=== PATIENT | female | born 1940 | race Caucasian/White ===

== ENCOUNTER 2019-05-21 15:04 | Inpatient (IN) | payer MEDICARE, SELFPAY ==
[2019-05-21] VITALS (7 sets, daily range): BP systolic 182–215; BP diastolic 79–96; PULSE 64–74; RESP 16–18; TEMP 36.6–37.3; O2SAT 97–100; BMI 23.6; BMI 25.8
--- NOTE | ~2019-05-21 | XR_ITS ---
Gastrografin enema examination INDICATION: Sigmoid volvulus TECHNIQUE: Examination of the colon utilizing water-soluble contrast. COMPARISON: 02/25/2019 FINDINGS: There is normal retrograde filling of the colon without obstruction. There is dilated sigmo id colon without focal stricture. The remainder of the colon is unremarkable. No evidence for volvulu s. IMPRESSION: 1: Mildly dilated sigmoid colon without obstruction or volvulus. Reviewed, dictated and finalized at location A.
--- NOTE | ~2019-05-21 | CT_ITS ---
EXAMINATION: CT abdomen pelvis w con EXAM DATE: 05/21/2019 20:40 INDICATION: Constipation, mid abdominal pain and swelling. TECHNIQUE: Spiral CT of the abdomen and pelvis was performed following intravenous injection of 100 m L Omnipaque 350. Axial, coronal and sagittal images were reviewed. The dose-length product (DLP) fo r this examination was 417.97 mGy-cm. The exposure was tailored according to patient size (auto mA e xposure control), and iterative reconstruction (ASIR) was used as additional dose reduction technique . Comparison is made to prior examination from 02/25/2019. FINDINGS: There is recurrent sigmoid volvulus with twisting of the mesentery, severely distended sigm oid colon mostly filled with gas, up to about 9 cm in diameter. There is moderate amount of colonic s tool proximal to this. No small bowel dilation. No perforation or colonic wall thickening. No portal venous gas. The liver, spleen, adrenal glands and pancreas are unremarkable. There are gallstones within an ot herwise unremarkable gallbladder. No evidence of obstructive biliary disease. Portal and splenic ve ins are patent. Kidneys enhance symmetrically. There is no hydronephrosis. There is partially dupli cated right renal collecting system. The uterus is unremarkable. The bladder is unremarkable. The re is no retroperitoneal or pelvic lymphadenopathy. There is moderate scattered arteriosclerotic di sease. The appendix is not positively visualized. There is no pericecal inflammatory change to suggest appe ndicitis. The stomach and small bowel are unremarkable. No free intraperitoneal gas. The heart is normal in size. There are no pericardial or pleural effusions. The lung bases are unremarkable. There are no osteoblastic or osteolytic lesions identified. Mild to moderate chronic L1 compression fracture. IMPRESSION: 1. Recurrent or chronic sigmoid volvulus. Correlate with prior reports, treatment. I discussed volvulus with Nicole López MD at 05/21/2019 20:41 CDT. Reviewed, dictated and finalized at location A. IMPRESSION: 1. Recurrent or chronic sigmoid volvulus. Correlate with prior reports, treatm ent. I discussed volvulus with Nicole López MD at 05/21/2019 20:41 CDT.
[2019-05-21 15:56] LABS: Basophils Percent Auto 0.4 % (0.2-1.2); Eosinophils Percent Auto 0.4 % (0-4.4); Hematocrit 42.9 % (37.0-47.0); Hemoglobin 13.7 g/dL (12.0-15.0); Immature Granulocyte Absolute 0.03 K/mm3 (0.00-0.031); Immature Granulocyte Percent A 0.3 % (0-0.5); Lymphocytes Absolute Auto 1.79 K/mm3 (0.9-3.2); Lymphocytes Percent Auto 19.7 % (18.3-44.2); Mean Corpuscular HGB Conc 31.9 g/dl (32-36); Mean Corpuscular Volume 90.9 fl (80-100); Monocytes Absolute Auto 0.4 K/mm3 (0.1-0.6); Monocytes Percent Auto 4.5 % (2.6-8.5); Neutrophils Absolute Auto 6.8 K/mm3 (1.3-6.7); Neutrophils Percent Auto 74.7 % (45.5-73.1); Platelet Count Result 210 k/mm3 (150-375); Red Blood Count 4.72 M/mm3 (4.2-5.4); Red Cell Distribution Width 13.8 % (11.5-14.5); White Blood Count 9.1 K/mm3 (4.5-10.0)
[2019-05-21 16:10] LABS: Add Urine Microscopic? YES; Appearance Urine Clear (Clear); Bilirubin Urine Negative (Negative); Blood Urine Negative (Negative); Color Urine Yellow (Yellow); Glucose Urine UA Negative (Negative); Ketones Urine Negative (Negative); Leukocyte Esterase Ur Negative LEU/UL (Negative); Mucus Urine Rare /lpf; Nitrate Urine Negative (Negative); Protein Urine 1+ mg/dL (Negative); RBC Urine 0-2 /hpf (0-2); Specific Grav Ur 1.017 (1.001-1.035); Squamous Epithelial Cell Urine Occasional /hpf (Few); Urobilinogen Urine Negative mg/dL (<2.0); WBC Urine 0-3 /hpf
[2019-05-21 18:18] LABS: Alanine Aminotransferase 59 U/L (4-35); Albumin Level 5.4 g/dL (3.5-5.1); Alkaline Phosphatase 94 U/L (38-126); Aspartate Amino Transferase 62 U/L (14-36); Bilirubin,Total 0.8 mg/dL (0.2-1.3); Blood Urea Nitrogen 18 mg/dL (7-17); Calcium 9.9 mg/dL (8.4-10.2); Carbon Dioxide 28 mmol/L (22-30); Chloride 100 mmol/L (98-107); Estimated CRCL calculation 43 ml/min; Estimated Glomerular Filt Rate 60; Glucose 98 mg/dL (65-105); Lipase 127 U/L (23-300); Potassium 4.2 mmol/L (3.4-5.0); Sodium 139 mmol/L (137-145)
--- NOTE | 2019-05-21 19:03 | ED.ABDPAIN ---
HPI - Abdominal Pain General Chief Complaint: Abdominal Pain Stated Complaint: constipation for 3 days Time Seen by Provider: 05/21/19 18:58 Source: patient and RN notes reviewed Mode of arrival: other Limitations: dementia History of Present Illness HPI narrative: Pt is an 78 y/o female who presents to the ED with c/o LUQ abdominal soreness pain that began 3-4 days ago. Pt notes that she fell today. Pt was in the bathroom and slipped on the floor. Pt states that she had an episode of emesis after her fall. She notes that she has not eaten today. Pt denies LOC. Pt also reports left sided chest pain and constipation. Pt takes ASA 81 mg daily. HPI is limited due to pt's dementia. MD elicited complaint: abdominal pain Onset (ago): day(s) (3-4) Location: LUQ Associated symptoms: vomiting, constipation and other (left sided chest pain) Related Data Home Medications Medication Instructions Recorded Confirmed Tylenol 325 mg PO BID 02/25/19 05/22/19 aspirin [Adult Low Dose Aspirin] 81 mg PO DAILY 02/25/19 05/22/19 ezetimibe 10 mg PO DAILY 02/25/19 05/22/19 levothyroxine 25 mcg PO DAILY 02/25/19 05/22/19 metoprolol succinate [Toprol XL] 12.5 mg PO BID 02/25/19 05/22/19 rosuvastatin [Crestor] 40 mg PO DAILY 02/25/19 05/22/19 senna 8.6 mg PO HS 02/25/19 05/22/19 Allergies Allergy/AdvReac Type Severity Reaction Status Date / Time adhesive Allergy Intermediate Rash Verified 05/21/19 22:37 peanut Allergy Unknown Cough Verified 05/21/19 22:37 Review of Systems Review of Systems: ROS unobtainable: other (limited due to pt's dementia) Cardiovascular: Cardiovascular: Reports chest pain (left sided) Gastrointestinal: Gastrointestinal: Reports abdominal pain (LUQ), Reports constipation and Reports vomiting Neurologic: Denies syncope [facility] Past Medical History Medical History Adynamic ileus Anxiety Aortic valve regurgitation Moderate regurgitation noted on echocardiogram December 2015 Arthritis Carotid artery stenosis Constipation With history of possible sigmoid volvulus in November and [place] of 2019. 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 Mcbride due to mitral valve Prolapse; with mild mitral valve regurgitation noted on echo from December 2015 History of cardiac catheterization July 2015 at [place] which demonstrated 50-60% mid LAD stenosis and 40% circumflex stenosis with fractional flow reserve not suggestive of significant limitations that would cause chest pain Family History Family History Father Diabetes mellitus Cerebrovascular accident Heart disease He at age 69 of an [place] Mother Esophageal cancer Sibling , Sister at age 67 of an [place] and had dementia. Another sister who had lung cancer and blood clots. Brother who of a brain tumor 10 years old. Other siblings who had testicular cancer and lymphoma. No problems noted. Social History Social History (Reviewed 05/21
[2019-05-21] MEDS: LACTATED RINGERS 1,000 ML 125 ML IV CONT (23:21)
--- NOTE | 2019-05-22 00:07 | ADMGEN ---
This patient, Peace Kinsey, was admitted to [facility] Surg Room 321-01. Patient/family oriented to hospital policies and general routines including ID bracelet, bed and alarms, visiting hours, pain management, procedures, bathroom and other care routines, personal items, smoking policy, room service/diet, and visiting hours. Valuables list has been completed. Information on how to activate the Rapid Response Team has been discussed. Patient/Family are encouraged to report perceived risks to care and to ask questions if they do not understand what they are told or what they should do.
--- NOTE | 2019-05-22 02:49 | ECG_ITS ---
Measurements Intervals [place] Rate: 65 P: 64 IA: 200 QRS: 10 QRSD: 100 T: 14 QT: 415 QTc: 433 Interpretive Statements SINUS RHYTHM VOLTAGE CRITERIA FOR LVH BORDERLINE ST ABNORMALITY- INF/LAT LEADS BASELINE WANDER- V3-V5 BORDERLINE ECG Electronically Signed On 05-22-2019 7:05:53 CDT by Cezar Love D.O.
[2019-05-22] MEDS: MORPHINE SULFATE 4 MG/ML INJ 2 MG IV PUSH (02:56)
[2019-05-22 04:51] LABS: Troponin I < 0.012 ng/mL (0.000-0.034)
[2019-05-22 06:00] VITALS: BP 146/84; PULSE 66; RESP 18; TEMP 36.5; O2SAT 100
[2019-05-22] MEDS: LACTATED RINGERS 1,000 ML 125 ML IV CONT ×2 (06:22→19:01)
--- NOTE | 2019-05-22 11:18 | PM.CNGS ---
Assessment and Plan Assessment and plan (1) Sigmoid volvulus: Code(s): K56.2 - Volvulus Status: Acute Assessment and Plan: CT scan reviewed and discussed with the patient. She has evidence of a recurrent sigmoid volvulus. This is the third admission with findings suggesting a sigmoid volvulus on CT scan since November of 2018. I discussed the pathophysiology of this process with the patient and the likelihood of recurrence if not treated surgically. The patient has the option to proceed with a sigmoidectomy or take the chance that this could happen again in the future and require more emergent surgery. We will get a gastrografin enema today to further assess the suspected volvulus. GI has been consulted and we will await their recommendations as well. The patient's pain has improved some but she is still distended, diffusely tender, and not having any flatus or bowel movements. We will keep her NPO for now with IV fluids running. Continue analgesics as needed for pain. We will continue to monitor the patient also with serial abdominal exams and imaging. Thank you for allowing me to see the patient in consultation and we will continue to follow along with you. (2) Essential hypertension: Code(s): I10 - Essential (primary) hypertension Status: Acute (3) Paroxysmal atrial fibrillation: Code(s): I48.0 - Paroxysmal atrial fibrillation Status: Acute (4) Vascular dementia: Code(s): F01.50 - Vascular dementia without behavioral disturbance Status: Acute Additional Plan Discussed the patient's case and plan of care with Dr. Choudhury. History of Present Illness Consult details Consult date: 05/22/19 Reason for consult: other (Chronic versus recurrent volvulus) Requesting physician: Nicole López MD Narrative: This is an 78-year-old female with dementia and a history of hypertension, hyperlipidemia, paroxysmal atrial fibrillation, and history of stroke, who has been hospitalized on two previous occasions since November of 2018 for a suspected sigmoid volvulus. During her admission in November of 2018, she had a flexible sigmoidoscopy by Dr. Bran on 11/29/18 and the sigmoid colon appeared normal. Suspected that if there was a sigmoid volvulus, which was initially noted on a CT scan, then it had resolved with the prior to the sigmoidoscopy. She was discharged and returned back to [facility] in February of 2019 with findings on a [address] scan that again showed a sigmoid volvulus. She then had a gastrografin enema study, which showed a distended sigmoid colon but no evidence of an obstruction. She was treated for an ileus and discharged home on Miralax daily and milk of magnesia as needed for constipation. The patient was discharged home and now has presented back to the ER yesterday apparently with complaints of abdominal pain, bloating, and status post a fall. The patient has dementia and is overall a poor historian. She was able to recall some information but seemed very forgetful and frustrated by her confusion. Remaining history was compiled from her electronic medical record. The patient reports noting lower abdominal pain for the past few days that worsened yesterday while in the shower and having a fall after getting out of the shower. She reports to me that she lost consciousness very briefly. She also reports possibly vomiting yesterday but is unsure. She believes it has been 5-6 days since she has last had a BM. She also reports having chest pain yesterday and was concerned about her heart, therefore she decided to present to the ED for further evaluation. CT scan of the abdomen and pelvis showed a chronic versus recurrent sigmoid volvulus. Labs were unremarkable. The patient denies taking any over the counter medications for the constipation. She is unsure if she had takent he Miralax after being discharged in February but states that she does not believe she is currently taking that medication. She d
--- NOTE | 2019-05-22 11:20 | PM.IMHP ---
H&P: HPI History of Present Illness Chief complaint: volvulus abdominal pain Narrative: Date of visit 05/21 [id number] Peace Kinsey is a 78 year old demented white female with recurrent colonic volvulus and/or ileus. Last evening after callus shower she had abdominal pain and slipped and fell. She reported to ER in the there is no loss of consciousness but tells me that she was not sure she passed out or not. She did have emesis and with discomfort came to the emergency room for evaluation. CT scan revealed what looked to be sigmoid volvulus with E ileus. She had similar episodes in November and February 2019 which resolved spontaneously. She does relate that she has not had a bowel movement for 4-5 days and denied any hematemesis melena or hematochezia Review of Systems Review of Systems: Narrative: Review of systems not very reliable due to her dementia Constitutional she has had prior to the present illness appetite was good and weight was stable Eye no double vision or scotoma Mouth no pharyngitis laryngitis Pulmonary no increased shortness breath wheezing or cough CV no chest pain or palpitation no dysuria no hematuria Muscle skeletal no particular joint discomfort Integument no skin breakdown rashes Neuro history of seizures [facility] Past Medical History Medical History (Updated 05/21/19 @ 21:29 by Melia Marcelino) Adynamic ileus Anxiety Aortic valve regurgitation Moderate regurgitation noted on echocardiogram December 2015 Arthritis Carotid artery stenosis Constipation With history of possible sigmoid volvulus November 2018 CVA (cerebral vascular accident) 2015 with TIA in 2009 Depression Diastolic dysfunction On echocardiogram December 2015 with ejection fraction is 60-70% and moderate left atrial enlargement DVT (deep venous thrombosis) rt leg DVT prophylaxis Essential hypertension GERD (gastroesophageal reflux disease) HLD (hyperlipidemia) Hypothyroidism Insomnia Macular 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 Mcbride due to mitral valve Prolapse; with mild mitral valve regurgitation noted on echo from December 2015 History of cardiac catheterization July 2015 at [place] which demonstrated 50-60% mid LAD stenosis and 40% circumflex stenosis with fractional flow reserve not suggestive of significant limitations that would cause chest pain Family History Family History (Updated 02/25/19 @ 22:31 by Dalia Nesbitt DO) Father Diabetes mellitus Cerebrovascular accident Heart disease He at age 69 of an [place] Mother Esophageal cancer Sibling , Sister at age 67 of an [place] and had dementia. Another sister who had lung cancer and blood clots. Brother who of a brain tumor 10 years old. Other siblings who had testicular cancer and lymphoma. No problems noted. Social History Social History (Updated 02/26/19 @ 01:51 by Dalia Nesbitt DO) Social History: Patient is and lives at home with her in [facility]. Patient occasionally drinks alcohol but only in moderation. She briefly smoked in her youth. She worked her way through college. 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 Primary care physician: Dr. Isaias Whitley Code status: Full code per EMR Years smoked: 2 Smoking status: Former smoker Tobacco type: cigarettes Alcohol intake: unknown Substance use: never Substance use type:
[2019-05-22 13:48] VITALS: BMI 25.8
[2019-05-22 14:00] VITALS: BP 154/85; PULSE 55; RESP 18; TEMP 36.4; O2SAT 100
--- NOTE | 2019-05-22 18:40 | WPDGICN ---
Assessment and Plan Assessment and plan (1) Sigmoid volvulus: Code(s): K56.2 - Volvulus Status: Acute Assessment and Plan: surgery on board because recurrent volvulus, ultimately surgery will be indicated because risk of similar presentation. She is comfortable now and enema does not reveal volvulus. Continue with supportive care. (2) Adynamic ileus: Code(s): K56.0 - Paralytic ileus Status: Acute (3) Vascular dementia: Code(s): F01.50 - Vascular dementia without behavioral disturbance Status: Acute Assessment and Plan: at baseline she is confused. (4) Abdominal pain: Qualifiers: Abdominal location: generalized Qualified Code(s): R10.84 - Generalized abdominal pain Code(s): R10.9 - Unspecified abdominal pain Status: Acute Assessment and Plan: improved, monitor (5) Essential hypertension: Code(s): I10 - Essential (primary) hypertension Status: Acute GI Consult Note Consult date/time: 05/22/19 18:40 Reason for consult: recurrent sigmoid volvulus HPI: Peace Kinsey is a 78 year old female with history of hypertension, hyperlipidemia, paroxysmal atrial fibrillation, and dementia (history obtained from records). She has been admitted x2 few months ago for suspected sigmoid volvulus. Dr Bran in November of 2018, performed a flexible sigmoidoscopy and sigmoid appeared normal. She returned back to [facility] in February of 2019 with findings on a CT scan that again showed sigmoid volvulus, then had gastrografin enema study, which showed a distended sigmoid colon but no evidence of an obstruction, treated again for ileus and constipation. Now she is back with abdominal pain, CT scan showed recurrent or chronic sigmoid volvulus but today enema showed only mild dilated sigmoid without volvulus. Pain is better now, no nausea or vomiting. Review of Systems Constitutional: Constitutional: Denies body ache(s) Eyes: Eyes: Denies blurry vision ENT: Denies nasal discharge Cardiovascular: Cardiovascular: Denies chest pain Respiratory: Respiratory: Denies dyspnea Gastrointestinal: Gastrointestinal: Reports abdominal pain and Reports bloating Genitourinary: Genitourinary: Denies dysuria Musculoskeletal: Musculoskeletal: Denies stiffness Neurologic: Denies Abnormal speech present Psychiatric: Psychiatric: Reports anxiety PMFSH Past Medical History Medical History Adynamic ileus Anxiety Aortic valve regurgitation Moderate regurgitation noted on echocardiogram December 2015 Arthritis Carotid artery stenosis Constipation With history of possible sigmoid volvulus in November and February of 2019. 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 Mcbride due to mitral valve Prolapse; with mild mitral valve regurgitation noted on echo from December 2015 History of cardiac catheterization July 2015 at [place] which demonstrated 50-60% mid LAD stenosis and 40% circumflex stenosis with fractional flow reserve not s
[2019-05-22 19:02] VITALS: PULSE 78
[2019-05-22] MEDS: METOPROLOL SUCCINATE EXT REL 12.5 MG TABCR PO (19:02)
[2019-05-22] MEDS: ENOXAPARIN 40 MG/0.4 ML SYRINGE SUB-Q (20:25)
[2019-05-22 22:00] VITALS: BP 188/82; PULSE 61; RESP 18; TEMP 36.6; O2SAT 100
[2019-05-23] MEDS: LACTATED RINGERS 1,000 ML 125 ML IV CONT (04:34)
[2019-05-23 06:00] VITALS: BP 164/67; PULSE 54; RESP 16; TEMP 36.8; O2SAT 100
[2019-05-23 06:10] LABS: Basophils Percent Auto 0.5 % (0.2-1.2); Eosinophils Absolute Auto 0.1 K/mm3 (0-0.3); Eosinophils Percent Auto 1.3 % (0-4.4); Hematocrit 34.7 % (37.0-47.0); Hemoglobin 11.3 g/dL (12.0-15.0); Immature Granulocyte Absolute 0.01 K/mm3 (0.00-0.031); Immature Granulocyte Percent A 0.2 % (0-0.5); Lymphocytes Absolute Auto 2.69 K/mm3 (0.9-3.2); Lymphocytes Percent Auto 44.8 % (18.3-44.2); Mean Corpuscular HGB Conc 32.6 g/dl (32-36); Mean Corpuscular Hemoglobin 29.4 pg (26-34); Mean Corpuscular Volume 90.4 fl (80-100); Mean Platelet Volume 11.3 fl (7.4-10.4); Monocytes Absolute Auto 0.4 K/mm3 (0.1-0.6); Monocytes Percent Auto 6.7 % (2.6-8.5); Neutrophils Absolute Auto 2.8 K/mm3 (1.3-6.7); Neutrophils Percent Auto 46.5 % (45.5-73.1); Platelet Count Result 176 k/mm3 (150-375); Red Blood Count 3.84 M/mm3 (4.2-5.4); Red Cell Distribution Width 13.9 % (11.5-14.5)
[2019-05-23 07:30] LABS: Alanine Aminotransferase 27 U/L (4-35); Albumin Level 3.7 g/dL (3.5-5.1); Alkaline Phosphatase 51 U/L (38-126); Aspartate Amino Transferase 28 U/L (14-36); Bilirubin,Total 0.7 mg/dL (0.2-1.3); Blood Urea Nitrogen 14 mg/dL (7-17); Calcium 8.7 mg/dL (8.4-10.2); Carbon Dioxide 26 mmol/L (22-30); Chloride 105 mmol/L (98-107); Estimated CRCL calculation 47 ml/min; Estimated Glomerular Filt Rate > 60; Glucose 74 mg/dL (65-105); Sodium 136 mmol/L (137-145)
[2019-05-23 10:08] VITALS: PULSE 54
[2019-05-23] MEDS: METOPROLOL SUCCINATE EXT REL 12.5 MG TABCR PO ×2 (10:08→17:43)
[2019-05-23] MEDS: polyethylene glycoL 3350 17 GM POWD.PACK PO (11:30)
--- NOTE | 2019-05-23 11:58 | PM.PNGS ---
Progress Note: A&P Assessment and Plan (1) Sigmoid volvulus: Code(s): K56.2 - Volvulus Status: Acute Assessment and Plan: Gastrografin enema showed no obstruction or evidence of volvulus, mildly dilated sigmoid colon. She is tolerating clear liquids. Discussed the case with Dr. Choudhury. Since this is a recurrent problem, although has not caused a total obstruction, it is likely that this will continue to be an issue in the future and has the potential to become a more emergent issue, by causing ischemia or perforation. It would be recommended that the patient have a sigmoidectomy. We have discussed this with the patient and will attempt to contact the son/POA to discuss the patient's case and our recommendations with proceeding with surgery. Futher plan will be forthcoming following our conversation with the patient and her family. (2) Essential hypertension: Code(s): I10 - Essential (primary) hypertension Status: Acute (3) Paroxysmal atrial fibrillation: Code(s): I48.0 - Paroxysmal atrial fibrillation Status: Acute (4) Vascular dementia: Code(s): F01.50 - Vascular dementia without behavioral disturbance Status: Acute Subjective Subjective Date/Time Seen: 05/23/19 10:58 Patient reports: no new complaints, feels better, pain is less and bowel movement (yesterday) Interval history: Patient reports feeling well today with no complaints of abdominal pain. She reports still some mild nausea after the clear liquids because she drank them fast. No vomiting and bloating has improved. One documented bowel movement yesterday but patient cannot recall having a bowel movement. She does not believe she has been passing gas today. No other complaints at this time. Review of Systems Review of Systems: All systems reviewed & are unremarkable except as noted in HPI and below Exam Const: General: comfortable, no acute distress and awake GI: Inspection: normal to inspection and non-distended GI Palp: Yes Soft to palpation, Yes Tenderness to palpation present (GI) (LUQ and LLQ, mild), No Guarding due to palpation present (GI) and No Rebound tenderness present Auscultation: normal bowel sounds Skin: General skin exam: normal color Neuro: General: patient oriented x3 and no focal motor deficits Extrem: General: normal to inspection and no edema Objective Data Vital Signs Vital Signs: Vital Signs - 24 hr 05/22/19 14:00 05/22/19 19:02 05/22/19 22:00 Temperature 36.4 C L 36.6 C Pulse Rate 55 L 78 61 Respiratory Rate 18 18 Blood Pressure 154/85 H 188/82 H Pulse Oximetry 100 100 05/23/19 06:00 05/23/19 10:08 Temperature 36.8 C Pulse Rate 54 L 54 L Respiratory Rate 16 Blood Pressure 164/67 H Pulse Oximetry 100 Intake/Output Intake/Output: Intake & Output 05/20/19 05/21/19 05/22/19 05/23/19 23:59 23:59 23:59 23:59 Intake Total 2840 1150 Output Total 200 Balance 2640 1150 Meds/Results Medications: Active Medications Generic Name Dose Route Start Last Admin Trade Name Freq PRN Reason Stop Dose Admin Enoxaparin Sodium 40 mg 05/22/19 21:00 05/22/19 20:25 Lovenox SUB-Q 40 mg HS ELE Administration Lactated Ringer's 1,000 mls @ 125 mls/hr 05/21/19 21:25 05/23/19 04:34 Lr - Lactated Ringers Iv IV CONT 125 mls/hr .Q8H ELE Administration Metoprolol Succinate 12.5 mg 05/22/19 17:00 05/23/19 10:08 Toprol Xl PO 12.5 mg BID ELE Administration Morphine Sulfate 2 mg 05/21/19 21:24 05/22/19 02:56 Morphine Sulfate Inj IV PUSH 2 mg Q2H PRN Administration Pain Rated 7-10 Polyethylene Glycol 17 gm 05/23/19 11:55 Miralax PO QAM [facility] Radiology Results: ITS Impressions Abdomen/Pelvis CT 05/21/19 20:43 IMPRESSION: 1. Recurrent or chronic sigmoid volvulus. Correlate with prior reports, treatment. I discussed volvulus with Nicole López MD at 05/21/2019 20:41 CDT. Enema w/Water S
[2019-05-23 14:00] VITALS: BP 169/67; PULSE 57; RESP 14; TEMP 37; O2SAT 100
--- NOTE | 2019-05-23 16:41 | PM.IMPN ---
Progress Note: A&P Assessment and Plan (1) Adynamic ileus: Code(s): K56.0 - Paralytic ileus Status: Acute Assessment and Plan: With probable recurrent volvulus. Resolved with water contrast BE. Today abdomen is benign with good bowel sounds. She got solid fluids and had a normal bowel movement. Surgery has discuss with them the probable need to proceed with elective colon resection to prevent recurrence of the same and complications. She will follow-up Dr. Ramirez and make a definitive decision (2) Essential hypertension: Code(s): I10 - Essential (primary) hypertension Status: Acute Assessment and Plan: Continue metoprolol (3) Paroxysmal atrial fibrillation: Code(s): I48.0 - Paroxysmal atrial fibrillation Status: Acute Assessment and Plan: Sinus rhythm by physical exam and EKG, not anticoagulated due to falls (4) DVT prophylaxis: Code(s): Z29.9 - Encounter for prophylactic measures, unspecified Status: Acute Assessment and Plan: Lovenox (5) Diastolic dysfunction: Code(s): I51.89 - Other ill-defined heart diseases Status: Acute Assessment and Plan: By history chronic diastolic and euvolemic at present time Subjective Date/time seen: 05/23/19 16:41 Interval history: Date of visit 05/22 . 78-year-old demented hypertensive white female with recurrent volvulus any ileus presented with abdominal pain and evidence of volvulus on CT scan. Resolved with water-soluble enema and feeling better today. Had BM after solid foods Exam Narrative: Exam Narrative: Blood pressure 160/66 pulse 54 and regular afebrile Pupil equal reactive to light sclera anicteric Lungs clear CV faint systolic ejection murmur and regular rate rhythm Abdomen is soft nontender bowel sounds increased today Extremities without edema dorsalis pedis posterior tibial 1+ Neuro alert pleasant, cooperative with no focal deficits, oriented to person and place When asked if she had children showed looks to her for answers Objective Data Vital Signs Vital Signs: Vital Signs - 24 hr 05/22/19 19:02 05/22/19 22:00 05/23/19 06:00 Temperature 36.6 C 36.8 C Pulse Rate 78 61 54 L Respiratory Rate 18 16 Blood Pressure 188/82 H 164/67 H Pulse Oximetry 100 100 05/23/19 10:08 Temperature Pulse Rate 54 L Respiratory Rate Blood Pressure Pulse Oximetry Intake/Output Intake/Output: Intake & Output 05/20/19 05/21/19 05/22/19 05/23/19 23:59 23:59 23:59 23:59 Intake Total 2840 2385 Output Total 200 Balance 2640 2385 Meds/Results Medications: Active Medications Generic Name Dose Route Start Last Admin Trade Name Freq PRN Reason Stop Dose Admin Enoxaparin Sodium 40 mg 05/22/19 21:00 05/22/19 20:25 Lovenox SUB-Q 40 mg HS ELE Administration Metoprolol Succinate 12.5 mg 05/22/19 17:00 05/23/19 10:08 Toprol Xl PO 12.5 mg BID ELE Administration Morphine Sulfate 2 mg 05/21/19 21:24 05/22/19 02:56 Morphine Sulfate Inj IV PUSH 2 mg Q2H PRN Administration Pain Rated 7-10 Polyethylene Glycol 17 gm 05/23/19 11:55 05/23/19 12:18 [facility] [place]: ITS Impressions Abdomen/Pelvis CT 05/21/19 20:43 IMPRESSION: 1. Recurrent or chronic sigmoid volvulus. Correlate with prior reports, treatment. I discussed volvulus with Nicole López MD at 05/21/2019 20:41 CDT. Enema w/Water Soluble 05/22/19 13:37 IMPRESSION: 1: Mildly dilated sigmoid colon without obstruction or volvulus. Labs Labs: Laboratory Results - last 24 hr 05/23/19 05/23/19 05:31 05:31 WBC 6.0 RBC 3.84 L Hgb 11.3 L Hct 34.7 L MCV 90.4 MCH 29.4 MCHC 32.6 RDW 13.9 Plt Count 176 MPV 11.3 H Immature Gran % (Auto) 0.2 Neut % (Auto) 46.5 Lymph % (Auto) 44.8 H [place] % (Auto) 6.7 Eos % (Auto) 1.3 Baso % (Auto) 0.5 Lymph # (Auto
[2019-05-23 17:43] VITALS: PULSE 54
[2019-05-23] MEDS: ENOXAPARIN 40 MG/0.4 ML SYRINGE SUB-Q (20:47)
[2019-05-23 22:00] VITALS: BP 108/71; PULSE 64; RESP 18; TEMP 37.2; O2SAT 100
[2019-05-23] MEDS: MORPHINE SULFATE 4 MG/ML INJ 2 MG IV PUSH (23:08)
[2019-05-24 06:00] VITALS: BP 116/78; PULSE 55; RESP 16; TEMP 36.6; O2SAT 96
[2019-05-24 09:25] VITALS: PULSE 56
[2019-05-24] MEDS: polyethylene glycoL 3350 17 GM POWD.PACK PO (09:25)
[2019-05-24] MEDS: METOPROLOL SUCCINATE EXT REL 12.5 MG TABCR PO (09:25)
--- NOTE | 2019-05-24 18:13 | PM.DS ---
DS: Diagnosis Admitting Diagnosis Admitting Diagnosis: Paralytic ileus Discharge Diagnosis (1) Adynamic ileus: Code(s): K56.0 - Paralytic ileus Status: Acute Assessment and Plan: With probable recurrent volvulus. Resolved with water contrast BE. Today abdomen is benign with good bowel sounds. She got solid fluids and had a normal bowel movement. Surgery has discuss with them the probable need to proceed with elective colon resection to prevent recurrence of the same and complications. She will follow-up Dr. Ramirez and make a definitive decision in 2 weeks (2) Essential hypertension: Code(s): I10 - Essential (primary) hypertension Status: Acute Assessment and Plan: Continue metoprolol , blood pressure well controlled with systolic 116 at the time of discharge (3) Paroxysmal atrial fibrillation: Code(s): I48.0 - Paroxysmal atrial fibrillation Status: Acute Assessment and Plan: Sinus rhythm by physical exam and EKG, not anticoagulated due to falls (4) Diastolic dysfunction: Code(s): I51.89 - Other ill-defined heart diseases Status: Acute Assessment and Plan: By history chronic diastolic and euvolemic at present time DS: Summary Hospital Course Hospital Course: 78-year-old hypertensive demented white female with history of diastolic heart failure admitted with recurrent abdominal pain thought secondary to sigmoid volvulus. Had a similar episode in February 2019 which resolved. After water-soluble enema symptoms resolved and she was taking regular food with regular bowel movements. Her and her family were seen in consultation by General surgery entertaining the possibility of colonic resection to prevent recurrence.. She will follow-up with says surgeon in 2 weeks for more definitive decision. Time Spent with Patient Time attestation: Total time spent providing and/or coordinating discharge services: 35 minutes Exam Narrative: Exam Narrative: Condition on discharge blood pressure 116/78 pulse 56 sat 96% on room air Lungs clear CV regular rate rhythm Abdomen is soft bowel sounds normal active nontender Extremities without edema Neuro alert pleasant cooperative no focal deficits She was up without assistance and she was taking diet well and having normal bowel movements Discharge Plan Discharge Attending physician on discharge: Jose Reyes Consulting providers: Calvin Henao ; Chandrakant Choudhury Discharging Clinician: Jose Reyes Patient Disposition: Home, Self-Care Activity: as tolerated Diet: regular Patient Instructions: Antibiotic Form, Pain Management in Older Adults (DC) Stand Alone Forms: General Discharge Information Follow-up/Referrals: Chandrakant Choudhury DO [Physician] - 2 Weeks Discharge Medications: Continued aspirin [Adult Low Dose Aspirin] 81 mg Tablet,Delayed Release (Dr/Ec) 81 mg PO DAILY RF: 0 levothyroxine 25 mcg Tablet 25 mcg PO DAILY RF: 0 metoprolol succinate [Toprol XL] 25 mg Tablet Extended Release 24 Hr 12.5 mg PO BID RF: 0 ezetimibe 10 mg Tablet 10 mg PO DAILY RF: 0 rosuvastatin [Crestor] 40 mg Tablet 40 mg PO DAILY RF: 0 Tylenol 325 MG 325 mg PO BID RF: 0 senna 8.6 mg tablet 8.6 mg PO HS RF: 0 polyethylene glycol 3350 [Miralax] 17 gram Powder In Packet 17 g PO QAM Qty: 30 RF: 0 magnesium hydroxide [Milk of Magnesia] 400 mg/5 mL suspension 5 ml PO DAILY PRN (Reason: constipation) Qty: 118 RF: 0 Date of admission: 05/22/19 10:30 Primary Care Provider: Isaias Whitley Admitting Provider: Dalia Nesbitt Discharge Date/Time: 05/24/19 13:45 Attending physician on admission: Dalia Nesbitt Condition: Stable Quality VTE Prophylaxis VTE prophylaxis: mechanical ordered
== END 2019-05-24 13:45 | disposition home or self-care (01) | DRG 389 ==
LOC: ANHED 21:26 → ANH3MEDSUR 22:28
PROVIDERS: Emergency Medicine; Admitting Provider Internal Medicine; Emergency Provider Emergency Medicine; PCP Family Medicine; Visit Provider Internal Medicine
DX: K56.2 Volvulus (principal); I50.32 Chronic diastolic (congestive) heart failure; I11.0 Hypertensive heart disease with heart failure; K56.0 Paralytic ileus; F41.8 Other specified anxiety disorders; I35.1 Nonrheumatic aortic (valve) insufficiency; M19.90 Unspecified osteoarthritis, unspecified site; I65.29 Occlusion and stenosis of unspecified carotid artery; K59.00 Constipation, unspecified; Z86.73 Personal history of transient ischemic attack (TIA), and cerebral infarction without residual deficits; Z86.718 Personal history of other venous thrombosis and embolism; H35.30 Unspecified macular degeneration; M81.0 Age-related osteoporosis without current pathological fracture; G47.00 Insomnia, unspecified; K21.9 Gastro-esophageal reflux disease without esophagitis; I48.0 Paroxysmal atrial fibrillation; I27.20 Pulmonary hypertension, unspecified; H54.60 Unqualified visual loss, one eye, unspecified; I73.9 Peripheral vascular disease, unspecified; Z87.440 Personal history of urinary (tract) infections; F01.50 Vascular dementia, unspecified severity, without behavioral disturbance, psychotic disturbance, mood disturbance, and anxiety; Z95.3 Presence of xenogenic heart valve; Z87.891 Personal history of nicotine dependence
CPT/HCPCS: 36415; 74177; 74270; 80053; 81001; 83690; 84484; 85025; 93005; 96361; 96365; 96375; 99285; A9270; G0378; J0131; J1650; J2270; J7120; Q9967

== ENCOUNTER 2019-06-27 05:18 | Inpatient (IN) | payer MEDICARE, SELFPAY ==
[2019-06-27] VITALS (48 sets, daily range): BP systolic 123–232; BP diastolic 42–142; PULSE 56–111; RESP 10–28; TEMP 36.2–36.6; O2SAT 72–100; BMI 24.1
--- NOTE | ~2019-06-27 | XR_ITS ---
EXAMINATION: XR abdomen/kub 1V EXAM DATE: 06/30/2019 07:56 INDICATION: Nausea. Sigmoidectomy for volvulus. TECHNIQUE: Frontal projection of the upper abdomen, frontal projection lower abdomen/pelvis for inter pretation. Comparison is made to prior examination from 06/29/2019. FINDINGS: Again there is moderate amount of contrast within the colon, this does not appear significa nt changed compared to yesterday. Colon is moderately distended with this contrast and with gas. Ther e is also gas within the small bowel but no dilated small bowel. There is no contrast extravasation. Cardiac valve replacement. There are bony degenerative changes. IMPRESSION: 1. Nonobstructive bowel gas pattern with moderate amount of colonic contrast and gas. Probably colon ic ileus. Reviewed, dictated and finalized at location G. IMPRESSION: 1. Nonobstructive bowel gas pattern with moderate amount of colonic contrast a nd gas. Probably colonic ileus.
--- NOTE | ~2019-06-27 | XR_ITS ---
XR abdomen/kub 1V 06/29/2019 08:09 Indication: Status post sigmoidectomy for volvulus Procedure: AP supine view of the abdomen Comparison: Comparison to multiple prior studies sequentially, with oldest reviewed study dated 06/26. Findings: There is moderate gas in contrast in the colon which is distended. No definite obstruction is seen. No significant small bowel dilation. Impression: 1: Moderate gas and contrast throughout the colon to the rectum, likely ileus. Reviewed, dictated and finalized at location A. Impression: 1: Moderate gas and contrast throughout the colon to the rectum, likely ileus.
--- NOTE | ~2019-06-27 | XR_ITS ---
EXAMINATION: XR abdomen NG/feed tube insert EXAM DATE: 06/27/2019 19:08 INDICATION: Feeding tube placement. TECHNIQUE: Frontal projection(s) of the abdomen for interpretation. Comparison is made to prior exami nation from earlier same date. FINDINGS: Feeding tube tip and side-port both project over the epigastric region, expected position. There is contrast within the colon, with interval decrease in the gaseous distention previously seen . Cardiac valve replacement. No dilated small bowel in the upper abdomen. IMPRESSION: Feeding tube in position. Interval decrease in amount of colonic distention. Reviewed, dictated and finalized at location A. IMPRESSION: Feeding tube in position. Interval decrease in amount of colonic d istention.
--- NOTE | ~2019-06-27 | XR_ITS ---
EXAMINATION: XR enema water soluble DATE: 06/27/2019 09:07 INDICATION: Sigmoid volvulus. TECHNIQUE: A irrigation equipment installer radiograph was obtained. A catheter was inserted into the patient's rectum. Contra st was infused by gravity. Fluoroscopic spot images and conventional radiographs were obtained. Fluor oscopy exposure time was 0.4 minutes. The total number of images was 25. COMPARISON: CT abdomen and pelvis 06/27/2019 FINDINGS: The distal sigmoid colon is twisted and partially obstructs the flow of contrast. The sigmo id colon is distended proximal to this area. There is no second transition point. The nasogastric tub e tip is in the stomach. There are changes of heart valve replacement. IMPRESSION: 1. Sigmoid volvulus with partial obstruction. Reviewed, dictated and finalized at location A.
--- NOTE | ~2019-06-27 | XR_ITS ---
EXAMINATION: XR chest 1V portable DATE: 06/27/2019 11:32 INDICATION: Sigmoid volvulus. TECHNIQUE: A single frontal view of the chest was obtained. COMPARISON: Chest 2 views 05/31/2018 FINDINGS: A calcified left lung nodule is consistent with old granulomatous disease. No pleural effus ion or pneumothorax. The heart size is normal. There are changes of heart valve replacement. The naso gastric tube tip is in the stomach. IMPRESSION: 1. No acute cardiopulmonary disease. Reviewed, dictated and finalized at location A.
--- NOTE | ~2019-06-27 | XR_ITS ---
EXAMINATION: XR abdomen/kub 1V EXAM DATE: 07/01/2019 06:31 INDICATION: Sigmoidectomy for volvulus. TECHNIQUE: Frontal projection(s) of the abdomen for interpretation. Comparison is made to prior exami nation from 06/30/2019. FINDINGS: There is moderate amount of colonic gas and contrast, appearance not significantly changed compared to yesterday. No evidence of small bowel dilation. There are mild bony degenerative changes . IMPRESSION: 1. Persistent moderate amount of colonic contrast and gas. Probably ileus. Reviewed, dictated and finalized at location A.
--- NOTE | ~2019-06-27 | XR_ITS ---
EXAMINATION: XR abdomen NG/feed tube insert INDICATION: Nasogastric tube placement TECHNIQUE: Portable AP KUB-NG at 0818 hours COMPARISON: None available FINDINGS: The nasogastric tube is in the stomach. Gaseous distention of the colon is again noted. The lung bases are clear. IMPRESSION: 1. Nasogastric tube in the stomach. 2. Colonic distention, consistent with ileus versus partial obstruction. Reviewed, dictated and finalized at location A.
--- NOTE | ~2019-06-27 | CT_ITS ---
EXAMINATION: CT abdomen pelvis w con DATE: 06/27/2019 06:34 INDICATION: Generalized abdominal pain. TECHNIQUE: Computed tomography (CT) of the abdomen and pelvis was performed with 100 mL Omnipaque 350 intravenous contrast. Automated exposure control and iterative reconstruction technique were employe d. The dose-length product was 448.92 mGy-cm. COMPARISON: CT abdomen and pelvis 05/21/2019, 11/29/2018, 02/25/19 FINDINGS: The visualized portions of the lung bases demonstrate mild atelectasis. No pleural effusion . There is biatrial enlargement of the heart. There are changes of mitral valve replacement. No peric ardial effusion. The liver is normal. There are gallstones in the gallbladder, which is normal in siz e. Calcifications in the spleen are consistent with old granulomatous disease. 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 The adrenal glands are normal. There is cortical thinning of the kidneys. 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 There is mild bilateral hydronephrosis. The bladder is distended. There is twisting of the distal sigmoid colon. There is gaseous distention of the more proximal sigmo id colon. The appendix measures 10 mm in diameter and is fluid-filled, which is chronic. There are no pathologically enlarged lymph nodes. There is no free intraperitoneal fluid. There is a calcified ut erine fibroid. There is severe lumbar spondylosis. There is a chronic compression fracture of L1. IMPRESSION: 1. Chronic twisting of the sigmoid colon with gaseous distention of the sigmoid colon, consistent wit h sigmoid volvulus with partial obstruction versus ileus. 2. Mild bilateral hydronephrosis, which may secondary to bladder distention. Reviewed, dictated and finalized at location A. IMPRESSION: 1. Chronic twisting of the sigmoid colon with gaseous distention of the sigmoid colon, consistent with sigmoid volvulus with partial obstruction versus ileus. 2. Mild bilateral hydronephrosis, which may secondary to bladder distention.
--- NOTE | ~2019-06-27 | XR_ITS ---
XR enema water soluble DATE: 07/03/2019 12:49 INDICATION: Abdominal pain since sigmoidectomy on 06/27/2019 TECHNIQUE: Hypaque water-soluble radiographic adenoma 1.4 minutes fluoroscopy time 74.18 DAP 21 images COMPARISON: 06/30, 06/29, 06/29/2019 KUB examinations FINDINGS: There was contrast material and air in the colon on the visual merchandising associate image. There is persistent tapered relative narrowing of the sigmoid colon lumen at the prior area of sigmo id volvulus. Differential diagnosis includes postoperative adynamic ileus, postoperative change or ed deacon versus partial volvulus. Continued follow-up is recommended. IMPRESSION: Persistent focal tapered relative narrowing at the sigmoid colon Reviewed, dictated and finalized at Location A. Reviewed, dictated and finalized at location A.
--- NOTE | 2019-06-27 05:42 | ED.ABDPAIN ---
HPI - Abdominal Pain General Chief Complaint: Abdominal Pain <Araceli Seo MD - Last Filed: 06/30/19 02:30> Stated Complaint: abd pain <Araceli Seo MD - Last Filed: 06/30/19 02:30> Time Seen by Provider: 06/27/19 05:32 <Araceli Seo MD - Last Filed: 06/30/19 02:30> Source: patient <Araceli Seo MD - Last Filed: 06/30/19 02:30> Mode of arrival: ambulatory <Araceli Seo MD - Last Filed: 06/30/19 02:30> Limitations: other (poor historian) <Araceli Seo MD - Last Filed: 06/30/19 02:30> History of Present Illness HPI narrative: This patient is 78 yo female with h/o atrial fibrillation and recurrent sigmoid volvulus who presents to ER for evaluation of abdominal pain since last night. Patient states she has had constant pain located in midabdomen. She has been unable to sleep due to this pain. She denies any nausea or vomiting, but she has not had a bowel movement in 3 days. She thinks she may not have had BM due to decreased appetite. This pain is similar to her previous episode of recurrent Sigmoid volvulus. She was most recently hospitalized last month for a volvulus. PAtient was seen by GI and General surgery at that time for evaluation. On review of records from previous hospitalization, Dr. Choudhury recommended that patient follow up as outpatient for colectomy to prevent recurrent volvulus. PAtient has not follow up and she does not remember needing to follow up . Patient appears to be really forgetful. <Araceli Seo MD - Last Filed: 06/30/19 02:30> MD elicited complaint: abdominal pain <Araceli Seo MD - Last Filed: 06/30/19 02:30> Related Data Home Medications: Home Medications Medication Instructions Recorded Confirmed aspirin [Adult Low Dose Aspirin] 81 mg PO DAILY 02/25/19 06/27/19 ezetimibe 10 mg PO DAILY 02/25/19 06/27/19 levothyroxine 25 mcg PO DAILY 02/25/19 06/27/19 metoprolol succinate [Toprol XL] 12.5 mg PO BID 12/15/19 04/15/20 rosuvastatin [Crestor] 40 mg PO DAILY 02/25/19 06/27/19 acetaminophen 325 mg PO BID 06/27/19 06/27/19 sennosides [Senokot] 8.6 mg PO HS 06/27/19 06/27/19 <Araceli Seo MD - Last Filed: 06/30/19 02:30> Allergies/Adverse Reactions: Allergies Allergy/AdvReac Type Severity Reaction Status Date / Time adhesive Allergy Intermediate Rash Verified 06/27/19 13:35 peanut Allergy Unknown Cough Verified 06/27/19 13:35 <Araceli Seo MD - Last Filed: 06/30/19 02:30> Review of Systems Review of Systems: All systems reviewed & are unremarkable except as noted in HPI and below <Araceli Seo MD - Last Filed: 06/30/19 02:30> Constitutional: Constitutional: Denies chills and Denies fever(s) <Araceli Seo MD - Last Filed: 06/30/19 02:30> Cardiovascular: Cardiovascular: Denies chest pain <Araceli Seo MD - Last Filed: 06/30/19 02:30> Respiratory: Respiratory: Denies dyspnea <Araceli Seo MD - Last Filed: 06/30/19 02:30> Gastrointestinal: Gastrointestinal: Reports abdominal pain, Reports constipation and Denies vomiting <Araceli Seo MD - Last Filed: 06/30/19 02:30> Genitourinary: Genitourinary: Denies hematuria, Denies dysuria and Denies urinary incontinence <Araceli Seo MD - Last Filed: 06/30/19 02:30> [facility] Past Medical History Medical History: Medical History Adynamic ileus Anxiety Aortic valve regurgitation Moderate regurgitation noted on echocardiogram December 2015 Arthritis CAD (coronary artery disease) Carotid artery stenosis Constipation With history of possible sigmoid volvulus in November and February of 2019. CVA (cerebral vascular accident) 2015 with TIA in 2009 Depression Diastolic dysfunction On echocardiogram December 2015 with ejection fraction is 60-70% and moderate left atrial enlargement DVT (deep venous thrombosis) rt leg DVT prophylaxis Essential hyperte
--- NOTE | 2019-06-27 05:53 | ECG_ITS ---
Measurements Intervals [place] Rate: 66 P: 151 NV: 196 QRS: -23 QRSD: 95 T: -24 QT: 418 QTc: 440 Interpretive Statements SINUS RHYTHM ATRIAL PREMATURE COMPLEXES BORDERLINE ST-T WAVE ABNORMALITY- INFERIOR LEADS BORDERLINE ECG Electronically Signed On 06-27-2019 7:23:30 CDT by Cezar Love D.O.
[2019-06-27] MEDS: SODIUM CHLORIDE 0.9% IV 1,000 ML 999 ML IV CONT (05:55)
[2019-06-27] MEDS: ONDANSETRON INJ 4 MG/2 ML VIAL IV PUSH ×2 (05:56→21:55)
[2019-06-27 05:59] LABS: Basophils Percent Auto 0.5 % (0.2-1.2); Eosinophils Absolute Auto 0.1 K/mm3 (0-0.3); Eosinophils Percent Auto 0.9 % (0-4.4); Hematocrit 39.3 % (37.0-47.0); Hemoglobin 12.8 g/dL (12.0-15.0); Immature Granulocyte Absolute 0.01 K/mm3 (0.00-0.031); Immature Granulocyte Percent A 0.1 % (0-0.5); Lymphocytes Absolute Auto 2.89 K/mm3 (0.9-3.2); Lymphocytes Percent Auto 33.6 % (18.3-44.2); Mean Corpuscular HGB Conc 32.6 g/dl (32-36); Mean Corpuscular Hemoglobin 29.4 pg (26-34); Mean Corpuscular Volume 90.3 fl (80-100); Mean Platelet Volume 10.8 fl (7.4-10.4); Monocytes Absolute Auto 0.6 K/mm3 (0.1-0.6); Monocytes Percent Auto 6.6 % (2.6-8.5); Neutrophils Percent Auto 58.3 % (45.5-73.1); Platelet Count Result 194 k/mm3 (150-375); Red Blood Count 4.35 M/mm3 (4.2-5.4); Red Cell Distribution Width 13.8 % (11.5-14.5); White Blood Count 8.6 K/mm3 (4.5-10.0)
[2019-06-27] MEDS: MORPHINE SULFATE 4 MG/ML INJ IV PUSH (05:59)
[2019-06-27 06:13] LABS: INR 0.9; Prothrombin Time 12.3 Seconds (11.1-14.7)
[2019-06-27 06:14] LABS: Add Urine Microscopic? NO; Appearance Urine Clear (Clear); Bilirubin Urine Negative (Negative); Blood Urine Negative (Negative); Color Urine Straw (Yellow); Glucose Urine UA Negative (Negative); Ketones Urine Negative (Negative); Leukocyte Esterase Ur Negative LEU/UL (Negative); Nitrate Urine Negative (Negative); Protein Urine Negative (Negative); Specific Grav Ur 1.011 (1.001-1.035); Urobilinogen Urine Negative mg/dL (<2.0)
[2019-06-27 06:14] LABS: Partial Thromboplastin Time 25.2 SECONDS (22.3-36.8)
[2019-06-27 06:15] LABS: Lactic Acid Reflex 1.3 mmol/L (0.7-2.1)
[2019-06-27 06:16] LABS: Alanine Aminotransferase 41 U/L (4-35); Albumin Level 5.4 g/dL (3.5-5.1); Alkaline Phosphatase 68 U/L (38-126); Aspartate Amino Transferase 66 U/L (14-36); Bilirubin,Total 1.3 mg/dL (0.2-1.3); Blood Urea Nitrogen 13 mg/dL (7-17); Calcium 9.4 mg/dL (8.4-10.2); Carbon Dioxide 29 mmol/L (22-30); Chloride 101 mmol/L (98-107); Estimated CRCL calculation 43 ml/min; Estimated Glomerular Filt Rate 60; Glucose 99 mg/dL (65-105); Lipase 277 U/L (23-300); Potassium 4.6 mmol/L (3.4-5.0); Sodium 138 mmol/L (137-145)
--- NOTE | 2019-06-27 07:44 | PC.NURSE ---
dr bermudez at bedside
--- NOTE | 2019-06-27 09:30 | PC.NURSE ---
pts son bal contacted at [phone] and made aware of mothers condition and fathers confusion regarding situation.
--- NOTE | 2019-06-27 10:20 | ADMGEN ---
This patient, Peace Kinsey, was admitted to [facility] Surg Room 323-01. Patient/family oriented to hospital policies and general routines including ID bracelet, bed and alarms, visiting hours, pain management, procedures, bathroom and other care routines, personal items, smoking policy, room service/diet, and visiting hours. Valuables list has been completed. Information on how to activate the Rapid Response Team has been discussed. Patient/Family are encouraged to report perceived risks to care and to ask questions if they do not understand what they are told or what they should do.
--- NOTE | 2019-06-27 11:17 | PM.IMHP ---
H&P: HPI History of Present Illness Chief complaint: volvulus Narrative: Peace Kinsey is a 78 year old female with a history of recurrent atrial fibrillation, chronic diastolic CHF, stroke in 2015 and right leg DVT. She presented to the emergency room this morning with mid abdominal pain that started last night. She was noted in the emergency room to have abdominal distension and tenderness. She was afebrile and her white blood cell count was normal. CT scan of the abdomen and pelvis showed evidence of sigmoid volvulus. This is the 4th episode of sigmoid volvulus the patient has had. The 1st was in November 2018. She then had another episode in February of 2019. Just over a month ago in May of 2019 she presented with sigmoid volvulus as well. On all these prior episodes, the patient did not have complete obstruction and with minimal testing or intervention the situation improved. Due to her advanced age and some memory issues as well as comorbidities, each time surgery was postponed until her May admission. At that time she was advised to return after that admission and elective sigmoidectomy be done. However the patient and her both have significant memory issues and after discussing with their sons, they opted to hold off on any surgery and see if this would occur yet again. On today's evaluation, the patient not only had a CT scan but a water-soluble contrast enema. The enema shows that this is indeed a complete volvulus with proximal colonic dilatation. This is not the ileus pattern and has shown up on the previous admissions. I have talked with her son Barber and discuss the situation with him. I have also talked with the patient and her . We plan to go ahead today with sigmoidectomy. Review of Systems Review of Systems: ROS unobtainable: Yes unobtainable due to mental status ( Significant memory issues, dementia) Constitutional: Constitutional: Denies chills and Denies fever(s) Gastrointestinal: Gastrointestinal: Reports constipation ( no BM for 3 days) and Denies vomiting Psychiatric: Psychiatric: Reports memory loss ( no real recollection of her admission in May.) [facility] Past Medical History Medical History Adynamic ileus Anxiety Aortic valve regurgitation Moderate regurgitation noted on echocardiogram December 2015 Arthritis Carotid artery stenosis Constipation With history of possible sigmoid volvulus in November and February of 2019. 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 Mcbride due to mitral valve Prolapse; with mild mitral valve regurgitation noted on echo from December 2015 History of cardiac catheterization July 2015 at [place] which demonstrated 50-60% mid LAD stenosis and 40% circumflex stenosis with fractional flow reserve not suggestive of significant limitations that would cause chest pain Family History Family History Father Diabetes mellitus Cerebrovascular accident Heart disease He di
--- NOTE | 2019-06-27 11:40 | PM.IMCN ---
Assessment and Plan Assessment and plan (1) Sigmoid volvulus: Code(s): K56.2 - Volvulus Status: Acute Assessment and Plan: Recurrent Surgical management today (2) Paroxysmal atrial fibrillation: Code(s): I48.0 - Paroxysmal atrial fibrillation Status: Chronic Assessment and Plan: NSR on preop EKG Hold ASA preop Metoprolol IV prn postop Monitor rate perioperatively (3) Diastolic dysfunction: Code(s): I51.89 - Other ill-defined heart diseases Status: Chronic Assessment and Plan: Clinically euvolemic (4) Essential hypertension: Code(s): I10 - Essential (primary) hypertension Status: Chronic Assessment and Plan: IV labetalol perioperatively PRN for BP 160/100 or greater (5) CAD (coronary artery disease): Code(s): I25.10 - Atherosclerotic heart disease of [place] coronary artery without angina pectoris Status: Acute Assessment and Plan: Nonobstructing lesions by prior evaluation Currently w/o sx's (6) Vascular dementia: Code(s): F01.50 - Vascular dementia without behavioral disturbance Status: Chronic (7) Abnormal liver enzymes: Code(s): R74.8 - Abnormal levels of other serum enzymes Status: Acute Assessment and Plan: Elevated with prior volvulus episode No structural lesion by CT Check hepatitis panel F/u LFTs HPI Data of Consult Consult date: 06/27/19 Requesting Physician: Conrad Quan MD Primary Care Provider: Isaias Whitley MD Consult Narrative Narrative: Peace Kinsey is a 78 year old female with a 2 year history of intermittent abdominal bloating constipation and gas. States her appetite has been fairly good and until the night prior to admission when she developed severe mid abdominal discomfort and bloating. Pain moderate to severe with associated cramping. Denied emesis. Denied diarrhea or bleeding. Denied fevers chills or sweats. Similar pain last month when she was admitted for sigmoid volvulus. She improved with conservative management and never followed up for outpatient surgical consultation. She was hospitalized with similar symptoms in November and February of 2019 as well. These also resolved with non operative management, which included a rectal tube in February. Review of Systems Review of Systems: Narrative: Complains of very mild intermittent random twinges in chest. Not associated with activity position breathing eating or exertion of any type. All systems reviewed & are unremarkable except as noted in HPI and below PMFSH Past Medical History Medical History Adynamic ileus Anxiety Aortic valve regurgitation Moderate regurgitation noted on echocardiogram December 2015 Arthritis CAD (coronary artery disease) Carotid artery stenosis Constipation With history of possible sigmoid volvulus in November and February of 2019. 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 Mcbride due to mitral valve Prolapse; with mild
[2019-06-27] MEDS: METOPROLOL TARTRATE INJ 5 MG/5 ML VIAL IV PUSH ×2 (11:51→21:40)
[2019-06-27] MEDS: LACTATED RINGERS 1,000 ML 30 ML IV CONT ×2 (13:00→17:01)
--- NOTE | 2019-06-27 14:29 | PC.NURSE ---
To OR per BED [ ], IV [ ]INTACT SITE CLEAN AND H-L OFF PER OR STAFF. FAMILY AWARE OF PT'S OR AND TIME.
--- NOTE | 2019-06-27 14:38 | WPDANESEPPF ---
Anes - Initial Pre Proc Eval Procedure: Operation Date: 06/27/19 16:00 Proposed Procedures p Sigmoidectomy - Conrad Quan MD Date/Time: 06/27/19 14:38 Surgeon: Conrad Quan MD Pre Op Diagnosis: volvulus Patient Data Age: 78 Gender: F Height: 5 ft 7 in Weight: 70 kg Last Vital Signs Temp 36.5 C 06/27/19 13:00 Pulse 58 L 06/27/19 13:00 Resp 18 06/27/19 13:00 BP 187/88 H 06/27/19 13:00 Pulse Ox 98 06/27/19 13:00 Allergies Allergy/AdvReac Type Severity Reaction Status Date / Time adhesive Allergy Intermediate Rash Verified 06/27/19 13:35 peanut Allergy Unknown Cough Verified 06/27/19 13:35 Home Medications Medication Instructions Recorded Confirmed Type aspirin [Adult Low Dose Aspirin] 81 mg PO DAILY 02/25/19 06/27/19 History ezetimibe 10 mg PO DAILY 02/25/19 06/27/19 History levothyroxine 25 mcg PO DAILY 02/25/19 06/27/19 History metoprolol succinate [Toprol XL] 12.5 mg PO BID 02/25/19 06/27/19 History rosuvastatin [Crestor] 40 mg PO DAILY 02/25/19 06/27/19 History magnesium hydroxide [Milk of 5 ml PO DAILY PRN #118 ml 02/28/19 06/27/19 Rx Magnesia] polyethylene glycol 3350 [Miralax] 17 g PO QAM #30 each 02/28/19 06/27/19 Rx acetaminophen 325 mg PO BID 06/27/19 06/27/19 History sennosides [Senokot] 8.6 mg PO HS 06/27/19 06/27/19 History Laboratory Tests 06/27/19 06/27/19 06/27/19 05:43 05:43 05:43 WBC 8.6 K/mm3 K/mm3 (4.5-10.0) RBC 4.35 M/mm3 M/mm3 (4.2-5.4) Hgb 12.8 g/dL g/dL (12.0-15.0) Hct 39.3 % % (37.0-47.0) MCV 90.3 fl fl (80-100) MCH 29.4 pg pg (26-34) MCHC 32.6 g/dl g/dl (32-36) RDW 13.8 % % (11.5-14.5) Plt Count 194 k/mm3 k/mm3 (150-375) MPV 10.8 fl H fl (7.4-10.4) Immature Gran % (Auto) 0.1 % % (0-0.5) Neut % (Auto) 58.3 % % (45.5-73.1) Lymph % (Auto) 33.6 % % (18.3-44.2) [place] % (Auto) 6.6 % % (2.6-8.5) Eos % (Auto) 0.9 % % (0-4.4) Baso % (Auto) 0.5 % % (0.2-1.2) Lymph # (Auto) 2.89 K/mm3 K/mm3 (0.9-3.2) [place] # (Auto) 0.6 K/mm3 K/mm3 (0.1-0.6) Eos # (Auto) 0.1 K/mm3 K/mm3 (0-0.3) Baso # (Auto) 0.0 K/mm3 K/mm3 (0.0-0.1) Abs Immat Gran (auto) 0.01 K/mm3 K/mm3 (0.00-0.031) Absolute Neuts (auto) 5.0 K/mm3 K/mm3 (1.3-6.7) Absolute Nucleated RBC 0.0 K/mm3 K/mm3 (0.0-0.012) Nucleated RBC % 0.0 % % (0.0-0.2) PT 12.3 Seconds Seconds (11.1-14.7) INR 0.9 APTT 25.2 SECONDS SECONDS (22.3-36.8) Sodium 138 mmol/L mmol/L (137-145) Potassium 4.6 mmol/L mmol/L (3.4-5.0) Chloride 101 mmol/L mmol/L (98-107) Carbon Dioxide 29 mmol/L mmol/L (22-30) BUN 13 mg/dL mg/dL (7-17) Creatinine 0.90 mg/dL mg/dL (0.7-1.0) Estim Creat Clear Calc 43 ml/min ml/min Estimated GFR 60 (59 - ) Glucose 99 mg/dL mg/dL (65-105) Lactic Acid Calcium 9.4 mg/dL mg/dL (8.4-10.2) Total Bilirubin 1.3 mg/dL mg/dL (0.2-1.3) AST 66 U/L H U/L (14-36) ALT 41 U/L H U/L (4-35) Alkaline Phosphatase 68 U/L U/L (38-126) Total Protein 9.0 g/dL H g/dL (6.3-8.2) Albumin 5.4 g/dL H g/dL (3.5-5.1) Lipase 277 U/L U/L (23-300) Urine Color Urine Appearance Urine pH Ur Specific [place] Urine Protein Urine Glucose (UA) Urine Ketones Ur Blood (Man) Urine Nitrate Urine Bilirubin Urine Urobilinogen Leukocyte Esterase Rfl Blood Type Antibody Screen 06/27/19 06/27/19 06/27/19 05:43 05:52 11:40 WBC RBC Hgb
[2019-06-27] MEDS: ceFAZolin 2 GM/D5W 50 ML 2 GM/50 ML BAG IVPB (14:46)
[2019-06-27] MEDS: metroNIDAZOLE 500 MG/ISO 100ML 500 MG/100 ML BAG 100 MG IVPB (14:58)
[2019-06-27] MEDS: SODIUM CHLORIDE 0.9% IV 1,000 ML 125 ML IV CONT (15:48)
--- NOTE | 2019-06-27 17:06 | PM.PROC ---
Procedure Note - Detailed Date of procedure: 06/27/19 Pre-op diagnosis: Sigmoid volvulus sigmoid volvulus Post-op diagnosis: same Procedure performed: sigmoidectomy Description of procedure: the patient was taken to surgery and induced into general anesthesia. Cabrera catheter was placed. The abdomen was prepped and draped. A lower abdominal midline incision was made. Dissection was carried down through the midline fascia and the peritoneal cavity was entered. There was obvious extremely dilated sigmoid colon directly under the abdominal incision. I eviscerated this part of the sigmoid colon and then untwisted the volvulus. This showed a very dilated sigmoid and quite a bit of nondilated sigmoid and distal descending on a very floppy mesentery. The mesentery was thickened where the volvulus had obviously been occurring for quite some time. I used a clamp as well as the Harmonic scalpel and cautery to free up the upper rectum. I divided the mesentery to this part of the upper rectum. I then used a TLC 75 stapler and divided the upper rectum from the distal sigmoid. I then scored the mesentery to the sigmoid colon with the cautery. I proceeded across the sigmoid colon mesentery using primarily the Harmonic 7. Cautery as well as clamps and ties of 2 0 Vicryl were also used. Eventually we dissected across to the distal descending colon. I divided the mesentery from the distal descending colon. I then divided the distal descending colon with the TLC 75 stapler. The sigmoid colon and part of the distal descending colon were then passed off as a specimen labeled sigmoid colon. I freed some of the fatty tissue from the 2 ends of bowel. I checked and made sure the mesentery was hemostatic. There had been a few small bleeding vessels there which had been controlled with cautery. Now the mesentery looked very good with no evidence of any further bleeding. The 2 ends of bowel came in to proximity without any tension and looked very viable. I proceeded with an end-to-end hand-sewn 2 layer anastomosis. Noncrushing bowel clamps were placed on the distal descending colon as well as the more distal rectum to avoid fecal contamination since the bowel had not been prepped. I placed the posterior outer layer of 4 0 silk interrupted Lembert sutures. I then used the cautery and removed the 2 staple lines. No significant amounts of stool came forth. The posterior inner layer of bidirectional running 4 0 chromic suture were then placed in running locking fashion. On each end, the chromic suture was converted to a [place] inverting running suture and this was then continued for the anterior inner layer. The 2 ends of chromic suture were then tied to 1 another. I completed the anterior outer layer with interrupted 4 0 silk Lembert sutures. Bowel looked quite viable and healthy. There was no tension on the 2 ends of bowel. There was in easily palpable lumen between the 2 ends of bowel as well. Air was already passing from the descending colon into the rectum. I placed the bowel back in the abdomen and then positioned the small intestine and transverse colon with omentum over the small bowel in its usual anatomic location. Counts were done and were correct. The peritoneum was closed with running 0 chromic suture. The fascia was closed with bidirectional running 0 PDS suture. The deep subcutaneous was closed with interrupted 3 0 Vicryl suture. The skin was loosely approximated with 4 0 subcuticular Vicryl stitches. The wound was dressed with Xeroform gauze fluffs and Medipore tape. The patient was awakened extubated and taken to recovery in good condition. Sponge and needle counts were correct x2. No complications were noted. Anesthesia: ANNA Surgeon: Conrad Quan MD Fruit Press Operator: Layla RIOS Estimated blood loss (mL): 50 Drains: Yes ( NG TUBE, CABRERA CATHETER) Packing: No Pathology: yes ( sigmoid colon) Complications: None Condition: stable Disposition
--- NOTE | 2019-06-27 19:30 | SUR.PHASEI ---
1715-PT AWAKE AND EXTREMELY WILD, PULLED OFF O2 MASK, TRYING TO PULL OUT NG, TRYING TO GET OOB, ATTEMPTING TO HIT, KICK, AND BITE STAFF. UNABLE TO REASON WITH PT. 1730-PT REMAINS UNCHANGED, ADDITIONAL STAFF AT BEDSIDE, UNABLE TO REASON WITH PT PT. INCONTINENT OF STOOL AND ALSO, HAVING SMALL BROWN STOOL SMELLING EMESIS. [id number] TO REASON WITH PT AND MAINTAIN NG IN PLACE. PT WITH REPEATED EMESIS ABOVE. EFFORTS TO CHECK PLACEMENT OF NG-AIR INSTILLATION HEARD, UNABLE TO ASPIRATE STOMACH CONTENTS.REMAINS EXTEMELY WILD. 180-NOTIFIED DR. RODRIGEZ OF ABOVE, ORDERS RECEIVED. 1820-NG TUBE REMOVED AND ATTEMPT TO REINSERT, PT CONTINUES TO ATTEMPT TO HIT AND BITE STAFF AND PULLING AT THINGS. 1830-ADDITIONAL STAFF SUMMONED-4 STAFF AT BEDSIDE. 1845-ATTEMPTING TO SEDATE PT. 1848-DR. NOBLES IN RECOVERY AND AWARE OF PT STATUS. 185-DR. NOBLES WITH PT AND SEDATED WITH PROPOFLOL FOR NG INSERTION. 1854-#18 SALEM SUMP INSERTED LEFT NARE, TAPED AT 65CM PER Janice ABREU RN. PLACEMENT VERIFIED WITH AIR INSTILLATION. UNABLE TO WITHDRAW STOMACH CONTENTS. 1903-XRAY HERE TO OBTAIN KUB. 1927-DR. RODRIGEZ CALLED FOR UPDATE AND WITH KUB RESULTS. NG REMAINS TO LOW SUCTION WITH NO RETURN. ABD. DRESSING DRY/INTACT. ABD. REMAINS SOFT, CABRERA PATENT, MODESTO URINE.
[2019-06-27] MEDS: FAMOTIDINE 20 MG/2 ML VIAL IV PUSH (21:40)
[2019-06-27] MEDS: LACTATED RINGERS 1,000 ML 125 ML IV CONT (21:40)
[2019-06-27] MEDS: MORPHINE SULFATE 4 MG/ML INJ 2 MG IV PUSH (21:48)
[2019-06-28] VITALS (10 sets, daily range): BP systolic 115–150; BP diastolic 45–78; PULSE 65–81; RESP 18–20; TEMP 36.7–37.6; O2SAT 96–100
[2019-06-28] MEDS: METOPROLOL TARTRATE INJ 5 MG/5 ML VIAL IV PUSH ×4 (02:55→19:02)
[2019-06-28] MEDS: LACTATED RINGERS 1,000 ML 125 ML IV CONT (05:52)
[2019-06-28 05:57] LABS: Basophils Percent Auto 0.2 % (0.2-1.2); Hematocrit 37.4 % (37.0-47.0); Immature Granulocyte Absolute 0.11 K/mm3 (0.00-0.031); Immature Granulocyte Percent A 0.6 % (0-0.5); Lymphocytes Absolute Auto 1.07 K/mm3 (0.9-3.2); Lymphocytes Percent Auto 6.2 % (18.3-44.2); Mean Corpuscular HGB Conc 32.1 g/dl (32-36); Mean Corpuscular Hemoglobin 29.4 pg (26-34); Mean Corpuscular Volume 91.7 fl (80-100); Mean Platelet Volume 11.6 fl (7.4-10.4); Monocytes Absolute Auto 0.9 K/mm3 (0.1-0.6); Monocytes Percent Auto 5.3 % (2.6-8.5); Neutrophils Percent Auto 87.7 % (45.5-73.1); Platelet Count Result 170 k/mm3 (150-375); Red Blood Count 4.08 M/mm3 (4.2-5.4); Red Cell Distribution Width 14.2 % (11.5-14.5); White Blood Count 17.2 K/mm3 (4.5-10.0)
[2019-06-28 06:01] LABS: Alanine Aminotransferase 24 U/L (4-35); Albumin Level 4.1 g/dL (3.5-5.1); Alkaline Phosphatase 58 U/L (38-126); Aspartate Amino Transferase 32 U/L (14-36); Bilirubin,Total 0.6 mg/dL (0.2-1.3); Blood Urea Nitrogen 13 mg/dL (7-17); Carbon Dioxide 29 mmol/L (22-30); Chloride 101 mmol/L (98-107); Estimated CRCL calculation 43 ml/min; Estimated Glomerular Filt Rate 60; Glucose 144 mg/dL (65-105); Potassium 3.8 mmol/L (3.4-5.0); Sodium 136 mmol/L (137-145)
[2019-06-28 06:32] LABS: Hepatitis B Surface Antigen Negative (Negative)
[2019-06-28 06:37] LABS: HAV RESULT Negative (Negative)
[2019-06-28 06:50] LABS: Hepatitis C Virus Antibody Negative (Negative)
--- NOTE | 2019-06-28 07:42 | PM.PNGS ---
Progress Note: A&P Assessment and Plan (1) Sigmoid volvulus: Code(s): K56.2 - Volvulus Status: Acute Assessment and Plan: looks good this morning. Will go ahead and discontinue her Gill catheter as well as her NG tube. Start full liquids. Up and in chair, walking in room if able. (2) Vascular dementia: Code(s): F01.50 - Vascular dementia without behavioral disturbance Status: Chronic Assessment and Plan: Minimize narcotics and start to ambulates today. Seems to be at baseline which is great. (3) Paroxysmal atrial fibrillation: Code(s): I48.0 - Paroxysmal atrial fibrillation Status: Chronic (4) Diastolic dysfunction: Code(s): I51.89 - Other ill-defined heart diseases Status: Chronic Subjective Subjective Date/Time Seen: 06/28/19 07:42 Post Op day: 1 Patient reports: no new complaints, pain is less, no bowel movement and vomiting ( EMESIS WHEN COMING OUT OF ANESTHESIA BUT REALLY NONE SINCE. VERY LITTLE OUT of NG tube.) Review of Systems Review of Systems: ROS unobtainable: Yes unobtainable due to mental status Exam Const: General: cooperative, comfortable, no acute distress, alert, awake and confusion Orientation/consciousness: confusion Resp: Effort & Inspection: normal respiratory effort Auscultation: clear to auscultation bilaterally Cardio: Rate: regular rate Rhythm: regular rhythm GI: Inspection: non-distended and incision ( Dressing dry and intact) GI Palp: Yes Soft to palpation, Yes Tenderness to palpation present (GI), No Guarding due to palpation present (GI) and No Rebound tenderness present Auscultation: normal bowel sounds Neuro: General: patient oriented x3, no focal motor deficits and No confusion Extrem: General: no calf tenderness and no edema Objective Data Vital Signs Vital Signs: Vital Signs - 24 hr 06/27/19 07:45 06/27/19 07:46 06/27/19 08:00 Temperature Pulse Rate 61 61 62 Respiratory Rate 17 10 L 15 Blood Pressure 194/90 H Pulse Oximetry 100 100 79 L 06/27/19 08:01 06/27/19 08:10 06/27/19 08:15 Temperature Pulse Rate 63 76 68 Respiratory Rate 23 H 14 17 Blood Pressure 202/73 H 136/88 Pulse Oximetry 72 L 06/27/19 08:55 06/27/19 09:15 06/27/19 11:37 Temperature 36.2 C L Pulse Rate 57 L Respiratory Rate 16 18 Blood Pressure 215/80 H 189/83 H Pulse Oximetry 72 L 06/27/19 13:00 06/27/19 17:01 06/27/19 17:15 Temperature 36.5 C 36.6 C Pulse Rate 58 L 64 68 Respiratory Rate 18 13 14 Blood Pressure 187/88 H 172/64 H 153/57 H Pulse Oximetry 98 100 100 06/27/19 17:30 06/27/19 17:45 06/27/19 18:00 Temperature Pulse Rate 70 70 68 Respiratory Rate 15 10 L 10 L Blood Pressure 168/94 H 179/81 H 180/81 H Pulse Oximetry 100 100 100 06/27/19 19:00 06/27/19 19:15 06/27/19 19:30 Temperature Pulse Rate 68 72 76 Respiratory Rate 10 L 12 16 Blood Pressure 123/42 L 149/64 H 170/72 H Pulse Oximetry 100 100 100 06/27/19 19:45 06/27/19 20:00 06/27/19 20:15 Temperature Pulse Rate 79 79 78 Respiratory Rate 19 18 15 Blood Pressure 164/68 H 168/75 H 168/75 H Pulse Oximetry 100 100 99 06/27/19 20:30 06/27/19 21:23 06/27/19 21:40 Temperature 36.4 C Pulse Rate 77 111 H 78 Respiratory Rate 19 18 Blood Pressure 177/83 H 167/66 H Pulse Oximetry 99 100 06/27/19 22:08 06/28/19 02:00 06/28/19 02:55 Temperature 36.6 C 37.6 C Pulse Rate 89 81 72 Respiratory Rate 18 20 Blood Pressure 157/72 H 117/65 Pulse Oximetry 98 96 06/28/19 06:00 06/28/19 07:38 Temperature 36.9 C Pulse Rate 77 72 Respiratory Rate 18 Blood Pressure 139/51 L Pulse Oximetry 99 Intake/Output Intake/Output: Intake & Output 06/25/19 06/26/19 06/27/19 06/28/19 23:59 23:59 23:59 23:59 Intake Total 1500 1000 Output Total 325 700 Balance 1175 300 Meds/Results Medications: Active Medications Generic Name Dose Route Start Last Admin Trade Name Freq [place]
[2019-06-28] MEDS: ENOXAPARIN 40 MG/0.4 ML SYRINGE SUB-Q (08:29)
[2019-06-28] MEDS: FAMOTIDINE 20 MG/2 ML VIAL IV PUSH ×2 (08:29→20:43)
--- NOTE | 2019-06-28 16:43 | PC.NURSE ---
Gill removed @0822 this morning. Patient has not urinated, Bladder scan showed 202mL in bladder. Verbal order to continue to monitor patient per Dr. Tapia.
[2019-06-28] MEDS: LACTATED RINGERS 1,000 ML 80 ML IV CONT (16:46)
--- NOTE | 2019-06-28 17:29 | P.PNIM_ITS ---
Progress Note: A&P Assessment and Plan (1) Sigmoid volvulus: Code(s): K56.2 - Volvulus Status: Acute Assessment and Plan: * Patient with recurrent sigmoid volvulus. * 06/27/19: CT scan showing sigmoid volvulus. Water-soluble enema performed showing partial obstruction. * Patient is now postop day 1 from sigmoidectomy and appears to be recovering well. * Start PT and OT. * Appreciate General surgery input. (2) Paroxysmal atrial fibrillation: Code(s): I48.0 - Paroxysmal atrial fibrillation Status: Chronic Assessment and Plan: * NSR on preop EKG * Patient not on long-term anticoagulation; aspirin on hold at this time. * Patient currently on Metoprolol IV scheduled. * Continue to monitor. (3) Diastolic dysfunction: Code(s): I51.89 - Other ill-defined heart diseases Status: Chronic Assessment and Plan: * Clinically euvolemic * Continue to monitor fluid status. (4) Essential hypertension: Code(s): I10 - Essential (primary) hypertension Status: Chronic Assessment and Plan: * On 06/28/2019. Blood pressure reasonably well controlled. * Continue IV metoprolol scheduled. * IV labetalol available as needed but will change to hydralazine (5) CAD (coronary artery disease): Code(s): I25.10 - Atherosclerotic heart disease of [place] coronary artery without angina pectoris Status: Acute Assessment and Plan: * Nonobstructing lesions by prior evaluation * Currently w/o sx's * Resume aspirin, Zetia and Crestor when able. * Metoprolol has been resumed. (6) Vascular dementia: Code(s): F01.50 - Vascular dementia without behavioral disturbance Status: Chronic Assessment and Plan: * Alert but confused. * Most likely at baseline; continue to follow. (7) Abnormal liver enzymes: Code(s): R74.8 - Abnormal levels of other serum enzymes Status: Acute Assessment and Plan: * Elevated with prior volvulus episode * No structural lesion by CT * Hepatitis panel negative * Repeat LFTs normal. (8) Bilateral hydronephrosis: Code(s): N13.30 - Unspecified hydronephrosis Status: Acute Assessment and Plan: CT scan showing mild bilateral hydronephrosis, which may secondary to bladder distention. Renal function normal on admission and remains normal. Gill r emoved today. Monitor UOP. (9) DVT prophylaxis: Code(s): Z29.9 - Encounter for prophylactic measures, unspecified Status: Acute Assessment and Plan: Nicolas Subjective Date/time seen: 06/28/19 17:29 Interval history: 78yo female with pAFib, dementia and chronic CHF here for abd pain found to have sigmoid volvulus. Assuming care. Chart reviewed. Patient does complain of abdominal pain. She is alert but overall she is confused and unable to provide accurate review of systems. Review of Systems Review of Systems: ROS unobtainable: Yes unobtainable due to mental status Exam Narrative: Exam Narrative: GEN: NARD lying almost flat in bed CHEST: Few basilar rhonchi otherwise clear. Normal respiratory rate. HEART: Regular rate and rhythm. S1/S2 ABDOMEN: Soft. Positive bowel sounds. Midline dressing is clean, dry and intact. EXTREMITIES: No pedal edema. 2+ DP pulses bilaterally. NEUROLOGIC: Alert but confused. Oriented to her name and location only. PSYCH: Pleasant and cooperative
--- NOTE | 2019-06-28 17:29 | PM.IMPN ---
Progress Note: A&P Assessment and Plan (1) Sigmoid volvulus: Code(s): K56.2 - Volvulus Status: Acute Assessment and Plan: Patient with recurrent sigmoid volvulus. 06/27/19: CT scan showing sigmoid volvulus. Water-soluble enema performed showing partial obstruction. Patient is now postop day 1 from sigmoidectomy and appears to be recovering well. Start PT and OT. Appreciate General surgery input. (2) Paroxysmal atrial fibrillation: Code(s): I48.0 - Paroxysmal atrial fibrillation Status: Chronic Assessment and Plan: NSR on preop EKG Patient not on long-term anticoagulation; aspirin on hold at this time. Patient currently on Metoprolol IV scheduled. Continue to monitor. (3) Diastolic dysfunction: Code(s): I51.89 - Other ill-defined heart diseases Status: Chronic Assessment and Plan: Clinically euvolemic Continue to monitor fluid status. (4) Essential hypertension: Code(s): I10 - Essential (primary) hypertension Status: Chronic Assessment and Plan: On 06/28/2019. Blood pressure reasonably well controlled. Continue IV metoprolol scheduled. IV labetalol available as needed but will change to hydralazine (5) CAD (coronary artery disease): Code(s): I25.10 - Atherosclerotic heart disease of [place] coronary artery without angina pectoris Status: Acute Assessment and Plan: Nonobstructing lesions by prior evaluation Currently w/o sx's Resume aspirin, Zetia and Crestor when able. Metoprolol has been resumed. (6) Vascular dementia: Code(s): F01.50 - Vascular dementia without behavioral disturbance Status: Chronic Assessment and Plan: Alert but confused. Most likely at baseline; continue to follow. (7) Abnormal liver enzymes: Code(s): R74.8 - Abnormal levels of other serum enzymes Status: Acute Assessment and Plan: Elevated with prior volvulus episode No structural lesion by CT Hepatitis panel negative Repeat LFTs normal. (8) Bilateral hydronephrosis: Code(s): N13.30 - Unspecified hydronephrosis Status: Acute Assessment and Plan: CT scan showing mild bilateral hydronephrosis, which may secondary to bladder distention. Renal function normal on admission and remains normal. Gill removed today. Monitor UOP. (9) DVT prophylaxis: Code(s): Z29.9 - Encounter for prophylactic measures, unspecified Status: Acute Assessment and Plan: Nicolas Subjective Date/time seen: 06/28/19 17:29 Interval history: 78yo female with pAFib, dementia and chronic CHF here for abd pain found to have sigmoid volvulus. Assuming care. Chart reviewed. Patient does complain of abdominal pain. She is alert but overall she is confused and unable to provide accurate review of systems. Review of Systems Review of Systems: ROS unobtainable: Yes unobtainable due to mental status Exam Narrative: Exam Narrative: GEN: NARD lying almost flat in bed CHEST: Few basilar rhonchi otherwise clear. Normal respiratory rate. HEART: Regular rate and rhythm. S1/S2 ABDOMEN: Soft. Positive bowel sounds. Midline dressing is clean, dry and intact. EXTREMITIES: No pedal edema. 2+ DP pulses bilaterally. NEUROLOGIC: Alert but confused. Oriented to her name and location only. PSYCH: Pleasant and cooperative Objective Data Vital Signs Vital Signs: Vital Signs - 24 hr 06/27/19 17:30 06/27/19 17:45 06/27/19 18:00 Temperature Pulse Rate 70 70 68 Respiratory Rate 15 10 L 10 L Blood Pressure 168/94 H 179/81 H 180/81 H Pulse Oximetry 100 100 100 06/27/19 19:00 06/27/19 19:15 06/27/19 19:30 Temperature Pulse Rate 68 72 76 Respiratory Rate 10 L 12 16 Blood Pressure 123/42 L 149/64 H 170/72 H Pulse Oximetry 100 100 100 06/27/19 19:45 06/27/19 20:00 06/27/19 20:15 Temperature Pulse Rate 79 79 78 R
[2019-06-29 00:19] VITALS: PULSE 88
[2019-06-29] MEDS: METOPROLOL TARTRATE INJ 5 MG/5 ML VIAL IV PUSH ×4 (00:19→18:38)
[2019-06-29 05:24] LABS: Hematocrit 34.2 % (37.0-47.0); Hemoglobin 11.2 g/dL (12.0-15.0); Mean Corpuscular HGB Conc 32.7 g/dl (32-36); Mean Corpuscular Hemoglobin 29.2 pg (26-34); Mean Corpuscular Volume 89.1 fl (80-100); Mean Platelet Volume 11.2 fl (7.4-10.4); Platelet Count Result 156 k/mm3 (150-375); Red Blood Count 3.84 M/mm3 (4.2-5.4); Red Cell Distribution Width 14.4 % (11.5-14.5); White Blood Count 13.4 K/mm3 (4.5-10.0)
[2019-06-29 05:47] VITALS: PULSE 80
[2019-06-29] MEDS: LACTATED RINGERS 1,000 ML 80 ML IV CONT ×2 (05:47→18:35)
[2019-06-29 05:52] LABS: Blood Urea Nitrogen 16 mg/dL (7-17); Calcium 8.6 mg/dL (8.4-10.2); Carbon Dioxide 30 mmol/L (22-30); Chloride 100 mmol/L (98-107); Estimated CRCL calculation 47 ml/min; Estimated Glomerular Filt Rate > 60; Glucose 110 mg/dL (65-105); Potassium 3.8 mmol/L (3.4-5.0); Sodium 134 mmol/L (137-145)
[2019-06-29 06:00] VITALS: BP 173/68; PULSE 69; RESP 18; TEMP 36.7; O2SAT 97
--- NOTE | 2019-06-29 07:34 | PM.PNGS ---
Progress Note: A&P Assessment and Plan (1) Sigmoid volvulus: Code(s): K56.2 - Volvulus Status: Acute Assessment and Plan: some nausea and mild abdominal distention noted this morning. Will get a KUB and change patient back to NPO except for ice chips. Hopefully this will resolve and we can proceed with feeding her. If not, may need to place NG tube and consider TPN. (2) Vascular dementia: Code(s): F01.50 - Vascular dementia without behavioral disturbance Status: Chronic (3) Paroxysmal atrial fibrillation: Code(s): I48.0 - Paroxysmal atrial fibrillation Status: Chronic (4) Diastolic dysfunction: Code(s): I51.89 - Other ill-defined heart diseases Status: Chronic Subjective Subjective Date/Time Seen: 06/29/19 07:34 Post Op day: 2 Patient reports: pain is less, bowel movement (Yesterday) and nausea Review of Systems Review of Systems: ROS unobtainable: Yes unobtainable due to mental status Exam GI: Inspection: distended and incision ( healing well) GI Palp: Yes Soft to palpation and Yes Tenderness to palpation present (GI) ( mild appropriate tenderness) Auscultation: Hypoactive bowel sounds present Objective Data Vital Signs Vital Signs: Vital Signs - 24 hr 06/28/19 07:38 06/28/19 10:08 06/28/19 13:37 Temperature 36.9 C Pulse Rate 72 69 65 Respiratory Rate 18 Blood Pressure 115/45 L Pulse Oximetry 98 06/28/19 14:00 06/28/19 18:00 06/28/19 19:02 Temperature 37.1 C 36.7 C Pulse Rate 65 72 72 Respiratory Rate 18 18 Blood Pressure 150/55 H 148/59 H Pulse Oximetry 99 100 06/28/19 23:08 06/29/19 00:19 06/29/19 05:47 Temperature 36.7 C Pulse Rate 79 88 80 Respiratory Rate 18 Blood Pressure 148/78 H Pulse Oximetry 100 06/29/19 06:00 Temperature 36.7 C Pulse Rate 69 Respiratory Rate 18 Blood Pressure 173/68 H Pulse Oximetry 97 Intake/Output Intake/Output: Intake & Output 06/26/19 06/27/19 06/28/19 06/29/19 23:59 23:59 23:59 23:59 Intake Total 1500 2180 1300 Output Total 953 389 6766 Balance 1175 1480 -25 Meds/Results Medications: Active Medications Generic Name Dose Route Start Last Admin Trade Name Freq PRN Reason Stop Dose Admin Enoxaparin Sodium 40 mg 06/28/19 09:00 06/28/19 08:29 Lovenox SUB-Q 40 mg DAILY ELE Administration Famotidine 20 mg 06/27/19 21:00 06/28/19 20:43 Pepcid Iv IV PUSH 20 mg Q12HR ELE Administration Hydralazine HCl 10 mg 06/28/19 17:46 Apresoline Hcl Inj IV PUSH Q8H PRN Blood Pressure - High Lactated Ringer's 1,000 mls @ 80 mls/hr 06/27/19 20:36 06/29/19 05:47 Lr - Lactated Ringers Iv IV CONT 80 mls/hr .[id number] ELE Administration Ibuprofen 400 mg/ Sodium 104 mls @ 200 mls/hr 06/27/19 20:36 Chloride IVPB Q6H PRN Pain Rated 1-3 Metoprolol Tartrate 5 mg 06/27/19 12:00 06/29/19 05:47 Lopressor Inj IV PUSH 5 mg Q6HR ELE Administration Morphine Sulfate 1 mg 06/27/19 20:36 Morphine Sulfate Inj IV PUSH Q2H PRN Pain Rated 4-6 Morphine Sulfate 2 mg 06/27/19 20:36 06/27/19 21:48 Morphine Sulfate Inj IV PUSH 2 mg Q2H PRN Administration Pain Rated 7-10 Naloxone HCl 0.1 mg 06/27/19 20:36 Narcan IV PUSH Q2M PRN Opiate Reversal Ondansetron HCl 4 mg 06/27/19 20:36 06/27/19 21:55 Zofran Inj IV PUSH 4 mg Q4H PRN Administration Nausea And Vomiting Radiology Results: ITS Impressions Abdomen/Pelvis CT 06/27/19 06:35 IMPRESSION: 1. Chronic twisting of the sigmoid colon with gaseous distention of the sigmoid colon, consistent with sigmoid volvulus with partial obstruction versus ileus. 2. Mild bilateral hydronephrosis, which may secondary to bladder distention. Enema w/Water Soluble 06/27/19 09:10 IMPRESSION: 1. Sigmoid volvulus with partial obstruction. Chest X-Ray 06/27/19 11:38 IMPRESSION: 1. No acute cardiopulmonary d
[2019-06-29] MEDS: ENOXAPARIN 40 MG/0.4 ML SYRINGE SUB-Q (08:38)
--- NOTE | 2019-06-29 10:37 | PCPTNOTE ---
PT attempted initial evaluation this morning, however patient refused due to not feeling well despite encouragement. Will re-attempt to evaluate patient this afternoon as deemed appropriate. Patient left in bed with all needs in reach, bed alarmed armed. Nurse, [employer], neonatal critical care nurse updated that PT will re-attempt initial evaluation this afternoon. Carmen Ricks, PT, DPT
[2019-06-29] MEDS: IBUPROFEN IV 400 MG in SODIUM CHLORIDE 0.9% IV 100 ML 200 MG IVPB (11:12)
--- NOTE | 2019-06-29 11:45 | PCOTNOTE ---
OT attempted initial evaluation this morning, however patient refused due to not feeling well despite encouragement. Will re-attempt to evaluate patient this afternoon as deemed appropriate. Patient left in bed with all needs met, bed alarm armed. Nurse, SHANE, day care assistant updated that OT will re-attempt initial evaluation this afternoon.
[2019-06-29] MEDS: FAMOTIDINE 20 MG/2 ML VIAL IV PUSH ×2 (11:58→21:02)
[2019-06-29 13:27] VITALS: BP 175/81
[2019-06-29] MEDS: ONDANSETRON INJ 4 MG/2 ML VIAL IV PUSH (14:52)
[2019-06-29 15:17] VITALS: BP 164/74; PULSE 63; RESP 16; TEMP 36.3; O2SAT 99
--- NOTE | 2019-06-29 16:22 | P.PNIM_ITS ---
Progress Note: A&P Assessment and Plan (1) Adynamic ileus: Code(s): K56.0 - Paralytic ileus Status: Acute Assessment and Plan: * Patient with +BS and pain minimal. * BM listed on 06/26 but nothing since * NPO now except for ice chips. * Continue to have patient up to the chair and walking as tolerated. (2) Sigmoid volvulus: Code(s): K56.2 - Volvulus Status: Acute Assessment and Plan: * Patient with recurrent sigmoid volvulus. * 06/27/19: CT scan showing sigmoid volvulus. Water-soluble enema performed showing partial obstruction. * Patient is now postop day 2 from sigmoidectomy * Continue PT and OT. * Appreciate General surgery input. (3) Paroxysmal atrial fibrillation: Code(s): I48.0 - Paroxysmal atrial fibrillation Status: Chronic Assessment and Plan: * NSR on preop EKG * Patient not on long-term anticoagulation; aspirin on hold at this time. * Patient currently on Metoprolol IV scheduled. * Continue to monitor. (4) Diastolic dysfunction: Code(s): I51.89 - Other ill-defined heart diseases Status: Chronic Assessment and Plan: * Clinically euvolemic * Continue to monitor fluid status. (5) Essential hypertension: Code(s): I10 - Essential (primary) hypertension Status: Chronic Assessment and Plan: * Blood pressure reviewed 06/29/19 * Blood pressure more elevated overnight and today which could be related to pain. * Continue IV metoprolol scheduled. NPO now so oral medications can not be started. * IV hydralazine available as needed. * Consider IV enapril or NTP if BP becomes more elevated to levels requiring hydralaizine (6) CAD (coronary artery disease): Code(s): I25.10 - Atherosclerotic heart disease of [place] coronary artery without angina pectoris Status: Acute Assessment and Plan: * Nonobstructing lesions by prior evaluation * Currently w/o sx's * Resume aspirin, Zetia and Crestor when able. * Metoprolol has been resumed. (7) Vascular dementia: Code(s): F01.50 - Vascular dementia without behavioral disturbance Status: Chronic Assessment and Plan: * Alert but confused. * Most likely at baseline * Continue to follow. (8) Abnormal liver enzymes: Code(s): R74.8 - Abnormal levels of other serum enzymes Status: Acute Assessment and Plan: * Elevated with prior volvulus episode * No structural lesion by CT * Hepatitis panel negative * Repeat LFTs normal. Monitor intermittently. (9) Bilateral hydronephrosis: Code(s): N13.30 - Unspecified hydronephrosis Status: Acute Assessment and Plan: * CT scan showing mild bilateral hydronephrosis, which may secondary to bladder distention. * Renal function normal on admission and remains normal. * Gill removed yesterday. * Good urine output. Continue to monitor. (10) DVT prophylaxis: Code(s): Z29.9 - Encounter for prophylactic measures, unspecified Status: Acute Assessment and Plan: * Lovenox Subjective Date/time seen: 06/29/19 16:22 Interval history: 78yo female with pAFib, dementia and chronic CHF here for abd pain found to have sigmoid volvulus. Patient alert but confused. Abd pain is tolerable. She denies CP. No BMs or flatus with slight nausea but overall her hx is unreliable. Review of Systems Review of Systems: RICKI simmons
--- NOTE | 2019-06-29 16:22 | PM.IMPN ---
Progress Note: A&P Assessment and Plan (1) Adynamic ileus: Code(s): K56.0 - Paralytic ileus Status: Acute Assessment and Plan: Patient with +BS and pain minimal. BM listed on 06/26 but nothing since NPO now except for ice chips. Continue to have patient up to the chair and walking as tolerated. (2) Sigmoid volvulus: Code(s): K56.2 - Volvulus Status: Acute Assessment and Plan: Patient with recurrent sigmoid volvulus. 06/27/19: CT scan showing sigmoid volvulus. Water-soluble enema performed showing partial obstruction. Patient is now postop day 2 from sigmoidectomy Continue PT and OT. Appreciate General surgery input. (3) Paroxysmal atrial fibrillation: Code(s): I48.0 - Paroxysmal atrial fibrillation Status: Chronic Assessment and Plan: NSR on preop EKG Patient not on long-term anticoagulation; aspirin on hold at this time. Patient currently on Metoprolol IV scheduled. Continue to monitor. (4) Diastolic dysfunction: Code(s): I51.89 - Other ill-defined heart diseases Status: Chronic Assessment and Plan: Clinically euvolemic Continue to monitor fluid status. (5) Essential hypertension: Code(s): I10 - Essential (primary) hypertension Status: Chronic Assessment and Plan: Blood pressure reviewed 06/29/19 Blood pressure more elevated overnight and today which could be related to pain. Continue IV metoprolol scheduled. NPO now so oral medications can not be started. IV hydralazine available as needed. Consider IV enapril or NTP if BP becomes more elevated to levels requiring hydralaizine (6) CAD (coronary artery disease): Code(s): I25.10 - Atherosclerotic heart disease of [place] coronary artery without angina pectoris Status: Acute Assessment and Plan: Nonobstructing lesions by prior evaluation Currently w/o sx's Resume aspirin, Zetia and Crestor when able. Metoprolol has been resumed. (7) Vascular dementia: Code(s): F01.50 - Vascular dementia without behavioral disturbance Status: Chronic Assessment and Plan: Alert but confused. Most likely at baseline Continue to follow. (8) Abnormal liver enzymes: Code(s): R74.8 - Abnormal levels of other serum enzymes Status: Acute Assessment and Plan: Elevated with prior volvulus episode No structural lesion by CT Hepatitis panel negative Repeat LFTs normal. Monitor intermittently. (9) Bilateral hydronephrosis: Code(s): N13.30 - Unspecified hydronephrosis Status: Acute Assessment and Plan: CT scan showing mild bilateral hydronephrosis, which may secondary to bladder distention. Renal function normal on admission and remains normal. Gill removed yesterday. Good urine output. Continue to monitor. (10) DVT prophylaxis: Code(s): Z29.9 - Encounter for prophylactic measures, unspecified Status: Acute Assessment and Plan: Lovenox Subjective Date/time seen: 06/29/19 16:22 Interval history: 78yo female with pAFib, dementia and chronic CHF here for abd pain found to have sigmoid volvulus. Patient alert but confused. Abd pain is tolerable. She denies CP. No BMs or flatus with slight nausea but overall her hx is unreliable. Review of Systems Review of Systems: ROS unobtainable: Yes unobtainable due to mental status Exam Narrative: Exam Narrative: GEN: NARD sitting up in chair CHEST: CTA bilaterally, nml RR HEART: Regular rate and rhythm. S1/S2 with a 2/6 systolic murmur RUSB ABDOMEN: soft, +BS, mild diffuse tenderness, dressing clean and dry, mildly protuberant EXT: No pedal edema NEURO: Alert but confused. Oriented to her name and location only. PSYCH: Pleasant and cooperative Objective Data Vital Signs Vital Signs: Vital Signs - 24 hr 06/28/19 18:00 06/28/19 19:02
[2019-06-29 22:00] VITALS: BP 175/75; PULSE 72; RESP 18; TEMP 36.2; O2SAT 99
[2019-06-30 00:24] VITALS: PULSE 62
[2019-06-30] MEDS: METOPROLOL TARTRATE INJ 5 MG/5 ML VIAL IV PUSH ×4 (00:24→18:47)
[2019-06-30 05:35] VITALS: PULSE 68
[2019-06-30] MEDS: LACTATED RINGERS 1,000 ML 80 ML IV CONT (06:20)
[2019-06-30 06:22] LABS: Hematocrit 34.5 % (37.0-47.0); Hemoglobin 11.2 g/dL (12.0-15.0); Mean Corpuscular HGB Conc 32.5 g/dl (32-36); Mean Corpuscular Hemoglobin 29.5 pg (26-34); Mean Corpuscular Volume 90.8 fl (80-100); Mean Platelet Volume 11.3 fl (7.4-10.4); Platelet Count Result 145 k/mm3 (150-375); Red Cell Distribution Width 13.9 % (11.5-14.5); White Blood Count 9.7 K/mm3 (4.5-10.0)
[2019-06-30 06:33] LABS: Blood Urea Nitrogen 12 mg/dL (7-17); Calcium 8.7 mg/dL (8.4-10.2); Carbon Dioxide 29 mmol/L (22-30); Chloride 99 mmol/L (98-107); Estimated CRCL calculation 54 ml/min; Estimated Glomerular Filt Rate > 60; Glucose 90 mg/dL (65-105); Potassium 3.6 mmol/L (3.4-5.0); Sodium 135 mmol/L (137-145)
[2019-06-30 07:11] VITALS: BP 174/76; PULSE 67; RESP 16; TEMP 36.6; O2SAT 98
[2019-06-30] MEDS: ENOXAPARIN 40 MG/0.4 ML SYRINGE SUB-Q (08:14)
[2019-06-30] MEDS: FAMOTIDINE 20 MG/2 ML VIAL IV PUSH ×2 (08:15→20:50)
--- NOTE | 2019-06-30 10:14 | P.PNIM_ITS ---
Progress Note: A&P Assessment and Plan (1) Adynamic ileus: Code(s): K56.0 - Paralytic ileus Status: Acute Assessment and Plan: * Patient with +BS and pain minimal. * BM listed on 06/26 but nothing since * NPO now except for ice chips. * Patient up walking in the parker * Repeat Obst series showing persistent colonic ileus (2) Sigmoid volvulus: Code(s): K56.2 - Volvulus Status: Acute Assessment and Plan: * Patient with recurrent sigmoid volvulus. * 06/27/19: CT scan showing sigmoid volvulus. Water-soluble enema performed showing partial obstruction. * Patient is now postop day 3 from sigmoidectomy * Continue PT and OT. * Appreciate General surgery input. (3) Paroxysmal atrial fibrillation: Code(s): I48.0 - Paroxysmal atrial fibrillation Status: Chronic Assessment and Plan: * NSR on preop EKG * Patient not on long-term anticoagulation; aspirin on hold at this time. * Patient currently on Metoprolol IV scheduled. * Continue to monitor. (4) Diastolic dysfunction: Code(s): I51.89 - Other ill-defined heart diseases Status: Chronic Assessment and Plan: * Clinically euvolemic * Continue to monitor fluid status. (5) Essential hypertension: Code(s): I10 - Essential (primary) hypertension Status: Chronic Assessment and Plan: * Blood pressure reviewed 06/30/19 * Blood pressure remains elevated despite Metoprolol. * Continue IV metoprolol scheduled. Currently NPO. * IV hydralazine available as needed. * Add IV enapril (6) CAD (coronary artery disease): Code(s): I25.10 - Atherosclerotic heart disease of [place] coronary artery without angina pectoris Status: Acute Assessment and Plan: * Nonobstructing lesions by prior evaluation * Currently w/o sx's * Resume aspirin, Zetia and Crestor when able. * Metoprolol has been resumed. (7) Vascular dementia: Code(s): F01.50 - Vascular dementia without behavioral disturbance Status: Chronic Assessment and Plan: * Alert but confused. * Most likely at baseline * Continue to follow. (8) Abnormal liver enzymes: Code(s): R74.8 - Abnormal levels of other serum enzymes Status: Acute Assessment and Plan: * Elevated with prior volvulus episode * No structural lesion by CT * Hepatitis panel negative * Repeat LFTs normal. Monitor intermittently. (9) Bilateral hydronephrosis: Code(s): N13.30 - Unspecified hydronephrosis Status: Acute Assessment and Plan: * CT scan showing mild bilateral hydronephrosis, which may secondary to bladder distention. * Renal function normal on admission and remains normal. * Gill removed 06/27. * Continues to have good urine output. Continue to monitor. (10) DVT prophylaxis: Code(s): Z29.9 - Encounter for prophylactic measures, unspecified Status: Acute Assessment and Plan: * Lovenox Subjective Date/time seen: 06/30/19 10:14 Interval history: 78yo female with pAFib, dementia and chronic CHF here for abd pain found to have sigmoid volvulus. Patient alert but confused. Hx unreliable but she states abd pain no change. No n/v. No BM bust she is not sure about flatus. Up walking in the halls. No CP. Exam Narrative: Exam Narrative: GEN: NARD lying flat in bed CHEST: CTA bilaterally, nml RR HEART: Regular rate and rhythm
--- NOTE | 2019-06-30 10:14 | PM.IMPN ---
Progress Note: A&P Assessment and Plan (1) Adynamic ileus: Code(s): K56.0 - Paralytic ileus Status: Acute Assessment and Plan: Patient with +BS and pain minimal. BM listed on 06/26 but nothing since NPO now except for ice chips. Patient up walking in the parker Repeat Obst series showing persistent colonic ileus (2) Sigmoid volvulus: Code(s): K56.2 - Volvulus Status: Acute Assessment and Plan: Patient with recurrent sigmoid volvulus. 06/27/19: CT scan showing sigmoid volvulus. Water-soluble enema performed showing partial obstruction. Patient is now postop day 3 from sigmoidectomy Continue PT and OT. Appreciate General surgery input. (3) Paroxysmal atrial fibrillation: Code(s): I48.0 - Paroxysmal atrial fibrillation Status: Chronic Assessment and Plan: NSR on preop EKG Patient not on long-term anticoagulation; aspirin on hold at this time. Patient currently on Metoprolol IV scheduled. Continue to monitor. (4) Diastolic dysfunction: Code(s): I51.89 - Other ill-defined heart diseases Status: Chronic Assessment and Plan: Clinically euvolemic Continue to monitor fluid status. (5) Essential hypertension: Code(s): I10 - Essential (primary) hypertension Status: Chronic Assessment and Plan: Blood pressure reviewed 06/30/19 Blood pressure remains elevated despite Metoprolol. Continue IV metoprolol scheduled. Currently NPO. IV hydralazine available as needed. Add IV enapril (6) CAD (coronary artery disease): Code(s): I25.10 - Atherosclerotic heart disease of [place] coronary artery without angina pectoris Status: Acute Assessment and Plan: Nonobstructing lesions by prior evaluation Currently w/o sx's Resume aspirin, Zetia and Crestor when able. Metoprolol has been resumed. (7) Vascular dementia: Code(s): F01.50 - Vascular dementia without behavioral disturbance Status: Chronic Assessment and Plan: Alert but confused. Most likely at baseline Continue to follow. (8) Abnormal liver enzymes: Code(s): R74.8 - Abnormal levels of other serum enzymes Status: Acute Assessment and Plan: Elevated with prior volvulus episode No structural lesion by CT Hepatitis panel negative Repeat LFTs normal. Monitor intermittently. (9) Bilateral hydronephrosis: Code(s): N13.30 - Unspecified hydronephrosis Status: Acute Assessment and Plan: CT scan showing mild bilateral hydronephrosis, which may secondary to bladder distention. Renal function normal on admission and remains normal. Gill removed 06/27. Continues to have good urine output. Continue to monitor. (10) DVT prophylaxis: Code(s): Z29.9 - Encounter for prophylactic measures, unspecified Status: Acute Assessment and Plan: Lovenox Subjective Date/time seen: 06/30/19 10:14 Interval history: 78yo female with pAFib, dementia and chronic CHF here for abd pain found to have sigmoid volvulus. Patient alert but confused. Hx unreliable but she states abd pain no change. No n/v. No BM bust she is not sure about flatus. Up walking in the halls. No CP. Exam Narrative: Exam Narrative: GEN: NARD lying flat in bed CHEST: CTA bilaterally, nml RR HEART: Regular rate and rhythm ABDOMEN: soft, ND, +BS, dressing clean and dry EXT: No pedal edema NEURO: Alert but confused. PSYCH: Pleasant and cooperative Objective Data Vital Signs Vital Signs: Vital Signs - 24 hr 06/29/19 13:27 06/29/19 15:17 06/29/19 22:00 Temperature 97.3 F L 97.1 F L Pulse Rate 63 72 Respiratory Rate 16 18 Blood Pressure 175/81 H 164/74 H 175/75 H Pulse Oximetry 99 99 06/30/19 00:24 06/30/19 05:35 06/30/19 07:11 Temperature 97.8 F Pulse Rate 62 68 67 Respiratory Rate 16 Blood Pressure 174/76 H Pulse O
[2019-06-30] MEDS: DEXTROSE 5%/LACTATED RINGERS 1,000 ML 80 ML IV CONT (12:00)
[2019-06-30 12:03] LABS: Glucose Point of Care 73 (65-105)
[2019-06-30] MEDS: ENALAPRILAT 1.25 MG/ML VIAL IV PUSH ×2 (12:05→18:47)
--- NOTE | 2019-06-30 12:59 | PM.PNGS ---
Progress Note: A&P Assessment and Plan (1) Volvulus: Code(s): K56.2 - Volvulus Status: Acute Assessment and Plan: exam benign, + flatus, will start clears, cont to encourage OOB/IS, AXR reviewed and largely unchanged Subjective Subjective Date/Time Seen: 06/30/19 12:59 Interval history: Patient still confused, which is baseline. Patient denies any abdominal pain this morning. Patient is up walking with physical therapy. Patient denies any appetite, however wants something to drink. Patient does not have any bowel movements, but reports some flatus. Review of Systems Cardiovascular: Cardiovascular: Denies chest pain Respiratory: Respiratory: Denies dyspnea Gastrointestinal: Gastrointestinal: Denies abdominal pain, Denies nausea and Denies vomiting Exam Const: General: no acute distress Resp: Auscultation: clear to auscultation bilaterally Cardio: Rate: regular rate Rhythm: regular rhythm GI: Other: S, sl dist, oscar TTP, incision C/D/I, +bs Objective Data Vital Signs Vital Signs: Vital Signs - 24 hr 06/29/19 13:27 06/29/19 15:17 06/29/19 22:00 Temperature 36.3 C L 36.2 C L Pulse Rate 63 72 Respiratory Rate 16 18 Blood Pressure 175/81 H 164/74 H 175/75 H Pulse Oximetry 99 99 06/30/19 00:24 06/30/19 05:35 06/30/19 07:11 Temperature 36.6 C Pulse Rate 62 68 67 Respiratory Rate 16 Blood Pressure 174/76 H Pulse Oximetry 98 Intake/Output Intake/Output: Intake & Output 06/27/19 06/28/19 06/29/19 06/30/19 23:59 23:59 23:59 23:59 Intake Total 1500 2180 2404 1240 Output Total 644 231 6435 1000 Balance 1175 1480 679 240 Meds/Results Medications: Active Medications Generic Name Dose Route Start Last Admin Trade Name Freq PRN Reason Stop Dose Admin Enalaprilat 1.25 mg 06/30/19 12:00 06/30/19 12:05 Vasotec Iv IV PUSH 1.25 mg Q6HR ELE Administration Enoxaparin Sodium 40 mg 06/28/19 09:00 06/30/19 08:14 Lovenox SUB-Q 40 mg DAILY ELE Administration Famotidine 20 mg 06/27/19 21:00 06/30/19 08:15 Pepcid Iv IV PUSH 20 mg Q12HR ELE Administration Hydralazine HCl 10 mg 06/28/19 17:46 Apresoline Hcl Inj IV PUSH Q8H PRN Blood Pressure - High Ibuprofen 400 mg/ Sodium 104 mls @ 200 mls/hr 06/27/19 20:36 06/29/19 11:42 Chloride IVPB Infused Q6H PRN Infusion Pain Rated 1-3 Dextrose/Lactated Ringer's 1,000 mls @ 80 mls/hr 06/30/19 10:10 06/30/19 12:00 Dextrose 5%/Lactated Ringers IV CONT 80 mls/hr .[id number] ELE Administration Metoprolol Tartrate 5 mg 06/27/19 12:00 06/30/19 12:05 Lopressor Inj IV PUSH 5 mg Q6HR ELE Administration Morphine Sulfate 1 mg 06/27/19 20:36 Morphine Sulfate Inj IV PUSH Q2H PRN Pain Rated 4-6 Morphine Sulfate 2 mg 06/27/19 20:36 06/27/19 21:48 Morphine Sulfate Inj IV PUSH 2 mg Q2H PRN Administration Pain Rated 7-10 Naloxone HCl 0.1 mg 06/27/19 20:36 Narcan IV PUSH Q2M PRN Opiate Reversal Ondansetron HCl 4 mg 06/27/19 20:36 06/29/19 14:52 Zofran Inj IV PUSH 4 mg Q4H PRN Administration Nausea And Vomiting Radiology Results: ITS Impressions Abdomen/Pelvis CT 06/27/19 06:35 IMPRESSION: 1. Chronic twisting of the sigmoid colon with gaseous distention of the sigmoid colon, consistent with sigmoid volvulus with partial obstruction versus ileus. 2. Mild bilateral hydronephrosis, which may secondary to bladder distention. Enema w/Water Soluble 06/27/19 09:10 IMPRESSION: 1. Sigmoid volvulus with partial obstruction. Chest X-Ray 06/27/19 11:38 IMPRESSION: 1. No acute cardiopulmonary disease. Abdomen X-Ray 06/30/19 08:00 IMPRESSION: 1. Nonobstructive bowel gas pattern with moderate amount of colonic contrast and gas. Probably colonic ileus. Labs Labs: Laboratory Results - last 24 hr 06/30/19 06/30/19 06/30/19 05:53 05:53 11:53 WBC 9.7 R
[2019-06-30 14:09] VITALS: BP 156/73; PULSE 75; RESP 18; TEMP 36.7; O2SAT 98
--- NOTE | 2019-06-30 14:17 | PCOTNOTE ---
Per RN, patient inappropriate to be seen at this time. Will continue plan of care tomorrow, 07/01/19.
--- NOTE | 2019-06-30 14:32 | PC.NURSE ---
Pt extremely agitated today at 1200. has been repeatedly calling to her room. We unplugged her phone to reduce agitation. continues to call to floor as frequently as every five minutes. We have tried to explain visitor restriction due to covid, pt agaitation, given him updates on her. He continues to call. arrived in ED to see , unwilling to leave without seeing her. GLOBAL RISK MANAGEMENT DIRECTOR and I tried facetiming each other to let them talk iwth one another. agreeable, increasingly angry. We ended the call assuring the we would take good care of her and give her a hug from him. Pt lied down angrily muttering. Fifteen minutes later, she set off her bed alarm yelling she was leaving to go get her because he is fragile. She wants to leave. Reminded her of her recent surgery and she was not ready to leave yet. Lauren and I worked with her to calm down. Called Willie to request some medication to assist her. resumed calling frequently (multiple times an hour). I called son Barber, but I went straight to . Called Deandra CASTREJON to see if she had a phone number for Bradly, the son who lives with him, but she only had the home phone. Contacted Bradly who stated his dad was a violent man that he could not control. Informed him dad had driven up here to see her and continues to make multiple calls hourly. He again stated that he couldnt stop his dad. Spoke with Barber who said he is aware they both have dementia, but they cannot comprehend the prabhakar virus and the need to quarantine/no visitors. Barber called his mom to try and help her calm down. Bradly called back to say that he was trying to help dad refrain from calling repeatedly, but that he was working to get his brother to come up to the area to find a better solution for mom and dad. Willie returned and said he would put a med in.
[2019-06-30 18:21] LABS: Glucose Point of Care 136 (65-105)
[2019-06-30 21:00] VITALS: BP 196/71; PULSE 77; RESP 18; TEMP 37.6; O2SAT 100
[2019-06-30] MEDS: hydrALAZINE HCL 20 MG/ML VIAL 10 MG IV PUSH (21:07)
[2019-06-30] MEDS: MORPHINE SULFATE 4 MG/ML INJ 2 MG IV PUSH (21:08)
[2019-07-01 00:05] LABS: Glucose Point of Care 115 (65-105)
[2019-07-01 01:31] VITALS: PULSE 77
[2019-07-01] MEDS: DEXTROSE 5%/LACTATED RINGERS 1,000 ML 80 ML IV CONT ×2 (01:31→12:35)
[2019-07-01] MEDS: ENALAPRILAT 1.25 MG/ML VIAL IV PUSH (01:31)
[2019-07-01] MEDS: METOPROLOL TARTRATE INJ 5 MG/5 ML VIAL IV PUSH ×3 (01:31→18:35)
[2019-07-01 06:26] LABS: Hematocrit 31.6 % (37.0-47.0); Hemoglobin 10.6 g/dL (12.0-15.0); Mean Corpuscular HGB Conc 33.5 g/dl (32-36); Mean Corpuscular Hemoglobin 29.3 pg (26-34); Mean Corpuscular Volume 87.3 fl (80-100); Mean Platelet Volume 11.2 fl (7.4-10.4); Platelet Count Result 178 k/mm3 (150-375); Red Blood Count 3.62 M/mm3 (4.2-5.4); Red Cell Distribution Width 13.9 % (11.5-14.5); White Blood Count 7.8 K/mm3 (4.5-10.0)
[2019-07-01 06:41] LABS: Blood Urea Nitrogen 11 mg/dL (7-17); Calcium 8.5 mg/dL (8.4-10.2); Carbon Dioxide 30 mmol/L (22-30); Chloride 101 mmol/L (98-107); Estimated CRCL calculation 43 ml/min; Estimated Glomerular Filt Rate 60; Glucose 117 mg/dL (65-105); Potassium 3.3 mmol/L (3.4-5.0); Sodium 135 mmol/L (137-145)
[2019-07-01 08:44] VITALS: BP 127/51; PULSE 76; RESP 18; TEMP 37.1; O2SAT 98
[2019-07-01] MEDS: LEVOTHYROXINE SODIUM 25 MCG TABLET PO (09:27)
[2019-07-01] MEDS: ENOXAPARIN 40 MG/0.4 ML SYRINGE SUB-Q (09:28)
[2019-07-01] MEDS: FAMOTIDINE 20 MG/2 ML VIAL IV PUSH ×2 (09:28→21:18)
[2019-07-01 10:03] LABS: Glucose Point of Care 126 (65-105)
--- NOTE | 2019-07-01 10:30 | PM.PNGS ---
Progress Note: A&P Assessment and Plan (1) Volvulus: Code(s): K56.2 - Volvulus Status: Acute Assessment and Plan: exam benign, rebeca clears, await bowel fxn prior to advancing diet further, cont OOB/IS Subjective Subjective Date/Time Seen: 07/01/19 10:30 Interval history: Pt at baseline level of confusion. Nurses report extreme confusion/agitation overnight. Pt rebeca clears. Pt c some smears/flatus but no BMs. Pt denies any abd pain, OOB c PT and ambulating well. Review of Systems Cardiovascular: Cardiovascular: Denies chest pain Respiratory: Respiratory: Denies dyspnea Gastrointestinal: Gastrointestinal: Denies abdominal pain, Denies nausea and Denies vomiting Exam Const: General: no acute distress Resp: Auscultation: clear to auscultation bilaterally Cardio: Rate: regular rate Rhythm: regular rhythm GI: Other: S, sl dist, oscar TTP, incision C/D/I Objective Data Vital Signs Vital Signs: Vital Signs - 24 hr 06/30/19 14:09 06/30/19 21:00 07/01/19 01:31 Temperature 36.7 C 37.6 C H Pulse Rate 75 77 77 Respiratory Rate 18 18 Blood Pressure 156/73 H 196/71 H Pulse Oximetry 98 100 07/01/19 08:44 Temperature 37.1 C Pulse Rate 76 Respiratory Rate 18 Blood Pressure 127/51 L Pulse Oximetry 98 Intake/Output Intake/Output: Intake & Output 06/28/19 06/29/19 06/30/19 07/01/19 23:59 23:59 23:59 23:59 Intake Total 2180 2404 2310 2160 Output Total 700 1725 2400 1450 Balance 1480 679 -90 710 Meds/Results Medications: Active Medications Generic Name Dose Route Start Last Admin Trade Name Freq PRN Reason Stop Dose Admin Enalaprilat 1.25 mg 06/30/19 12:00 07/01/19 09:20 Vasotec Iv IV PUSH Not Given Q6HR ELE Enoxaparin Sodium 40 mg 06/28/19 09:00 07/01/19 09:28 Lovenox SUB-Q 40 mg DAILY [facility] Administration Famotidine 20 mg 06/27/19 21:00 07/01/19 09:28 Pepcid Iv IV PUSH 20 mg Q12HR ELE Administration Hydralazine HCl 10 mg 06/28/19 17:46 06/30/19 21:07 Apresoline Hcl Inj IV PUSH 10 mg Q8H PRN Administration Blood Pressure - High Ibuprofen 400 mg/ Sodium 104 mls @ 200 mls/hr 06/27/19 20:36 06/29/19 11:42 Chloride IVPB Infused Q6H PRN Infusion Pain Rated 1-3 Dextrose/Lactated Ringer's 1,000 mls @ 80 mls/hr 06/30/19 10:10 07/01/19 01:31 Dextrose 5%/Lactated Ringers IV CONT 80 mls/hr .[id number] ELE Administration Levothyroxine Sodium 25 mcg 07/01/19 06:30 07/01/19 09:27 Synthroid PO 25 mcg DAILY@0630 [facility] Administration Metoprolol Tartrate 5 mg 06/27/19 12:00 07/01/19 09:21 Lopressor Inj IV PUSH Not Given Q6HR [facility] Morphine Sulfate 1 mg 06/27/19 20:36 Morphine Sulfate Inj IV PUSH Q2H PRN Pain Rated 4-6 Morphine Sulfate 2 mg 06/27/19 20:36 06/30/19 21:08 Morphine Sulfate Inj IV PUSH 2 mg Q2H PRN Administration Pain Rated 7-10 Naloxone HCl 0.1 mg 06/27/19 20:36 Narcan IV PUSH Q2M PRN Opiate Reversal Ondansetron HCl 4 mg 06/27/19 20:36 06/29/19 14:52 Zofran Inj IV PUSH 4 mg Q4H PRN Administration Nausea And Vomiting Radiology Results: ITS Impressions Abdomen/Pelvis CT 06/27/19 06:35 IMPRESSION: 1. Chronic twisting of the sigmoid colon with gaseous distention of the sigmoid colon, consistent with sigmoid volvulus with partial obstruction versus ileus. 2. Mild bilateral hydronephrosis, which may secondary to bladder distention. Enema w/Water Soluble 06/27/19 09:10 IMPRESSION: 1. Sigmoid volvulus with partial obstruction. Chest X-Ray 06/27/19 11:38 IMPRESSION: 1. No acute cardiopulmonary disease. Abdomen X-Ray 07/01/19 08:31 IMPRESSION: 1. Persistent moderate amount of colonic contrast and gas. Probably ileus. Labs Labs: Laboratory Results - last 24 hr 04/06/30/19 07/01/19 11:53 17:29 00:02 WBC RBC Hgb Hct MCV MCH MCHC RDW
[2019-07-01 12:07] LABS: Glucose Point of Care 145 (65-105)
[2019-07-01] MEDS: ONDANSETRON INJ 4 MG/2 ML VIAL IV PUSH (12:49)
--- NOTE | 2019-07-01 13:35 | P.PNIM_ITS ---
Progress Note: A&P Assessment and Plan (1) Adynamic ileus: Code(s): K56.0 - Paralytic ileus Status: Acute Assessment and Plan: * Obstructive series on 06/28 showing ileus. * BM listed on 06/26 but nothing since * Currently on clear liquid diet * Patient up walking in the parker * Repeat Obst series today showing persistent moderate amount of colonic contrast and gas. Probably ileus. * Replace potassium. Check Mag level. (2) Sigmoid volvulus: Code(s): K56.2 - Volvulus Status: Acute Assessment and Plan: * Patient with recurrent sigmoid volvulus. * 06/27/19: CT scan showing sigmoid volvulus. Water-soluble enema performed showing partial obstruction. * Patient is now postop day 4 from sigmoidectomy * Continue PT and OT. * Appreciate General surgery input. (3) Paroxysmal atrial fibrillation: Code(s): I48.0 - Paroxysmal atrial fibrillation Status: Chronic Assessment and Plan: * NSR on preop EKG * Patient not on long-term anticoagulation; aspirin on hold at this time. * Patient currently on Metoprolol IV scheduled. * Continue to monitor. (4) Diastolic dysfunction: Code(s): I51.89 - Other ill-defined heart diseases Status: Chronic Assessment and Plan: * Clinically euvolemic but positive fluid balance * Continue to monitor fluid status. * Stop IVF (5) Essential hypertension: Code(s): I10 - Essential (primary) hypertension Status: Chronic Assessment and Plan: * Blood pressure reviewed 07/01/19 * Blood pressure was elevated despite Metoprolol IV so Enapril IV added. * BP 127/51 this morning so enapril held * Continue IV metoprolol scheduled. Continue Enapril with the paramter in place. * Change to po once clear evidence of resolving ileus * IV hydralazine available as needed. (6) CAD (coronary artery disease): Code(s): I25.10 - Atherosclerotic heart disease of [place] coronary artery without angina pectoris Status: Acute Assessment and Plan: * Nonobstructing lesions by prior evaluation * Currently w/o symptoms * Resume aspirin, Zetia and Crestor when able. * Metoprolol has been resumed in IV form. (7) Vascular dementia: Code(s): F01.50 - Vascular dementia without behavioral disturbance Status: Chronic Assessment and Plan: * Alert but confused. * Most likely at baseline * Continue to follow. (8) Abnormal liver enzymes: Code(s): R74.8 - Abnormal levels of other serum enzymes Status: Acute Assessment and Plan: * Elevated with prior volvulus episode * No structural lesion by CT * Hepatitis panel negative * Repeat LFTs normal. Monitor intermittently. (9) Bilateral hydronephrosis: Code(s): N13.30 - Unspecified hydronephrosis Status: Acute Assessment and Plan: * CT scan showing mild bilateral hydronephrosis, which may secondary to bladder distention. * Renal function normal on admission and remains normal. * Gill removed 06/27. * Continues to have good urine output. Continue to monitor. (10) DVT prophylaxis: Code(s): Z29.9 - Encounter for prophylactic measures, unspecified Status: Acute Assessment and Plan: * Lovenox Subjective Date/time seen: 07/01/19 13:35 Interval history: 78yo female with pAFib, dementia and chronic CHF here for abd pain found to have sigmoid volvulus. Patietn agitated this morning but h
--- NOTE | 2019-07-01 13:35 | PM.IMPN ---
Progress Note: A&P Assessment and Plan (1) Adynamic ileus: Code(s): K56.0 - Paralytic ileus Status: Acute Assessment and Plan: Obstructive series on 06/28 showing ileus. BM listed on 06/26 but nothing since Currently on clear liquid diet Patient up walking in the parker Repeat Obst series today showing persistent moderate amount of colonic contrast and gas. Probably ileus. Replace potassium. Check Mag level. (2) Sigmoid volvulus: Code(s): K56.2 - Volvulus Status: Acute Assessment and Plan: Patient with recurrent sigmoid volvulus. 06/27/19: CT scan showing sigmoid volvulus. Water-soluble enema performed showing partial obstruction. Patient is now postop day 4 from sigmoidectomy Continue PT and OT. Appreciate General surgery input. (3) Paroxysmal atrial fibrillation: Code(s): I48.0 - Paroxysmal atrial fibrillation Status: Chronic Assessment and Plan: NSR on preop EKG Patient not on long-term anticoagulation; aspirin on hold at this time. Patient currently on Metoprolol IV scheduled. Continue to monitor. (4) Diastolic dysfunction: Code(s): I51.89 - Other ill-defined heart diseases Status: Chronic Assessment and Plan: Clinically euvolemic but positive fluid balance Continue to monitor fluid status. Stop IVF (5) Essential hypertension: Code(s): I10 - Essential (primary) hypertension Status: Chronic Assessment and Plan: Blood pressure reviewed 07/01/19 Blood pressure was elevated despite Metoprolol IV so Enapril IV added. BP 127/51 this morning so enapril held Continue IV metoprolol scheduled. Continue Enapril with the paramter in place. Change to po once clear evidence of resolving ileus IV hydralazine available as needed. (6) CAD (coronary artery disease): Code(s): I25.10 - Atherosclerotic heart disease of [place] coronary artery without angina pectoris Status: Acute Assessment and Plan: Nonobstructing lesions by prior evaluation Currently w/o symptoms Resume aspirin, Zetia and Crestor when able. Metoprolol has been resumed in IV form. (7) Vascular dementia: Code(s): F01.50 - Vascular dementia without behavioral disturbance Status: Chronic Assessment and Plan: Alert but confused. Most likely at baseline Continue to follow. (8) Abnormal liver enzymes: Code(s): R74.8 - Abnormal levels of other serum enzymes Status: Acute Assessment and Plan: Elevated with prior volvulus episode No structural lesion by CT Hepatitis panel negative Repeat LFTs normal. Monitor intermittently. (9) Bilateral hydronephrosis: Code(s): N13.30 - Unspecified hydronephrosis Status: Acute Assessment and Plan: CT scan showing mild bilateral hydronephrosis, which may secondary to bladder distention. Renal function normal on admission and remains normal. Gill removed 06/27. Continues to have good urine output. Continue to monitor. (10) DVT prophylaxis: Code(s): Z29.9 - Encounter for prophylactic measures, unspecified Status: Acute Assessment and Plan: Lovenox Subjective Date/time seen: 07/01/19 13:35 Interval history: 78yo female with pAFib, dementia and chronic CHF here for abd pain found to have sigmoid volvulus. Patietn agitated this morning but has been fine since. No flatus or BMs. Tolerating clear liquids but possible nausea now. Patient alert but confused so Hx unreliable. Walking in the halls with therapy. Exam Narrative: Exam Narrative: GEN: NARD lying flat in bed; she was helped to the side of the bed with minimal assistance CHEST: CTA bilaterally, nml RR HEART: Regular rate and rhythm ABDOMEN: soft, protuberant, tympanitic with hypoactive BS. Incision was clean, dry and intact without drainage. EXT: No pedal edema NEURO: Alert but co
[2019-07-01 14:13] VITALS: BP 131/52; PULSE 67; RESP 18; TEMP 37.1; O2SAT 100
[2019-07-01] MEDS: POTASSIUM CHLORIDE 20 MEQ TABLET 40 MEQ PO (17:14)
[2019-07-01 18:03] VITALS: BP 143/64; PULSE 67
[2019-07-01] MEDS: MORPHINE SULFATE 4 MG/ML INJ 2 MG IV PUSH (21:19)
[2019-07-01 22:00] VITALS: BP 154/73; PULSE 79; RESP 18; TEMP 37.2; O2SAT 100
[2019-07-01 23:47] VITALS: BP 124/67; PULSE 65
[2019-07-02] VITALS (7 sets, daily range): BP systolic 115–152; BP diastolic 50–79; PULSE 66–83; RESP 14–16; TEMP 36.8–37.1; O2SAT 93–98
[2019-07-02] MEDS: METOPROLOL TARTRATE INJ 5 MG/5 ML VIAL IV PUSH (00:10)
[2019-07-02] MEDS: MORPHINE SULFATE 4 MG/ML INJ 2 MG IV PUSH ×2 (00:11→23:25)
[2019-07-02 00:18] LABS: Glucose Point of Care 118 (65-105)
[2019-07-02 05:25] LABS: Glucose Point of Care 86 (65-105)
[2019-07-02 06:15] LABS: Hematocrit 31.3 % (37.0-47.0); Hemoglobin 9.9 g/dL (12.0-15.0); Mean Corpuscular HGB Conc 31.6 g/dl (32-36); Mean Corpuscular Hemoglobin 29.3 pg (26-34); Mean Corpuscular Volume 92.6 fl (80-100); Mean Platelet Volume 10.8 fl (7.4-10.4); Platelet Count Result 181 k/mm3 (150-375); Red Blood Count 3.38 M/mm3 (4.2-5.4); Red Cell Distribution Width 14.6 % (11.5-14.5); White Blood Count 6.9 K/mm3 (4.5-10.0)
[2019-07-02 06:27] LABS: Blood Urea Nitrogen 11 mg/dL (7-17); Calcium 8.3 mg/dL (8.4-10.2); Carbon Dioxide 28 mmol/L (22-30); Chloride 103 mmol/L (98-107); Estimated CRCL calculation 43 ml/min; Estimated Glomerular Filt Rate 60; Glucose 89 mg/dL (65-105); Magnesium 2.2 mg/dL (1.6-2.3); Potassium 3.6 mmol/L (3.4-5.0); Sodium 136 mmol/L (137-145)
--- NOTE | 2019-07-02 07:48 | PM.PNGS ---
Progress Note: A&P Assessment and Plan (1) Sigmoid volvulus: Code(s): K56.2 - Volvulus Status: Acute Assessment and Plan: bowel function returning. Good bowel sounds today and tolerating clear liquids well over the weekend. Will advance to soft diet. Incision healing well. Ambulate. Resume home meds. (2) Vascular dementia: Code(s): F01.50 - Vascular dementia without behavioral disturbance Status: Chronic (3) Paroxysmal atrial fibrillation: Code(s): I48.0 - Paroxysmal atrial fibrillation Status: Chronic (4) Diastolic dysfunction: Code(s): I51.89 - Other ill-defined heart diseases Status: Chronic (5) Constipation: Qualifiers: Constipation type: unspecified constipation type Qualified Code(s): K59.00 - Constipation, unspecified Code(s): K59.00 - Constipation, unspecified Status: Acute Assessment and Plan: Will restart Senokot at bedtime but doubt patient will need the laxatives or have problems with the constipation she had prior to her sigmoidectomy. Subjective Subjective Date/Time Seen: 07/02/19 07:48 no complaints. Seems more confused. Would like to try some solid food. Review of Systems Review of Systems: ROS unobtainable: Yes unobtainable due to mental status Exam Const: General: comfortable, no acute distress, alert and awake Orientation/consciousness: confusion GI: Inspection: non-distended and incision ( Healing well.) GI Palp: Yes Soft to palpation, Yes Tenderness to palpation present (GI) ( Mild appropriate tenderness), No Guarding due to palpation present (GI) and No Rebound tenderness present Auscultation: normal bowel sounds Objective Data Vital Signs Vital Signs: Vital Signs - 24 hr 07/01/19 08:44 07/01/19 14:13 07/01/19 18:03 Temperature 37.1 C 37.1 C Pulse Rate 76 67 67 Respiratory Rate 18 18 Blood Pressure 127/51 L 131/52 L 143/64 H Pulse Oximetry 98 100 07/01/19 22:00 07/01/19 23:47 07/02/19 00:10 Temperature 37.2 C Pulse Rate 79 65 67 Respiratory Rate 18 Blood Pressure 154/73 H 124/67 Pulse Oximetry 100 07/02/19 06:00 Temperature 37.0 C Pulse Rate 66 Respiratory Rate 16 Blood Pressure 115/50 L Pulse Oximetry 93 Intake/Output Intake/Output: Intake & Output 06/29/19 06/30/19 07/01/19 07/02/19 23:59 23:59 23:59 23:59 Intake Total 2404 2310 4610 150 Output Total 1725 2400 1650 400 Balance 679 90 2960 -250 Meds/Results Medications: Active Medications Generic Name Dose Route Start Last Admin Trade Name Freq PRN Reason Stop Dose Admin Aspirin 81 mg 07/02/19 09:00 Aspirin Ec PO DAILY [facility] Ezetimibe 10 mg 07/02/19 09:00 Zetia PO DAILY [facility] Enalaprilat 1.25 mg 06/30/19 12:00 07/02/19 05:20 Vasotec Iv IV PUSH Not Given Q6HR [facility] Enoxaparin Sodium 40 mg 06/28/19 09:00 07/01/19 09:28 Lovenox SUB-Q 40 mg DAILY [facility] Administration Famotidine 20 mg 06/27/19 21:00 07/01/19 21:18 Pepcid Iv IV PUSH 20 mg Q12HR [facility] Administration Hydralazine HCl 10 mg 06/28/19 17:46 06/30/19 21:07 Apresoline Hcl Inj IV PUSH 10 mg Q8H PRN Administration Blood Pressure - High Ibuprofen 400 mg/ Sodium 104 mls @ 200 mls/hr 06/27/19 20:36 06/29/19 11:42 Chloride IVPB Infused Q6H PRN Infusion Pain Rated 1-3 Levothyroxine Sodium 25 mcg 07/01/19 06:30 07/01/19 09:27 Synthroid PO 25 mcg DAILY@0630 [facility] Administration Metoprolol Succinate 12.5 mg 07/02/19 09:00 Toprol Xl PO BID [facility] Metoprolol Tartrate 5 mg 06/27/19 12:00 07/02/19 00:10 Lopressor Inj IV PUSH 5 mg Q6HR [facility] Administration Morphine Sulfate 1 mg 06/27/19 20:36 Morphine Sulfate Inj IV PUSH Q2H PRN Pain Rated 4-6 Morphine Sulfate 2 mg 06/27/19 20:36 07/02/19 00:11 Morphine Sulfate Inj IV PUSH 2 mg Q2H PRN Administration Pain Rated 7-10 Naloxone HCl 0.1 mg 06/27/19
[2019-07-02] MEDS: LEVOTHYROXINE SODIUM 25 MCG TABLET PO (07:54)
[2019-07-02 09:03] LABS: Glucose Point of Care 95 (65-105)
[2019-07-02] MEDS: ENOXAPARIN 40 MG/0.4 ML SYRINGE SUB-Q (10:22)
[2019-07-02] MEDS: ASPIRIN 81 MG ENTERIC TABLET PO (10:22)
[2019-07-02] MEDS: EZETIMIBE 10 MG TABLET PO (10:23)
[2019-07-02] MEDS: METOPROLOL SUCCINATE EXT REL 12.5 MG TABCR PO ×2 (10:23→21:29)
[2019-07-02] MEDS: ROSUVASTATIN 10 MG TABLET 40 MG PO (10:24)
[2019-07-02 13:46] LABS: Glucose Point of Care 98 (65-105)
--- NOTE | 2019-07-02 15:51 | P.PNIM_ITS ---
Progress Note: A&P Assessment and Plan (1) Adynamic ileus: Code(s): K56.0 - Paralytic ileus Status: Acute Assessment and Plan: * Obstructive series on 06/28 showing ileus. * BM listed on 06/26 but nothing since; unclear if she is having flatus but exam better today * Tolerating clear liquid diet and patient up walking in the park[place] * Diet advanced today. Continue to follow. (2) Sigmoid volvulus: Code(s): K56.2 - Volvulus Status: Acute Assessment and Plan: * Patient with recurrent sigmoid volvulus. * 06/27/19: CT scan showing sigmoid volvulus. Water-soluble enema performed showing partial obstruction. * Patient is now postop day 5 from sigmoidectomy * Continue PT and OT. * Appreciate General surgery input. (3) Paroxysmal atrial fibrillation: Code(s): I48.0 - Paroxysmal atrial fibrillation Status: Chronic Assessment and Plan: * NSR on preop EKG * Patient not on long-term anticoagulation; Aspirin resumed today. * Patient changed back to oral Metoprolol today. * Continue to monitor. (4) Diastolic dysfunction: Code(s): I51.89 - Other ill-defined heart diseases Status: Chronic Assessment and Plan: * Clinically euvolemic but positive fluid balance (although I/Os are inaccurate) * Continue to monitor fluid status. (5) Essential hypertension: Code(s): I10 - Essential (primary) hypertension Status: Chronic Assessment and Plan: * Blood pressure reviewed 07/02/19 * Blood pressure was elevated despite Metoprolol IV so Enalapril IV added. * BP has improved and she has not been receiving the IV Enalapril * Continue po Metopolol. Stop Enalapril. * IV hydralazine available as needed. (6) CAD (coronary artery disease): Code(s): I25.10 - Atherosclerotic heart disease of [place] coronary artery without angina pectoris Status: Acute Assessment and Plan: * Nonobstructing lesions by prior evaluation * Currently w/o symptoms * Aspirin, Zetia and Crestor have been resumed * Metoprolol resumed oral (7) Vascular dementia: Code(s): F01.50 - Vascular dementia without behavioral disturbance Status: Chronic Assessment and Plan: * Alert but confused. * Most likely at baseline * Continue to follow. (8) Abnormal liver enzymes: Code(s): R74.8 - Abnormal levels of other serum enzymes Status: Acute Assessment and Plan: * Elevated with prior volvulus episode * No structural lesion by CT * Hepatitis panel negative * Repeat LFTs normal. Monitor intermittently. (9) Bilateral hydronephrosis: Code(s): N13.30 - Unspecified hydronephrosis Status: Acute Assessment and Plan: * CT scan showing mild bilateral hydronephrosis, which may secondary to bladder distention. * Renal function normal on admission and remains normal. * Gill removed 06/27. * Continues to have good urine output. Continue to monitor. (10) DVT prophylaxis: Code(s): Z29.9 - Encounter for prophylactic measures, unspecified Status: Acute Assessment and Plan: * Lovenox Subjective Date/time seen: 07/02/19 15:51 Interval history: 78yo female with pAFib, dementia and chronic CHF here for abd pain found to have sigmoid volvulus. No issues overnight. Patient alert but confused and unable to provide history. Tolerating liquid diet and diet advanced today. Exam
--- NOTE | 2019-07-02 15:51 | PM.IMPN ---
Progress Note: A&P Assessment and Plan (1) Adynamic ileus: Code(s): K56.0 - Paralytic ileus Status: Acute Assessment and Plan: Obstructive series on 06/28 showing ileus. BM listed on 06/26 but nothing since; unclear if she is having flatus but exam better today Tolerating clear liquid diet and patient up walking in the [place] Diet advanced today. Continue to follow. (2) Sigmoid volvulus: Code(s): K56.2 - Volvulus Status: Acute Assessment and Plan: Patient with recurrent sigmoid volvulus. 06/27/19: CT scan showing sigmoid volvulus. Water-soluble enema performed showing partial obstruction. Patient is now postop day 5 from sigmoidectomy Continue PT and OT. Appreciate General surgery input. (3) Paroxysmal atrial fibrillation: Code(s): I48.0 - Paroxysmal atrial fibrillation Status: Chronic Assessment and Plan: NSR on preop EKG Patient not on long-term anticoagulation; Aspirin resumed today. Patient changed back to oral Metoprolol today. Continue to monitor. (4) Diastolic dysfunction: Code(s): I51.89 - Other ill-defined heart diseases Status: Chronic Assessment and Plan: Clinically euvolemic but positive fluid balance (although I/Os are inaccurate) Continue to monitor fluid status. (5) Essential hypertension: Code(s): I10 - Essential (primary) hypertension Status: Chronic Assessment and Plan: Blood pressure reviewed 07/02/19 Blood pressure was elevated despite Metoprolol IV so Enalapril IV added. BP has improved and she has not been receiving the IV Enalapril Continue po Metopolol. Stop Enalapril. IV hydralazine available as needed. (6) CAD (coronary artery disease): Code(s): I25.10 - Atherosclerotic heart disease of [place] coronary artery without angina pectoris Status: Acute Assessment and Plan: Nonobstructing lesions by prior evaluation Currently w/o symptoms Aspirin, Zetia and Crestor have been resumed Metoprolol resumed oral (7) Vascular dementia: Code(s): F01.50 - Vascular dementia without behavioral disturbance Status: Chronic Assessment and Plan: Alert but confused. Most likely at baseline Continue to follow. (8) Abnormal liver enzymes: Code(s): R74.8 - Abnormal levels of other serum enzymes Status: Acute Assessment and Plan: Elevated with prior volvulus episode No structural lesion by CT Hepatitis panel negative Repeat LFTs normal. Monitor intermittently. (9) Bilateral hydronephrosis: Code(s): N13.30 - Unspecified hydronephrosis Status: Acute Assessment and Plan: CT scan showing mild bilateral hydronephrosis, which may secondary to bladder distention. Renal function normal on admission and remains normal. Gill removed 06/27. Continues to have good urine output. Continue to monitor. (10) DVT prophylaxis: Code(s): Z29.9 - Encounter for prophylactic measures, unspecified Status: Acute Assessment and Plan: Lovenox Subjective Date/time seen: 07/02/19 15:51 Interval history: 78yo female with pAFib, dementia and chronic CHF here for abd pain found to have sigmoid volvulus. No issues overnight. Patient alert but confused and unable to provide history. Tolerating liquid diet and diet advanced today. Exam Narrative: Exam Narrative: GEN: NARD lying flat in bed CHEST: CTA bilaterally, nml RR HEART: Regular rate and rhythm ABDOMEN: soft, less protuberant, +BS. Minimal tenderness. Dresing clean and dry EXT: No pedal edema NEURO: Alert but confused. PSYCH: Pleasant and cooperative Objective Data Vital Signs Vital Signs: Vital Signs - 24 hr 07/01/19 18:03 07/01/19 22:00 07/01/19 23:47 Temperature 98.9 F Pulse Rate 67 79 65 Respiratory Rate 18 Blood Pressure 143/64 H 154/73 H 124/67 Pulse Oximetry 100
[2019-07-02 18:03] LABS: Glucose Point of Care 93 (65-105)
[2019-07-02] MEDS: SENNOSIDES 8.6 MG TABLET PO (21:29)
[2019-07-02 22:22] LABS: Glucose Point of Care 123 (65-105)
[2019-07-03] MEDS: LEVOTHYROXINE SODIUM 25 MCG TABLET PO (05:32)
[2019-07-03 06:00] VITALS: BP 158/78; PULSE 73; RESP 14; TEMP 36.8; O2SAT 96
[2019-07-03 06:32] LABS: Hematocrit 32.2 % (37.0-47.0); Hemoglobin 10.6 g/dL (12.0-15.0); Mean Corpuscular HGB Conc 32.9 g/dl (32-36); Mean Corpuscular Hemoglobin 29.6 pg (26-34); Mean Corpuscular Volume 89.9 fl (80-100); Mean Platelet Volume 10.3 fl (7.4-10.4); Platelet Count Result 196 k/mm3 (150-375); Red Blood Count 3.58 M/mm3 (4.2-5.4); Red Cell Distribution Width 13.9 % (11.5-14.5); White Blood Count 7.9 K/mm3 (4.5-10.0)
[2019-07-03 06:47] LABS: Blood Urea Nitrogen 13 mg/dL (7-17); Calcium 8.5 mg/dL (8.4-10.2); Carbon Dioxide 28 mmol/L (22-30); Chloride 102 mmol/L (98-107); Estimated CRCL calculation 43 ml/min; Estimated Glomerular Filt Rate 60; Glucose 97 mg/dL (65-105); Potassium 3.7 mmol/L (3.4-5.0); Sodium 135 mmol/L (137-145)
[2019-07-03 08:09] LABS: Glucose Point of Care 100 (65-105)
[2019-07-03 08:41] VITALS: PULSE 74
[2019-07-03] MEDS: EZETIMIBE 10 MG TABLET PO (08:41)
[2019-07-03] MEDS: METOPROLOL SUCCINATE EXT REL 12.5 MG TABCR PO ×2 (08:41→20:05)
[2019-07-03] MEDS: ENOXAPARIN 40 MG/0.4 ML SYRINGE SUB-Q (08:41)
[2019-07-03] MEDS: ASPIRIN 81 MG ENTERIC TABLET PO (08:41)
[2019-07-03] MEDS: ROSUVASTATIN 10 MG TABLET 40 MG PO (08:42)
[2019-07-03] MEDS: MORPHINE SULFATE 4 MG/ML INJ 2 MG IV PUSH (09:59)
--- NOTE | 2019-07-03 11:44 | PM.PNGS ---
Progress Note: A&P Assessment and Plan (1) Sigmoid volvulus: Code(s): K56.2 - Volvulus Status: Acute Assessment and Plan: Still no bowel movement and slight abdominal distention. Will get high peak enema today to evaluate anastomosis and hopefully stimulate some bowel activity. White blood cell count is normal. Hemoglobin hematocrit are slightly higher today. Not comfortable sending the patient home today as she is having pain in still some abdominal distension. I talked with her son Barber on the phone. Hopefully we can discharge her tomorrow. (2) Vascular dementia: Code(s): F01.50 - Vascular dementia without behavioral disturbance Status: Chronic Assessment and Plan: Seems to be at her baseline. (3) Paroxysmal atrial fibrillation: Code(s): I48.0 - Paroxysmal atrial fibrillation Status: Chronic (4) Diastolic dysfunction: Code(s): I51.89 - Other ill-defined heart diseases Status: Chronic (5) Essential hypertension: Code(s): I10 - Essential (primary) hypertension Status: Chronic Assessment and Plan: Blood pressure a little higher yesterday with the enalapril stopped. (6) Constipation: Qualifiers: Constipation type: unspecified constipation type Qualified Code(s): K59.00 - Constipation, unspecified Code(s): K59.00 - Constipation, unspecified Status: Acute Assessment and Plan: She is on her Senokot but I did hold her MiraLax thinking that after sigmoidectomy she may not need it. Will see what high peak enema shows. May need to go home on MiraLax and Senokot. Subjective Subjective Date/Time Seen: 07/03/19 11:44 Post Op day: 6 Patient reports: still having pain ( Wants a pain pill. Seems to be her incision.), tolerating a regular diet ( Ate her entire breakfast which is a soft diet.) and no bowel movement Review of Systems Review of Systems: All systems reviewed & are unremarkable except as noted in HPI and below ( HPI) ROS unobtainable: Yes unobtainable due to mental status Exam Const: General: comfortable, no acute distress, alert and awake Nutritional Appearance: average body habitus Orientation/consciousness: confusion ( baseline mental status) GI: Inspection: distended and incision ( healing well. Minimal bruising. No redness swelling or drainage.) GI Palp: Yes Soft to palpation and Yes Tenderness to palpation present (GI) Auscultation: normal bowel sounds Objective Data Vital Signs Vital Signs: Vital Signs - 24 hr 07/02/19 12:00 07/02/19 14:00 07/02/19 21:29 Temperature 36.8 C Pulse Rate 83 72 Respiratory Rate 14 Blood Pressure 126/72 137/56 L Pulse Oximetry 98 07/02/19 22:00 07/03/19 06:00 07/03/19 08:41 Temperature 37.1 C 36.8 C Pulse Rate 72 73 74 Respiratory Rate 14 14 Blood Pressure 152/79 H 158/78 H Pulse Oximetry 97 96 Intake/Output Intake/Output: Intake & Output 06/30/19 07/01/19 07/02/19 07/03/19 23:59 23:59 23:59 23:59 Intake Total 2310 4610 940 550 Output Total 2400 1650 400 400 Balance -90 2960 540 150 Meds/Results Medications: Active Medications Generic Name Dose Route Start Last Admin Trade Name Freq PRN Reason Stop Dose Admin Acetaminophen 1,000 mg 07/03/19 11:24 Tylenol Tablet PO Q6H PRN Mild Pain (1-3) or Fever Aspirin 81 mg 07/02/19 09:00 07/03/19 08:41 Aspirin Ec PO 81 mg DAILY ELE Administration Ezetimibe 10 mg 07/02/19 09:00 07/03/19 08:41 Zetia PO 10 mg DAILY ELE Administration Enoxaparin Sodium 40 mg 06/28/19 09:00 07/03/19 08:41 Lovenox SUB-Q 40 mg DAILY ELE Administration Hydralazine HCl 10 mg 06/28/19 17:46 06/30/19 21:07 Apresoline Hcl Inj IV PUSH 10 mg Q8H PRN Administration Blood Pressure - High Ibuprofen 600 mg 07/03/19 11:24 Motrin PO Q6H PRN Pain Rated 4-6 Levothyroxine Sodium 25 mcg 07/01/19 06:30 07/03/19 05:
[2019-07-03 12:22] LABS: Glucose Point of Care 142 (65-105)
--- NOTE | 2019-07-03 13:36 | PM.IMPN ---
Progress Note: A&P Assessment and Plan (1) Sigmoid volvulus: Code(s): K56.2 - Volvulus Status: Acute Assessment and Plan: CT abdomen/pelvis on admission with findings consistent with recurrent sigmoid volvulus. Surgery consulted and appreciate input. Now S/P sigmoidectomy on 06/27/[address] Quan. Water-soluble enema today with persistent focal tapered narrowing at the sigmoid colon. Plan per surgery. Continue Senokot. Continue PT/OT. Hopefully will be ready for discharge soon. (2) Adynamic ileus: Code(s): K56.0 - Paralytic ileus Status: Acute Assessment and Plan: Obstructive series on 06/29/2019 with ileus. Still no bowel movement today. On Senokot as noted. Plan as noted above. (3) Paroxysmal atrial fibrillation: Code(s): I48.0 - Paroxysmal atrial fibrillation Status: Chronic Assessment and Plan: Presently stable in sinus rhythm. Not on long-term anticoagulation. Continue metoprolol and aspirin. Will continue to monitor. (4) Diastolic dysfunction: Code(s): I51.89 - Other ill-defined heart diseases Status: Chronic Assessment and Plan: Remains euvolemic. Will continue to monitor. (5) Essential hypertension: Code(s): I10 - Essential (primary) hypertension Status: Chronic Assessment and Plan: Blood pressure reviewed on 07/03/2019 with mild elevation but acceptable. Continue to monitor on oral metoprolol. IV hydralazine remains available as needed. (6) CAD (coronary artery disease): Qualifiers: Coronary Disease-Associated Artery/Lesion type: [place] artery [place] vs. transplanted heart: [place] heart Associated angina: without angina Qualified Code(s): I25.10 - Atherosclerotic heart disease of [place] coronary artery without angina pectoris Code(s): I25.10 - Atherosclerotic heart disease of [place] coronary artery without angina pectoris Status: Acute Assessment and Plan: No current acute issue. Continue metoprolol, aspirin, Zetia and rosuvastatin. Will monitor. (7) Vascular dementia: Qualifiers: Dementia behavioral disturbance: with behavioral disturbance Qualified Code(s): F01.51 - Vascular dementia with behavioral disturbance Code(s): F01.50 - Vascular dementia without behavioral disturbance Status: Chronic Assessment and Plan: Remains stable. Will monitor. (8) Abnormal liver enzymes: Code(s): R74.8 - Abnormal levels of other serum enzymes Status: Acute Assessment and Plan: Mild elevation on admission and now LFTs have returned to normal. Will monitor periodically. (9) Bilateral hydronephrosis: Code(s): N13.30 - Unspecified hydronephrosis Status: Acute Assessment and Plan: CT scan showing mild bilateral hydronephrosis, which may secondary to bladder distention. Renal function remains normal. Will continue to monitor. (10) DVT prophylaxis: Code(s): Z29.9 - Encounter for prophylactic measures, unspecified Status: Acute Assessment and Plan: Lovenox. Time Spent With Patient Time with patient: 15 - 25 minutes Subjective Date/time seen: 07/03/19 13:36 Interval history: Date of Service: 07/03/2019. Admitted with sigmoid volvulus. Wants to go home. Denies abdominal pain but complains of nausea. No vomiting. Has not had bowel movement yet. No chest pain or shortness of breath. Known paroxysmal atrial fibrillation, dementia and chronic CHF. Review of Systems Review of Systems: Narrative: Wants to go home. Constitutional: Constitutional: Denies chills and Denies fever(s) ENT: Denies dysphagia Cardiovascular: Cardiovascular: Denies chest pain Respiratory: Respiratory: Denies cough and Denies dyspnea Gastrointestinal: Gastrointestinal: Denies abdominal pain, Reports nausea and Denies vomiting Genitourinary: Genitourinary: Reports no additional female genito
[2019-07-03 17:21] LABS: Glucose Point of Care 105 (65-105)
--- NOTE | 2019-07-03 17:46 | PC.NURSE ---
1740 HAD PATIENT IN THE BATHROOM. INSTRUCTED PATIENT TO NOT FLUSH TOILET IF SHE HAS A BOWEL MOVEMENT. PATIENT FLUSHED TOILET. SHE STATES SHE PASSED SEVERAL SMALL TO MEDIUM SIZE ROUND STOOL. VALERI BURDICK
[2019-07-03 20:05] VITALS: PULSE 70
[2019-07-03] MEDS: TRAMADOL HCL 50 MG TABLET PO (20:05)
[2019-07-03] MEDS: SENNOSIDES 8.6 MG TABLET PO (20:06)
[2019-07-03 21:00] LABS: Glucose Point of Care 121 (65-105)
[2019-07-03 21:41] VITALS: BP 175/77; PULSE 73; RESP 16; TEMP 37.2; O2SAT 99
[2019-07-03] MEDS: QUEtiapine FUMARATE 12.5 MG TABLET PO (22:17)
[2019-07-04 06:00] VITALS: BP 149/78; PULSE 74; RESP 16; TEMP 36.7; O2SAT 99
[2019-07-04] MEDS: IBUPROFEN 600 MG TABLET PO (06:45)
[2019-07-04] MEDS: LEVOTHYROXINE SODIUM 25 MCG TABLET PO (06:45)
[2019-07-04 09:09] VITALS: PULSE 74
[2019-07-04] MEDS: EZETIMIBE 10 MG TABLET PO (09:09)
[2019-07-04] MEDS: METOPROLOL SUCCINATE EXT REL 12.5 MG TABCR PO ×2 (09:09→21:52)
[2019-07-04] MEDS: ROSUVASTATIN 10 MG TABLET 40 MG PO (09:09)
[2019-07-04] MEDS: ENOXAPARIN 40 MG/0.4 ML SYRINGE SUB-Q (09:09)
[2019-07-04] MEDS: ASPIRIN 81 MG ENTERIC TABLET PO (09:09)
--- NOTE | 2019-07-04 10:07 | PCNWS ---
Weekly nutritional screen. Patient is tolerating current diet with adequate intake. No weight loss reported. No nutritional needs at this time.
--- NOTE | 2019-07-04 12:04 | PM.IMPN ---
Progress Note: A&P Assessment and Plan (1) Sigmoid volvulus: Code(s): K56.2 - Volvulus Status: Acute Assessment and Plan: CT abdomen/pelvis on admission with findings consistent with recurrent sigmoid volvulus. Surgery consulted and appreciate input. Now S/P sigmoidectomy on 06/27/[address] Quan. Water-soluble enema yesterday with persistent focal tapered narrowing at the sigmoid colon. Plan per surgery. Now on regular diet. Continue Senokot. Continue PT/OT. Okay from hospitalist standpoint for discharge. (2) Adynamic ileus: Code(s): K56.0 - Paralytic ileus Status: Acute Assessment and Plan: Obstructive series on 06/29/2019 with ileus. Has now had bowel movement. On Senokot as noted. Plan as noted above. (3) Paroxysmal atrial fibrillation: Code(s): I48.0 - Paroxysmal atrial fibrillation Status: Chronic Assessment and Plan: Remains stable in sinus rhythm. Not on long-term anticoagulation. Continue metoprolol and aspirin. (4) Diastolic dysfunction: Code(s): I51.89 - Other ill-defined heart diseases Status: Chronic Assessment and Plan: Remains euvolemic. (5) Essential hypertension: Code(s): I10 - Essential (primary) hypertension Status: Chronic Assessment and Plan: Blood pressure reviewed on 07/04/2019 with some variation but acceptable. Continue to monitor on oral metoprolol. IV hydralazine remains available as needed. (6) CAD (coronary artery disease): Qualifiers: Associated angina: without angina Coronary Disease-Associated Artery/Lesion type: [place] artery [place] vs. transplanted heart: [place] heart Qualified Code(s): I25.10 - Atherosclerotic heart disease of [place] coronary artery without angina pectoris Code(s): I25.10 - Atherosclerotic heart disease of [place] coronary artery without angina pectoris Status: Acute Assessment and Plan: Stable. No current acute issue. Continue metoprolol, aspirin, Zetia and rosuvastatin. (7) Vascular dementia: Qualifiers: Dementia behavioral disturbance: with behavioral disturbance Qualified Code(s): F01.51 - Vascular dementia with behavioral disturbance Code(s): F01.50 - Vascular dementia without behavioral disturbance Status: Chronic Assessment and Plan: Remains stable at what appears to be her baseline. (8) Abnormal liver enzymes: Code(s): R74.8 - Abnormal levels of other serum enzymes Status: Acute Assessment and Plan: Mild elevation on admission and now LFTs have returned to normal on last check. (9) Bilateral hydronephrosis: Code(s): N13.30 - Unspecified hydronephrosis Status: Acute Assessment and Plan: CT scan with mild bilateral hydronephrosis, which may secondary to bladder distention. Renal function remains normal. (10) DVT prophylaxis: Code(s): Z29.9 - Encounter for prophylactic measures, unspecified Status: Acute Assessment and Plan: Lovenox. Time Spent With Patient Time with patient: 15 - 25 minutes Subjective Date/time seen: 07/04/19 12:04 Interval history: Date of Service: 07/04/2019. Admitted with sigmoid volvulus. Feeling better today. Has had bowel movement. No abdominal pain, nausea or vomiting. No chest pain or shortness of breath. Review of Systems Constitutional: Constitutional: Denies chills and Denies fever(s) ENT: Denies dysphagia Cardiovascular: Cardiovascular: Denies chest pain Respiratory: Respiratory: Denies cough Gastrointestinal: Gastrointestinal: Denies abdominal pain, Denies dysphagia, Denies nausea and Denies vomiting Genitourinary: Genitourinary: Reports no additional female genitourinary complaints Musculoskeletal: Musculoskeletal: Reports no additional musculoskeletal complaints Integumentary/Breasts: Skin/Breast: Denies rash Neurologic: Denies headache(s) Psychiatric: Psyc
--- NOTE | 2019-07-04 12:19 | PM.PNGS ---
Progress Note: A&P Assessment and Plan (1) Sigmoid volvulus: Code(s): K56.2 - Volvulus Status: Acute Assessment and Plan: Narrowing noted but patient feels much better today and I think this will not be clinically significant. She unfortunately is still a little unsteady on her feet. She does take assistance to ambulate. Her son Bradly will be home with her but I think another day of therapy would be best as both she and her have dementia and I am concerned she may fall when discharged. Another day of therapy would probably be helpful. This is really the 1st day she has told me she feels good and not really having any significant abdominal complaints. Advance to regular diet. Check CBC and BMP tomorrow. (2) Vascular dementia: Qualifiers: Dementia behavioral disturbance: with behavioral disturbance Qualified Code(s): F01.51 - Vascular dementia with behavioral disturbance Code(s): F01.50 - Vascular dementia without behavioral disturbance Status: Chronic Assessment and Plan: Stable, very confused but seems to be at her baseline by my perspective (3) Paroxysmal atrial fibrillation: Code(s): I48.0 - Paroxysmal atrial fibrillation Status: Chronic (4) Diastolic dysfunction: Code(s): I51.89 - Other ill-defined heart diseases Status: Chronic (5) Constipation: Qualifiers: Constipation type: unspecified constipation type Qualified Code(s): K59.00 - Constipation, unspecified Code(s): K59.00 - Constipation, unspecified Status: Acute Assessment and Plan: Will restart MiraLax and continue her Senokot Subjective Subjective Date/Time Seen: 07/04/19 12:19 Post Op day: 7 Patient reports: no new complaints, feels better, tolerating a regular diet and other (Therapy reports patient still unsteady with walking. Needs assistance) Review of Systems Review of Systems: ROS unobtainable: Yes unobtainable due to medical condition Exam GI: Inspection: non-distended and incision (Slightly bruised but healing well) GI Palp: Yes Soft to palpation and Yes Tenderness to palpation present (GI) (Very little tenderness this morning) Auscultation: normal bowel sounds Objective Data Vital Signs Vital Signs: Vital Signs - 24 hr 07/03/19 20:05 07/03/19 21:41 07/04/19 06:00 Temperature 37.2 C 36.7 C Pulse Rate 70 73 74 Respiratory Rate 16 16 Blood Pressure 175/77 H 149/78 H Pulse Oximetry 99 99 07/04/19 09:09 Temperature Pulse Rate 74 Respiratory Rate Blood Pressure Pulse Oximetry Intake/Output Intake/Output: Intake & Output 07/01/19 07/02/19 07/03/19 07/04/19 23:59 23:59 23:59 23:59 Intake Total 4610 940 1820 380 Output Total 1650 400 400 600 Balance 2960 540 1420 -220 Meds/Results Medications: Active Medications Generic Name Dose Route Start Last Admin Trade Name Freq PRN Reason Stop Dose Admin Acetaminophen 1,000 mg 07/03/19 11:24 Tylenol Tablet PO Q6H PRN Mild Pain (1-3) or Fever Aspirin 81 mg 07/02/19 09:00 07/04/19 09:09 Aspirin Ec PO 81 mg DAILY ELE Administration Ezetimibe 10 mg 07/02/19 09:00 07/04/19 09:09 Zetia PO 10 mg DAILY ELE Administration Enoxaparin Sodium 40 mg 06/28/19 09:00 07/04/19 09:09 Lovenox SUB-Q 40 mg DAILY ELE Administration Hydralazine HCl 10 mg 06/28/19 17:46 06/30/19 21:07 Apresoline Hcl Inj IV PUSH 10 mg Q8H PRN Administration Blood Pressure - High Ibuprofen 600 mg 07/03/19 11:24 07/04/19 06:45 Motrin PO 600 mg Q6H PRN Administration Pain Rated 4-6 Levothyroxine Sodium 25 mcg 07/01/19 06:30 07/04/19 06:45 Synthroid PO 25 mcg DAILY@0630 ELE Administration Metoprolol Succinate 12.5 mg 07/02/19 09:00 07/04/19 09:09 Toprol Xl PO 12.5 mg Q12HR ELE Administration Morphine Sulfate 1 mg 06/27/19 20:36 Morphine Sulfate Inj IV PUSH Q2H PRN Pain
[2019-07-04] MEDS: polyethylene glycoL 3350 17 GM POWD.PACK PO (17:12)
[2019-07-04 21:49] VITALS: BP 140/64; PULSE 65; RESP 16; TEMP 36.4; O2SAT 100
[2019-07-04 21:52] VITALS: PULSE 78
[2019-07-04] MEDS: SENNOSIDES 8.6 MG TABLET PO (21:52)
[2019-07-04] MEDS: ACETAMINOPHEN 500 MG TABLET 1000 MG PO (21:52)
[2019-07-05 06:00] VITALS: BP 139/65; PULSE 57; RESP 16; TEMP 36.5; O2SAT 99
[2019-07-05] MEDS: LEVOTHYROXINE SODIUM 25 MCG TABLET PO (06:04)
[2019-07-05 06:16] LABS: Hematocrit 30.7 % (37.0-47.0); Hemoglobin 10.1 g/dL (12.0-15.0); Mean Corpuscular HGB Conc 32.9 g/dl (32-36); Mean Corpuscular Volume 91.1 fl (80-100); Mean Platelet Volume 10.6 fl (7.4-10.4); Platelet Count Result 236 k/mm3 (150-375); Red Blood Count 3.37 M/mm3 (4.2-5.4); Red Cell Distribution Width 14.2 % (11.5-14.5); White Blood Count 6.8 K/mm3 (4.5-10.0)
[2019-07-05 06:28] LABS: Blood Urea Nitrogen 14 mg/dL (7-17); Calcium 8.4 mg/dL (8.4-10.2); Carbon Dioxide 30 mmol/L (22-30); Chloride 102 mmol/L (98-107); Estimated CRCL calculation 39 ml/min; Estimated Glomerular Filt Rate 53; Glucose 83 mg/dL (65-105); Sodium 136 mmol/L (137-145)
[2019-07-05] MEDS: polyethylene glycoL 3350 17 GM POWD.PACK PO (10:13)
[2019-07-05 10:14] VITALS: PULSE 68
[2019-07-05] MEDS: ENOXAPARIN 40 MG/0.4 ML SYRINGE SUB-Q (10:14)
[2019-07-05] MEDS: METOPROLOL SUCCINATE EXT REL 12.5 MG TABCR PO (10:14)
[2019-07-05] MEDS: ROSUVASTATIN 10 MG TABLET 40 MG PO (10:14)
[2019-07-05] MEDS: ASPIRIN 81 MG ENTERIC TABLET PO (10:14)
[2019-07-05] MEDS: EZETIMIBE 10 MG TABLET PO (10:14)
--- NOTE | 2019-07-05 10:36 | PM.DS ---
DS: Diagnosis Admitting Diagnosis Admitting Diagnosis: Sigmoid Volvulus Discharge Diagnosis (1) Sigmoid volvulus: Code(s): K56.2 - Volvulus Status: Acute (2) Vascular dementia: Qualifiers: Dementia behavioral disturbance: with behavioral disturbance Qualified Code(s): F01.51 - Vascular dementia with behavioral disturbance Code(s): F01.50 - Vascular dementia without behavioral disturbance Status: Chronic (3) Paroxysmal atrial fibrillation: Code(s): I48.0 - Paroxysmal atrial fibrillation Status: Chronic (4) Diastolic dysfunction: Code(s): I51.89 - Other ill-defined heart diseases Status: Chronic (5) Essential hypertension: Code(s): I10 - Essential (primary) hypertension Status: Chronic (6) Constipation: Qualifiers: Constipation type: unspecified constipation type Qualified Code(s): K59.00 - Constipation, unspecified Code(s): K59.00 - Constipation, unspecified Status: Acute DS: Summary Time Spent with Patient Time attestation: Total time spent providing and/or coordinating discharge services: the patient is an 78-year-old woman who came to the emergency room on the day of admission June 27, 2019, with abdominal distention and pain. Imaging and clinical evaluation confirmed sigmoid volvulus. This was the 4th episode of sigmoid volvulus she had experienced in the last 6 months. She was taken to surgery on the day of admission by Dr. bermudez. She underwent sigmoidectomy with hand-sewn colorectal anastomosis. The surgery went well. She did have to have her NG tube replaced on postop day number 2. However she improved and the NG was removed on postop day 3. She was started on liquids. She did experience some colonic ileus by both examination and plain films. She was able to eat and her diet slowly advanced but she continued to have some distension. On July 02, postop day 6. , she had a water-soluble contrast enema. This showed a partial narrowing at the anastomosis but good retrograde flow of contrast as well as antegrade flow. This seemed to help her with her ileus as well. The following day she felt much better. She had a bowel movement yesterday. She is eating regular diet and tolerating it well. The patient has vascular dementia as does her . Her son Bradly, will be staying at their house after discharge to assist with her care. She underwent occupational therapy and physical therapy while in the hospital. She greatly improved in her stability with ambulation. She is discharged today in good condition. The patient was seen and followed by the hospitalist Service throughout her admission for her medical problems including hypertension, CHF, paroxysmal atrial fibrillation, dementia. Pathology showed normal sigmoid colon with evidence of volvulus clinically. Exam Const: General: cooperative, comfortable, no acute distress, alert and awake Nutritional Appearance: average body habitus Orientation/consciousness: confusion ( Memory impairment, dementia) GI: Inspection: non-distended and incision ( healing well) GI Palp: Yes Soft to palpation and No Tenderness to palpation present (GI) Auscultation: normal bowel sounds DS: Data Data Completed and Pending Completed studies during hospitalization: Pending at discharge 06/27/19 15:30 Surgical [PTH] Routine Labs on day of discharge: Labs from last 24 hours 07/05/19 07/05/19 05:50 05:50 WBC 6.8 RBC 3.37 L Hgb 10.1 L Hct 30.7 L MCV 91.1 MCH 30.0 MCHC 32.9 RDW 14.2 Plt Count 236 MPV 10.6 H Sodium 136 L Potassium 4.0 Chloride 102 Carbon Dioxide 30 BUN 14 Creatinine 1.00 Estim Creat Clear Calc 39 Estimated GFR 53 L Glucose 83 Calcium 8.4 Discharge Plan Discharge Attending physician on discharge: Conrad Bermudez Consulting providers: Wai Tapia Discharging Clinician: Conrad Bermudez
--- NOTE | 2019-07-05 12:35 | PM.IMPN ---
Progress Note: A&P Assessment and Plan (1) Sigmoid volvulus: Code(s): K56.2 - Volvulus Status: Acute Assessment and Plan: CT abdomen/pelvis on admission with findings consistent with recurrent sigmoid volvulus. Surgery consulted and appreciate input. Now S/P sigmoidectomy on 06/27/[address] Quan. Water-soluble enema on 07/03/2019 with persistent focal tapered narrowing at the sigmoid colon. Plan per surgery. Tolerating regular diet. Continue Senokot. Continue PT/OT. Okay for discharge today from hospitalist standpoint. (2) Adynamic ileus: Code(s): K56.0 - Paralytic ileus Status: Acute Assessment and Plan: Obstructive series on 06/29/2019 with ileus. Has now had bowel movement. On Senokot as noted. Plan as noted above. (3) Paroxysmal atrial fibrillation: Code(s): I48.0 - Paroxysmal atrial fibrillation Status: Chronic Assessment and Plan: Remains stable. Remains in sinus rhythm. Not on long-term anticoagulation. Continue metoprolol and aspirin. (4) Diastolic dysfunction: Code(s): I51.89 - Other ill-defined heart diseases Status: Chronic Assessment and Plan: Remains euvolemic. Stable. (5) Essential hypertension: Code(s): I10 - Essential (primary) hypertension Status: Chronic Assessment and Plan: Blood pressure reviewed on 07/05/2019 and acceptable. Continue oral metoprolol. (6) CAD (coronary artery disease): Qualifiers: Coronary Disease-Associated Artery/Lesion type: [place] artery [place] vs. transplanted heart: [place] heart Associated angina: without angina Qualified Code(s): I25.10 - Atherosclerotic heart disease of [place] coronary artery without angina pectoris Code(s): I25.10 - Atherosclerotic heart disease of [place] coronary artery without angina pectoris Status: Acute Assessment and Plan: Stable. No current acute issue. Continue metoprolol, aspirin, Zetia and rosuvastatin. (7) Vascular dementia: Qualifiers: Dementia behavioral disturbance: with behavioral disturbance Qualified Code(s): F01.51 - Vascular dementia with behavioral disturbance Code(s): F01.50 - Vascular dementia without behavioral disturbance Status: Chronic Assessment and Plan: Stable. At baseline. (8) Abnormal liver enzymes: Code(s): R74.8 - Abnormal levels of other serum enzymes Status: Acute Assessment and Plan: Mild elevation on admission and now LFTs have returned to normal on last check. (9) Bilateral hydronephrosis: Code(s): N13.30 - Unspecified hydronephrosis Status: Acute Assessment and Plan: CT scan with mild bilateral hydronephrosis, which may secondary to bladder distention. Renal function remains normal. (10) DVT prophylaxis: Code(s): Z29.9 - Encounter for prophylactic measures, unspecified Status: Acute Assessment and Plan: Lovenox. Time Spent With Patient Time with patient: 15 - 25 minutes Subjective Date/time seen: 07/05/19 12:35 Interval history: Date of Service: 07/05/2019. Admitted with sigmoid volvulus. Feeling good today. No abdominal pain, nausea or vomiting. No chest pain or shortness of breath. Review of Systems Review of Systems: Narrative: Feeling good. Constitutional: Constitutional: Denies chills and Denies fever(s) ENT: Denies dysphagia Cardiovascular: Cardiovascular: Denies chest pain Respiratory: Respiratory: Denies cough and Denies dyspnea Gastrointestinal: Gastrointestinal: Denies abdominal pain, Denies dysphagia, Denies nausea and Denies vomiting Genitourinary: Genitourinary: Reports no additional female genitourinary complaints Musculoskeletal: Musculoskeletal: Reports no additional musculoskeletal complaints Integumentary/Breasts: Skin/Breast: Denies rash Neurologic: Denies headache(s) Psychiatric: Psychiatric: Denies anxiety Exam [place]
[2019-07-05 14:52] VITALS: BP 132/62; PULSE 72; RESP 18; TEMP 36.2; O2SAT 100
== END 2019-07-05 16:15 | disposition home health service (06) | DRG 330 ==
LOC: ANHED 08:04 → ANH3MEDSUR 08:28
PROVIDERS: General Practice; Internal Medicine; Admitting Provider Surgery; Emergency Provider Emergency Medicine; PCP Family Medicine; Visit Provider Surgery
PROC: 0DTN0ZZ Resection of Sigmoid Colon, Open Approach (ICD-10-PCS; CPT 44143; principal; 2019-06-27 16:00)
DX: K56.2 Volvulus (principal); N13.30 Unspecified hydronephrosis; I50.32 Chronic diastolic (congestive) heart failure; F01.51 Vascular dementia, unspecified severity, with behavioral disturbance; I27.20 Pulmonary hypertension, unspecified; I11.0 Hypertensive heart disease with heart failure; I48.0 Paroxysmal atrial fibrillation; K56.0 Paralytic ileus; K59.00 Constipation, unspecified; I25.10 Atherosclerotic heart disease of native coronary artery without angina pectoris; R74.8 Abnormal levels of other serum enzymes; I73.9 Peripheral vascular disease, unspecified; K21.9 Gastro-esophageal reflux disease without esophagitis; Z86.718 Personal history of other venous thrombosis and embolism; Z86.73 Personal history of transient ischemic attack (TIA), and cerebral infarction without residual deficits; Z87.891 Personal history of nicotine dependence; Z91.81 History of falling; Z95.2 Presence of prosthetic heart valve
CPT/HCPCS: 36415; 71045; 74018; 74177; 74270; 80048; 80053; 80076; 81003; 83605; 83690; 83735; 85025; 85027; 85610; 85730; 86709; 86803; 86850; 86900; 86901; 87340; 88307; 93005; 96361; 96374; 96375; 97110; 97116; 97162; 97165; 97530; 97535; 99285; A9270; J0360; J0690; J1650; J1741; J2270; J2405; J2704; J3010; J7030; J7120; J7121; Q9967

== ENCOUNTER 2020-03-11 11:00 | Inpatient (IN) | payer MEDICARE, SELFPAY ==
[2020-03-11] VITALS (31 sets, daily range): BP systolic 113–182; BP diastolic 69–118; PULSE 75–167; RESP 16–33; TEMP 36.3–36.6; O2SAT 95–100; BMI 26.1
--- NOTE | ~2020-03-11 | XR_ITS ---
XR chest 1V portable DATE: 03/11/2020 12:03 INDICATION: Weakness TECHNIQUE: Portable AP chest on 03/11/2020 1155 hours COMPARISON: 06/27/2019 portable AP chest at 1130 hours FINDINGS: Cardiac megaly. Prosthetic cardiac valve. Mild pulmonary vascular congestion and redistribution and mild pulmonary interstitial prominence sugg est congestive changes. There is slight if any right pleural effusion. No pneumothorax. Diffuse osteopenia. IMPRESSION: Cardiomegaly, suggestion of mild congestive changes Reviewed, dictated and finalized at location A. OTYPESETTER OPERATOR
--- NOTE | 2020-03-11 11:28 | ECG_ITS ---
Measurements Intervals [place] Rate: 160 P: ME: 0 QRS: 3 QRSD: 108 T: 201 QT: 268 QTc: 437 Interpretive Statements ATRIAL FLUTTER/TACHYCARDIA WITH RAPID VENTRICULAR RESPONSE ST-T WAVE ABNORMALITY IN LAT/HIGH LAT LEADS- CONSIDER ISCHEMIA BASELINE WANDER- V1 ABNORMAL ECG Electronically Signed On 03-11-2020 13:38:05 [employer] by Cezar Love D.O.
[2020-03-11] MEDS: dilTIAZem HCl INJ 25 MG/5 ML VIAL 10 MG IV PUSH ×2 (11:34→12:18)
[2020-03-11 11:40] LABS: Basophils Percent Auto 0.3 % (0.2-1.2); Eosinophils Percent Auto 0.2 % (0-4.4); Hematocrit 33.8 % (37.0-47.0); Hemoglobin 11.4 g/dL (12.0-15.0); Immature Granulocyte Absolute 0.03 K/mm3 (0.00-0.031); Immature Granulocyte Percent A 0.3 % (0-0.5); Lymphocytes Absolute Auto 1.94 K/mm3 (0.9-3.2); Mean Corpuscular HGB Conc 33.7 g/dl (32-36); Mean Corpuscular Hemoglobin 30.6 pg (26-34); Mean Corpuscular Volume 90.9 fl (80-100); Mean Platelet Volume 11.4 fl (7.4-10.4); Monocytes Absolute Auto 0.5 K/mm3 (0.1-0.6); Monocytes Percent Auto 5.5 % (2.6-8.5); Neutrophils Absolute Auto 6.3 K/mm3 (1.3-6.7); Neutrophils Percent Auto 71.7 % (45.5-73.1); Platelet Count Result 179 k/mm3 (150-375); Red Blood Count 3.72 M/mm3 (4.2-5.4); Red Cell Distribution Width 13.4 % (11.5-14.5); White Blood Count 8.8 K/mm3 (4.5-10.0)
[2020-03-11 11:49] LABS: INR 1.1; Prothrombin Time 14.5 Seconds (11.1-14.7)
[2020-03-11 11:50] LABS: Partial Thromboplastin Time 28.9 SECONDS (22.3-36.8)
[2020-03-11 11:53] LABS: Alanine Aminotransferase 27 U/L (4-35); Albumin Level 3.9 g/dL (3.5-5.1); Alkaline Phosphatase 81 U/L (38-126); Anion Gap 10 mmol/L (8-16); Aspartate Amino Transferase 28 U/L (14-36); Bilirubin,Total 0.6 mg/dL (0.2-1.3); Blood Urea Nitrogen 21 mg/dL (7-17); Calcium 8.7 mg/dL (8.4-10.2); Carbon Dioxide 25 mmol/L (22-30); Chloride 98 mmol/L (98-107); Estimated CRCL calculation 35 ml/min; Estimated Glomerular Filt Rate 48; Glucose 127 mg/dL (65-105); Potassium 3.8 mmol/L (3.4-5.0); Sodium 133 mmol/L (137-145)
--- NOTE | 2020-03-11 11:56 | ED.GENADULT ---
HPI - General Adult General Chief complaint: Upper Respiratory Infection Stated complaint: cold symptoms, not sleeping Time Seen by Provider: 03/11/20 11:21 Source: patient and family Limitations: no limitations History of Present Illness HPI narrative: 79 years old white female came to the emergency room with her because not feeling well for the last 2 days. The patient and her are very poor historian. Patient denies any fever, chills, nausea, vomiting, chest pain, shortness of breath, headache, sore throat, urinary symptoms or abdominal symptoms. Related Data Home Medications Medication Instructions Recorded Confirmed aspirin [Adult Low Dose Aspirin] 81 mg PO DAILY 02/25/19 07/23/19 ezetimibe 10 mg PO DAILY 02/25/19 07/23/19 levothyroxine 25 mcg PO DAILY 02/25/19 07/23/19 metoprolol succinate [Toprol XL] 12.5 mg PO BID 02/25/19 07/23/19 rosuvastatin [Crestor] 40 mg PO DAILY 02/25/19 07/23/19 acetaminophen 325 mg PO BID 06/27/19 07/23/19 sennosides [Senokot] 8.6 mg PO HS 06/27/19 07/23/19 Allergies Allergy/AdvReac Type Severity Reaction Status Date / Time adhesive Allergy Intermediate Rash Verified 03/11/20 11:13 peanut Allergy Unknown Cough Verified 03/11/20 11:13 Review of Systems Review of Systems: Narrative: CONSTITUTIONAL: Denies fever, chills, or sweats. EYES: Denies visual changes, redness, or discharge. ENT: Denies rhinorrhea, congestion, sore throat, or otalgia. CARDIOVASCULAR: Denies chest pain, palpitations, or edema. RESPIRATORY: Denies cough or dyspnea. GASTROINTESTINAL: Denies abdominal pain, nausea, vomiting, or diarrhea. GENITOURINARY: Denies dysuria or hematuria. SKIN: Denies rash or itching. MUSCULOSKELETAL: Denies back pain, joint pain, or myalgia. NEUROLOGIC: Denies headache, numbness, or weakness. PSYCHIATRIC: Denies anxiety or depression. [facility] Past Medical History Medical History Adynamic ileus Anxiety Aortic valve regurgitation Moderate regurgitation noted on echocardiogram December 2015 Arthritis CAD (coronary artery disease) Carotid artery stenosis Constipation With history of possible sigmoid volvulus in November and February of 2019. 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 Mcbride due to mitral valve Prolapse; with mild mitral valve regurgitation noted on echo from December 2015 History of cardiac catheterization July 2015 at [place] which demonstrated 50-60% mid LAD stenosis and 40% circumflex stenosis with fractional flow reserve not suggestive of significant limitations that would cause chest pain Family History Family History Father Diabetes mellitus Cerebrovascular accident Heart disease He at age 69 of an CO Mother Esophageal cancer Sibling , Sister at age 67 of an CO and had dementia. Another sister who had lung cancer and blood clots. Brother who of a brain tumor 10 years old. Other siblings who had test
[2020-03-11 12:05] LABS: NT Pro B Type Natriuretic Pept 9180 PG/ML (5-100); Troponin I 0.093 ng/mL (0.000-0.034)
[2020-03-11] MEDS: ENOXAPARIN 80 MG/0.8 ML SYRINGE SUB-Q (12:17)
--- NOTE | 2020-03-11 13:08 | ECG_ITS ---
Measurements Intervals [place] Rate: 100 P: [place]: 0 QRS: 3 QRSD: 99 T: 210 QT: 321 QTc: 415 Interpretive Statements ATRIAL FLUTTER/TACHYCARDIA WITH RAPID VENTRICULAR RESPONSE BORDERLINE ST-T WAVE ABNORMALITY- INF/LAT LEADS ABNORMAL ECG Electronically Signed On 03-11-2020 15:51:44 CRYPTOLOGIC SUPPORT SPECIALIST by Cezar Love D.O.
[2020-03-11 13:10] LABS: Add Urine Microscopic? YES; Appearance Urine Clear (Clear); Bilirubin Urine Negative (Negative); Blood Urine Negative (Negative); Color Urine Yellow (Yellow); Glucose Urine UA Negative (Negative); Hyaline Casts Urine 20-29 /lpf; Ketones Urine 1+ mg/dL (Negative); Leukocyte Esterase Ur Negative LEU/UL (Negative); Mucus Urine Rare /lpf; Nitrate Urine Negative (Negative); Protein Urine 2+ mg/dL (Negative); RBC Urine 0-2 /hpf (0-2); Specific Grav Ur 1.014 (1.001-1.035); Urobilinogen Urine Negative mg/dL (<2.0); WBC Urine 0-3 /hpf
--- NOTE | 2020-03-11 14:19 | PM.CNCAR ---
Assessment and Plan Assessment and plan (1) Atrial fibrillation with rapid ventricular response: Code(s): I48.91 - Unspecified atrial fibrillation Status: Acute Assessment and Plan: 79 y/o female with h/o mitral valve replacement with bioprosthetic valve in 2009 at [facility] (followed Dr. Mcbride),CAD, TIA, paroxysmal A fib not on AC (intracranial hemorrhage 2014), dementia, HTN, HLD who presents with fatigue and A fib with RVR -She has history of paroxysmal A fib but has been in sinus rhythm lately including at time of abd surgery in July 2019 -Now in A fib with RVR, unclear underling etiology however she admits to URI symptoms. Would test for COVID -Her potassium is 3.8. Will try to keep >4. Check Mg and TSH -As for rate control she is on low dose Metoprolol at home 12.5 BID. Currently on Cardizem drip. Will resume metoprolol at increase dose 25 BID and attempt to wean off Cardizem drip -CHADsVASC score is high however It was documented previously that she had intracranial hemorrhage in the past necessitating stopping AC. Continue ASA for now. Need records from primary lining inserter -Check 2D echo. Has history of MVR in 2009. Last echo in 2015 showed normal EF, moderately dilated LA. mild MR. Moderate AI, mild pulmonary HTN (2) Elevated troponin: Code(s): R77.8 - Other specified abnormalities of plasma proteins Status: Acute Assessment and Plan: No chest pain or ischemic EKG changes Likely due to type II HI with increased demand from tachycardia and possible URI Follow troponin to peak Check 2D echo [facility] in 2015 with moderate disease in LAD and LCx distribution. Obtain records from primary lining inserter (3) CAD (coronary artery disease): Qualifiers: Coronary Disease-Associated Artery/Lesion type: [place] artery [place] vs. transplanted heart: [place] heart Associated angina: without angina Qualified Code(s): I25.10 - Atherosclerotic heart disease of [place] coronary artery without angina pectoris Code(s): I25.10 - Atherosclerotic heart disease of [place] coronary artery without angina pectoris Status: Acute Assessment and Plan: Continue ASA and statin (4) Vascular dementia: Qualifiers: Dementia behavioral disturbance: with behavioral disturbance Qualified Code(s): F01.51 - Vascular dementia with behavioral disturbance Code(s): F01.50 - Vascular dementia without behavioral disturbance Status: Chronic History of Present Illness History of Present Illness Consult date/time: 03/11/20 14:19 79 y/o female with h/o MR s/p mitral valve replacement with bioprosthetic valve in 2009 at [facility] (followed Dr. Mcbride),CAD, TIA, paroxysmal A fib not on AC (intracranial hemorrhage 2014), dementia, HTN, HLD who presents with fatigue and A fib with RVR Patient is poor historian with history of dementia. She states that she has been extremely tried for the last 2 days and has not been able to get any sleep. She was noted to be in A fib with RVR with HR ~ 160s. She was started on Cardizem drip and HR now down to ~ 100-110. She denies chest pain. She admits to dyspnea, cough and nasal congestion. She states that she has been trying to stay home to avoid exposure to COVID however did go out last week with . Labs revealed Cr 1.1, K 3.8. Trop 0.09. Nt pro BNP 9000. Chest X ray showed cardiomegaly and pulmonary edema She had recurrent admissions last year with volvulus and eventually underwent sigmoid colectomy in July. Her EKGs from those admission all where in normal sinus rhythm-sinus bradycardia Had echocardiogram December 2015 with ejection fraction is 60-70% and moderate left atrial enlargement History of cardiac catheterization July 2015 at [facility] which demonstrated 50-60% mid LAD stenosis and 40% circumflex stenosis with normal fractional flow reserve Reason For Visit: New A-fib w/RVR, Elevated Troponin, Hyponatremia Review of Systems Revie
--- NOTE | 2020-03-11 15:45 | PM.IMHP ---
H&P: HPI History of Present Illness Date/Time: 03/11/20 15:45 <Miriam Wynne PA-C - Last Filed: 03/12/20 01:08> Chief Complaint: Generalized weakness. <Miriam Wynne PA-C - Last Filed: 03/12/20 01:08> Narrative: Peace Kinsey is an 79-year-old female with paroxysmal atrial fibrillation not on long-term anticoagulation due to history of intraparenchymal hemorrhage, coronary artery disease, hypertension, vascular dementia, and hypothyroidism who presented to the emergency department earlier today from home with complaints of generalized weakness. Neither the patient nor her are very good historians and as such some of the following history is obtained via a review of her electronic medical records. It is my understanding that her short-term memory is very poor since her intraparenchymal hemorrhage. Over the past 2 days ?I just have not been feeling good? though she has no specific complaints. With questioning she replies ?slightly? when I ask if she has had a headache, sore throat, shortness of breath, and nausea. She denied fever, chills, sweats, exposure to COVID-19, cough, vomiting, diarrhea, and dysuria. On arrival to the emergency department she was found to be in atrial fibrillation with rapid ventricular response for which she has been started on a Cardizem drip. Her baseline troponin was minimally elevated and she appears a bit dehydrated by labs however chest x-ray demonstrates findings which suggest mild congestive changes. <Miriam Wynne PA-C - Last Filed: 03/12/20 01:08> Review of Systems Review of Systems: Narrative: Twelve systems were reviewed with pertinent positives and negatives as per HPI. The accuracy of such is questionable given her pretty significant short-term memory loss. Except as documented, all other systems were reviewed and are negative. <Miriam Wynne PA-C - Last Filed: 03/12/20 01:08> [facility] Past Medical History Medical History: Medical History (Updated 03/11/20 @ 16:02 by Miriam Wynne PA-C) Anxiety Aortic valve regurgitation Moderate regurgitation on echocardiogram December 2015. Arthritis Carotid artery stenosis (~01/2014) 50 to 69% left carotid artery stenosis noted on carotid artery ultrasound. Coronary artery disease Cardiac catheterization in July 2015 at [facility] showed 50 to 60% mid LAD stenosis and 40% circumflex stenosis, treated medically. Lexiscan stress in September 2017 showed ejection fraction greater than 70% with small areas of mild infarction involving the apical, septal, and apical lateral bailey of the left ventricle. Depression Diastolic dysfunction On echocardiogram December 2015 with and ejection fraction of 60-70%. 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 Peripheral vascular disease Pulmonary hypertension Mild pulmonary hypertension was noted on echocardiogram in December 2015 with an RVSP of 35-40 mmHg. Right leg DVT (~03/2010) Sigmoid volvulus Several hospitalizations for such with subsequent sigmoidectomy in June [address] Quan. Transient ischemic attack (~2009) Vascular dementia <Miriam Wynne PA-C - Last Filed: 03/12/20 01:08> Surgical History Surgical History: Surgical History (Updated 03/11/20 @ 15:53 by Miriam Wynne PA-C) History of bladder surgery (~1993) Resection of benign bladder tumor. History of breast biopsy History of cardiac catheterization July 2015 at [facility] which demonstrated 50-60% mid LAD stenosis and 40% circumflex stenosis with fractional flow reserve not suggestive of significant limitations that would cause chest pain. Treated medically. History of dilation and curettage History of mitral valve replacem
[2020-03-11 16:40] LABS: CRP 0.9 mg/dL (<1.0)
[2020-03-11 16:51] LABS: Troponin I 0.081 ng/mL (0.000-0.034)
--- NOTE | 2020-03-11 16:53 | ADMGEN ---
This patient, Peace Kinsey, was admitted to IMU Room 207-01. Patient/family oriented to hospital policies and general routines including ID bracelet, bed and alarms, visiting hours, pain management, procedures, bathroom and other care routines, personal items, smoking policy, room service/diet, and visiting hours. Information on how to activate the Rapid Response Team has been discussed. Patient/Family are encouraged to report perceived risks to care and to ask questions if they do not understand what they are told or what they should do.
[2020-03-11] MEDS: METOPROLOL TARTRATE 25 MG TABLET PO ×2 (17:50→21:17)
[2020-03-11 19:36] LABS: Troponin I 0.076 ng/mL (0.000-0.034)
[2020-03-11 23:03] LABS: SARS-CoV-2 RNA PCR Negative
[2020-03-12] VITALS (19 sets, daily range): BP systolic 127–151; BP diastolic 60–106; PULSE 86–156; RESP 18–20; TEMP 36.1–36.7; O2SAT 94–100
[2020-03-12] MEDS: OLANZapine 10 MG INJ VIAL 5 MG IM ×2 (03:35→13:37)
--- NOTE | 2020-03-12 06:00 | ECG_ITS ---
Measurements Intervals [place] Rate: 79 P: [place]: 0 QRS: 2 QRSD: 111 T: -75 QT: 394 QTc: 452 Interpretive Statements ATRIAL FLUTTER/TACHYCARDIA INTRAVENTRICULAR CONDUCTION DELAY NONSPECIFIC ST & T-WAVE ABNORMALITY- DIFFUSE LEADS BASELINE ARTIFACT- I, II, III, AVL, AVF ABNORMAL ECG Electronically Signed On 03-12-2020 14:19:57 HEAD WRESTLING COACH by Cezar Love D.O.
[2020-03-12 06:47] LABS: Hematocrit 34.8 % (37.0-47.0); Hemoglobin 11.6 g/dL (12.0-15.0); Mean Corpuscular HGB Conc 33.3 g/dl (32-36); Mean Corpuscular Volume 89.9 fl (80-100); Mean Platelet Volume 12.1 fl (7.4-10.4); Platelet Count Result 196 k/mm3 (150-375); Red Blood Count 3.87 M/mm3 (4.2-5.4); Red Cell Distribution Width 13.5 % (11.5-14.5); White Blood Count 9.4 K/mm3 (4.5-10.0)
[2020-03-12 07:27] LABS: Anion Gap 12 mmol/L (8-16); Blood Urea Nitrogen 20 mg/dL (7-17); Calcium 8.9 mg/dL (8.4-10.2); Carbon Dioxide 23 mmol/L (22-30); Chloride 101 mmol/L (98-107); Estimated CRCL calculation 40 ml/min; Estimated Glomerular Filt Rate 60; Glucose 131 mg/dL (65-105); Magnesium 2.2 mg/dL (1.6-2.3); Potassium 3.4 mmol/L (3.4-5.0); Sodium 136 mmol/L (137-145)
[2020-03-12] MEDS: EZETIMIBE 10 MG TABLET PO (08:29)
[2020-03-12] MEDS: METOPROLOL TARTRATE 25 MG TABLET PO ×2 (08:29→21:30)
[2020-03-12] MEDS: ASPIRIN 81 MG ENTERIC TABLET PO (08:29)
[2020-03-12] MEDS: ROSUVASTATIN 10 MG TABLET 40 MG PO (08:29)
--- NOTE | 2020-03-12 09:21 | PM.PNCARD ---
Progress Note: A&P Assessment and Plan (1) Atrial fibrillation with rapid ventricular response: Code(s): I48.91 - Unspecified atrial fibrillation Status: Acute Assessment and Plan: 79 y/o female with h/o mitral valve replacement with bioprosthetic valve in 2009 at [place] (followed Dr. Mcbride),CAD, TIA, paroxysmal A fib not on AC (intracranial hemorrhage 2014), dementia, HTN, HLD who presents with fatigue and A fib with RVR -She has history of paroxysmal A fib but has been in sinus rhythm lately including at time of recent abd surgery in July 2019 -Now in A fib with RVR, HR better on increased dose of Metoprolol (25 BID). -Need to be more qaggressive in replacing K (down to 3.4). Mg is 2.2 -wean off Cardizem drip -Follow 2D echocardiogram -CHADsVASC score is high however it was documented previously that she had intracranial hemorrhage in the past necessitating stopping AC. Continue ASA for now. Need records from primary learning design specialist (2) Elevated troponin: Code(s): R77.8 - Other specified abnormalities of plasma proteins Status: Acute Assessment and Plan: Peaked at 0.07 No chest pain or ischemic EKG changes Likely due to type II AK with increased demand from tachycardia Follow 2D echo [facility] in 2015 with moderate disease in LAD and LCx distribution. Obtain records from primary learning design specialist (3) CAD (coronary artery disease): Qualifiers: Coronary Disease-Associated Artery/Lesion type: [place] artery [place] vs. transplanted heart: [place] heart Associated angina: without angina Qualified Code(s): I25.10 - Atherosclerotic heart disease of [place] coronary artery without angina pectoris Code(s): I25.10 - Atherosclerotic heart disease of [place] coronary artery without angina pectoris Status: Acute Assessment and Plan: Continue ASA and statin (4) Vascular dementia: Qualifiers: Dementia behavioral disturbance: with behavioral disturbance Qualified Code(s): F01.51 - Vascular dementia with behavioral disturbance Code(s): F01.50 - Vascular dementia without behavioral disturbance Status: Chronic Subjective Date/time seen: 03/12/20 09:21 Feels better overall. On and off Cardizem drip at low dose overnight as she kept pulling her IV. Her HR mostly ~ 80s-90s now with occasional spikes as high as 140s Review of Systems Review of Systems: All systems reviewed & are unremarkable except as noted in HPI and below ENT: Reports Normal hearing present Neurologic: Reports Normal hearing present Exam Narrative: Exam Narrative: Pleasantly confused. Heart irregular, systolic murmur noted. trace lower ext edema Const: General: no acute distress Eyes: Sclera: sclerae normal Neck: Neck: no JVD Carotids: no bruits Resp: Effort & Inspection: normal respiratory effort Auscultation: clear to auscultation bilaterally Cardio: Rate: tachycardic Rhythm: abnormal rhythm Heart sounds: no gallops, Murmur heart sound present and no rubs Skin: General skin exam: normal color Neuro: Cranial nerves: Yes Normal hearing present Speech: normal speech Extrem: General: normal to inspection and no edema Psych: Affect: normal affect Objective Data Vital Signs Vital Signs: Vital Signs - 24 hr 03/11/20 11:08 03/11/20 11:11 03/11/20 11:12 Temperature Pulse Rate 132 H 162 H 159 H Respiratory Rate 16 33 H 22 H Blood Pressure 142/118 H 142/118 H Pulse Oximetry 03/11/20 11:15 03/11/20 11:16 03/11/20 11:30 Temperature Pulse Rate 141 H 151 H 160 H Respiratory Rate 22 H 18 22 H Blood Pressure 142/112 H Pulse Oximetry 97 03/11/20 11:35 03/11/20 11:40 03/11/20 11:45 Temperature Pulse Rate 162 H 110 H 93 Respiratory Rate 24 H 16 Blood Pressure 141/106 H 141/106 H Pulse Oximetry 98 03/11/20 11:46 03/11/20 12:00 03/11/20 12:01 Temperature Pulse Rate 117 H 152 H 163 H Respiratory Rate 21 H 20 21 H B
[2020-03-12] MEDS: POTASSIUM CHLORIDE 20 MEQ PACKET (FOR LIQUID) 40 MEQ PO ×2 (09:42→13:49)
[2020-03-12] MEDS: WATER, STERILE FOR INJECTION 10 ML VIAL XX (13:49)
--- NOTE | 2020-03-12 14:41 | ECHO_ITS ---
Patient Info Name: Peace Kinsey Age: 79 years : 1940 Gender: Female Ht: 67 in Wt: 165 lbs BSA: 1.89 m2 HR: 106 bpm BP: 143 / 87 mmHg Technical Quality: Good Exam Date: 03/12/2020 8:48 AM Exam Location: [facility] Patient Status: Inpatient Admit Date: 03/12/2020 Staff Ordering Physician: Darrion Bhardwaj MD ([email or web address]) Docket Specialist: Irwin Coles, RDCS, RT Attending Provider: Estiven Holley MD Exam Type: CA echo doppler color flow Study Info Indications Z95.2 - Presence of prosthetic heart valve I48.1 - Persistent atrial fibrillation Complete two-dimensional, color flow and Doppler transthoracic echocardiogram is performed. Summary 1. Complete two-dimensional, color flow and Doppler transthoracic echocardiogram is performed. 2. Left ventricular systolic function is normal, estimated at 60-65%. 3. There is mildly increased left ventricular wall thickness. 4. The left ventricular diastolic function is indeterminate due to mitral valve prosthesis and underlying rhythm (A fib). 5. Right ventricle is not well visualized but appears probably mildly dilated with normal systolic function. 6. Left atrial chamber dimension is severely enlarged. 7. Right atrial chamber dimension is moderately enlarged. 8. There is well seated bio Prosthesis noted in the mitral position. There is no mitral or perivalvular regurgitation. Mean inflow gradient across mitral prothesis is \R\ 8 mmHg at HR 110, unchanged compared to study in 2014. 9. There is mild aortic valve sclerosis. 10. There is no aortic valve stenosis. 11. There is at least moderate aortic valve regurgitation. 12. There is mild to moderate tricuspid valve regurgitation. 13. Moderate pulmonary hypertension, estimated pulmonary arterial systolic pressure is 55 mmHg. 14. Inferior vena cava is top normal in size. 15. There is no pericardial effusion. Left Ventricle Left ventricular chamber dimension is normal. Left ventricular systolic function is normal, estimated at 60-65%. There is mildly increased left ventricular wall thickness. Left ventricular septal wall motion is normal. The left ventricular diastolic function is indeterminate due to mitral valve prosthesis and underlying rhythm (A fib). Right Ventricle Right ventricle is not well visualized but appears probably mildly dilated with normal systolic function. Left Atria Left atrial chamber dimension is severely enlarged. Right Atria Right atrial chamber dimension is moderately enlarged. Aortic Valve The aortic valve is trileaflet. There is mild aortic valve sclerosis. There is no aortic valve stenosis. There is at least moderate aortic valve regurgitation. Pulmonic Valve The pulmonic valve is normal. There is no pulmonic valve stenosis. There is trace pulmonic regurgitation. Mitral Valve There is well seated bio Prosthesis noted in the mitral position. There is no mitral or perivalvular regurgitation. Mean inflow gradient across mitral prothesis is \R\ 8 mmHg at HR 110, unchanged compared to study in 2014. Tricuspid Valve The tricuspid valve leaflets are normal. There is mild to moderate tricuspid valve regurgitation. Moderate pulmonary hypertension, estimated pulmonary arterial systolic pressure is 55 mmHg. Pericardium/Pleural The pericardium appears normal. There is no pericardial effusion. Inferior Vena Cava Inferior vena cava is top normal in size. Aorta The aortic root size at the sinus of Valsalva is normal. Th
--- NOTE | 2020-03-12 16:04 | PM.IMPN ---
Progress Note: A&P Assessment and Plan (1) Atrial fibrillation with rapid ventricular response: Code(s): I48.91 - Unspecified atrial fibrillation Status: Acute Assessment and Plan: 03/12/20 16:04 Patient 79-year-old female was brought to the emergency department by her with complaint the patient is not feeling well and not herself, patient has history of proximal atrial fibrillation, patient was found to have atrial fibrillation with RVR patient was started on diltiazem drip her rate is trending down seen by striper started the patient was started on metoprolol 25 mg b.i.d. and plan is to wean the patient off diltiazem drip, today patient still is quite confused and very poor historian, patient denies any chest palpitation fever or chills. (2) Elevated troponin: Code(s): R77.8 - Other specified abnormalities of plasma proteins Status: Acute Assessment and Plan: Likely type 2 myocardial infarction secondary to demand ischemia due to atrial fibrillation with RVR patient is seen by Cardiology and no workup is recommended (3) Essential hypertension: Code(s): I10 - Essential (primary) hypertension Status: Chronic Assessment and Plan: Will continue home regimen and monitor (4) Elevated serum creatinine: Code(s): R79.89 - Other specified abnormal findings of blood chemistry Status: Acute Assessment and Plan: Most likely secondary to dehydration will gently hydrate the patient and monitor kidney function (5) Hyponatremia: Code(s): E87.1 - Hypo-osmolality and hyponatremia Status: Acute Assessment and Plan: Most likely secondary to dehydration will hydrate the patient and monitor sodium (6) Hypothyroidism: Code(s): E03.9 - Hypothyroidism, unspecified Status: Acute (7) Dyslipidemia: Code(s): E78.5 - Hyperlipidemia, unspecified Status: Inactive (8) Diastolic dysfunction: Code(s): I51.89 - Other ill-defined heart diseases Status: Chronic (9) Vascular dementia: Qualifiers: Dementia behavioral disturbance: with behavioral disturbance Qualified Code(s): F01.51 - Vascular dementia with behavioral disturbance Code(s): F01.50 - Vascular dementia without behavioral disturbance Status: Chronic Additional Plan The patient is being admitted for further treatment of atrial fibrillation with rapid ventricular response. 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 She has been started on a Cardizem drip and Dr. Bhardwaj (cardiology) has increased her metoprolol dose to 25 mg b.i.d. in an attempt to wean her off the drip. 2D echocardiogram pending. It sounds as though she follows with a striper at [place] thus will request records for chart review. Her troponins are elevated, likely due to demand ischemia from the tachycardia however we will trend to peak. Cardiac catheterization in 2015 at [place] demonstrated nonobstructing disease which was treated medically. Continue aspirin, statin, and beta-david. Chest x-ray shows findings suggestive of mild congestive changes (likely due to the tachycardia) however her labs argue that she may be a bit intravascularly depleted with elevated creatinine from baseline, mild hyponatremia, and hyaline casts in the urine. Avoid diuresis at this time and encourage p.o. intake. Monitor volume status closely with daily weights and I/O. Her home medications will be reviewed and resumed as appropriate. Check TSH. She was swabbed for COVID in the emergency department given reports of URI symptoms, and will be and isolation pending those results. COVID seems less likely. Subjective Date/time seen: 03/12/20 16:04 Patient 79-year-old female was brought to the emergency department by her with complaint the patient is not feeling well and
[2020-03-12] MEDS: DIGOXIN INJ 250 MCG/ML 2 ML AMP (*BKC) IV PUSH ×2 (16:07→21:30)
--- NOTE | 2020-03-12 19:39 | PC.NURSE ---
Spoke with patient's son who is demanding the patient only have home health at discharge. Educated the patient's son on the severity of her mental status and that she is currently hallucinating and is requiring 24 hour sitters. The son states Yeah she does that, and has for a while. My dad can take care of her just fine. The son also reports that the patient lives with her , while care coordination was under the impression that another son was living with them and was present at all times. Encouraged multiple forms of half-way placement or independent living options for discharge planning, and the patient's son is refusing at this time and is requesting home health services. Message left with care coordination.
[2020-03-12] MEDS: QUEtiapine FUMARATE 12.5 MG TABLET PO (21:31)
[2020-03-12] MEDS: SENNOSIDES 8.6 MG TABLET PO (21:31)
[2020-03-13] VITALS (15 sets, daily range): BP systolic 111–153; BP diastolic 54–118; PULSE 78–126; RESP 16–22; TEMP 36.2–36.7; O2SAT 96–98
[2020-03-13] MEDS: LEVOTHYROXINE SODIUM 25 MCG TABLET PO (06:31)
[2020-03-13 07:14] LABS: Hematocrit 38.6 % (37.0-47.0); Hemoglobin 12.1 g/dL (12.0-15.0); Mean Corpuscular HGB Conc 31.3 g/dl (32-36); Mean Corpuscular Volume 95.5 fl (80-100); Mean Platelet Volume 11.2 fl (7.4-10.4); Platelet Count Result 191 k/mm3 (150-375); Red Blood Count 4.04 M/mm3 (4.2-5.4); Red Cell Distribution Width 14.1 % (11.5-14.5); White Blood Count 9.7 K/mm3 (4.5-10.0)
[2020-03-13 07:36] LABS: Anion Gap 11 mmol/L (8-16); Blood Urea Nitrogen 22 mg/dL (7-17); Calcium 8.8 mg/dL (8.4-10.2); Carbon Dioxide 19 mmol/L (22-30); Chloride 106 mmol/L (98-107); Estimated CRCL calculation 36 ml/min; Estimated Glomerular Filt Rate 53; Glucose 101 mg/dL (65-105); Magnesium 2.3 mg/dL (1.6-2.3); Potassium 4.3 mmol/L (3.4-5.0); Sodium 136 mmol/L (137-145)
--- NOTE | 2020-03-13 08:59 | PM.PNCARD ---
Progress Note: A&P Assessment and Plan (1) Atrial fibrillation with rapid ventricular response: Code(s): I48.91 - Unspecified atrial fibrillation Status: Acute Assessment and Plan: 79 y/o female with h/o mitral valve replacement with bioprosthetic valve in 2009 at [facility] (followed Dr. Mcbride),CAD, TIA, paroxysmal A fib not on AC (intracranial hemorrhage 2014), dementia, HTN, HLD who presents with fatigue and A fib with RVR -She has history of paroxysmal A fib s/p cardioversion in 2010 but has been in sinus rhythm lately including at time of recent abd surgery in July 2019 -Now in A fib with RVR -HR better on increased dose of Metoprolol (25 BID). Also started Digoxin IV load yesterday. Will start digoxin PO -replaced K -2D echo shows normal LV function. Well seated mitral prosthesis -CHADsVASC score is high however it was documented previously that she had intracranial hemorrhage in the past necessitating stopping AC. Continue ASA for now. -She is stable for discharge from cardiac standpoint. Will need PT/OT/nephrology social worker. Need follow up with her permanent mold supervisor in 1 week after discharge (2) Elevated troponin: Code(s): R77.8 - Other specified abnormalities of plasma proteins Status: Acute Assessment and Plan: Peaked at 0.07 No chest pain or ischemic EKG changes Likely due to type II [place] with increased demand from tachycardia [facility] in 2015 with moderate disease in LAD and LCx distribution. (3) CAD (coronary artery disease): Qualifiers: Coronary Disease-Associated Artery/Lesion type: [place] artery [place] vs. transplanted heart: [place] heart Associated angina: without angina Qualified Code(s): I25.10 - Atherosclerotic heart disease of [place] coronary artery without angina pectoris Code(s): I25.10 - Atherosclerotic heart disease of [place] coronary artery without angina pectoris Status: Acute Assessment and Plan: Continue ASA and statin (4) Vascular dementia: Qualifiers: Dementia behavioral disturbance: with behavioral disturbance Qualified Code(s): F01.51 - Vascular dementia with behavioral disturbance Code(s): F01.50 - Vascular dementia without behavioral disturbance Status: Chronic Subjective Date/time seen: 03/13/20 08:59 She was reported to be confused overnight. On 1:1 supervision. Currently asleep. HR this am ~ 80s. Review of Systems Review of Systems: All systems reviewed & are unremarkable except as noted in HPI and below ENT: Reports Normal hearing present Neurologic: Reports Normal hearing present Exam Narrative: Exam Narrative: Pleasantly confused. Heart irregular, systolic murmur noted. trace lower ext edema Const: General: no acute distress Eyes: Sclera: sclerae normal Neck: Neck: no JVD Carotids: no bruits Resp: Effort & Inspection: normal respiratory effort Auscultation: clear to auscultation bilaterally Cardio: Rate: tachycardic Rhythm: abnormal rhythm Heart sounds: no gallops, Murmur heart sound present and no rubs Skin: General skin exam: normal color Neuro: Cranial nerves: Yes Normal hearing present Speech: normal speech Extrem: General: normal to inspection and no edema Psych: Affect: normal affect Objective Data Vital Signs Vital Signs: Vital Signs - 24 hr 03/12/20 10:00 03/12/20 10:46 03/12/20 12:00 Temperature 36.1 C L Pulse Rate 127 H 98 Respiratory Rate 18 Blood Pressure 148/106 H Pulse Oximetry 94 100 03/12/20 14:00 03/12/20 16:00 03/12/20 16:07 Temperature 36.3 C L Pulse Rate 121 H 133 H 132 H Respiratory Rate 20 Blood Pressure 151/84 H Pulse Oximetry 98 03/12/20 18:00 03/12/20 19:49 03/12/20 20:00 Temperature 36.7 C Pulse Rate 127 H 140 H 144 H Respiratory Rate 20 20 Blood Pressure 132/60 Pulse Oximetry 97 97 03/12/20 21:30 03/12/20 22:00 03/12/20 23:37 Temperature 36.6 C Pulse Rate 156 H 139 H 86 Respira
[2020-03-13] MEDS: ASPIRIN 81 MG ENTERIC TABLET PO (09:27)
[2020-03-13] MEDS: ROSUVASTATIN 10 MG TABLET 40 MG PO (09:27)
[2020-03-13] MEDS: METOPROLOL TARTRATE 25 MG TABLET PO ×2 (09:27→18:27)
[2020-03-13] MEDS: EZETIMIBE 10 MG TABLET PO (09:29)
[2020-03-13] MEDS: DIGOXIN TAB 125 MCG TABLET PO (10:27)
--- NOTE | 2020-03-13 15:49 | PM.IMPN ---
Progress Note: A&P Assessment and Plan (1) Atrial fibrillation with rapid ventricular response: Code(s): I48.91 - Unspecified atrial fibrillation Status: Acute Assessment and Plan: 03/13/20 15:49 Patient 79-year-old female was brought to the emergency department by her with complaint the patient is not feeling well and not herself, patient has history of proximal atrial fibrillation, patient was found to have atrial fibrillation with RVR patient was started on diltiazem drip her rate was trending down seen by full service vending driver started the patient was started on metoprolol 25 mg b.i.d. loaded with digoxin and weaned the patient off diltiazem drip, today added oral digoxin, patient rate is down and stable, however patient still is quite confused and very poor historian, patient and her both elderly and with dementia, patient will need placement, patient denies any chest palpitation fever or chills. (2) Elevated troponin: Code(s): R77.8 - Other specified abnormalities of plasma proteins Status: Acute Assessment and Plan: Likely type 2 myocardial infarction secondary to demand ischemia due to atrial fibrillation with RVR patient is seen by Cardiology and no workup is recommended (3) Essential hypertension: Code(s): I10 - Essential (primary) hypertension Status: Chronic Assessment and Plan: Will continue home regimen and monitor (4) Elevated serum creatinine: Code(s): R79.89 - Other specified abnormal findings of blood chemistry Status: Acute Assessment and Plan: Most likely secondary to dehydration will gently hydrate the patient and monitor kidney function (5) Hyponatremia: Code(s): E87.1 - Hypo-osmolality and hyponatremia Status: Acute Assessment and Plan: Most likely secondary to dehydration will hydrate the patient and monitor sodium (6) Hypothyroidism: Code(s): E03.9 - Hypothyroidism, unspecified Status: Acute (7) Dyslipidemia: Code(s): E78.5 - Hyperlipidemia, unspecified Status: Inactive (8) Diastolic dysfunction: Code(s): I51.89 - Other ill-defined heart diseases Status: Chronic (9) Vascular dementia: Qualifiers: Dementia behavioral disturbance: with behavioral disturbance Qualified Code(s): F01.51 - Vascular dementia with behavioral disturbance Code(s): F01.50 - Vascular dementia without behavioral disturbance Status: Chronic Subjective Date/time seen: 03/13/20 15:49 Patient 79-year-old female was brought to the emergency department by her with complaint the patient is not feeling well and not herself, patient has history of proximal atrial fibrillation, patient was found to have atrial fibrillation with RVR patient was started on diltiazem drip her rate was trending down seen by full service vending driver started the patient was started on metoprolol 25 mg b.i.d. loaded with digoxin and weaned the patient off diltiazem drip, today added oral digoxin, patient rate is down and stable, however patient still is quite confused and very poor historian, patient and her both elderly and with dementia, patient will need placement, patient denies any chest palpitation fever or chills. Review of Systems Review of Systems: ROS unobtainable: Yes unobtainable due to medical condition Exam Narrative: Exam Narrative: Elderly frail Patient is comfortable, NAD HEENT: eyes are clear and none icteric LUNGS: Bilateral fair air entry with minimal rhonchi HEART: Irregularly irregular ABD: BS+, Soft and nontender Lower extremities: no edema SKIN: nonjaundiced Neuro: grossly intact. Objective Data Vital Signs Vital Signs: Vital Signs - 24 hr 03/12/20 16:00 03/12/20 16:07 03/12/20 18:00 Temperature 97.4 F L Pulse Rate 133 H 132 H 127 H Respiratory Rate 20 Blood Pressure 151/84 H Pulse Oximetry 98 03/12/20 19:49 03/12/20 20:00 03/12/20 2
[2020-03-13] MEDS: METOPROLOL TARTRATE INJ 5 MG/5 ML VIAL IV PUSH (19:33)
[2020-03-13] MEDS: SENNOSIDES 8.6 MG TABLET PO (20:17)
[2020-03-14] VITALS (14 sets, daily range): BP systolic 138–154; BP diastolic 77–95; PULSE 84–146; RESP 16–20; TEMP 36.2–37.1; O2SAT 96–99
[2020-03-14] MEDS: METOPROLOL TARTRATE INJ 5 MG/5 ML VIAL IV PUSH (04:32)
[2020-03-14 05:49] LABS: Hematocrit 41.9 % (37.0-47.0); Hemoglobin 13.7 g/dL (12.0-15.0); Mean Corpuscular HGB Conc 32.7 g/dl (32-36); Mean Corpuscular Hemoglobin 30.5 pg (26-34); Mean Corpuscular Volume 93.3 fl (80-100); Mean Platelet Volume 11.2 fl (7.4-10.4); Platelet Count Result 212 k/mm3 (150-375); Red Blood Count 4.49 M/mm3 (4.2-5.4); Red Cell Distribution Width 14.1 % (11.5-14.5); White Blood Count 10.4 K/mm3 (4.5-10.0)
[2020-03-14 06:10] LABS: Anion Gap 8 mmol/L (8-16); Blood Urea Nitrogen 26 mg/dL (7-17); Calcium 8.8 mg/dL (8.4-10.2); Carbon Dioxide 22 mmol/L (22-30); Chloride 107 mmol/L (98-107); Estimated CRCL calculation 33 ml/min; Estimated Glomerular Filt Rate 48; Glucose 94 mg/dL (65-105); Potassium 4.3 mmol/L (3.4-5.0); Sodium 137 mmol/L (137-145)
[2020-03-14] MEDS: LEVOTHYROXINE SODIUM 25 MCG TABLET PO (06:17)
[2020-03-14] MEDS: METOPROLOL TARTRATE 25 MG TABLET PO ×4 (06:23→23:00)
[2020-03-14] MEDS: EZETIMIBE 10 MG TABLET PO (08:00)
[2020-03-14] MEDS: ROSUVASTATIN 10 MG TABLET 40 MG PO (08:00)
[2020-03-14] MEDS: DIGOXIN TAB 125 MCG TABLET PO (08:00)
[2020-03-14] MEDS: ASPIRIN 81 MG ENTERIC TABLET PO (08:01)
--- NOTE | 2020-03-14 08:56 | PM.PNCARD ---
Progress Note: A&P Assessment and Plan (1) Atrial fibrillation with rapid ventricular response: Code(s): I48.91 - Unspecified atrial fibrillation Status: Acute Assessment and Plan: 79 y/o female with h/o mitral valve replacement with bioprosthetic valve in 2009 at [place] (followed Dr. Mcbride),CAD, TIA, paroxysmal A fib not on AC (intracranial hemorrhage 2014), dementia, HTN, HLD who presents with fatigue and A fib with RVR -She has history of paroxysmal A fib s/p cardioversion in 2010 but has been in sinus rhythm lately including at time of recent abd surgery in July 2019 -Now in A fib with RVR - patient remains in atrial fibrillation with rapid ventricular response with heart rate 95-145 beats per minute. - to improve rate control, continue recently initiated digoxin 0.125 mg daily with assessment of digoxin level in the a.m. - increased metoprolol tartrate from 25 mg b.i.d. to 25 mg q.6 hours. - began diltiazem 30 mg q.6 hours. -replaced K -2D echo shows normal LV function. Well seated mitral prosthesis -CHADsVASC score is high however it was documented previously that she had intracranial hemorrhage in the past necessitating stopping AC. Continue ASA for now. -Will need PT/OT/social services assistant. Need follow up with her case assistant in 1 week after discharge, which is pending improved control of her heart rate at present. (2) Elevated troponin: Code(s): R77.8 - Other specified abnormalities of plasma proteins Status: Acute Assessment and Plan: Peaked at 0.07 No chest pain or ischemic EKG changes Likely due to type II [place] with increased demand from [facility] in 2015 with moderate disease in LAD and LCx distribution. (3) CAD (coronary artery disease): Qualifiers: Associated angina: without angina Coronary Disease-Associated Artery/Lesion type: [place] artery [place] vs. transplanted heart: [place] heart Qualified Code(s): I25.10 - Atherosclerotic heart disease of [place] coronary artery without angina pectoris Code(s): I25.10 - Atherosclerotic heart disease of [place] coronary artery without angina pectoris Status: Acute Assessment and Plan: Continue ASA and statin (4) Vascular dementia: Qualifiers: Dementia behavioral disturbance: with behavioral disturbance Qualified Code(s): F01.51 - Vascular dementia with behavioral disturbance Code(s): F01.50 - Vascular dementia without behavioral disturbance Status: Chronic Subjective Date/time seen: 03/14/20 08:56 Patient denies chest pain but reports occasional epigastric discomfort. She reports occasional mild intermittent dyspnea. She denies dizziness. She is resting comfortably in bed. Patient was seen and examined, chart reviewed, case discussed with nurse. Exam Narrative: Exam Narrative: Pleasantly confused. Heart irregular, systolic murmur noted. trace lower ext edema Const: General: no acute distress Eyes: Sclera: sclerae normal Neck: Neck: no JVD Carotids: no bruits Resp: Effort & Inspection: normal respiratory effort Auscultation: clear to auscultation bilaterally Cardio: Rate: tachycardic Rhythm: abnormal rhythm ( Irregularly irregular) Heart sounds: no gallops, Murmur heart sound present and no rubs Skin: General skin exam: normal color Neuro: Cranial nerves: Yes Normal hearing present Speech: normal speech Extrem: General: normal to inspection and no edema Psych: Affect: normal affect Objective Data Vital Signs Vital Signs: Vital Signs - 24 hr 03/13/20 09:27 03/13/20 10:00 03/13/20 10:27 Temperature Pulse Rate 90 95 78 Respiratory Rate Blood Pressure Pulse Oximetry 03/13/20 12:00 03/13/20 14:00 03/13/20 16:00 Temperature 36.2 C L 36.4 C Pulse Rate 86 110 H 103 H Respiratory Rate 20 20 Blood Pressure 153/75 H 137/68 Pulse Oximetry 97 98 03/13/20 19:33 03/13/20 20:00 03/13/20 21:50 Temperature 3
[2020-03-14] MEDS: dilTIAZem HCL 30 MG TABLET PO ×3 (12:38→23:00)
--- NOTE | 2020-03-14 13:09 | PM.IMPN ---
Progress Note: A&P Assessment and Plan (1) Atrial fibrillation with rapid ventricular response: Code(s): I48.91 - Unspecified atrial fibrillation Status: Acute Assessment and Plan: 03/14/20 13:09 Patient 79-year-old female was brought to the emergency department by her with complaint the patient is not feeling well and not herself, patient has history of proximal atrial fibrillation, patient was found to have atrial fibrillation with RVR patient was started on diltiazem drip her rate was trending down, was seen by ssis ssrs developer on 03/12 started the patient was started on metoprolol 25 mg b.i.d. loaded with digoxin and weaned the patient off diltiazem drip, on 03/13 added oral digoxin, patient rate was trending down and stable, today patient HR is above 100s, again seen by ssis ssrs developer increased metoprolol 25mg q6 and added diltiazem 30mg q6, however patient still is quite confused and very poor historian, patient and her both elderly and with dementia, patient will need placement, patient denies any chest palpitation fever or chills. (2) Elevated troponin: Code(s): R77.8 - Other specified abnormalities of plasma proteins Status: Acute Assessment and Plan: Likely type 2 myocardial infarction secondary to demand ischemia due to atrial fibrillation with RVR patient is seen by Cardiology and no workup is recommended (3) Essential hypertension: Code(s): I10 - Essential (primary) hypertension Status: Chronic Assessment and Plan: Will continue home regimen and monitor (4) Elevated serum creatinine: Code(s): R79.89 - Other specified abnormal findings of blood chemistry Status: Acute Assessment and Plan: Most likely secondary to dehydration will gently hydrate the patient and monitor kidney function (5) Hyponatremia: Code(s): E87.1 - Hypo-osmolality and hyponatremia Status: Acute Assessment and Plan: Most likely secondary to dehydration will hydrate the patient and monitor sodium (6) Hypothyroidism: Code(s): E03.9 - Hypothyroidism, unspecified Status: Acute (7) Dyslipidemia: Code(s): E78.5 - Hyperlipidemia, unspecified Status: Inactive (8) Diastolic dysfunction: Code(s): I51.89 - Other ill-defined heart diseases Status: Chronic (9) Vascular dementia: Qualifiers: Dementia behavioral disturbance: with behavioral disturbance Qualified Code(s): F01.51 - Vascular dementia with behavioral disturbance Code(s): F01.50 - Vascular dementia without behavioral disturbance Status: Chronic Subjective Date/time seen: 03/14/20 13:09 Patient 79-year-old female was brought to the emergency department by her with complaint the patient is not feeling well and not herself, patient has history of proximal atrial fibrillation, patient was found to have atrial fibrillation with RVR patient was started on diltiazem drip her rate was trending down, was seen by ssis ssrs developer on 03/12 started the patient was started on metoprolol 25 mg b.i.d. loaded with digoxin and weaned the patient off diltiazem drip, on 03/13 added oral digoxin, patient rate was trending down and stable, today patient HR is above 100s, again seen by ssis ssrs developer increased metoprolol 25mg q6 and added diltiazem 30mg q6, however patient still is quite confused and very poor historian, patient and her both elderly and with dementia, patient will need placement, patient denies any chest palpitation fever or chills. Review of Systems Review of Systems: ROS unobtainable: Yes unobtainable due to medical condition Exam Narrative: Exam Narrative: Elderly frail Patient is comfortable, NAD HEENT: eyes are clear and none icteric LUNGS: Bilateral fair air entry with minimal rhonchi HEART: Irregularly irregular ABD: BS+, Soft and nontender Lower extremities: no edema SKIN: nonjaundiced Neuro: grossly
[2020-03-14] MEDS: SENNOSIDES 8.6 MG TABLET PO (20:49)
[2020-03-14] MEDS: QUEtiapine FUMARATE 12.5 MG TABLET PO (20:51)
[2020-03-14] MEDS: traMADol HCL (*CRX) 50 MG TABLET PO (22:56)
[2020-03-15] VITALS (15 sets, daily range): BP systolic 100–151; BP diastolic 56–94; PULSE 60–104; RESP 18–20; TEMP 35.9–36.9; O2SAT 98–99
[2020-03-15] MEDS: LORazepam INJ (*CRX) 2 MG/ML VIAL 0.5 MG IV PUSH (02:13)
[2020-03-15] MEDS: dilTIAZem HCL 30 MG TABLET PO ×4 (05:22→23:46)
[2020-03-15] MEDS: METOPROLOL TARTRATE 25 MG TABLET PO ×4 (05:23→23:46)
[2020-03-15] MEDS: LEVOTHYROXINE SODIUM 25 MCG TABLET PO (05:33)
[2020-03-15 05:48] LABS: Hematocrit 37.9 % (37.0-47.0); Hemoglobin 12.7 g/dL (12.0-15.0); Mean Corpuscular HGB Conc 33.5 g/dl (32-36); Mean Corpuscular Hemoglobin 29.8 pg (26-34); Platelet Count Result 226 k/mm3 (150-375); Red Blood Count 4.26 M/mm3 (4.2-5.4); Red Cell Distribution Width 13.7 % (11.5-14.5); White Blood Count 11.1 K/mm3 (4.5-10.0)
[2020-03-15 06:02] LABS: Anion Gap 9 mmol/L (8-16); Blood Urea Nitrogen 24 mg/dL (7-17); Calcium 8.8 mg/dL (8.4-10.2); Carbon Dioxide 23 mmol/L (22-30); Chloride 102 mmol/L (98-107); Estimated CRCL calculation 36 ml/min; Estimated Glomerular Filt Rate 53; Glucose 108 mg/dL (65-105); Magnesium 2.1 mg/dL (1.6-2.3); Potassium 3.6 mmol/L (3.4-5.0); Sodium 134 mmol/L (137-145)
[2020-03-15 07:55] LABS: Digoxin 1.2 ng/mL (0.8-2.0)
[2020-03-15] MEDS: ASPIRIN 81 MG ENTERIC TABLET PO (09:13)
[2020-03-15] MEDS: POTASSIUM CHLORIDE 20 MEQ TABLET 40 MEQ PO (09:13)
[2020-03-15] MEDS: DIGOXIN TAB 125 MCG TABLET PO (09:13)
[2020-03-15] MEDS: EZETIMIBE 10 MG TABLET PO (09:13)
[2020-03-15] MEDS: ROSUVASTATIN 10 MG TABLET 40 MG PO (09:16)
--- NOTE | 2020-03-15 09:46 | PM.PNCARD ---
Progress Note: A&P Assessment and Plan (1) Atrial fibrillation with rapid ventricular response: Code(s): I48.91 - Unspecified atrial fibrillation Status: Acute Assessment and Plan: 79 y/o female with h/o mitral valve replacement with bioprosthetic valve in 2009 at [place] (followed Dr. Mcbride),CAD, TIA, paroxysmal A fib not on AC (intracranial hemorrhage 2014), dementia, HTN, HLD who presents with fatigue and A fib with RVR -She has history of paroxysmal A fib s/p cardioversion in 2010 but has been in sinus rhythm lately including at time of recent abd surgery in July 2019 -Now in A fib with RVR - patient remains in atrial fibrillation but currently with improved moderate rate control following increases in metoprolol and addition of diltiazem - to improve rate control, continue recently initiated digoxin 0.125 mg daily, with recent digoxin level 1.2 - increased metoprolol tartrate from 25 mg b.i.d. to 25 mg q.6 hours. - began diltiazem 30 mg q.6 hours. -replaced K -2D echo shows normal LV function. Well seated mitral prosthesis -CHADsVASC score is high however it was documented previously that she had intracranial hemorrhage in the past necessitating stopping AC. Continue ASA for now. -Will need PT/OT/social science analyst. Need follow up with her telemetry rn in 1 week after discharge. Patient appears stable for discharge or transfer from the cardiology perspective, with continuation of current rate control regimen.. (2) Elevated troponin: Code(s): R77.8 - Other specified abnormalities of plasma proteins Status: Acute Assessment and Plan: Peaked at 0.07 No chest pain or ischemic EKG changes Likely due to type II [place] with increased demand from [facility] in 2015 with moderate disease in LAD and LCx distribution. (3) CAD (coronary artery disease): Qualifiers: Associated angina: without angina Coronary Disease-Associated Artery/Lesion type: [place] artery [place] vs. transplanted heart: [place] heart Qualified Code(s): I25.10 - Atherosclerotic heart disease of [place] coronary artery without angina pectoris Code(s): I25.10 - Atherosclerotic heart disease of [place] coronary artery without angina pectoris Status: Acute Assessment and Plan: Continue ASA and statin (4) Vascular dementia: Qualifiers: Dementia behavioral disturbance: with behavioral disturbance Qualified Code(s): F01.51 - Vascular dementia with behavioral disturbance Code(s): F01.50 - Vascular dementia without behavioral disturbance Status: Chronic Subjective Date/time seen: 03/15/20 09:46 Patient was somnolent this morning after receiving sedation overnight. She denies chest pain or shortness of breath. Patient was seen and examined, chart reviewed, case discussed with nurse. Exam Narrative: Exam Narrative: Pleasantly confused. Heart irregular, systolic murmur noted. trace lower ext edema Const: General: no acute distress Eyes: Sclera: sclerae normal Neck: Neck: no JVD Carotids: no bruits Resp: Effort & Inspection: normal respiratory effort Auscultation: clear to auscultation bilaterally Cardio: Rate: tachycardic Rhythm: abnormal rhythm ( Irregularly irregular) Heart sounds: no gallops, Murmur heart sound present and no rubs Skin: General skin exam: normal color Neuro: Cranial nerves: Yes Normal hearing present Speech: normal speech Extrem: General: normal to inspection and no edema Psych: Affect: normal affect Objective Data Vital Signs Vital Signs: Vital Signs - 24 hr 03/14/20 12:00 03/14/20 12:37 03/14/20 16:00 Temperature 36.6 C 37.1 C Pulse Rate 85 130 H 84 Respiratory Rate 18 18 Blood Pressure 150/94 H 138/77 Pulse Oximetry 99 96 03/14/20 17:10 03/14/20 20:00 03/14/20 22:00 Temperature 36.6 C Pulse Rate 122 H 105 H 107 H Respiratory Rate 20 Blood Pressure 146/90 H Pulse Oximetry 99 03/14/20 23:00
--- NOTE | 2020-03-15 11:45 | PM.IMPN ---
Progress Note: A&P Assessment and Plan (1) Atrial fibrillation with rapid ventricular response: Code(s): I48.91 - Unspecified atrial fibrillation Status: Acute Assessment and Plan: 03/15/20 11:46 Patient 79-year-old female was brought to the emergency department by her with complaint the patient is not feeling well and not herself, patient has history of proximal atrial fibrillation, patient was found to have atrial fibrillation with RVR patient was started on diltiazem drip her rate was trending down, was seen by unmanned equipment operator on 03/12 started the patient was started on metoprolol 25 mg b.i.d. loaded with digoxin and weaned the patient off diltiazem drip, on 03/13 added oral digoxin, patient rate was trending down and stable, on 03/14/2020 patient HR was above 100s, again seen by unmanned equipment operator increased metoprolol 25mg q6 and added diltiazem 30mg q6, today patient heart rate is trending down and stable patient will be seen by Cardiology and further recommendation to follow, however patient still is quite confused and very poor historian, patient and her both elderly and with dementia, patient will need placement, patient denies any chest pain, palpitation, fever or chills. patient CHADsVASC score is high however patient is a history of intracranial hemorrhage unable to anticoagulate. (2) Elevated troponin: Code(s): R77.8 - Other specified abnormalities of plasma proteins Status: Acute Assessment and Plan: Likely type 2 myocardial infarction secondary to demand ischemia due to atrial fibrillation with RVR patient is seen by Cardiology and no workup is recommended (3) Essential hypertension: Code(s): I10 - Essential (primary) hypertension Status: Chronic Assessment and Plan: Will continue home regimen and monitor (4) Elevated serum creatinine: Code(s): R79.89 - Other specified abnormal findings of blood chemistry Status: Acute Assessment and Plan: Most likely secondary to dehydration will gently hydrate the patient and monitor kidney function (5) Hyponatremia: Code(s): E87.1 - Hypo-osmolality and hyponatremia Status: Acute Assessment and Plan: Most likely secondary to dehydration will hydrate the patient and monitor sodium (6) Hypothyroidism: Code(s): E03.9 - Hypothyroidism, unspecified Status: Acute (7) Dyslipidemia: Code(s): E78.5 - Hyperlipidemia, unspecified Status: Inactive (8) Diastolic dysfunction: Code(s): I51.89 - Other ill-defined heart diseases Status: Chronic (9) Vascular dementia: Qualifiers: Dementia behavioral disturbance: with behavioral disturbance Qualified Code(s): F01.51 - Vascular dementia with behavioral disturbance Code(s): F01.50 - Vascular dementia without behavioral disturbance Status: Chronic Subjective Date/time seen: 03/15/20 11:46 Patient 79-year-old female was brought to the emergency department by her with complaint the patient is not feeling well and not herself, patient has history of proximal atrial fibrillation, patient was found to have atrial fibrillation with RVR patient was started on diltiazem drip her rate was trending down, was seen by unmanned equipment operator on 03/12 started the patient was started on metoprolol 25 mg b.i.d. loaded with digoxin and weaned the patient off diltiazem drip, on 03/13 added oral digoxin, patient rate was trending down and stable, on 03/14/2020 patient HR was above 100s, again seen by unmanned equipment operator increased metoprolol 25mg q6 and added diltiazem 30mg q6, today patient heart rate is trending down and stable patient will be seen by Cardiology and further recommendation to follow, however patient still is quite confused and very poor historian, patient and her both elderly and with dementia, patient will need placement, patient denies any chest pain, palpitation, fever or chills. patie
[2020-03-15] MEDS: SENNOSIDES 8.6 MG TABLET PO (20:42)
[2020-03-16] VITALS (15 sets, daily range): BP systolic 103–138; BP diastolic 45–79; PULSE 60–127; RESP 18–21; TEMP 36.1–37.1; O2SAT 96–100
[2020-03-16 05:53] LABS: Hematocrit 41.2 % (37.0-47.0); Hemoglobin 13.7 g/dL (12.0-15.0); Mean Corpuscular HGB Conc 33.3 g/dl (32-36); Mean Corpuscular Hemoglobin 30.6 pg (26-34); Mean Corpuscular Volume 92.2 fl (80-100); Mean Platelet Volume 10.9 fl (7.4-10.4); Platelet Count Result 235 k/mm3 (150-375); Red Blood Count 4.47 M/mm3 (4.2-5.4); Red Cell Distribution Width 14.3 % (11.5-14.5); White Blood Count 13.5 K/mm3 (4.5-10.0)
[2020-03-16] MEDS: METOPROLOL TARTRATE 25 MG TABLET PO ×2 (05:58→12:44)
[2020-03-16] MEDS: LEVOTHYROXINE SODIUM 25 MCG TABLET PO (05:58)
[2020-03-16] MEDS: dilTIAZem HCL 30 MG TABLET PO ×2 (05:58→12:44)
[2020-03-16 06:03] LABS: Anion Gap 8 mmol/L (8-16); Blood Urea Nitrogen 30 mg/dL (7-17); Calcium 8.9 mg/dL (8.4-10.2); Carbon Dioxide 24 mmol/L (22-30); Chloride 103 mmol/L (98-107); Estimated CRCL calculation 41 ml/min; Estimated Glomerular Filt Rate 48; Glucose 92 mg/dL (65-105); Potassium 4.2 mmol/L (3.4-5.0); Sodium 135 mmol/L (137-145)
[2020-03-16] MEDS: ROSUVASTATIN 10 MG TABLET 40 MG PO (08:00)
[2020-03-16] MEDS: EZETIMIBE 10 MG TABLET PO (08:00)
[2020-03-16] MEDS: DIGOXIN TAB 125 MCG TABLET PO (08:00)
[2020-03-16] MEDS: ASPIRIN 81 MG ENTERIC TABLET PO (08:00)
--- NOTE | 2020-03-16 13:00 | PM.IMPN ---
Progress Note: A&P Assessment and Plan (1) Atrial fibrillation with rapid ventricular response: Code(s): I48.91 - Unspecified atrial fibrillation Status: Acute Assessment and Plan: 03/16/20 13:00 Patient 79-year-old female was brought to the emergency department by her with complaint the patient is not feeling well and not herself, patient has history of proximal atrial fibrillation, patient was found to have atrial fibrillation with RVR patient was started on diltiazem drip her rate was trending down, was seen by metal and plastic heater on 03/12 started the patient was started on metoprolol 25 mg b.i.d. loaded with digoxin and weaned the patient off diltiazem drip, on 03/13 added oral digoxin, patient rate was trending down and stable, on 03/14/2020 patient HR was above 100s, again seen by metal and plastic heater increased metoprolol 25mg q6 and added diltiazem 30mg q6, today patient heart rate is trending down and stable patient will be seen by Cardiology and further recommendation to follow, however patient still is quite confused and very poor historian, patient and her both elderly and with dementia, Today I spoke with patient son he is currently out of town will arrive tomorrow and plan is to discharge patient tomorrow. patient denies any chest pain, palpitation, fever or chills. patient CHADsVASC score is high however patient is a history of intracranial hemorrhage unable to anticoagulate. (2) Elevated troponin: Code(s): R77.8 - Other specified abnormalities of plasma proteins Status: Acute Assessment and Plan: Likely type 2 myocardial infarction secondary to demand ischemia due to atrial fibrillation with RVR patient is seen by Cardiology and no workup is recommended (3) Essential hypertension: Code(s): I10 - Essential (primary) hypertension Status: Chronic Assessment and Plan: Will continue home regimen and monitor (4) Elevated serum creatinine: Code(s): R79.89 - Other specified abnormal findings of blood chemistry Status: Acute Assessment and Plan: Most likely secondary to dehydration will gently hydrate the patient and monitor kidney function (5) Hyponatremia: Code(s): E87.1 - Hypo-osmolality and hyponatremia Status: Acute Assessment and Plan: Most likely secondary to dehydration will hydrate the patient and monitor sodium (6) Hypothyroidism: Code(s): E03.9 - Hypothyroidism, unspecified Status: Acute (7) Dyslipidemia: Code(s): E78.5 - Hyperlipidemia, unspecified Status: Inactive (8) Diastolic dysfunction: Code(s): I51.89 - Other ill-defined heart diseases Status: Chronic (9) Vascular dementia: Qualifiers: Dementia behavioral disturbance: with behavioral disturbance Qualified Code(s): F01.51 - Vascular dementia with behavioral disturbance Code(s): F01.50 - Vascular dementia without behavioral disturbance Status: Chronic Subjective Date/time seen: 03/16/20 13:00 Patient 79-year-old female was brought to the emergency department by her with complaint the patient is not feeling well and not herself, patient has history of proximal atrial fibrillation, patient was found to have atrial fibrillation with RVR patient was started on diltiazem drip her rate was trending down, was seen by metal and plastic heater on 03/12 started the patient was started on metoprolol 25 mg b.i.d. loaded with digoxin and weaned the patient off diltiazem drip, on 03/13 added oral digoxin, patient rate was trending down and stable, on 03/14/2020 patient HR was above 100s, again seen by metal and plastic heater increased metoprolol 25mg q6 and added diltiazem 30mg q6, today patient heart rate is trending down and stable patient will be seen by Cardiology and further recommendation to follow, however patient still is quite confused and very poor historian, patient and her both elderly and with dementia, Today I
--- NOTE | 2020-03-16 13:02 | PM.PNCARD ---
Progress Note: A&P Assessment and Plan (1) Atrial fibrillation with rapid ventricular response: Code(s): I48.91 - Unspecified atrial fibrillation Status: Acute Assessment and Plan: 79 y/o female with h/o mitral valve replacement with bioprosthetic valve in 2009 at [place] (followed Dr. Mcbride),CAD, TIA, paroxysmal A fib not on AC (intracranial hemorrhage 2014), dementia, HTN, HLD who presents with fatigue and A fib with RVR -She has history of paroxysmal A fib s/p cardioversion in 2010 but has been in sinus rhythm lately including at time of recent abd surgery in July 2019 -in A fib with RVR earlier this admission. - patient remains in atrial fibrillation but currently with improved moderate rate control following increases in metoprolol and addition of diltiazem - to improve rate control, continue recently initiated digoxin 0.125 mg daily, with recent digoxin level 1.2 - began diltiazem ER 120 mg qd - increased metoprolol tartrate to 50 mg q.12 hours. -replaced K -2D echo shows normal LV function. Well seated mitral prosthesis -CHADsVASC score is high however it was documented previously that she had intracranial hemorrhage in the past necessitating stopping AC. Continue ASA for now. -Will need PT/OT/social welfare clerk. -Needs follow up with her vascular technologist in 1 week after discharge. Patient appears stable for discharge or transfer from the cardiology perspective, with continuation of current rate control regimen. -Anticipate discharge on metoprolol succinate 100 mg daily to simplify her medication regimen on discharge, with continuation of diltiazem extended-release 120 mg daily, and digoxin 0.125 mg daily. -given confusion of both patient and her , the patient would benefit from home health nursing assistance, with the arrival of her son anticipated. (2) Elevated troponin: Code(s): R77.8 - Other specified abnormalities of plasma proteins Status: Acute Assessment and Plan: Peaked at 0.07 No chest pain or ischemic EKG changes Likely due to type II [place] with increased demand from tachycardia [facility] in 2015 with moderate disease in LAD and LCx distribution. (3) CAD (coronary artery disease): Qualifiers: Associated angina: without angina Coronary Disease-Associated Artery/Lesion type: [place] artery [place] vs. transplanted heart: [place] heart Qualified Code(s): I25.10 - Atherosclerotic heart disease of [place] coronary artery without angina pectoris Code(s): I25.10 - Atherosclerotic heart disease of [place] coronary artery without angina pectoris Status: Acute Assessment and Plan: Continue ASA and statin (4) Vascular dementia: Qualifiers: Dementia behavioral disturbance: with behavioral disturbance Qualified Code(s): F01.51 - Vascular dementia with behavioral disturbance Code(s): F01.50 - Vascular dementia without behavioral disturbance Status: Chronic Subjective Date/time seen: 03/16/20 13:02 Patient reports atypical abdominal and back discomfort which is chronic per her report. She denies anterior or left-sided chest pain. She reports stable dyspnea. She is resting comfortably in bed. She remains confused. Patient was seen and examined, chart reviewed, and case discussed with nurse. Exam Narrative: Exam Narrative: Pleasantly confused. Heart irregular, systolic murmur noted. trace lower ext edema Const: General: no acute distress Eyes: Sclera: sclerae normal Neck: Neck: no JVD Carotids: no bruits Resp: Effort & Inspection: normal respiratory effort Auscultation: clear to auscultation bilaterally Cardio: Rate: regular rate Rhythm: abnormal rhythm ( Irregularly irregular) Heart sounds: no gallops, Murmur heart sound present and no rubs Skin: General skin exam: normal color Neuro: Cranial nerves: Yes Normal hearing present Speech: normal speech Extrem: General: normal to inspection and no edema Psyc
--- NOTE | 2020-03-16 14:33 | PC.NURSE ---
pt. complained to Respiratory therapist of chest pain and SOB. Call placed to Dr. Monqiue -who had just seen patient approx. 30 minutes prior to incident. Pt. is confused, upon questioning she told charge nurse that her pain was in her back and abdomen and that is had been ongoing for 4-[address] Monique, since the pt. is asymptomatic and currently on telemetry, no new orders.
[2020-03-16] MEDS: SENNOSIDES 8.6 MG TABLET PO (20:04)
[2020-03-16] MEDS: METOPROLOL TARTRATE 50 MG TAB PO (20:04)
[2020-03-17] VITALS (8 sets, daily range): BP systolic 110–144; BP diastolic 58–77; PULSE 72–132; RESP 16; TEMP 36.2–37.1; O2SAT 96–99
[2020-03-17] MEDS: LEVOTHYROXINE SODIUM 25 MCG TABLET PO (05:35)
[2020-03-17 05:49] LABS: Hematocrit 39.3 % (37.0-47.0); Hemoglobin 13.5 g/dL (12.0-15.0); Mean Corpuscular HGB Conc 34.4 g/dl (32-36); Mean Corpuscular Hemoglobin 30.3 pg (26-34); Mean Corpuscular Volume 88.3 fl (80-100); Mean Platelet Volume 10.6 fl (7.4-10.4); Platelet Count Result 223 k/mm3 (150-375); Red Blood Count 4.45 M/mm3 (4.2-5.4); Red Cell Distribution Width 13.9 % (11.5-14.5); White Blood Count 13.5 K/mm3 (4.5-10.0)
[2020-03-17 06:12] LABS: Anion Gap 9 mmol/L (8-16); Blood Urea Nitrogen 26 mg/dL (7-17); Calcium 8.6 mg/dL (8.4-10.2); Carbon Dioxide 24 mmol/L (22-30); Chloride 100 mmol/L (98-107); Estimated CRCL calculation 40 ml/min; Estimated Glomerular Filt Rate 60; Glucose 117 mg/dL (65-105); Potassium 3.8 mmol/L (3.4-5.0); Sodium 133 mmol/L (137-145)
[2020-03-17] MEDS: ROSUVASTATIN 10 MG TABLET 40 MG PO (08:51)
[2020-03-17] MEDS: EZETIMIBE 10 MG TABLET PO (08:52)
[2020-03-17] MEDS: METOPROLOL TARTRATE 50 MG TAB PO (08:52)
[2020-03-17] MEDS: DIGOXIN TAB 125 MCG TABLET PO (08:52)
[2020-03-17] MEDS: ASPIRIN 81 MG ENTERIC TABLET PO (08:52)
[2020-03-17] MEDS: POTASSIUM CHLORIDE 20 MEQ TABLET 40 MEQ PO (08:53)
--- NOTE | 2020-03-17 11:39 | PM.DS ---
DS: Admitting Diagnosis Admitting Diagnosis Admitting Diagnosis: Generalized weakness. DS: Discharge Diagnosis Discharge Diagnosis (1) Atrial fibrillation with rapid ventricular response: Code(s): I48.91 - Unspecified atrial fibrillation Status: Acute Assessment and Plan: 03/16/20 13:00 Patient 79-year-old female was brought to the emergency department by her with complaint the patient is not feeling well and not herself, patient has history of proximal atrial fibrillation, patient was found to have atrial fibrillation with RVR patient was started on diltiazem drip her rate was trending down, was seen by glass handler on 03/12 started the patient was started on metoprolol 25 mg b.i.d. loaded with digoxin and weaned the patient off diltiazem drip, on 03/13 added oral digoxin, patient rate was trending down and stable, on 03/14/2020 patient HR was above 100s, again seen by glass handler increased metoprolol 25mg q6 and added diltiazem 30mg q6, today patient heart rate is trending down and stable patient will be seen by Cardiology and further recommendation to follow, however patient still is quite confused and very poor historian, patient and her both elderly and with dementia, Today I spoke with patient son he is currently out of town will arrive tomorrow and plan is to discharge patient tomorrow. patient denies any chest pain, palpitation, fever or chills. patient CHADsVASC score is high however patient is a history of intracranial hemorrhage unable to anticoagulate. (2) Elevated troponin: Code(s): R77.8 - Other specified abnormalities of plasma proteins Status: Acute Assessment and Plan: Likely type 2 myocardial infarction secondary to demand ischemia due to atrial fibrillation with RVR patient is seen by Cardiology and no workup is recommended (3) Essential hypertension: Code(s): I10 - Essential (primary) hypertension Status: Chronic Assessment and Plan: Will continue home regimen and monitor (4) Elevated serum creatinine: Code(s): R79.89 - Other specified abnormal findings of blood chemistry Status: Acute Assessment and Plan: Most likely secondary to dehydration will gently hydrate the patient and monitor kidney function (5) Hyponatremia: Code(s): E87.1 - Hypo-osmolality and hyponatremia Status: Acute Assessment and Plan: Most likely secondary to dehydration will hydrate the patient and monitor sodium (6) Hypothyroidism: Code(s): E03.9 - Hypothyroidism, unspecified Status: Acute (7) Dyslipidemia: Code(s): E78.5 - Hyperlipidemia, unspecified Status: Inactive (8) Diastolic dysfunction: Code(s): I51.89 - Other ill-defined heart diseases Status: Chronic (9) Vascular dementia: Qualifiers: Dementia behavioral disturbance: with behavioral disturbance Qualified Code(s): F01.51 - Vascular dementia with behavioral disturbance Code(s): F01.50 - Vascular dementia without behavioral disturbance Status: Chronic DS: Summary Hospital Course Reason for hospitalization: Chief Complaint: Generalized weakness. <Miriam Wynne PA-C - Last Filed: 03/12/20 01:08> Narrative: Peace Kinsey is an 79-year-old female with paroxysmal atrial fibrillation not on long-term anticoagulation due to history of intraparenchymal hemorrhage, coronary artery disease, hypertension, vascular dementia, and hypothyroidism who presented to the emergency department earlier today from home with complaints of generalized weakness. Neither the patient nor her are very good historians and as such some of the following history is obtained via a review of her electronic medical records. It is my understanding that her short-term memory is very poor since her intraparenchymal hemorrhage. Over the past 2 days ?I just have not been feeling good? though she has no specific complaints.
--- NOTE | 2020-03-17 13:03 | PM.PNCARD ---
Progress Note: A&P Assessment and Plan (1) Atrial fibrillation with rapid ventricular response: Code(s): I48.91 - Unspecified atrial fibrillation Status: Acute Assessment and Plan: 79 y/o female with h/o mitral valve replacement with bioprosthetic valve in 2009 at [place] (followed Dr. Mcbride),CAD, TIA, paroxysmal A fib not on AC (intracranial hemorrhage 2014), dementia, HTN, HLD who presents with fatigue and A fib with RVR -in A fib with RVR earlier this admission. - patient remains in atrial fibrillation but currently with improved moderate rate control following increases in metoprolol and addition of diltiazem - to improve rate control, continue recently initiated digoxin 0.125 mg daily, with recent digoxin level 1.2 - began diltiazem ER 120 mg qd - increased metoprolol tartrate to 50 mg q.12 hours. -replaced K -2D echo shows normal LV function. Well seated mitral prosthesis -CHADsVASC score is high however it was documented previously that she had intracranial hemorrhage in the past necessitating stopping AC. Continue ASA for now. -Will need PT/OT/social psychologist. -Needs follow up with her sports journalist in 1 week after discharge. Patient appears stable for discharge or transfer from the cardiology perspective, with continuation of current rate control regimen. -Anticipate discharge on metoprolol succinate 100 mg daily to simplify her medication regimen on discharge, with continuation of diltiazem extended-release 120 mg daily, and digoxin 0.125 mg daily. -given confusion of both patient and her , the patient would benefit from home health nursing assistance, with the arrival of her son anticipated. (2) Elevated troponin: Code(s): R77.8 - Other specified abnormalities of plasma proteins Status: Acute Assessment and Plan: Peaked at 0.07 No chest pain or ischemic EKG changes Likely due to type II [place] with increased demand from tachycardia [facility] in 2016 with moderate disease in LAD and LCx distribution. (3) CAD (coronary artery disease): Qualifiers: Coronary Disease-Associated Artery/Lesion type: [place] artery [place] vs. transplanted heart: [place] heart Associated angina: without angina Qualified Code(s): I25.10 - Atherosclerotic heart disease of [place] coronary artery without angina pectoris Code(s): I25.10 - Atherosclerotic heart disease of [place] coronary artery without angina pectoris Status: Acute Assessment and Plan: Continue ASA and statin (4) Vascular dementia: Qualifiers: Dementia behavioral disturbance: with behavioral disturbance Qualified Code(s): F01.51 - Vascular dementia with behavioral disturbance Code(s): F01.50 - Vascular dementia without behavioral disturbance Status: Chronic Assessment and Plan: She stable to be discharged home from cardiac standpoint, continue with her heart rate controlling medications as above, she is to follow-up with us or with her sports journalist in 1 week Subjective Date/time seen: 03/17/20 13:03 She feels okay today, shortness breath is much better, no chest pain no palpitation no dizziness Exam Narrative: Exam Narrative: Pleasantly confused. Heart irregular, systolic murmur noted. trace lower ext edema Const: General: no acute distress Eyes: Sclera: sclerae normal Neck: Neck: no JVD Carotids: no bruits Resp: Effort & Inspection: normal respiratory effort Auscultation: clear to auscultation bilaterally Cardio: Rate: regular rate Rhythm: abnormal rhythm ( Irregularly irregular) Heart sounds: no gallops, Murmur heart sound present and no rubs Skin: General skin exam: normal color Neuro: Cranial nerves: Yes Normal hearing present Speech: normal speech Extrem: General: normal to inspection and no edema Psych: Affect: normal affect Objective Data Vital Signs Vital Signs: Vital Signs - 24 hr 03/16/20 13:57 03/16/20 14:31 03/16/20 16:00 T
== END 2020-03-17 17:20 | disposition home or self-care (01) | DRG 281 ==
LOC: ANHED 11:34 → ANHIMU 13:58 → ANH2MED 03-13 17:15
PROVIDERS: Internal Medicine Cardiovascular Disease; Physician Assistant; Admitting Provider Family Medicine; Emergency Provider Emergency Medicine; PCP Family Medicine; Visit Provider Family Medicine
DX: I48.91 Unspecified atrial fibrillation (principal); I21.A1 Myocardial infarction type 2; F01.51 Vascular dementia, unspecified severity, with behavioral disturbance; E87.1 Hypo-osmolality and hyponatremia; E86.0 Dehydration; Z20.822 Contact with and (suspected) exposure to COVID-19; R77.8 Other specified abnormalities of plasma proteins; R79.89 Other specified abnormal findings of blood chemistry; I25.10 Atherosclerotic heart disease of native coronary artery without angina pectoris; I11.9 Hypertensive heart disease without heart failure; E03.9 Hypothyroidism, unspecified; E78.5 Hyperlipidemia, unspecified; Z79.82 Long term (current) use of aspirin; Z79.899 Other long term (current) drug therapy; Z86.718 Personal history of other venous thrombosis and embolism; Z86.73 Personal history of transient ischemic attack (TIA), and cerebral infarction without residual deficits; Z95.2 Presence of prosthetic heart valve; Z87.891 Personal history of nicotine dependence
CPT/HCPCS: 36415; 51701; 71045; 80048; 80053; 80162; 81001; 83735; 83880; 84443; 84484; 85025; 85027; 85610; 85730; 86140; 87635; 93005; 93306; 96365; 96366; 96372; 96376; 97110; 97116; 97162; 97165; 97530; 97535; 99285; A9270; C9803; G0378; J1160; J1650; J2060; U0003

== ENCOUNTER 2020-08-03 10:49 | Observation (INO) | payer MEDICARE, SELFPAY ==
[2020-08-03] VITALS (18 sets, daily range): BP systolic 134–161; BP diastolic 74–93; PULSE 59–86; RESP 13–19; TEMP 35.9–36.9; O2SAT 97–100; BMI 23.3; BMI 52.8
--- NOTE | ~2020-08-03 | XR_ITS ---
EXAMINATION: XR chest 2V DATE: 08/03/2020 11:39 INDICATION: Chest pain TECHNIQUE: frontal and lateral views of the chest were obtained. COMPARISON: Chest radiograph dated 03/11/2020 FINDINGS: Small calcified nodule at the left apex and calcified mediastinal lymph nodes consistent with old gra nulomatous disease. No pulmonary edema, pleural effusion or pneumothorax. The cardiomediastinal silho uette is normal. Mitral valve repair. IMPRESSION: 1. No acute cardiopulmonary disease. Reviewed, dictated and finalized at location A.
--- NOTE | ~2020-08-03 | CT_ITS ---
EXAMINATION: CTA chest PE protocol DATE: 08/03/2020 12:45 INDICATION: Shortness of breath. Elevated d-dimer. TECHNIQUE: Computed tomography (CT) pulmonary angiogram of the chest was performed with 100 mL Omnipa que-350 intravenous contrast. Additional 3D reconstructions utilizing coronal maximum intensity proje ction (MIP) were performed. The dose-length product was 244.93 mGy-cm. COMPARISON: None FINDINGS: Excellent contrast opacification of the pulmonary arteries. There is mild streak artifact from dense contrast in the superior vena cava and right atrium. Mild scattered respiratory motion artifact which does not significantly limit evaluation. No pulmonary embolism. Mild emphysema. Small bilateral post eriorly layering pleural effusions with dependent passive atelectasis in the bilateral lower lobes. M ild biapical pleural-parenchymal scarring. Small calcified nodule at the left apex along with calcifi ed mediastinal lymph nodes consistent with old granulomatous disease. No pneumonia or pulmonary edema . Discoid atelectasis in the left lower lobe. Mild cardiomegaly with biatrial enlargement. Mitral dinorah ve repair. No pericardial effusion. Thoracic aorta is normal in caliber. No pathologically enlarged t horacic lymphadenopathy. There is reflux of contrast into the inferior vena cava and hepatic veins co nsistent with tricuspid regurgitation. Multiple splenic calcifications consistent with old granulomat ous disease. A few old left rib fractures. IMPRESSION: 1. No pulmonary embolism. 2. Small bilateral pleural effusions. 3. Cardiomegaly with biatrial enlargement, mitral valve repair and tricuspid regurgitation. 4. Mild emphysema. Reviewed, dictated and finalized at location A. IMPRESSION: 1. No pulmonary embolism. 2. Small bilateral pleural effusions. 3. Cardiomegaly with biatrial enlargement, mitral valve repair and tricuspid re gurgitation. 4. Mild emphysema.
--- NOTE | 2020-08-03 11:03 | ECG_ITS ---
Measurements Intervals Doss Rate: 66 P: NV: 0 QRS: -13 QRSD: 97 T: 4 QT: 410 QTc: 432 Interpretive Statements ATRIAL FIBRILLATION VOLTAGE CRITERIA FOR LVH CONSIDER INFERIOR INFARCT, AGE INDETERMINATE BORDERLINE T WAVE ABNORMALITY- ANTERIOR LEADS BASELINE ARTIFACT- I, II, III, AVR, AVF, V1, V3-V6 ABNORMAL ECG Electronically Signed On 08-03-2020 14:21:51 CDT by Cezar Love D.O.
--- NOTE | 2020-08-03 11:23 | ED.CHESTPAIN ---
HPI - Chest Pain General Chief Complaint: Chest Pain Stated Complaint: R SIDE CHEST PAIN FOR 2 WEEKS Time Seen by Provider: 08/03/20 11:03 Source: patient and family Mode of arrival: ambulatory Limitations: no limitations History of Present Illness HPI narrative: Patient is 79 years old white female presented to the ED with right chest pain for about 5 years. Got worse lately. Patient came to the emergency room with her and both have history of dementia. Patient is oriented to her name only. She denies any fever, chills, nausea, vomiting, shortness of breath, trauma. Related Data Home Medications Medication Instructions Recorded Confirmed ezetimibe 10 mg PO DAILY 02/25/19 03/11/20 rosuvastatin [Crestor] 40 mg PO DAILY 02/25/19 03/11/20 acetaminophen 325 mg PO BID PRN 06/27/19 03/11/20 sennosides [Senokot] 8.6 mg PO HS 06/27/19 03/11/20 tramadol 50 mg PO Q6H PRN 03/11/20 03/11/20 aspirin 325 mg tablet 325 mg PO DAILY 07/11/20 Allergies Allergy/AdvReac Type Severity Reaction Status Date / Time adhesive Allergy Intermediate Rash Verified 08/03/20 11:03 peanut Allergy Unknown Cough Verified 08/03/20 11:03 Review of Systems Review of Systems: Narrative: CONSTITUTIONAL: Denies fever, chills, or sweats. EYES: Denies visual changes, redness, or discharge. ENT: Denies rhinorrhea, congestion, sore throat, or otalgia. CARDIOVASCULAR: Denies chest pain, palpitations, or edema. RESPIRATORY: Denies cough or dyspnea. GASTROINTESTINAL: Denies abdominal pain, nausea, vomiting, or diarrhea. GENITOURINARY: Denies dysuria or hematuria. SKIN: Denies rash or itching. MUSCULOSKELETAL: Denies back pain, joint pain, or myalgia. NEUROLOGIC: Denies headache, numbness, or weakness. PSYCHIATRIC: Denies anxiety or depression. REPLACED BY [facility] Past Medical History Medical History Anxiety Aortic valve regurgitation Moderate regurgitation on echocardiogram December 2015. Arthritis Carotid artery stenosis (~01/2014) 50 to 69% left carotid artery stenosis noted on carotid artery ultrasound. Coronary artery disease Cardiac catheterization in July 2015 at [facility] showed 50 to 60% mid LAD stenosis and 40% circumflex stenosis, treated medically. Lexiscan stress in September 2017 showed ejection fraction greater than 70% with small areas of mild infarction involving the apical, septal, and apical lateral bailey of the left ventricle. Depression Diastolic dysfunction On echocardiogram December 2015 with and ejection fraction of 60-70%. 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 Peripheral vascular disease Pulmonary hypertension Mild pulmonary hypertension was noted on echocardiogram in December 2015 with an RVSP of 35-40 mmHg. Right leg DVT (~03/2010) Sigmoid volvulus Several hospitalizations for such with subsequent sigmoidectomy in June [address] Quan. Transient ischemic attack (~2009) Vascular dementia Surgical History Surgical History History of bladder surgery (~1993) Resection of benign bladder tumor. History of breast biopsy History of cardiac catheterization July 2015 at [facility] which demonstrated 50-60% mid LAD stenosis and 40% circumflex stenosis with fractional flow reserve not suggestive of significant limitations that would cause chest pain. Treated medically. History of dilation and curettage History of mitral valve replacement with bioprosthetic valve (~02/2010) Placed at [facility] and followed by Dr. Mcbride due to mitral valve prolapse; with mild mitral valve regurgitation noted on echo from December 2015
[2020-08-03 11:49] LABS: Basophils Absolute Auto 0.1 K/mm3 (0.0-0.1); Basophils Percent Auto 0.6 % (0.2-1.2); Eosinophils Absolute Auto 0.1 K/mm3 (0-0.3); Eosinophils Percent Auto 1.5 % (0-4.4); Hematocrit 40.3 % (37.0-47.0); Hemoglobin 12.7 g/dL (12.0-15.0); Immature Granulocyte Absolute 0.03 K/mm3 (0.00-0.031); Immature Granulocyte Percent A 0.4 % (0-0.5); Lymphocytes Percent Auto 29.3 % (18.3-44.2); Mean Corpuscular HGB Conc 31.5 g/dl (32-36); Mean Corpuscular Hemoglobin 28.4 pg (26-34); Mean Corpuscular Volume 90.2 fl (80-100); Mean Platelet Volume 11.7 fl (7.4-10.4); Monocytes Absolute Auto 0.4 K/mm3 (0.1-0.6); Monocytes Percent Auto 5.6 % (2.6-8.5); Neutrophils Absolute Auto 4.9 K/mm3 (1.3-6.7); Neutrophils Percent Auto 62.6 % (45.5-73.1); Platelet Count Result 210 k/mm3 (150-375); Red Blood Count 4.47 M/mm3 (4.2-5.4); Red Cell Distribution Width 15.5 % (11.5-14.5); White Blood Count 7.9 K/mm3 (4.5-10.0)
[2020-08-03 12:00] LABS: Alanine Aminotransferase 46 U/L (4-35); Albumin Level 4.4 g/dL (3.5-5.1); Alkaline Phosphatase 77 U/L (38-126); Anion Gap 8 mmol/L (8-16); Aspartate Amino Transferase 42 U/L (14-36); Bilirubin,Total 0.6 mg/dL (0.2-1.3); Blood Urea Nitrogen 21 mg/dL (7-17); Calcium 9.4 mg/dL (8.4-10.2); Carbon Dioxide 26 mmol/L (22-30); Chloride 107 mmol/L (98-107); Estimated CRCL calculation 37 ml/min; Estimated Glomerular Filt Rate 53; Glucose 91 mg/dL (65-105); Potassium 3.9 mmol/L (3.4-5.0); Sodium 141 mmol/L (137-145)
[2020-08-03 12:01] LABS: Prothrombin Time 13.3 Seconds (11.1-14.7)
[2020-08-03 12:02] LABS: Partial Thromboplastin Time 25.7 SECONDS (22.3-36.8)
[2020-08-03 12:04] LABS: D Dimer 1.05 ug/mL (<0.48)
[2020-08-03 12:14] LABS: Troponin I < 0.012 ng/mL (0.000-0.034)
--- NOTE | 2020-08-03 12:31 | PCCCNOTE ---
Care Coordination visited pt and her to discuss any discharge needs. Pt and states they have a son that comes by to see them and help them as needed. states she has had cleaning lady in past but no longer and she does not want any help now. shops and pt chooses to stay home. Pt has dementia and repeats same questions. still drives.
[2020-08-03 14:08] LABS: Troponin I < 0.012 ng/mL (0.000-0.034)
[2020-08-03] MEDS: ASPIRIN 81 MG CHEWABLE TABLET 324 MG PO (14:14)
--- NOTE | 2020-08-03 16:54 | PC.NURSE ---
This patient, Peace Kinsey, was admitted to IMU Room 231-01. Patient/family oriented to hospital policies and general routines including ID bracelet, bed and alarms, visiting hours, pain management, procedures, bathroom and other care routines, personal items, smoking policy, room service/diet, and visiting hours. Information on how to activate the Rapid Response Team has been discussed. Patient/Family are encouraged to report perceived risks to care and to ask questions if they do not understand what they are told or what they should do.
[2020-08-03 17:09] LABS: Troponin I < 0.012 ng/mL (0.000-0.034)
--- NOTE | 2020-08-03 17:29 | PM.IMHP ---
H&P: HPI History of Present Illness Date/Time: 08/03/20 17:29 this is a 79-year-old female patient who lives at home with her . She possibly has some dementia. She has a very poor historian. She does not recall lot of her medical history. She does have a past medical history of congestive heart failure as well as AFib. The patient denies any shortness of breath. 5 years. When I asked the patient to point to where her pain is is underneath of her right axillary area around the outer portion of her breast. I palpated the area did not feel any lumps but the pain is reproducible under her axillary area. She had no fever chills no nausea no vomiting no diaphoresis. The patient stated she has not had any trauma to that area. She stated that she sends to work harder than what she should at her age at times around the house. Patient's troponin is negative. Her EKG is similar to her last EKG. CTA was negative for any pulmonary emboli. Cardiomegaly with biatrial enlargement, mitral valve repair and tricuspid regurgitation. Mild emphysema. The patient tells me she has not been to a physician in over a year. However she has a list of medications. Chest x-ray offered nothing acute. 5 months ago on 03/12/2020 it was read as the following 1. Complete two-dimensional, color flow and Doppler transthoracic echocardiogram is performed. 2. Left ventricular systolic function is normal, estimated at 60-65%. 3. There is mildly increased left ventricular wall thickness. 4. The left ventricular diastolic function is indeterminate due to mitral valve prosthesis and underlying rhythm (A fib). 5. Right ventricle is not well visualized but appears probably mildly dilated with normal systolic function. 6. Left atrial chamber dimension is severely enlarged. 7. Right atrial chamber dimension is moderately enlarged. 8. There is well seated bio Prosthesis noted in the mitral position. There is no mitral or perivalvular regurgitation. Mean inflow gradient across mitral prothesis is \R\ 8 mmHg at HR 110, unchanged compared to study in 2014. 9. There is mild aortic valve sclerosis. 10. There is no aortic valve stenosis. 11. There is at least moderate aortic valve regurgitation. 12. There is mild to moderate tricuspid valve regurgitation. 13. Moderate pulmonary hypertension, estimated pulmonary arterial systolic pressure is 55 mmHg. 14. Inferior vena cava is top normal in size. 15. There is no pericardial effusion. EKG was read as atrial fibrillation consider inferior infarction age indeterminate. She was given an aspirin in the emergency room and admitted to observation status on the date of service of 08/03/2020 Chief Complaint: Chest pain Review of Systems Review of Systems: All systems reviewed & are unremarkable except as noted in HPI and below Constitutional: Constitutional: Reports as per HPI and Reports no additional constitutional complaints Eyes: Eyes: Reports as per HPI and Reports no additional eye complaints ENT: Reports system reviewed and no additional complaints, except as documented and Reports Normal hearing present Cardiovascular: Cardiovascular: Reports no additional cardiovascular complaints Respiratory: Respiratory: Reports no additional respiratory complaints and Reports no additional respiratory complaints Gastrointestinal: Gastrointestinal: Reports as per HPI and Reports no additional gastrointestinal complaints Musculoskeletal: Musculoskeletal: Reports no additional musculoskeletal complaints Integumentary/Breasts: Skin/Breast: Reports system reviewed and no additional complaints, except as docu and Reports as per HPI Neurologic: Reports system reviewed and no additional complaints, except as documented, Reports as per HPI and Reports Normal hearing present Psychiatric: Psychiatric: Reports no additional psychiatric complaints and Reports as per HPI Endocrine: Endocrine: Reports no additional endocrine co
[2020-08-03 20:41] LABS: Troponin I < 0.012 ng/mL (0.000-0.034)
[2020-08-03] MEDS: SENNOSIDES 8.6 MG TABLET PO (21:05)
[2020-08-03] MEDS: METOPROLOL TARTRATE 50 MG TAB PO (21:06)
[2020-08-04] VITALS (14 sets, daily range): BP systolic 132–164; BP diastolic 86–104; PULSE 53–172; RESP 18; TEMP 35.8–36.4; O2SAT 93–100
--- NOTE | 2020-08-04 04:10 | PC.NURSE ---
got self out of bed, pulled IV out. Very angry that she has not slept all night I came here to get better and I am getting worse!
[2020-08-04] MEDS: HALOPERIDOL LACTATE 5 MG/ML VIAL IM (04:58)
[2020-08-04] MEDS: LEVOTHYROXINE SODIUM 25 MCG TABLET PO (05:08)
--- NOTE | 2020-08-04 05:33 | PC.NURSE ---
patient notes that she is feeling like she is running when she has a burst of rvr.
--- NOTE | 2020-08-04 05:33 | PC.NURSE ---
patient is still very angry and confused. will not let us place an iv at this time.
[2020-08-04 05:56] LABS: Basophils Absolute Auto 0.1 K/mm3 (0.0-0.1); Basophils Percent Auto 0.6 % (0.2-1.2); Eosinophils Absolute Auto 0.1 K/mm3 (0-0.3); Eosinophils Percent Auto 1.1 % (0-4.4); Hematocrit 36.2 % (37.0-47.0); Hemoglobin 11.8 g/dL (12.0-15.0); Immature Granulocyte Absolute 0.03 K/mm3 (0.00-0.031); Immature Granulocyte Percent A 0.3 % (0-0.5); Lymphocytes Percent Auto 30.6 % (18.3-44.2); Mean Corpuscular HGB Conc 32.6 g/dl (32-36); Mean Corpuscular Hemoglobin 28.3 pg (26-34); Mean Corpuscular Volume 86.8 fl (80-100); Mean Platelet Volume 10.7 fl (7.4-10.4); Monocytes Absolute Auto 0.5 K/mm3 (0.1-0.6); Monocytes Percent Auto 5.1 % (2.6-8.5); Neutrophils Absolute Auto 5.5 K/mm3 (1.3-6.7); Neutrophils Percent Auto 62.3 % (45.5-73.1); Platelet Count Result 187 k/mm3 (150-375); Red Blood Count 4.17 M/mm3 (4.2-5.4); Red Cell Distribution Width 15.4 % (11.5-14.5); White Blood Count 8.8 K/mm3 (4.5-10.0)
[2020-08-04 06:01] LABS: Alanine Aminotransferase 37 U/L (4-35); Albumin Level 3.9 g/dL (3.5-5.1); Alkaline Phosphatase 83 U/L (38-126); Anion Gap 6 mmol/L (8-16); Aspartate Amino Transferase 32 U/L (14-36); Bilirubin,Total 0.4 mg/dL (0.2-1.3); Blood Urea Nitrogen 20 mg/dL (7-17); Calcium 9.3 mg/dL (8.4-10.2); Carbon Dioxide 24 mmol/L (22-30); Chloride 108 mmol/L (98-107); Estimated CRCL calculation 38 ml/min; Estimated Glomerular Filt Rate 53; Glucose 110 mg/dL (65-105); Lactate Dehydrogenase 535 U/L (313-618); Magnesium 2.1 mg/dL (1.6-2.3); Potassium 3.8 mmol/L (3.4-5.0); Sodium 138 mmol/L (137-145)
--- NOTE | 2020-08-04 06:08 | PC.NURSE ---
dr leach is aware that patient is having burst of rvr, will not let us place another iv after pulling out the last one. medication is ordered.
--- NOTE | 2020-08-04 06:16 | ECG_ITS ---
Measurements Intervals [place] Rate: 114 P: MA: 0 QRS: 1 QRSD: 94 T: 120 QT: 293 QTc: 403 Interpretive Statements ATRIAL FIBRILLATION WITH RAPID VENTRICULAR RESPONSE NONSPECIFIC ST & T-WAVE ABNORMALITY- DIFFUSE LEADS ABNORMAL ECG Electronically Signed On 08-04-2020 9:56:38 CDT by Cezar Love D.O.
[2020-08-04 06:39] LABS: Troponin I < 0.012 ng/mL (0.000-0.034)
[2020-08-04] MEDS: LORazepam (*CRX) 1 MG TABLET PO (06:46)
--- NOTE | 2020-08-04 06:53 | PC.NURSE ---
patient is extremely confused. will not call out for assistance and keeps getting out of bed without assist. patient is c/o pain all over and not being able to sleep for days.
[2020-08-04] MEDS: METOPROLOL TARTRATE 25 MG TABLET PO (06:54)
[2020-08-04] MEDS: ASPIRIN 325 MG TABLET PO (08:33)
[2020-08-04] MEDS: METOPROLOL TARTRATE 50 MG TAB PO (08:34)
[2020-08-04 08:36] LABS: Free T4 Free Thyroxine Reflex 1.12 ng/dL (0.78-2.19)
--- NOTE | 2020-08-04 08:45 | PM.CNCAR ---
Assessment and Plan Assessment and plan (1) Chest pain: Qualifiers: Chest pain type: unspecified Qualified Code(s): R07.9 - Chest pain, unspecified Code(s): R07.9 - Chest pain, unspecified Status: Acute Assessment and Plan: 79 y/o female with h/o MR s/p mitral valve replacement with bioprosthetic valve in 2009 at [place] (followed Dr. Mcbride),CAD, TIA, paroxysmal A fib not on AC (intracranial hemorrhage 2014), dementia, HTN, HLD who presents with chest pain Resolved. Right sided and atypical for angina She ruled out for AL with troponin which is negative X3 EKG with A fib and no ischemic changes She has known mild non obstructive disease on Cath in 2016. Continue ASA. Her LFTs mildly elevated and trending down. Okay to resume statin with close follow up on LFTs. Consider abdominal ultrasound She has history of paroxysmal A fib and now appears to have chronic A fib. Rate well controlled with Metoprolol and Cardizem. No AC given history of intracranial hemorrhage She is stable from cardiac standpoint for discharge with no plan for any further inpatient cardiac work up Follow up with primary hematology technologist at [place] (2) Chronic atrial fibrillation: Code(s): I48.20 - Chronic atrial fibrillation, unspecified Status: Acute (3) CAD (coronary artery disease): Qualifiers: Coronary Disease-Associated Artery/Lesion type: [place] artery [place] vs. transplanted heart: [place]ka heart Associated angina: without angina Qualified Code(s): I25.10 - Atherosclerotic heart disease of [place] coronary artery without angina pectoris Code(s): I25.10 - Atherosclerotic heart disease of [place]ka coronary artery without angina pectoris Status: Acute Assessment and Plan: Noted on prior LHC. Stable. Continue ASA and Statin (4) Essential hypertension: Code(s): I10 - Essential (primary) hypertension Status: Chronic Assessment and Plan: Elevated this am. Follow post administration of meds. Consider adding Lisinopril if still elevated. History of Present Illness History of Present Illness Consult date/time: 08/04/20 08:45 79 y/o female with h/o MR s/p mitral valve replacement with bioprosthetic valve in 2009 at [place] (followed Dr. Mcbride),CAD, TIA, paroxysmal A fib not on AC (intracranial hemorrhage 2015), dementia, HTN, HLD who presents with chest pain Patient is not able to give any meaningful history and actually not event sure why she is in the hospital. According to H&P note she is here with right sided chest pain. She denies any active chest pain currently. She was seen by our service in Mar and at that time she was in A fib with RVR. Her Metoprolol dose was decreased and Diltiazem was added to her regimen. She had intra cranial hemorrhage ~ 2014 also with concerns of falls at home hence was not started on AC. Echo during her admission in Mar 2019 showed showed Normal LV function, moderate to severe bi atrial enlargement, well seated bio prosthesis in mitral position, moderate aortic regurgitation. She had underwent cardiac catheterization in July 2015 at [place] which demonstrated 50-60% mid LAD stenosis and 40% circumflex stenosis with normal fractional flow reserve EKG shows atrial fibrillation at HR 66. Tele reveals rate controlled A fib with HR mostly around 70s occasionally goes up to 110s. Labs revealed trop negative X 3 CT of chest showed no PE, small pleural effusions No tobacco abuse. Walks with walker. Lives at home with however concerns were raised during prior admissions for need of higher level of care Reason For Visit: R SIDE CHEST PAIN FOR 2 WEEKS Review of Systems Review of Systems: All systems reviewed & are unremarkable except as noted in HPI and below Constitutional: Constitutional: Denies fatigue and Denies headache(s) Eyes: Eyes: Denies blurry vision ENT: Reports Normal hearing present and Denies headache(s
[2020-08-04 09:23] LABS: Total Triiodothyronine (T3) 1.05 NG/ML (0.97-1.69)
--- NOTE | 2020-08-04 09:59 | PM.DS ---
DS: Admitting Diagnosis Admitting Diagnosis Admitting Diagnosis: Chest pain DS: Discharge Diagnosis Discharge Diagnosis (1) Chest pain: Qualifiers: Chest pain type: unspecified Qualified Code(s): R07.9 - Chest pain, unspecified Code(s): R07.9 - Chest pain, unspecified Status: Acute Assessment and Plan: The patient is having some right-sided chest pain which is reproducible with palpation. I did order a breast ultrasound although I did feel any nodules. Possibly a muscle strain. Trend troponins are negative so far. Cardiology has been consulted. Continue with aspirin. (2) CHF (congestive heart failure): Qualifiers: Heart failure chronicity: unspecified Heart failure type: unspecified Qualified Code(s): I50.9 - Heart failure, unspecified Code(s): I50.9 - Heart failure, unspecified Status: Acute Assessment and Plan: Patient had an echo 5 months ago I did not order another one. Cardiology has been consulted. (3) Paroxysmal atrial fibrillation: Code(s): I48.0 - Paroxysmal atrial fibrillation Status: Chronic Assessment and Plan: Patient continues in atrial fibrillation she is not on any anticoagulation. For unknown reasons. She is just on a full-dose aspirin. She is on Cardizem. She is also on metoprolol. Will continue with her home medications. (4) Essential hypertension: Code(s): I10 - Essential (primary) hypertension Status: Chronic Assessment and Plan: Continue with metoprolol and Cardizem. (5) Abnormal liver enzymes: Code(s): R74.8 - Abnormal levels of other serum enzymes Status: Acute Assessment and Plan: She has had abnormal liver enzymes in the past. I ordered an abdominal ultrasound. (6) Hypothyroidism: Code(s): E03.9 - Hypothyroidism, unspecified Status: Acute Assessment and Plan: Continue with levothyroxine and check her thyroid levels. (7) Dyslipidemia: Code(s): E78.5 - Hyperlipidemia, unspecified Status: Chronic Assessment and Plan: Holding cholesterol medicine for now due to elevated liver enzymes. DS: Summary Hospital Course Reason for hospitalization: Chest pain Hospital Course: 79 years old female was admitted with complaint of having chest pain for few days. Patient on admission is slightly elevated liver function test that came back to normal today. Patient cardiac enzymes were negative. Patient physical exam was normal. Cardiology was consulted decided that no further workup is needed. Patient is feeling better so patient was discharged home in stable condition. Will monitor LFTs an outpatient again. For follow-up scheduled for cardiology and primary care outpatient next week. If needed will send the patient to GI services outpatient. Condition at time discharge stable. Status at Discharge Cognitive/behavioral status at discharge: Stable Functional status at discharge: independent ambulation Overall status at discharge: patient is back to baseline Time Spent with Patient Time attestation: Total time spent providing and/or coordinating discharge services: Exam Const: General: cooperative, healthy appearing, comfortable, no acute distress, well developed, alert, awake and Physically active Nutritional Appearance: average body habitus and well nourished Orientation/consciousness: oriented to person, oriented to place, oriented to time and patient oriented x3 Limitations: no limitations HENMT: Head: normal to inspection, No palpable skull fracture present, normocephalic and atraumatic Ears: hearing grossly normal bilaterally and external ears normal General nose exam: Normal external nose present Eyes: General: appearance normal, both eyes and all related structures Alignment and Position: alignment normal Periorbital: periorbital findings normal Eyelids: eyelids normal Conjunctivae: conjunctivae normal Sclera: sclerae normal Corne
--- NOTE | 2020-08-04 12:13 | PC.NURSE ---
Spoke with patient's son regarding discharge orders, also attempted to have a conversation about the need for skilled nursing placement due to profound confusion and safety concerns. The son stated that the patient's , Amrit, would peanut picker the patient. The son continues to refuse the conversation and is aware that both the patient and the are very confused and states they've managed it this long, they'll be fine. Son also states that contacting local police is his form of communication with Amrit, who continues to unplug his landline phone. When patient's arrived to the floor and was told of discharge, immediately forgot and stated he was here to eat lunch with the patient. Patient and her are both confused and wandering the halls despite multiple attempts to keep patient in bed for patient's safety. This RN filed a report with adult protective services artists' booking representative Savi Walker, . Awaiting follow up phone call with [facility].
== END 2020-08-04 13:45 | disposition home or self-care (01) ==
LOC: ANHED 13:31 → ANHIMU 20:33
PROVIDERS: Internal Medicine; Nurse Practitioner; Admitting Provider Family Medicine; Emergency Provider Emergency Medicine; Visit Provider Internal Medicine
DX: R07.9 Chest pain, unspecified (principal); I11.0 Hypertensive heart disease with heart failure; I50.9 Heart failure, unspecified; I48.20 Chronic atrial fibrillation, unspecified; R74.8 Abnormal levels of other serum enzymes; E03.9 Hypothyroidism, unspecified; E78.5 Hyperlipidemia, unspecified; F03.90 Unspecified dementia, unspecified severity, without behavioral disturbance, psychotic disturbance, mood disturbance, and anxiety; I25.10 Atherosclerotic heart disease of native coronary artery without angina pectoris; K21.9 Gastro-esophageal reflux disease without esophagitis; M81.0 Age-related osteoporosis without current pathological fracture; I73.9 Peripheral vascular disease, unspecified; H35.30 Unspecified macular degeneration; F41.8 Other specified anxiety disorders; I27.20 Pulmonary hypertension, unspecified; Z86.73 Personal history of transient ischemic attack (TIA), and cerebral infarction without residual deficits; Z86.718 Personal history of other venous thrombosis and embolism; Z87.891 Personal history of nicotine dependence; Z79.82 Long term (current) use of aspirin; Z95.2 Presence of prosthetic heart valve
CPT/HCPCS: 36415; 71046; 71275; 80048; 80053; 80076; 83615; 83735; 84439; 84443; 84480; 84484; 85025; 85380; 85610; 85730; 93005; 96372; 99285; A9270; G0378; J1630; Q9967

== ENCOUNTER 2020-08-05 11:44 | Inpatient (IN) | payer MEDICARE, SELFPAY ==
--- NOTE | ~2020-08-05 | CT_ITS ---
EXAMINATION: CT brain wo con DATE: 08/05/2020 14:05 INDICATION: Confusion. TECHNIQUE: Computed tomography (CT) of the head was performed without intravenous contrast. The mA wa s adjusted according to patient size. Iterative reconstruction technique was employed. The dose-lengt h product was 529.67 mGy-cm. COMPARISON: Head CT 11/29/2018 FINDINGS: There is old infarct in right parietal lobe. There is an old infarct in left temporal occip ital region in the expected distribution of posterior cerebral artery. There are scattered areas of l ow attenuation in the cerebral white matter. There is no intracranial hemorrhage, acute infarction, o r abnormal intracranial mass lesion. There is ex vacuo dilatation of left lateral ventricle. There ar e likely changes of right ocular lens replacement surgery. There is mild mucosal thickening in the pa ranasal sinuses. There is a trace left mastoid effusion. IMPRESSION: 1. 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 2. Stable moderate nonspecific cerebral white matter disease, which likely represents chronic small v essel ischemic disease. Reviewed, dictated and finalized at location B. IMPRESSION: 1. Old infarcts involving the right parietal lobe and left temporal occipital r egion. 2. Stable moderate nonspecific cerebral white matter disease, which likely repr esents chronic small vessel ischemic disease.
--- NOTE | ~2020-08-05 | XR_ITS ---
EXAMINATION: XR chest 2V DATE: 08/05/2020 12:24 INDICATION: Right chest pain. TECHNIQUE: Frontal and lateral views of the chest were obtained. COMPARISON: Chest 2 views 08/03/2020, chest CT 08/03/2020 FINDINGS: There are small pleural effusions. There is mild atelectasis at the lung bases. No pneumoth orax. A calcified left lung nodule and calcified mediastinal lymph nodes are consistent with old gran ulomatous disease. Cardiomegaly is noted. There are changes of mitral valve replacement. IMPRESSION: 1. Small pleural effusions. 2. Mild atelectasis at the lung bases. 3. Cardiomegaly. Reviewed, dictated and finalized at location B.
--- NOTE | ~2020-08-05 | CT_ITS ---
EXAMINATION: CT abdomen pelvis wo con DATE: 08/06/2020 13:54 INDICATION: Abdominal pain. TECHNIQUE: Computed tomography (CT) of the abdomen and pelvis was performed without intravenous contr ast. Automated exposure control and iterative reconstruction technique were employed. The dose-length product was 385.63 mGy-cm. COMPARISON: CT abdomen and pelvis 06/27/2019 FINDINGS: There are small pleural effusions. There is mild atelectasis bilaterally. There is smooth s eptal thickening in the lungs, consistent with mild pulmonary edema. There is right atrial enlargemen t of the heart. There are changes of mitral valve replacement. No pericardial effusion. There is a sm all sliding hiatal hernia. The liver is normal. There are gallstones in the gallbladder, which is nor mal in size. Calcifications in the spleen are consistent with old granulomatous disease. The pancreas and adrenal glands are normal. 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 There is mild hydroneph rosis of right kidney upper pole and upper pole ureter with transition point in the distal ureter at the adnexa. Left kidney is normal. There is a small calcified fibroid in the uterus. There is a large volume of stool in the colon. No bowel obstruction. The appendix measures 12 mm in diameter. There a re no pathologically enlarged lymph nodes. There is no free intraperitoneal fluid. There is severe rylee mbar spondylosis. IMPRESSION: 1. Mild pulmonary edema. 2. Small pleural effusions. 3. Partial duplication of right ureter with right upper pole hydronephrosis and upper pole hydrourete r to the level of the adnexa. No urolithiasis. 4. Appendiceal diameter of 12 mm, increased from 9 mm on 06/27/19, which is indeterminate for appendic itis. 5. Large volume of stool in the colon. No obstruction. Reviewed, dictated and finalized at location B. IMPRESSION: 1. Mild pulmonary edema. 2. Small pleural effusions. 3. Partial duplication of right ureter with right upper pole hydronephrosis and upper pole hydroureter to the level of the adnexa. No urolithiasis. 4. Appendiceal diameter of 12 mm, increased from 9 mm on 06/27/19, which is inde terminate for appendicitis. 5. Large volume of stool in the colon. No obstruction.
--- NOTE | 2020-08-05 12:00 | ECG_ITS ---
Measurements Intervals [place] Rate: 86 P: DC: 0 QRS: -11 QRSD: 94 T: 120 QT: 381 QTc: 457 Interpretive Statements ATRIAL FIBRILLATION VOLTAGE CRITERIA FOR LVH CONSIDER INFERIOR INFARCT, AGE INDETERMINATE BORDERLINE ST-T WAVE ABNORMALITY- ANTEROLAT/HIGH LAT LEADS BASELINE ARTIFACT- I, III, AVL ABNORMAL ECG Electronically Signed On 08-05-2020 12:19:31 CDT by Cezar Love D.O.
[2020-08-05 12:11] VITALS: BP 152/82; PULSE 89; RESP 18; TEMP 36.8; O2SAT 99
[2020-08-05 13:04] LABS: Basophils Percent Auto 0.4 % (0.2-1.2); Eosinophils Percent Auto 0.5 % (0-4.4); Hematocrit 36.3 % (37.0-47.0); Hemoglobin 11.7 g/dL (12.0-15.0); Immature Granulocyte Absolute 0.02 K/mm3 (0.00-0.031); Immature Granulocyte Percent A 0.3 % (0-0.5); Lymphocytes Absolute Auto 1.81 K/mm3 (0.9-3.2); Lymphocytes Percent Auto 24.2 % (18.3-44.2); Mean Corpuscular HGB Conc 32.2 g/dl (32-36); Mean Corpuscular Hemoglobin 28.3 pg (26-34); Mean Corpuscular Volume 87.7 fl (80-100); Monocytes Absolute Auto 0.4 K/mm3 (0.1-0.6); Monocytes Percent Auto 5.6 % (2.6-8.5); Neutrophils Absolute Auto 5.2 K/mm3 (1.3-6.7); Platelet Count Result 204 k/mm3 (150-375); Red Blood Count 4.14 M/mm3 (4.2-5.4); Red Cell Distribution Width 15.9 % (11.5-14.5); White Blood Count 7.5 K/mm3 (4.5-10.0)
[2020-08-05 13:12] LABS: Anion Gap 7 mmol/L (8-16); Blood Urea Nitrogen 17 mg/dL (7-17); Calcium 9.7 mg/dL (8.4-10.2); Carbon Dioxide 29 mmol/L (22-30); Chloride 105 mmol/L (98-107); Estimated Glomerular Filt Rate 48; Glucose 118 mg/dL (65-105); Sodium 141 mmol/L (137-145)
[2020-08-05 13:24] LABS: Troponin I < 0.012 ng/mL (0.000-0.034)
[2020-08-05] MEDS: ASPIRIN 81 MG CHEWABLE TABLET 324 MG PO (13:25)
[2020-08-05 13:28] LABS: Prothrombin Time 13.8 Seconds (11.1-14.7)
[2020-08-05 13:29] LABS: Partial Thromboplastin Time 28.7 SECONDS (22.3-36.8)
--- NOTE | 2020-08-05 14:05 | ED.GENADULT ---
HPI - General Adult General Chief complaint: Chest Pain <NADEGE Farooq Last Filed: 08/05/20 16:48> Stated complaint: Chest Pain <NADEGE Farooq Last Filed: 08/05/20 16:48> Time Seen by Provider: 08/05/20 12:50 <NADEGE Farooq Last Filed: 08/05/20 16:48> Source: patient, family, RN notes reviewed and old records reviewed <NADEGE Farooq Last Filed: 08/05/20 16:48> Mode of arrival: EMS <NADEGE Farooq Last Filed: 08/05/20 16:48> Limitations: no limitations <NADEGE Farooq Last Filed: 08/05/20 16:48> History of Present Illness HPI narrative: Patient is an 79-year-old female who presents for home for EMS was called out for what was sounding like chest pain initially but on arrival patient is complaining of abdominal pain patient had been discharged from the hospital 2 days ago patient had been admitted for chest pain was found to have elevated liver enzymes patient was evaluated had trending of her cardiac enzymes was seen by cardiology who determined no further work-up was needed patient was discharged home in stable condition and was scheduled to follow-up with cardiology and primary care in 1 week and they considered referring her to GI but did not. Patient presents today noting mild discomfort of the abdomen patient denies any fever chills nausea vomiting chest pain shortness of breath lightheadedness or dizziness. Patient lives at home with her who presents with her both of which seem confused as to her recent hospitalization and are both showing signs of dementia. They live at home. Neither of them are aware of the consults or appointments that were set up for them or any follow-up. They note that they have children but were even confused as to how many. <NADEGE Farooq Last Filed: 08/05/20 16:48> Related Data Home medications: Home Medications Medication Instructions Recorded Confirmed ezetimibe 10 mg PO DAILY 02/25/19 08/05/20 aspirin 325 mg tablet 325 mg PO DAILY 07/11/20 08/05/20 levothyroxine 25 mcg PO DAILY 08/03/20 08/05/20 sennosides 8.6 mg PO HS 08/03/20 08/05/20 acetaminophen 325 mg PO BID 08/05/20 08/05/20 <Christiano Odonnell PA-C - Last Filed: 08/05/20 16:48> Allergies/adverse reactions: Allergies Allergy/AdvReac Type Severity Reaction Status Date / Time adhesive Allergy Intermediate Rash Verified 08/05/20 12:18 peanut Allergy Unknown Cough Verified 08/05/20 12:18 <Christiano Odonnell PA-C - Last Filed: 08/05/20 16:48> Review of Systems Review of Systems: All systems reviewed & are unremarkable except as noted in HPI and below <Christiano Odonnell PA-C - Last Filed: 08/05/20 16:48> [facility] Past Medical History Medical History: Medical History Anxiety Aortic valve regurgitation Moderate regurgitation on echocardiogram December 2015. Arthritis Carotid artery stenosis (~01/2014) 50 to 69% left carotid artery stenosis noted on carotid artery ultrasound. Coronary artery disease Cardiac catheterization in July 2015 at [place] showed 50 to 60% mid LAD stenosis and 40% circumflex stenosis, treated medically. Lexiscan stress in September 2017 showed ejection fraction greater than 70% with small areas of mild infarction involving the apical, septal, and apical lateral bailey of the left ventricle. Depression Diastolic dysfunction On echocardiogram December 2015 with and ejection fraction of 60-70%. 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 Peripheral vascular disease Pulmonary hypertension Mild pulmona
[2020-08-05] MEDS: SODIUM CHLORIDE 0.9% IV 500 ML 999 ML IV CONT (14:29)
[2020-08-05 14:54] LABS: Ammonia < 9 umol/L (9-30)
[2020-08-05 14:54] LABS: Add Urine Microscopic? NO; Appearance Urine Clear (Clear); Bilirubin Urine Negative (Negative); Blood Urine Negative (Negative); Color Urine Yellow (Yellow); Glucose Urine UA Negative (Negative); Ketones Urine Negative (Negative); Leukocyte Esterase Ur Negative LEU/UL (Negative); Nitrate Urine Negative (Negative); Protein Urine Negative (Negative); Specific Grav Ur 1.013 (1.001-1.035); Urobilinogen Urine Negative mg/dL (<2.0)
[2020-08-05 15:01] LABS: Alanine Aminotransferase 28 U/L (4-35); Alkaline Phosphatase 70 U/L (38-126); Aspartate Amino Transferase 33 U/L (14-36); Bilirubin,Total 0.8 mg/dL (0.2-1.3); Lipase 94 U/L (23-300)
[2020-08-05 15:15] VITALS: BP 147/59; PULSE 105; RESP 20; O2SAT 99
--- NOTE | 2020-08-05 15:15 | PC.NURSE ---
Gary FERNANDEZ at bedside for reassessment. continually coming out of room to ask for lunch for his , box lunches provided. Pt AOx2, forgetful, states she does not remember being here earlier this week. Pt denies pain at this time, completed fluid bolus
[2020-08-05 16:19] VITALS: BP 162/94; PULSE 114; RESP 21; O2SAT 97
[2020-08-05] MEDS: METOPROLOL TARTRATE INJ 5 MG/5 ML VIAL IV PUSH (16:20)
[2020-08-05 16:45] LABS: Troponin I < 0.012 ng/mL (0.000-0.034)
[2020-08-05 17:00] VITALS: BP 154/81; PULSE 71; RESP 22; O2SAT 100
[2020-08-05] MEDS: LACTATED RINGERS 1,000 ML 75 ML IV CONT (20:25)
[2020-08-05] MEDS: FAMOTIDINE 20 MG/2 ML VIAL IV PUSH (20:26)
[2020-08-05 22:00] VITALS: BP 148/83; PULSE 84; RESP 18; TEMP 36.4; O2SAT 97
--- NOTE | 2020-08-05 22:27 | PM.IMHP ---
H&P: HPI History of Present Illness Date/Time: 08/05/20 22:27 this is a 79-year-old female patient who was discharged yesterday after 1 day stay for complaints of right chest pain. She had a full workup and it was found to be negative. She has a history of atrial fibrillation but is not on any anticoagulation for unknown reason. She just on a full dose aspirin and has been on Cardizem. She is also on metoprolol. The patient has become more confused and has a history of dementia. Is reported that the also has dementia and that the 2 live together. To the emergency room because the patient was having complaints of right chest wall pain pain and so the ambulance was activated EMS brought her into the hospital. When they got there she complained of abdominal pain upon further investigation I notice that the patient has a scar under that right breast. She cannot recall where the scar came from. The ER provider felt that the patient her can no longer care for themselves and that he could not return her back to home is able to have severe memory issues. The patient told the ER provider she did remember being here the day before. However when I saw the patient she did remember me from the night before. The patient stated that she does have right breast pain in this is been going on for years. The patient is still in AFib and her heart rates 90s to 100s. It is not known if the patient has been taking her medications or not. I suggested that the patient and her go to [employer] [facility] [facility]. The patient stated that her son used to checkup on her every week but he no longer does that. The patient is being admitted to observation status on the date of service of 08/05/2020 Chief Complaint: Right chest pain Review of Systems Review of Systems: All systems reviewed & are unremarkable except as noted in HPI and below Constitutional: Constitutional: Reports as per HPI and Reports no additional constitutional complaints Eyes: Eyes: Reports as per HPI and Reports no additional eye complaints ENT: Reports system reviewed and no additional complaints, except as documented and Reports Normal hearing present Cardiovascular: Cardiovascular: Reports no additional cardiovascular complaints Respiratory: Respiratory: Reports no additional respiratory complaints and Reports no additional respiratory complaints Gastrointestinal: Gastrointestinal: Reports as per HPI and Reports no additional gastrointestinal complaints Musculoskeletal: Musculoskeletal: Reports no additional musculoskeletal complaints Integumentary/Breasts: Skin/Breast: Reports system reviewed and no additional complaints, except as docu and Reports as per HPI Neurologic: Reports system reviewed and no additional complaints, except as documented, Reports as per HPI and Reports Normal hearing present Psychiatric: Psychiatric: Reports no additional psychiatric complaints and Reports as per HPI Endocrine: Endocrine: Reports no additional endocrine complaints Hematologic/Lymphatic: Hematologic/Lymphatic: Reports no additional hematologic/lymphatic complaints Allergic/Immunologic: Allergic/Immunologic: Reports no additional allergic/immunologic complaints [facility] Past Medical History Medical History Anxiety Aortic valve regurgitation Moderate regurgitation on echocardiogram December 2015. Arthritis Carotid artery stenosis (~01/2014) 50 to 69% left carotid artery stenosis noted on carotid artery ultrasound. Coronary artery disease Cardiac catheterization in July 2015 at [place] showed 50 to 60% mid LAD stenosis and 40% circumflex stenosis, treated medically. Lexiscan stress in September 2017 showed ejection fraction greater than 70% with small areas of mild infarction involving the apical, septal, and apical lateral bailey of the left ventricle. Depression Diastolic dysfunction On echocardiogram December 2015 with and ejection fraction
[2020-08-05 22:56] VITALS: PULSE 84
[2020-08-05] MEDS: METOPROLOL TARTRATE 50 MG TAB PO (22:56)
[2020-08-05] MEDS: SENNOSIDES 8.6 MG TABLET PO (22:57)
[2020-08-06] VITALS (13 sets, daily range): BP systolic 151–153; BP diastolic 79–95; PULSE 65–114; RESP 18–20; TEMP 36.2–36.4; O2SAT 97–100
[2020-08-06] MEDS: LEVOTHYROXINE SODIUM 25 MCG TABLET PO (05:57)
--- NOTE | 2020-08-06 06:02 | PM.IMPN ---
Progress Note: A&P Assessment and Plan (1) Dementia: Code(s): F03.90 - Unspecified dementia without behavioral disturbance Status: Acute Assessment and Plan: Follow-up with neurology as outpatient (2) Chronic atrial fibrillation: Code(s): I48.20 - Chronic atrial fibrillation, unspecified Status: Acute Assessment and Plan: She is on diltiazem and metoprolol. Patient had episodes of AFib with RVR according to Cardiology most likely related to an anxiety episode and stress also patient has dehydration treated with IV fluid Current lease controlled resume home medication improved (3) Dyslipidemia: Code(s): E78.5 - Hyperlipidemia, unspecified Status: Chronic Assessment and Plan: Continue with her Zetia (4) Hypothyroidism: Code(s): E03.9 - Hypothyroidism, unspecified Status: Acute Assessment and Plan: Continue with levothyroxine. (5) CHF (congestive heart failure): Qualifiers: Heart failure chronicity: unspecified Heart failure type: unspecified Qualified Code(s): I50.9 - Heart failure, unspecified Code(s): I50.9 - Heart failure, unspecified Status: Acute Assessment and Plan: Continue with metoprolol (6) Essential hypertension: Code(s): I10 - Essential (primary) hypertension Status: Chronic Assessment and Plan: Continue with Cardizem and metoprolol. (7) Abdominal pain: Code(s): R10.9 - Unspecified abdominal pain Status: Acute Assessment and Plan: Most likely related to constipation laxative was given Subjective Date/time seen: 09/22/20 06:02 Interval history: Patient seen and examined Patient presents to the hospital with generalized weakness Abdominal pain CT scan shows constipation Patient denies chest pain feels better afib better I am seeing the patient for AFib with RVR Exam Narrative: Exam Narrative: Sleepy Chest no wheeze crackles Abdomen nontender nondistended CVS S1 + S2 Negative Lower extremity edema Psych: Attitude: cooperative Objective Data Meds/Results Radiology Results: ITS Impressions Chest X-Ray 08/05/20 12:26 IMPRESSION: 1. Small pleural effusions. 2. Mild atelectasis at the lung bases. 3. Cardiomegaly. Head CT 08/05/20 14:08 IMPRESSION: 1. 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 2. Stable moderate nonspecific cerebral white matter disease, which likely represents chronic small vessel ischemic disease. Abdomen/Pelvis CT 08/06/20 13:55 IMPRESSION: 1. Mild pulmonary edema. 2. Small pleural effusions. 3. Partial duplication of right ureter with right upper pole hydronephrosis and upper pole hydroureter to the level of the adnexa. No urolithiasis. 4. Appendiceal diameter of 12 mm, increased from 9 mm on 06/27/19, which is indeterminate for appendicitis. 5. Large volume of stool in the colon. No obstruction. Quality VTE Prophylaxis VTE prophylaxis: mechanical ordered
[2020-08-06 06:35] LABS: Basophils Absolute Auto 0.1 K/mm3 (0.0-0.1); Basophils Percent Auto 0.7 % (0.2-1.2); Eosinophils Absolute Auto 0.1 K/mm3 (0-0.3); Eosinophils Percent Auto 1.7 % (0-4.4); Hematocrit 35.9 % (37.0-47.0); Hemoglobin 11.8 g/dL (12.0-15.0); Immature Granulocyte Absolute 0.01 K/mm3 (0.00-0.031); Immature Granulocyte Percent A 0.1 % (0-0.5); Lymphocytes Absolute Auto 2.22 K/mm3 (0.9-3.2); Lymphocytes Percent Auto 31.5 % (18.3-44.2); Mean Corpuscular HGB Conc 32.9 g/dl (32-36); Mean Corpuscular Hemoglobin 28.8 pg (26-34); Mean Corpuscular Volume 87.6 fl (80-100); Mean Platelet Volume 11.5 fl (7.4-10.4); Monocytes Absolute Auto 0.4 K/mm3 (0.1-0.6); Monocytes Percent Auto 5.5 % (2.6-8.5); Neutrophils Absolute Auto 4.3 K/mm3 (1.3-6.7); Neutrophils Percent Auto 60.5 % (45.5-73.1); Platelet Count Result 193 k/mm3 (150-375); Red Cell Distribution Width 15.9 % (11.5-14.5); White Blood Count 7.1 K/mm3 (4.5-10.0)
[2020-08-06 06:45] LABS: Anion Gap 8 mmol/L (8-16); Blood Urea Nitrogen 16 mg/dL (7-17); Carbon Dioxide 27 mmol/L (22-30); Chloride 108 mmol/L (98-107); Estimated Glomerular Filt Rate 48; Glucose 92 mg/dL (65-105); Potassium 3.8 mmol/L (3.4-5.0); Sodium 143 mmol/L (137-145)
--- NOTE | 2020-08-06 06:54 | ADMGEN ---
This patient, Peace Kinsey, was admitted to [address] [place] [address] Room 333-01. Patient/family oriented to hospital policies and general routines including ID bracelet, bed and alarms, visiting hours, pain management, procedures, bathroom and other care routines, personal items, smoking policy, room service/diet, and visiting hours. Information on how to activate the Rapid Response Team has been discussed. Patient/Family are encouraged to report perceived risks to care and to ask questions if they do not understand what they are told or what they should do. Patient arrived at the start of the shift. We discussed hospital policy, call light use, tests, and treatments.
[2020-08-06] MEDS: METOPROLOL TARTRATE 50 MG TAB PO ×3 (08:09→20:20)
[2020-08-06] MEDS: ACETAMINOPHEN 325 MG TABLET PO ×2 (08:09→16:36)
[2020-08-06] MEDS: ASPIRIN 325 MG TABLET PO (08:09)
[2020-08-06] MEDS: FAMOTIDINE 20 MG/2 ML VIAL IV PUSH (08:11)
[2020-08-06] MEDS: EZETIMIBE 10 MG TABLET PO (08:11)
--- NOTE | 2020-08-06 10:18 | WPDNEURCNPN ---
Assessment and Plan Assessment and plan (1) Dementia: Code(s): F03.90 - Unspecified dementia without behavioral disturbance Status: Acute (2) Atrial fibrillation with rapid ventricular response: Code(s): I48.91 - Unspecified atrial fibrillation Status: Acute Additional Plan ongoing history of chronic atrial fibrillation, dementia with her being demented as well, these benefit from the placement as it will be difficult for both of them to take care features are with the ongoing dementia question about anticoagulation therapy because of underlying atrial fibrillation if they are moved to some safer place and she has good candidate for anticoagulation in safe environment Consult date: 08/06/20 Time Seen: 11:00 HPI: Peace Kinsey is a 79 year old female admitted to the hospital and was just discharged yesterday. This time she was brought in for the complaints of chest pain on the right side she has underlying atrial fibrillation but is not and on anticoagulation therapy only full-dose aspirin and Cardizem also metoprolol. Reportedly she became more confused but she does have ongoing history of dementia. CT scan documented old infarct involving the right parietal lobe and left temporo-occipital region and nonspecific white matter disease again no evidence of bleed or any new lesion routine blood studies are unremarkable so as the toxicology screen and serologies for COVID Review of Systems Review of Systems: All systems reviewed & are unremarkable except as noted in HPI and below PMFSH Past Medical History Medical History Anxiety Aortic valve regurgitation Moderate regurgitation on echocardiogram December 2015. Arthritis Carotid artery stenosis (~01/2014) 50 to 69% left carotid artery stenosis noted on carotid artery ultrasound. Coronary artery disease Cardiac catheterization in July 2015 at [place] showed 50 to 60% mid LAD stenosis and 40% circumflex stenosis, treated medically. Lexiscan stress in September 2017 showed ejection fraction greater than 70% with small areas of mild infarction involving the apical, septal, and apical lateral bailey of the left ventricle. Depression Diastolic dysfunction On echocardiogram December 2015 with and ejection fraction of 60-70%. 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 Peripheral vascular disease Pulmonary hypertension Mild pulmonary hypertension was noted on echocardiogram in December 2015 with an RVSP of 35-40 mmHg. Right leg DVT (~03/2010) Sigmoid volvulus Several hospitalizations for such with subsequent sigmoidectomy in June [address] Quan. Transient ischemic attack (~2009) Vascular dementia Surgical History Surgical History History of bladder surgery (~1993) Resection of benign bladder tumor. History of breast biopsy She has a scar to her right breast. History of cardiac catheterization July 2015 at [place] which demonstrated 50-60% mid LAD stenosis and 40% circumflex stenosis with fractional flow reserve not suggestive of significant limitations that would cause chest pain. Treated medically. History of dilation and curettage History of mitral valve replacement with bioprosthetic valve (~02/2010) Placed at [facility] and followed by Dr. Mcbride due to mitral valve prolapse; with mild mitral valve regurgitation noted on echo from December 2015. History of open sigmoidectomy (~06/2019) For recurrent sigmoid volvulus per Dr. Quan. Family History Family History Father
--- NOTE | 2020-08-06 11:27 | PM.DS ---
DS: Admitting Diagnosis Admitting Diagnosis Admitting Diagnosis: Abdominal pain DS: Discharge Diagnosis Discharge Diagnosis (1) Dementia: Code(s): F03.90 - Unspecified dementia without behavioral disturbance Status: Acute Assessment and Plan: Follow-up with neurology as outpatient (2) Chronic atrial fibrillation: Code(s): I48.20 - Chronic atrial fibrillation, unspecified Status: Acute Assessment and Plan: Patient's heart rate tonight was between 90 and 100 but were not sure if she had received her medication. She is on diltiazem and metoprolol. She is not anticoagulated She is just on a full-strength aspirin. Follow-up with cardiology (3) Dyslipidemia: Code(s): E78.5 - Hyperlipidemia, unspecified Status: Chronic Assessment and Plan: Continue with her Zetia (4) Hypothyroidism: Code(s): E03.9 - Hypothyroidism, unspecified Status: Acute Assessment and Plan: Continue with levothyroxine. (5) CHF (congestive heart failure): Qualifiers: Heart failure chronicity: unspecified Heart failure type: unspecified Qualified Code(s): I50.9 - Heart failure, unspecified Code(s): I50.9 - Heart failure, unspecified Status: Acute Assessment and Plan: Continue with metoprolol (6) Essential hypertension: Code(s): I10 - Essential (primary) hypertension Status: Chronic Assessment and Plan: Continue with Cardizem and metoprolol. (7) Abdominal pain: Code(s): R10.9 - Unspecified abdominal pain Status: Acute Assessment and Plan: Patient has history of sigmoid volvulus in the past no evidence of bowel obstruction I think her pain most likely related to chronic constipation and probable partial bowel obstruction resolved patient need to follow-up with surgery as outpatient currently patient denies any abdominal pain DS: Summary Hospital Course Hospital Course: 79 years old female was admitted to the hospital patient has dementia getting worse i she was worried that her is no longer able to care for her she presented to the hospital with abdominal pain patient denies chest pain also had episodes of confusion most likely patient has worsening dementia her abdominal pain probably related to partial bowel obstruction that resolved patient has history of sigmoid volvulus patient denies abdominal distension denies abdominal pain Follow-up with PCP and Cardiology as outpatient Time Spent with Patient Time attestation: Total time spent providing and/or coordinating discharge services: Exam Narrative: Exam Narrative: Alert Chest no wheeze crackles Abdomen nontender nondistended CVS S1 + S2 Lower extremity edema DS: Data Data Completed and Pending Labs on day of discharge: Labs from last 24 hours 08/06/20 08/06/20 08/05/20 05:51 05:51 16:11 WBC 7.1 RBC 4.10 L Hgb 11.8 L Hct 35.9 L MCV 87.6 MCH 28.8 MCHC 32.9 RDW 15.9 H Plt Count 193 MPV 11.5 H Immature Gran % (Auto) 0.1 Neut % (Auto) 60.5 Lymph % (Auto) 31.5 [place] % (Auto) 5.5 Eos % (Auto) 1.7 Baso % (Auto) 0.7 Lymph # (Auto) 2.22 [place] # (Auto) 0.4 Eos # (Auto) 0.1 Baso # (Auto) 0.1 Abs Immat Gran (auto) 0.01 Absolute Neuts (auto) 4.3 Absolute Nucleated RBC 0.0 Nucleated RBC % 0.0 PT INR APTT Sodium 143 Potassium 3.8 Chloride 108 H Carbon Dioxide 27 Anion Gap 8 BUN 16 Creatinine 1.10 H Estim Creat Clear Calc Not Reportable Estimated GFR 48 L Glucose 92 Calcium 9.0 Total Bilirubin Direct Bilirubin AST ALT Alkaline Phosphatase Ammonia Troponin I < 0.012 Total Protein Albumin Lipase Urine Color Urine Appearance Urine pH Ur Specific [place] Urine Protein Urine Glucose (UA) Urine Ketones Ur Blood (Man) Urine Nitrate Urine Bilirubin Urine Urobi
--- NOTE | 2020-08-06 11:55 | PC.NURSE ---
Addendum entered by Basim Rowe RN 08/06/20 12:46: Radiologist stating CT can be done without contrast to visualize what Dr. Arellano ordered. Order changed to without contrast. Original Note: Spoke with CT in regards to CT abdomen w/oral contrast order. Per CT, they will come up to floor and give patient PO contrast.
--- NOTE | 2020-08-06 13:43 | PC.NURSE ---
Pt to CT per wheelchair.
--- NOTE | 2020-08-06 14:00 | PC.NURSE ---
Pt returned from CT scan.+
[2020-08-06] MEDS: polyethylene glycoL 3350 17 GM POWD.PACK PO (16:35)
[2020-08-06 17:18] LABS: Magnesium 2.2 mg/dL (1.6-2.3)
[2020-08-06] MEDS: FAMOTIDINE 20 MG TABLET PO (20:20)
[2020-08-06] MEDS: SENNOSIDES 8.6 MG TABLET PO (20:20)
[2020-08-06] MEDS: ACETAMINOPHEN 500 MG TABLET 1000 MG PO (20:22)
[2020-08-06] MEDS: LORazepam (*CRX) 0.5 MG TABLET PO (22:16)
[2020-08-07] VITALS (11 sets, daily range): BP systolic 134–157; BP diastolic 81–116; PULSE 62–162; RESP 16–18; TEMP 36.2–37; O2SAT 99; BMI 21.4
[2020-08-07] MEDS: LORazepam (*CRX) 0.5 MG TABLET PO ×2 (02:06→06:27)
[2020-08-07] MEDS: LEVOTHYROXINE SODIUM 25 MCG TABLET PO (06:27)
[2020-08-07] MEDS: ACETAMINOPHEN 500 MG TABLET 1000 MG PO (06:40)
[2020-08-07] MEDS: FAMOTIDINE 20 MG TABLET PO ×2 (07:56→20:37)
[2020-08-07] MEDS: EZETIMIBE 10 MG TABLET PO (07:56)
[2020-08-07] MEDS: ASPIRIN 325 MG TABLET PO (07:56)
[2020-08-07] MEDS: METOPROLOL TARTRATE 50 MG TAB PO ×2 (07:57→20:38)
--- NOTE | 2020-08-07 10:45 | PM.IMPN ---
Progress Note: A&P Assessment and Plan (1) Dementia: Code(s): F03.90 - Unspecified dementia without behavioral disturbance Status: Acute Assessment and Plan: Follow-up with neurology as outpatient (2) Chronic atrial fibrillation: Code(s): I48.20 - Chronic atrial fibrillation, unspecified Status: Acute Assessment and Plan: She is on diltiazem and metoprolol. She is not anticoagulated She is just on a full-strength aspirin. Follow-up with cardiology Uncontrolled increase the dose of metoprolol to 100 twice a day added IV metoprolol without improvement cardiology was consulted Heart rate was going to 170 (3) Dyslipidemia: Code(s): E78.5 - Hyperlipidemia, unspecified Status: Chronic Assessment and Plan: Continue with her Zetia (4) Hypothyroidism: Code(s): E03.9 - Hypothyroidism, unspecified Status: Acute Assessment and Plan: Continue with levothyroxine. (5) CHF (congestive heart failure): Qualifiers: Heart failure chronicity: unspecified Heart failure type: unspecified Qualified Code(s): I50.9 - Heart failure, unspecified Code(s): I50.9 - Heart failure, unspecified Status: Acute Assessment and Plan: Continue with metoprolol (6) Essential hypertension: Code(s): I10 - Essential (primary) hypertension Status: Chronic Assessment and Plan: Continue with Cardizem and metoprolol. 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 Patient has multiple episodes of AFib with RVR Patient is sleepy I am seeing the patient for AFib with RVR Exam Narrative: Exam Narrative: Sleepy Chest no wheeze crackles Abdomen nontender nondistended CVS S1 + S2 Negative Lower extremity edema Objective Data Vital Signs Vital Signs: Vital Signs - 24 hr 08/06/20 12:00 08/06/20 14:00 08/06/20 15:03 Temperature 97.3 F L Pulse Rate 92 77 Respiratory Rate 20 Blood Pressure 151/79 H Pulse Oximetry 99 99 08/06/20 16:00 08/06/20 16:35 08/06/20 20:00 Temperature Pulse Rate 97 107 H 71 Respiratory Rate Blood Pressure Pulse Oximetry 08/06/20 20:20 08/06/20 21:33 08/07/20 00:00 Temperature 97.5 F L Pulse Rate 114 H 79 96 Respiratory Rate 18 Blood Pressure 153/91 H Pulse Oximetry 97 08/07/20 04:00 08/07/20 06:00 08/07/20 07:57 Temperature 97.1 F L Pulse Rate 97 97 148 H Respiratory Rate 18 Blood Pressure 139/116 H Pulse Oximetry 99 08/07/20 08:00 Temperature Pulse Rate 162 H Respiratory Rate Blood Pressure Pulse Oximetry Intake/Output Intake/Output: Intake & Output 08/04/20 08/05/20 08/06/20 08/07/20 23:59 23:59 23:59 23:59 Intake Total 600 2240 810 Balance 600 2240 810 Meds/Results Medications: Active Medications Generic Name Dose Route Start Last Admin Trade Name Freq PRN Reason Stop Dose Admin Acetaminophen 325 mg 08/06/20 09:00 08/06/20 16:36 Acetaminophen 325 Mg Tablet PO 09/05/20 09:01 325 mg BID ELE Administration Acetaminophen 1,000 mg 08/06/20 10:15 08/07/20 06:40 Acetaminophen 500 Mg Tablet PO 1,000 mg Q6H PRN Administration Mild Pain (1-3) or Fever Aspirin 325 mg 08/06/20 08:00 08/07/20 07:56 Aspirin 325 Mg Tablet PO 325 mg DAILY@0800 ELE Administration Cefdinir 300 mg 08/07/20 09:00 Cefdinir 300 Mg Capsule PO Q12HR [facility] Diltiazem HCl 120 mg 08/06/20 09:00 08/07/20 07:57 Diltiazem Hcl Cd 120 Mg Cap.Sa.24h PO 120 mg QAM ELE Administration Ezetimibe 1
--- NOTE | 2020-08-07 14:48 | PCNSR ---
On 08/07/20, the student, Savi Pierce, provided care and completed [facility] documentation on this patient. I have reviewed the student's documentation and agree with the findings.
--- NOTE | 2020-08-07 16:24 | PM.PNCARD ---
Progress Note: A&P Assessment and Plan (1) Atrial fibrillation with rapid ventricular response: Code(s): I48.91 - Unspecified atrial fibrillation Status: Acute Assessment and Plan: rate seems to be well controlled now after she was given her oral medications, she was tachycardic when she was not able to sleep and was having anxiety attack. As far as rate now is 70 on the above medications will continue with that, she is not a candidate for anticoagulation due to history of bleeding and history of risk of falling (2) Dementia: Code(s): F03.90 - Unspecified dementia without behavioral disturbance Status: Acute (3) Chronic atrial fibrillation: Code(s): I48.20 - Chronic atrial fibrillation, unspecified Status: Acute Assessment and Plan: currently rate is well controlled okay to use p.r.n. metoprolol if she has any significant tachycardia again with heart rate more than 140 with a 5 mg IV push (4) CAD (coronary artery disease): Qualifiers: Coronary Disease-Associated Artery/Lesion type: [place] artery [place] vs. transplanted heart: [place] heart Associated angina: without angina Qualified Code(s): I25.10 - Atherosclerotic heart disease of [place] coronary artery without angina pectoris Code(s): I25.10 - Atherosclerotic heart disease of hop[place] coronary artery without angina pectoris Status: Acute Additional Plan Thank you for allowing me to participate in this patient's care, I will be following up with you. Please do not hesitate to call me for any other inquiry Subjective Date/time seen: 08/07/20 16:24 79 y/o female with h/o MR s/p mitral valve replacement with bioprosthetic valve in 2009 at [facility] (followed Dr. Mcbride),CAD, TIA, paroxysmal A fib not on AC (intracranial hemorrhage 2014), dementia, HTN, HLD who presents CHANGE IN MENTAL STATUS, NOTED TO HAVE ATRIAL FIBRILLATION WITH RAPID VENTRICULAR RESPONSE. She had atrial fibrillation and had rate control but last night was noted to have episode of tachycardia with the atrial fibrillation with heart rate as high as 162. With that she denied symptoms that she has not very good historian Patient is not able to give any meaningful history and actually not event sure why she is in the hospital. According to H&P note she is here with right sided chest pain. She denies any active chest pain currently. She was seen by our service in Mar and at that time she was in A fib with RVR. Her Metoprolol dose was decreased and Diltiazem was added to her regimen. She had intra cranial hemorrhage ~ 2014 also with concerns of falls at home hence was not started on AC. Echo during her admission in Mar 2019 showed showed Normal LV function, moderate to severe bi atrial enlargement, well seated bio prosthesis in mitral position, moderate aortic regurgitation. She had underwent cardiac catheterization in July 2015 at [facility] which demonstrated 50-60% mid LAD stenosis and 40% circumflex stenosis with normal fractional flow reserve EKG shows atrial fibrillation at HR 66. Tele reveals rate controlled A fib now rate is well controlled earlier this morning and last night she had the atrial fibrillation with rapid ventricular response with heart rate as high as 160. She is supposed to be on metoprolol 50 b.i.d. and Cardizem 120 daily No tobacco abuse. Walks with walker. Lives at home with however concerns were raised during prior admissions for need of higher level of care Review of Systems Review of Systems: ROS unobtainable: Yes unobtainable due to mental status Constitutional: Constitutional: Reports fatigue and Reports headache(s) Cardiovascular: Cardiovascular: Reports as per HPI Respiratory: Respiratory: Reports as per HPI Exam Narrative: Exam Narrative: Awake alert oriented to herself and follow simple command, not in acute distress Neck is supple no obvious JVD, no carotid bruit Chest: Good air entry bilaterally
[2020-08-07] MEDS: CEFDINIR 300 MG CAPSULE PO ×2 (17:19→20:37)
[2020-08-07] MEDS: ACETAMINOPHEN 325 MG TABLET PO (17:19)
[2020-08-07] MEDS: SENNOSIDES 8.6 MG TABLET PO (20:37)
[2020-08-08] VITALS: PULSE 85
[2020-08-08 04:00] VITALS: PULSE 71
[2020-08-08 05:58] VITALS: PULSE 94; RESP 18; TEMP 37.1; O2SAT 99
[2020-08-08] MEDS: LEVOTHYROXINE SODIUM 25 MCG TABLET PO (06:27)
[2020-08-08 08:00] VITALS: PULSE 70
--- NOTE | 2020-08-08 08:07 | PM.PNCARD ---
Progress Note: A&P Assessment and Plan (1) Atrial fibrillation with rapid ventricular response: Code(s): I48.91 - Unspecified atrial fibrillation Status: Acute Assessment and Plan: rate seems to be well controlled now after she was given her oral medications, She was tachycardic when she was not able to sleep and was having anxiety attack. She is not a candidate for anticoagulation due to history of bleeding and history of risk of falling Patient is stable for discharge from cardiac standpoint (2) CAD (coronary artery disease): Qualifiers: Coronary Disease-Associated Artery/Lesion type: [place] artery [place] vs. transplanted heart: [place] heart Associated angina: without angina Qualified Code(s): I25.10 - Atherosclerotic heart disease of [place] coronary artery without angina pectoris Code(s): I25.10 - Atherosclerotic heart disease of [place] coronary artery without angina pectoris Status: Acute Assessment and Plan: Stable (3) Dementia: Code(s): F03.90 - Unspecified dementia without behavioral disturbance Status: Acute Additional Plan Thank you for allowing me to participate in this patient's care, I will be following up with you. Please do not hesitate to call me for any other inquiry Subjective Date/time seen: 08/08/20 08:07 Resting comfortably in bed. Denies chest pain or dyspnea. Review of Systems Review of Systems: ROS unobtainable: Yes unobtainable due to mental status Constitutional: Constitutional: Reports fatigue and Reports headache(s) ENT: Reports headache(s) Cardiovascular: Cardiovascular: Reports as per HPI Respiratory: Respiratory: Reports as per HPI Neurologic: Reports headache(s) Endocrine: Endocrine: Reports fatigue Exam Narrative: Exam Narrative: Awake alert oriented to herself and follow simple command, not in acute distress Neck is supple no obvious JVD, no carotid bruit Chest: Good air entry bilaterally, lungs are clear to auscultation and percussion bilaterally Cardiovascular: irregularly irregular rhythm, 2/6 systolic murmur noted left sternal border Abdomen: Soft nontender bowel sounds positive Extremities: No edema has good pulses distally bilaterally Objective Data Vital Signs Vital Signs: Vital Signs - 24 hr 08/07/20 12:00 08/07/20 14:00 08/07/20 16:00 Temperature 36.4 C L Pulse Rate 82 78 76 Respiratory Rate 16 Blood Pressure 134/81 Pulse Oximetry 99 08/07/20 20:20 08/07/20 20:38 08/07/20 22:00 Temperature 37.0 C Pulse Rate 82 62 86 Respiratory Rate 18 Blood Pressure 157/93 H Pulse Oximetry 99 08/08/20 00:00 08/08/20 04:00 08/08/20 05:58 Temperature 37.1 C Pulse Rate 85 71 94 Respiratory Rate 18 Blood Pressure Pulse Oximetry 99 Intake/Output Intake/Output: Intake & Output 08/05/20 08/06/20 08/07/20 08/08/20 23:59 23:59 23:59 23:59 Intake Total 600 2240 1390 240 Balance 600 2240 1390 240 Meds/Results Medications: Active Medications Generic Name Dose Route Start Last Admin Trade Name Freq PRN Reason Stop Dose Admin Acetaminophen 325 mg 08/06/20 09:00 08/07/20 17:19 Acetaminophen 325 Mg Tablet PO 09/05/20 09:01 325 mg BID ELE Administration Acetaminophen 1,000 mg 08/06/20 10:15 08/07/20 06:40 Acetaminophen 500 Mg Tablet PO 1,000 mg Q6H PRN Administration Mild Pain (1-3) or Fever Aspirin 325 mg 08/06/20 08:00 08/07/20 07:56 Aspirin 325 Mg Tablet PO 325 mg DAILY@0800 ELE Administration Cefdinir 300 mg 08/07/20 09:00 08/07/20 20:37 Cefdinir 300 Mg Capsule PO 300 mg Q12HR ELE Administration Diltiazem HCl 120 mg 08/06/20 09:00 08/07/20 07:57 Diltiazem Hcl Cd 120 Mg Cap.Sa.24h PO 120 mg QAM ELE Administration Ezetimibe 10 mg 08/06/20 09:00 08/07/20 07:56 Ezetimibe 10 Mg Tablet PO 10 mg DAILY ELE Administration Enoxaparin Sodium 40 mg 08/08/20 09:00 Enoxaparin 40
[2020-08-08] MEDS: ACETAMINOPHEN 325 MG TABLET PO (09:26)
[2020-08-08] MEDS: ASPIRIN 325 MG TABLET PO (09:26)
[2020-08-08] MEDS: ENOXAPARIN 40 MG/0.4 ML SYRINGE SUB-Q (09:26)
[2020-08-08 09:27] VITALS: PULSE 66
[2020-08-08] MEDS: METOPROLOL TARTRATE 50 MG TAB PO (09:27)
[2020-08-08] MEDS: EZETIMIBE 10 MG TABLET PO (09:27)
[2020-08-08] MEDS: FAMOTIDINE 20 MG TABLET PO (09:27)
--- NOTE | 2020-08-08 10:07 | PM.DS ---
DS: Admitting Diagnosis Admitting Diagnosis Admitting Diagnosis: Generalized weakness abdominal pain DS: Discharge Diagnosis Discharge Diagnosis (1) Dementia: Code(s): F03.90 - Unspecified dementia without behavioral disturbance Status: Acute Assessment and Plan: Follow-up with neurology as outpatient (2) Chronic atrial fibrillation: Code(s): I48.20 - Chronic atrial fibrillation, unspecified Status: Acute Assessment and Plan: She is on diltiazem and metoprolol. Patient had episodes of AFib with RVR according to Cardiology most likely related to an anxiety episode and stress also patient has dehydration treated with IV fluid Current lease controlled resume home medication (3) Dyslipidemia: Code(s): E78.5 - Hyperlipidemia, unspecified Status: Chronic Assessment and Plan: Continue with her Zetia (4) Hypothyroidism: Code(s): E03.9 - Hypothyroidism, unspecified Status: Acute Assessment and Plan: Continue with levothyroxine. (5) CHF (congestive heart failure): Qualifiers: Heart failure chronicity: unspecified Heart failure type: unspecified Qualified Code(s): I50.9 - Heart failure, unspecified Code(s): I50.9 - Heart failure, unspecified Status: Acute Assessment and Plan: Continue with metoprolol (6) Essential hypertension: Code(s): I10 - Essential (primary) hypertension Status: Chronic Assessment and Plan: Continue with Cardizem and metoprolol. 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 Consulting providers: Alan Mcguire ; Jaylan Ulloa ; Christiano Odonnell ; Azam Jordan Discharging Clinician: Yang De León M.A. Patient Disposition: Home Health Service Activity: as tolerated Diet: as tolerated Patient Instructions: Antibiotic Form, A-fib (Atrial Fibrillation) (DC), Dementia (GEN) Stand Alone Forms: General Discharge Information Follow-up/Referrals: Alan Mcguire MD [Physician] - Discharge Medications: New ondansetron 4 mg Tablet,Disintegrating 4 mg PO Q6H PRN (Reason: Nausea And Vomiting) Qty: 30 RF: 0 pantoprazole [Protonix] 40 mg tablet,delayed release (DR/EC) 40 mg PO HS 28 Days Qty: 28 RF: 0 polyethylene glycol 3350 [Miralax] 17 gram Powder In Packet 17 g PO BID PRN (Reason: Constipation) Qty: 30 RF: 0 cefdinir 300 mg Capsule 300 mg PO Q12HR Qty: 6 RF: 0 Continued ezetimibe 10 mg Tablet 10 mg PO DAILY RF: 0 acetaminophen 325 mg PO BID RF: 0 diltiazem HCl 120 mg Capsule,Extended Release 24 Hr 120 mg PO QAM Qty: 30 RF: 0 metoprolol tartrate 50 mg Tablet 50 mg PO Q12HR Qty: 60 RF: 0 levothyroxine 25 mcg tablet 25 mcg PO DAILY RF: 0 sennosides 8.6 mg Tablet 8.6 mg PO HS RF: 0 aspirin 325 mg tablet 325 mg PO DAILY RF: 0 Date of admission: 08/07/20 14:55 Primary Care Provider: PHYSICIAN,SENIOR USER EXPERIENCE ARCHITECT Admitting Provider: Wai Tapia
[2020-08-08] MEDS: CEFDINIR 300 MG CAPSULE PO (10:53)
[2020-08-08 12:00] VITALS: PULSE 76
== END 2020-08-08 13:35 | disposition home or self-care (01) | DRG 641 ==
LOC: ANHED 16:48 → ANH3MEDSUR 18:33
PROVIDERS: Emergency Medicine; Emergency Medicine Emergency Medical Services; Admitting Provider Internal Medicine; Emergency Provider General Practice; Visit Provider Internal Medicine
DX: E86.0 Dehydration (principal); I48.20 Chronic atrial fibrillation, unspecified; F41.9 Anxiety disorder, unspecified; R10.9 Unspecified abdominal pain; K59.00 Constipation, unspecified; I65.22 Occlusion and stenosis of left carotid artery; F01.50 Vascular dementia, unspecified severity, without behavioral disturbance, psychotic disturbance, mood disturbance, and anxiety; I35.1 Nonrheumatic aortic (valve) insufficiency; I25.10 Atherosclerotic heart disease of native coronary artery without angina pectoris; K21.9 Gastro-esophageal reflux disease without esophagitis; I73.9 Peripheral vascular disease, unspecified; I27.20 Pulmonary hypertension, unspecified; I11.0 Hypertensive heart disease with heart failure; I50.9 Heart failure, unspecified; E03.9 Hypothyroidism, unspecified; E78.5 Hyperlipidemia, unspecified; Z79.82 Long term (current) use of aspirin; Z79.899 Other long term (current) drug therapy; Z86.718 Personal history of other venous thrombosis and embolism; Z86.73 Personal history of transient ischemic attack (TIA), and cerebral infarction without residual deficits; Z87.891 Personal history of nicotine dependence; Z95.2 Presence of prosthetic heart valve
CPT/HCPCS: 36415; 51701; 70450; 71046; 74176; 80048; 80053; 80076; 81003; 82140; 83615; 83690; 83735; 84439; 84443; 84480; 84484; 85025; 85610; 85730; 93005; 96361; 96365; 96372; 96375; 96376; 97110; 97161; 97165; 97530; 99285; A9270; G0378; J0131; J1630; J1650; J7040; J7120

== ENCOUNTER 2020-10-06 14:29 | Inpatient (IN) | payer MEDICARE, SELFPAY ==
[2020-10-06] VITALS (14 sets, daily range): BP systolic 98–128; BP diastolic 64–96; PULSE 56–162; RESP 16–26; TEMP 36–36.6; O2SAT 98–100; BMI 33.9; BMI 24.0
--- NOTE | ~2020-10-06 | XR_ITS ---
XR chest 2V 10/06/2020 15:16 Indication: Shortness of breath, hypertension and left-sided chest pain Procedure: 2 view chest Comparison: Comparison to multiple prior studies sequentially, with oldest reviewed study dated 06/26. Findings: Cardiomegaly. There is a prosthetic heart valve. No focal air space disease, pulmonary wendy a, pleural effusion or suspected pneumothorax. No acute osseous abnormality. Impression: 1: No acute cardiopulmonary disease. Reviewed, dictated and finalized at location A. Impression: 1: No acute cardiopulmonary disease.
--- NOTE | 2020-10-06 14:47 | ECG_ITS ---
Measurements Intervals [place] Rate: 156 P: MS: 0 QRS: -17 QRSD: 94 T: 140 QT: 265 QTc: 428 Interpretive Statements ATRIAL FIBRILLATION WITH RAPID VENTRICULAR RESPONSE LEFT VENTRICULAR HYPERTROPHY AND ST-T CHANGE ST-T WAVE ABNORMALITY IN ANTEROLAT/HIGH LAT LEADS- CONSIDER ISCHEMIA ABNORMAL ECG Electronically Signed On 10-06-2020 14:59:55 CDT by Cezar Love D.O.
[2020-10-06] MEDS: METOPROLOL TARTRATE INJ 5 MG/5 ML VIAL IV PUSH ×2 (14:52→15:23)
[2020-10-06 15:10] LABS: Basophils Percent Auto 0.5 % (0.2-1.2); Eosinophils Absolute Auto 0.2 K/mm3 (0-0.3); Eosinophils Percent Auto 2.2 % (0-4.4); Hematocrit 40.1 % (37.0-47.0); Hemoglobin 12.6 g/dL (12.0-15.0); Immature Granulocyte Absolute 0.02 K/mm3 (0.00-0.031); Immature Granulocyte Percent A 0.2 % (0-0.5); Lymphocytes Absolute Auto 2.45 K/mm3 (0.9-3.2); Lymphocytes Percent Auto 30.3 % (18.3-44.2); Mean Corpuscular HGB Conc 31.4 g/dl (32-36); Mean Corpuscular Hemoglobin 28.8 pg (26-34); Mean Corpuscular Volume 91.8 fl (80-100); Mean Platelet Volume 11.5 fl (7.4-10.4); Monocytes Absolute Auto 0.4 K/mm3 (0.1-0.6); Monocytes Percent Auto 5.4 % (2.6-8.5); Neutrophils Percent Auto 61.4 % (45.5-73.1); Platelet Count Result 165 k/mm3 (150-375); Red Blood Count 4.37 M/mm3 (4.2-5.4); Red Cell Distribution Width 16.5 % (11.5-14.5); White Blood Count 8.1 K/mm3 (4.5-10.0)
[2020-10-06 15:20] LABS: Alanine Aminotransferase 102 U/L (4-35); Albumin Level 4.2 g/dL (3.5-5.1); Alkaline Phosphatase 93 U/L (38-126); Anion Gap 8 mmol/L (8-16); Aspartate Amino Transferase 111 U/L (14-36); Bilirubin,Total 0.7 mg/dL (0.2-1.3); Blood Urea Nitrogen 19 mg/dL (7-17); Calcium 9.2 mg/dL (8.4-10.2); Carbon Dioxide 25 mmol/L (22-30); Chloride 107 mmol/L (98-107); Estimated CRCL calculation 44 ml/min; Estimated Glomerular Filt Rate 48; Glucose 113 mg/dL (65-110); Potassium 4.4 mmol/L (3.4-5.0); Sodium 140 mmol/L (137-145)
[2020-10-06 15:20] LABS: INR 0.9; Prothrombin Time 12.2 Seconds (11.1-14.7)
[2020-10-06 15:21] LABS: Partial Thromboplastin Time 25.8 SECONDS (22.3-36.8)
[2020-10-06 15:32] LABS: Troponin I < 0.012 ng/mL (0.000-0.034)
--- NOTE | 2020-10-06 15:48 | PC.NURSE ---
Called pts son Bradly and gave update [phone] per pt request.
--- NOTE | 2020-10-06 15:54 | PC.NURSE ---
500 MLS NS infused per EDP VORB Dr Hernandez - initiated per EMS in route. 500MLS volume wasted.
--- NOTE | 2020-10-06 15:57 | ECG_ITS ---
Measurements Intervals [place] Rate: 118 P: AR: 0 QRS: 3 QRSD: 92 T: 86 QT: 338 QTc: 474 Interpretive Statements ATRIAL FIBRILLATION WITH RAPID VENTRICULAR RESPONSE EARLY PRECORDIAL R/S TRANSITION NONSPECIFIC ST & T-WAVE ABNORMALITY- ANTEROLAT/HIGH LAT LEADS ABNORMAL ECG Electronically Signed On 10-06-2020 17:04:30 CDT by Cezar Love D.O.
--- NOTE | 2020-10-06 16:15 | PM.CNCAR ---
Assessment and Plan Assessment and plan (1) Syncope: Code(s): R55 - Syncope and collapse Status: Acute Assessment and Plan: could be due to atrial fibrillation with rapid ventricular response, other possibility to be vagal reaction, currently her vital signs are stable except for tachycardia with atrial fibrillation, continue to closely monitor (2) Dementia: Code(s): F03.90 - Unspecified dementia without behavioral disturbance Status: Acute (3) Chronic atrial fibrillation: Code(s): I48.20 - Chronic atrial fibrillation, unspecified Status: Acute Assessment and Plan: now with rapid ventricular response, agree with continuing her metoprolol and start on low-dose Cardizem drip and subsequently titrate to maintain heart rate of 60-80 (4) Chest pain: Qualifiers: Chest pain type: unspecified Qualified Code(s): R07.9 - Chest pain, unspecified Code(s): R07.9 - Chest pain, unspecified Status: Acute Assessment and Plan: she had significant ST-T changes, when heart rate was increased, and with tachycardia, will continue to monitor, will consider cardiac catheterization if she has recurrent chest pain or she has elevated troponin. For the time being will start her on heparin until myocardial infarctions completely ruled out Additional Plan Thank you for allowing me to participate in this patient's care, I will be following up with you. Please do not hesitate to call me for any other inquiry History of Present Illness History of Present Illness Consult date/time: 10/06/20 16:15 CHIEF COMPLAINT IS SYNCOPE 79 years old lady with history of hypertension, history of known atrial fibrillation and dementia, was admitted to hospital due to syncope and chest pain. She was initially in our office with normal follow-up noted to have atrial fibrillation rate of 95 to 100. She stated she gets occasional chest pain mostly nonexertional type of chest pain. Her EKG initially showed atrial fibrillation, subsequently as she was leaving she had 1 episode of syncope, and we had no pulse, we were able to put her down and started CPR for about 30 seconds, subsequently got a pulse with heart rate of 140, and repeat EKG showed atrial fibrillation with rapid ventricular response rate of 150, this time EKG showed significant ST depression in lateral leads and anterior leads, after that she became more awake and alert, she has some confusion which is about her baseline. Upon arrival to the emergency room her EKG showed atrial fibrillation with rapid ventricular response and significant ischemic ST-T changes, subsequently was started on Cardizem which slowed her heart rate down now it is 120. She feels better now but she still has slight chest pain. In the past she had atrial fibrillation with rapid ventricular response, and was admitted to the hospital because of that, 3 weeks ago she was in our office with junctional bradycardia with heart rate of 40 at that time her Cardizem was stopped and her metoprolol was decreased, according to the family she felt better with that but the past few days she has been having more shortness of breath and more frequent chest pain Reason For Visit: CP Review of Systems Review of Systems: ROS unobtainable: Yes unobtainable due to mental status and other Cardiovascular: Cardiovascular: Reports as per HPI Gastrointestinal: Gastrointestinal: Reports belching and Reports vomiting Comments: she had vomiting in the office, with yellowish gastric juice PMFSH Past Medical History Medical History Anxiety Aortic valve regurgitation Moderate regurgitation on echocardiogram December 2015. Arthritis Carotid artery stenosis (~01/2014) 50 to 69% left carotid artery stenosis noted on carotid artery ultrasound. Coronary artery disease Cardiac catheterization in July 2015 at [place] showed 50 to 60% mid LAD stenosis and
[2020-10-06] MEDS: HEPARIN SODIUM 5,000 UNITS/ML VIAL 6000 UNITS IV PUSH (16:37)
--- NOTE | 2020-10-06 16:50 | ED.CHESTPAIN ---
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 Motorcycle Police Officer felt she lost pulses and perform 30 seconds of CPR before she was recovered and awake. She was then found to be in A. fib with RVR. There is some ST depression. Patient has very bad dementia and cannot provide a history. When asked if she has chest pain she asks where is my chest? Related Data Home Medications Medication Instructions Recorded Confirmed ezetimibe 10 mg PO DAILY 02/25/19 08/27/20 aspirin 325 mg tablet 325 mg PO DAILY 07/11/20 08/27/20 levothyroxine 25 mcg PO DAILY 08/03/20 08/27/20 acetaminophen 325 mg PO BID 08/05/20 08/27/20 Allergies Allergy/AdvReac Type Severity Reaction Status Date / Time adhesive Allergy Intermediate Rash Verified 08/05/20 12:18 peanut Allergy Unknown Cough Verified 08/05/20 12:18 Review of Systems Review of Systems: ROS unobtainable: Yes unobtainable due to mental status PMFSH Past Medical History Medical History Anxiety Aortic valve regurgitation Moderate regurgitation on echocardiogram December 2015. Arthritis Carotid artery stenosis (~01/2014) 50 to 69% left carotid artery stenosis noted on carotid artery ultrasound. Coronary artery disease Cardiac catheterization in July 2015 at [facility] showed 50 to 60% mid LAD stenosis and 40% circumflex stenosis, treated medically. Lexiscan stress in September 2017 showed ejection fraction greater than 70% with small areas of mild infarction involving the apical, septal, and apical lateral bailey of the left ventricle. Depression Diastolic dysfunction On echocardiogram December 2015 with and ejection fraction of 60-70%. 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 Peripheral vascular disease Pulmonary hypertension Mild pulmonary hypertension was noted on echocardiogram in December 2015 with an RVSP of 35-40 mmHg. Right leg DVT (~03/2010) Sigmoid volvulus Several hospitalizations for such with subsequent sigmoidectomy in June [address] Quan. Transient ischemic attack (~2009) Vascular dementia Surgical History Surgical History (Reviewed 08/27/20 @ 10:14 by Elliot Kelly [facility]) History of bladder surgery (~1993) Resection of benign bladder tumor. History of breast biopsy She has a scar to her right breast. History of cardiac catheterization July 2015 at [facility] which demonstrated 50-60% mid LAD stenosis and 40% circumflex stenosis with fractional flow reserve not suggestive of significant limitations that would cause chest pain. Treated medically. History of dilation and curettage History of mitral valve replacement with bioprosthetic valve (~02/2010) Placed at [facility] and followed by Dr. Mcbride due to mitral valve prolapse; with mild mitral valve regurgitation noted on echo from December 2015. History of open sigmoidectomy (~06/2019) For recurrent sigmoid volvulus per Dr. Quan. Family History Family History (Reviewed 08/27/20 @ 10:14 by Elliot Kelly, [facility]) Father Diabetes mellitus Cerebrovascular accident Heart disease He at age 69 of an RI Mother Esophageal cancer Sibling , Sister at age 67 of an [place] and had dementia. Another sister who had lung cancer and blood clots. Brother who of a brain tumor 10 years old. Other siblings who had testicular cancer and lymphoma. No problems noted. Social History
[2020-10-06] MEDS: HEPARIN SOD/D5W 100 UNITS/ML 25,000 UNITS/250 ML BAG 14 UNITS IV CONT (16:51)
--- NOTE | 2020-10-06 18:30 | PM.IMHP ---
H&P: HPI History of Present Illness Date/Time: 10/06/20 18:30 Chief Complaint: Syncope. Narrative: This is an 79-year-old female with paroxysmal atrial fibrillation not on long-term anticoagulation due to history of intraparenchymal hemorrhage, coronary artery disease, hypertension, vascular dementia, and hypothyroidism who presented to the emergency department earlier today after she had a syncopal episode. She had an appoint with Dr. Jordan today for routine follow-up at which time she was in atrial fibrillation with a rate of 95 to 100; approximately 3 weeks ago she was seen in the office with junctional bradycardia and heart rate of 40 and her Cardizem was discontinued and metoprolol was decreased. She had been doing better since that time however over the last few days she has had increasing shortness of breath and increasing chest discomfort, mainly nonexertional. As she was leaving she had a syncopal episode and tells me she felt a bit lightheaded and strange prior to that. Staff at the office were unable to palpate a pulse and CPR was started for approximately 30 seconds at which time they were able to get a pulse of 140 with a repeat EKG showing AFib with RVR. EKG at that time showed significant ST depression in the lateral and anterior leads. In the emergency department she was started are Cardizem drip with improvement in her heart rate and her EKG. at the time my evaluation she continues to have mild left anterior chest discomfort that she has a difficult time describing but she tells me it does not feel normal. She denies vertigo, current lightheadedness, auditory visual changes, pleuritic pain, palpitations, nausea, vomiting, and sweats. She had no head trauma or injury in the syncopal episode as staff for able to help her to the ground when she lost consciousness. Review of Systems Review of Systems: Narrative: Twelve systems were reviewed with pertinent positives and negatives as per HPI. The accuracy of such is questionable due to her underlying dimension short-term memory loss. Except as documented HPI all other systems were reviewed and are negative. [facility] Past Medical History Medical History (Updated 10/06/20 @ 23:02 by Miriam Wynne PA-C) Anxiety Aortic valve regurgitation Moderate regurgitation on echocardiogram December 2015. Arthritis Carotid artery stenosis (~01/2014) 50 to 69% left carotid artery stenosis noted on carotid artery ultrasound. Coronary artery disease Cardiac catheterization in July 2015 at [place] showed 50 to 60% mid LAD stenosis and 40% circumflex stenosis, treated medically. Lexiscan stress in September 2017 showed ejection fraction greater than 70% with small areas of mild infarction involving the apical, septal, and apical lateral bailey of the left ventricle. Depression Diastolic dysfunction Echocardiogram in February 2020 showed normal left systolic ventricular function with an EF of 60 to 65%. Prior echocardiogram showed diastolic dysfunction. 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 Peripheral vascular disease Pulmonary hypertension Moderate pulmonary hypertension on echocardiogram in February 2020 with an estimated pulmonary arterial systolic pressure of 55 mmHg. Right leg DVT (~03/2010) Sigmoid volvulus Several hospitalizations for such with subsequent sigmoidectomy in June [address] Quan. Transient ischemic attack (~2009) Vascular dementia Surgical History Surgical History History of bladder surgery (~1993) Resection of benign bladder tumor. History of breast biopsy She has a scar to her right breast. History of cardiac catheterization July 2015 at [place]
--- NOTE | 2020-10-06 19:51 | PC.NURSE ---
stopped pt. diltiazem drip per EDBebe Valdovinos due to pt heart rate at 53.
[2020-10-06] MEDS: SODIUM CHLORIDE 0.9% IV 1,000 ML 75 ML IV CONT (21:04)
--- NOTE | 2020-10-06 21:10 | PC.NURSE ---
ADRI faxed to IMU from ER. Report called at 1955. Janice RN gave report to this RN. All questions answered and plan of care reviewed. Patient to be admitted to IMU room 205-1.
--- NOTE | 2020-10-06 21:11 | ADMGEN ---
This patient, Peace Kinsey, was admitted to IMU Room 205- at 2045 from the Emergency Department. Patient/family oriented to hospital policies and general routines including ID bracelet, bed and alarms, visiting hours, pain management, procedures, bathroom and other care routines, personal items, smoking policy, room service/diet, and visiting hours. Information on how to activate the Rapid Response Team has been discussed. Patient/Family are encouraged to report perceived risks to care and to ask questions if they do not understand what they are told or what they should do.
[2020-10-06 21:47] LABS: Troponin I 0.504 ng/mL (0.000-0.034)
[2020-10-06 23:40] LABS: Troponin I 0.658 ng/mL (0.000-0.034)
[2020-10-07] VITALS (16 sets, daily range): BP systolic 115–164; BP diastolic 69–98; PULSE 71–135; RESP 16–20; TEMP 36.2–36.8; O2SAT 97–100
[2020-10-07 01:16] LABS: Partial Thromboplastin Time 193.3 SECONDS (22.3-36.8)
[2020-10-07 02:41] LABS: Prothrombin Time 13.1 Seconds (11.1-14.7)
[2020-10-07] MEDS: METOPROLOL TARTRATE 50 MG TAB PO ×3 (03:12→21:10)
[2020-10-07 07:13] LABS: Basophils Percent Auto 0.3 % (0.2-1.2); Eosinophils Absolute Auto 0.1 K/mm3 (0-0.3); Eosinophils Percent Auto 1.4 % (0-4.4); Hematocrit 37.7 % (37.0-47.0); Hemoglobin 12.2 g/dL (12.0-15.0); Immature Granulocyte Absolute 0.03 K/mm3 (0.00-0.031); Immature Granulocyte Percent A 0.3 % (0-0.5); Lymphocytes Absolute Auto 2.35 K/mm3 (0.9-3.2); Lymphocytes Percent Auto 25.8 % (18.3-44.2); Mean Corpuscular HGB Conc 32.4 g/dl (32-36); Mean Corpuscular Hemoglobin 28.8 pg (26-34); Mean Corpuscular Volume 88.9 fl (80-100); Mean Platelet Volume 11.6 fl (7.4-10.4); Monocytes Absolute Auto 0.5 K/mm3 (0.1-0.6); Monocytes Percent Auto 5.8 % (2.6-8.5); Neutrophils Percent Auto 66.4 % (45.5-73.1); Platelet Count Result 180 k/mm3 (150-375); Red Blood Count 4.24 M/mm3 (4.2-5.4); Red Cell Distribution Width 16.3 % (11.5-14.5); White Blood Count 9.1 K/mm3 (4.5-10.0)
[2020-10-07 07:25] LABS: Partial Thromboplastin Time 106.3 SECONDS (22.3-36.8)
[2020-10-07 07:27] LABS: Alanine Aminotransferase 77 U/L (4-35); Albumin Level 3.7 g/dL (3.5-5.1); Alkaline Phosphatase 80 U/L (38-126); Anion Gap 9 mmol/L (8-16); Aspartate Amino Transferase 67 U/L (14-36); Bilirubin,Total 0.6 mg/dL (0.2-1.3); Blood Urea Nitrogen 19 mg/dL (7-17); Carbon Dioxide 27 mmol/L (22-30); Chloride 103 mmol/L (98-107); Creatine Kinase 80 U/L (30-135); Estimated CRCL calculation 33 ml/min; Estimated Glomerular Filt Rate 48; Glucose 112 mg/dL (65-110); Lipase 199 U/L (23-300); Potassium 4.1 mmol/L (3.4-5.0); Sodium 139 mmol/L (137-145)
[2020-10-07 07:55] LABS: Hepatitis B Surface Antigen Negative (Negative)
[2020-10-07 08:01] LABS: HAV RESULT Negative (Negative); Hepatitis B Core IgM Result Negative (Negative)
[2020-10-07 08:12] LABS: Hepatitis C Virus Antibody Negative (Negative)
[2020-10-07 08:55] LABS: Partial Thromboplastin Time 44.3 SECONDS (22.3-36.8)
[2020-10-07] MEDS: EZETIMIBE 10 MG TABLET PO (11:17)
[2020-10-07] MEDS: ASPIRIN 325 MG TABLET PO (11:17)
[2020-10-07] MEDS: LEVOTHYROXINE SODIUM 25 MCG TABLET PO (11:18)
[2020-10-07] MEDS: FOLIC ACID 0.4 MG TABLET 0.8 MG PO (11:18)
[2020-10-07] MEDS: SODIUM CHLORIDE 0.9% IV 1,000 ML 75 ML IV CONT (11:59)
--- NOTE | 2020-10-07 16:22 | PM.PNCARD ---
Progress Note: A&P Assessment and Plan (1) Syncope: Code(s): R55 - Syncope and collapse Status: Acute Assessment and Plan: Could be due to atrial fibrillation with rapid ventricular response, other possibility to be vagal reaction, currently her vital signs are stable except for tachycardia with atrial fibrillation, continue to closely monitor Recently, she had echocardiogram 03/12/2020: 2. Left ventricular systolic function is normal, estimated at 60-65%. 3. There is mildly increased left ventricular wall thickness. 4. The left ventricular diastolic function is indeterminate due to mitral valve prosthesis and underlying rhythm (A fib). 5. Right ventricle is not well visualized but appears probably mildly dilated with normal systolic function. 6. Left atrial chamber dimension is severely enlarged. 7. Right atrial chamber dimension is moderately enlarged. 8. There is well seated bio Prosthesis noted in the mitral position. There is no mitral or perivalvular regurgitation. Mean inflow gradient across mitral prothesis is \R\ 8 mmHg at HR 110, unchanged compared to study in 2014. 9. There is mild aortic valve sclerosis. 10. There is no aortic valve stenosis. 11. There is at least moderate aortic valve regurgitation. 12. There is mild to moderate tricuspid valve regurgitation. 13. Moderate pulmonary hypertension, estimated pulmonary arterial systolic pressure is 55 mmHg. 14. Inferior vena cava is top normal in size. 15. There is no pericardial effusion. (2) Dementia: Code(s): F03.90 - Unspecified dementia without behavioral disturbance Status: Acute Assessment and Plan: - Management as per primary service. (3) Chronic atrial fibrillation: Code(s): I48.20 - Chronic atrial fibrillation, unspecified Status: Acute Assessment and Plan: -Now in atrial fibrillation with rapid ventricular response. - Given history of bradyarrhythmias, no longer plan to use metoprolol and diltiazem together. - discontinued diltiazem ER 120 mg qd, as discussed with Dr. Jordan, her primary family welfare social work professor. - increased her metoprolol tartrate dosing from 50 mg q.12 hours to 50 mg q.8 hours given current heart rate 115-130 beats per minute. - TSH normal. Potassium 4.1, and magnesium 2.0. - she is a poor candidate for anticoagulation in setting of her prior intracranial hemorrhage and dementia, with increased fall risk. - Continue aspirin. 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 If adequate rate control cannot be obtained for atrial fibrillation without symptomatic bradyarrhythmias, consider permanent pacemaker placement, although she would be a difficult candidate for a permanent pacemaker given her dementia and confusion, with increased risk for infection during the healing process and with increased risk for lead displacement due to her inability to comply with postoperative arm restrictions. Patient expresses that she is not interested in a permanent pacemaker at present and the eventual possibility of the need for permanent pacemaker with risks and benefits discussed with her healthcare power of litigation attorney, her son, Barber, who states that the family will need to consider this when and if appropriate in the context of her desires and dementia. (4) Chest pain: Qualifiers: Chest pain type: unspecified Qualified Code(s): R07.9 - Chest pain, unspecified Code(s): R07.9 - Chest pain, unspecified Status: Acute Assessment and Plan: -She had significant ST-T changes, when heart rate was increased, and with tachycardia, will continue to monitor. -consideration of cardiac catheterization. -Previously, she had left heart catheterization July 2015 at [facility] which demonstrated 50-60% mid LAD stenosis and 40% circumflex stenosis with fractional f
--- NOTE | 2020-10-07 18:30 | PM.IMPN ---
Progress Note: A&P Assessment and Plan (1) Syncope: Code(s): R55 - Syncope and collapse Status: Acute Assessment and Plan: vasovagal vs afib with RVR continue to monitor on telemetry (2) Atrial fibrillation with rapid ventricular response: Code(s): I48.91 - Unspecified atrial fibrillation Status: Acute Assessment and Plan: Cardizem gtt to titrate to control HR Continue metoprolol and titrate to wean off cardizem gtt. Her cardizem was d/michelle 3 weeks ago for junctional rhythm Heparin gtt as per cardiology. Follow APTT and for any bleeding she was not on AC at her baseline because of hx of hemorrhagic stroke (3) Chest pain: Code(s): R07.9 - Chest pain, unspecified Status: Acute Assessment and Plan: Cardiology followup Cardiac catheterization may be a possibilty Continue ASA, statin and metoprolol (4) Dementia: Code(s): F03.90 - Unspecified dementia without behavioral disturbance Status: Acute Assessment and Plan: Haldol prn for agitation delirium precautions (5) Essential hypertension: Code(s): I10 - Essential (primary) hypertension Status: Chronic Assessment and Plan: continue home regimen with metoprolol currently on cardizem gtt as well (6) Hypothyroidism: Code(s): E03.9 - Hypothyroidism, unspecified Status: Acute Assessment and Plan: Continue home regimen (7) Elevated LFTs: Code(s): R79.89 - Other specified abnormal findings of blood chemistry Status: Acute Assessment and Plan: AST/ALT trended down continue to monitor Subjective Date/time seen: 10/07/20 18:30 She was confused in the AM. Denied to have any chest pain, SOB, palpitations. Pulled out IV 3-4 times. Heparin gtt being started again as per cardiology. Still with Afib with RVR. Cardizem gtt will be re-started. 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 Extraocular motions are intact. Left eyelid is a bit droopy but she tends to keep that I closed, presumably due to the blindness. Oral mucosa moist. Tip of the tongue has a small ulceration. Respiratory: Lungs are clear to auscultation bilaterally. Cardiovascular: Tachycardic with irregular rate and rhythm. 2/6 systolic murmur at the left sternal border. Gastrointestinal: Abdomen is soft, nontender, and nondistended Extremities: edema +ve Neurological: Alert And oriented to name and date of only. Psychiatric: Pleasantly confused and cooperative. Objective Data Vital Signs Vital Signs: Vital Signs - 24 hr 10/06/20 18:42 10/06/20 20:40 10/06/20 21:46 Temperature 36.6 C Pulse Rate 64 56 L 69 Respiratory Rate 16 20 Blood Pressure 128/64 120/67 Pulse Oximetry 100 100 10/06/20 22:00 10/07/20 00:00 10/07/20 02:00 Temperature 36.6 C Pulse Rate 67 115 H 135 H Respiratory Rate 20 Blood Pressure 164/69 H Pulse Oximetry 97 10/07/20 03:12 10/07/20 04:00 10/07/20 06:00 Temperature 36.6 C Pulse Rate 129 H 120 H 97 Respiratory Rate 20 Blood Pressure 141/89 H Pulse Oximetry 97 10/07/20 08:00 10/07/20 11:17 10/07/20 12:00 Temperature 36.5 C 36.2 C L Pulse Rate 79 78 119 H Respiratory Rate 16 16 Blood Pressure 140/74 120/83 Pulse Oximetry 98 99 10/07/20 16:00 Temperature 36.3 C L Pulse Rate 123 H Respiratory Rate 20 Blood Pressure 115/70 Pulse Oximetry 100 Intake/Output Intake/Output: Intake & Output 10/04/20 10/05/20 10/06/20 10/07/20 23:59 23:59 23:59 23:59 Intake Total 1340 Output Total 1450 Balance -110 Meds/Results Medications: Active Medications Generic Name Dose Route Start Last Admin Trade Name Freq
--- NOTE | 2020-10-07 19:51 | PC.NURSE ---
1900- Pt 's at bedside- has been with his most of today; Both pt and increased confusion throughout the day. Example- found standing in front of the closet -looking for the refrigerator; Both pt and think they ar at a house renting a room; Re-enforced several times that they are at [facility]-both need constant reminder.- the stated he drove his car to the hospital and was to drive home -their son Bradly called and informed that his dad was very confused and I thought it would be unsafe for his dad and for other individuals for his dad to drive his car home; After long discussion with Bradly about safety concerns - Bradly agreed to drive his dad home and leave his car in parking lot; security called and informed of make/model of car to be left in parking lot
[2020-10-07] MEDS: SENNOSIDES 8.6 MG TABLET PO (21:02)
[2020-10-07] MEDS: PANTOPRAZOLE 40 MG TABLET PO (21:02)
[2020-10-07] MEDS: HALOPERIDOL LACTATE 5 MG/ML VIAL 2.5 MG IM (22:34)
[2020-10-08] VITALS (19 sets, daily range): BP systolic 123–149; BP diastolic 66–108; PULSE 81–133; RESP 16–20; TEMP 36.2–36.4; O2SAT 95–99
[2020-10-08] MEDS: SODIUM CHLORIDE 0.9% IV 1,000 ML 75 ML IV CONT ×2 (01:10→20:11)
[2020-10-08] MEDS: LORazepam INJ (*CRX) 2 MG/ML VIAL 1 MG IV PUSH (02:33)
[2020-10-08 04:54] LABS: Basophils Percent Auto 0.2 % (0.2-1.2); Eosinophils Percent Auto 0.4 % (0-4.4); Hematocrit 34.1 % (37.0-47.0); Hemoglobin 11.2 g/dL (12.0-15.0); Immature Granulocyte Absolute 0.05 K/mm3 (0.00-0.031); Immature Granulocyte Percent A 0.5 % (0-0.5); Lymphocytes Absolute Auto 1.66 K/mm3 (0.9-3.2); Lymphocytes Percent Auto 15.4 % (18.3-44.2); Mean Corpuscular HGB Conc 32.8 g/dl (32-36); Mean Corpuscular Hemoglobin 28.8 pg (26-34); Mean Corpuscular Volume 87.7 fl (80-100); Mean Platelet Volume 11.5 fl (7.4-10.4); Monocytes Absolute Auto 0.6 K/mm3 (0.1-0.6); Monocytes Percent Auto 5.5 % (2.6-8.5); Neutrophils Absolute Auto 8.4 K/mm3 (1.3-6.7); Platelet Count Result 167 k/mm3 (150-375); Red Blood Count 3.89 M/mm3 (4.2-5.4); Red Cell Distribution Width 16.6 % (11.5-14.5); White Blood Count 10.8 K/mm3 (4.5-10.0)
[2020-10-08 05:16] LABS: Anion Gap 6 mmol/L (8-16); Blood Urea Nitrogen 17 mg/dL (7-17); Calcium 8.6 mg/dL (8.4-10.2); Carbon Dioxide 22 mmol/L (22-30); Chloride 108 mmol/L (98-107); Cholesterol 129 mg/dL (0-200); Estimated CRCL calculation 40 ml/min; Estimated Glomerular Filt Rate 60; Glucose 104 mg/dL (65-110); HDL Direct 40 mg/dL; Magnesium 1.7 mg/dL (1.6-2.3); Potassium 3.8 mmol/L (3.4-5.0); Sodium 136 mmol/L (137-145); Triglycerides 115 mg/dL (<150)
[2020-10-08 05:26] LABS: LDL Cholesterol Direct 68 mg/dL
[2020-10-08] MEDS: METOPROLOL TARTRATE 50 MG TAB PO ×3 (06:50→22:07)
[2020-10-08] MEDS: LEVOTHYROXINE SODIUM 25 MCG TABLET PO (06:50)
--- NOTE | 2020-10-08 08:30 | PM.PNCARD ---
Progress Note: A&P Assessment and Plan (1) Syncope: Code(s): R55 - Syncope and collapse Status: Acute Assessment and Plan: Could be due to atrial fibrillation with rapid ventricular response, other possibility to be vagal reaction, currently her vital signs are stable except for tachycardia with atrial fibrillation, continue to closely monitor. Recently, she had echocardiogram 03/12/2020: 2. Left ventricular systolic function is normal, estimated at 60-65%. 3. There is mildly increased left ventricular wall thickness. 4. The left ventricular diastolic function is indeterminate due to mitral valve prosthesis and underlying rhythm (A fib). 5. Right ventricle is not well visualized but appears probably mildly dilated with normal systolic function. 6. Left atrial chamber dimension is severely enlarged. 7. Right atrial chamber dimension is moderately enlarged. 8. There is well seated bio Prosthesis noted in the mitral position. There is no mitral or perivalvular regurgitation. Mean inflow gradient across mitral prothesis is \R\ 8 mmHg at HR 110, unchanged compared to study in 2014. 9. There is mild aortic valve sclerosis. 10. There is no aortic valve stenosis. 11. There is at least moderate aortic valve regurgitation. 12. There is mild to moderate tricuspid valve regurgitation. 13. Moderate pulmonary hypertension, estimated pulmonary arterial systolic pressure is 55 mmHg. 14. Inferior vena cava is top normal in size. 15. There is no pericardial effusion. Given her syncopal episode and non ST elevation myocardial infarction, obtain repeat echo to evaluate cardiac structure and function. (2) Dementia: Code(s): F03.90 - Unspecified dementia without behavioral disturbance Status: Acute Assessment and Plan: - Management as per primary service. (3) Chronic atrial fibrillation: Code(s): I48.20 - Chronic atrial fibrillation, unspecified Status: Acute Assessment and Plan: -Now in atrial fibrillation with rapid ventricular response. - Given history of bradyarrhythmias, no longer plan to use metoprolol and diltiazem together. - discontinued diltiazem ER 120 mg qd, as discussed with Dr. Jordan, her primary [employer] clerk. - increased her metoprolol tartrate dosing from 50 mg q.12 hours to 50 mg q.8 hours given recent heart rate 115-130 beats per minute. -On metoprolol tartrate 50 mg q.8 hours, heart rate improved somewhat to 85-125 beats per minute, currently approximately 90-110 beats per minute. - TSH normal. Potassium 3.8, and magnesium 1.7. Monitor and replete potassium and magnesium as needed. - she is a poor candidate for anticoagulation in setting of her prior intracranial hemorrhage and dementia, with increased fall risk. - Continue aspirin. 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 If adequate rate control cannot be obtained for atrial fibrillation without symptomatic bradyarrhythmias, consider permanent pacemaker placement, although she would be a difficult candidate for a permanent pacemaker given her dementia and confusion, with increased risk for infection during the healing process and with increased risk for lead displacement due to her inability to comply with postoperative arm restrictions. She has recurrent agitation, confusion, and hallucinations, pulling out IVs. Patient expresses that she is not interested in a permanent pacemaker at present and the eventual possibility of the need for permanent pacemaker with risks and benefits discussed both on 10/07/20 and 10/08/20 with her healthcare power of managing attorney, her son, Barber, who states that the family will need to consider this when and if appropriate in the context of her desires and dementia. (4) Chest pain: Qualifiers: Chest pain type: unspecified Qualified Code(s
[2020-10-08] MEDS: EZETIMIBE 10 MG TABLET PO (08:50)
[2020-10-08] MEDS: ASPIRIN 325 MG TABLET PO (08:50)
[2020-10-08] MEDS: FOLIC ACID 0.4 MG TABLET 0.8 MG PO (08:50)
[2020-10-08] MEDS: MAGNESIUM SULF 2 GM/WATER 50ML 2 GM/50 ML BAG IVPB (09:27)
[2020-10-08 10:36] LABS: Add Urine Microscopic? NO; Appearance Urine Clear (Clear); Bilirubin Urine Negative (Negative); Blood Urine Negative (Negative); Color Urine Yellow (Yellow); Glucose Urine UA Negative (Negative); Ketones Urine Negative (Negative); Leukocyte Esterase Ur Negative LEU/UL (NEGATIVE); Nitrate Urine Negative (Negative); Protein Urine Negative (Negative); Specific Grav Ur 1.012 (1.001-1.035); Urobilinogen Urine Negative mg/dL (<2.0)
[2020-10-08] MEDS: MAGNESIUM OXIDE 400 MG TABLET PO (13:04)
--- NOTE | 2020-10-08 15:20 | PM.IMPN ---
Progress Note: A&P Assessment and Plan (1) Syncope: Code(s): R55 - Syncope and collapse Status: Acute Assessment and Plan: vasovagal vs afib with RVR continue to monitor on telemetry (2) Atrial fibrillation with rapid ventricular response: Code(s): I48.91 - Unspecified atrial fibrillation Status: Acute Assessment and Plan: Cardizem gtt to titrate to control HR Continue metoprolol and titrate to wean off cardizem gtt. Her cardizem was d/michelle 3 weeks ago for junctional rhythm Heparin gtt as per cardiology. Follow APTT and for any bleeding she was not on AC at her baseline because of hx of hemorrhagic stroke (3) Chest pain: Code(s): R07.9 - Chest pain, unspecified Status: Acute Assessment and Plan: Cardiology followup Cardiac catheterization may be a possibilty Continue ASA, statin and metoprolol (4) Dementia: Code(s): F03.90 - Unspecified dementia without behavioral disturbance Status: Acute Assessment and Plan: Haldol prn for agitation delirium precautions (5) Essential hypertension: Code(s): I10 - Essential (primary) hypertension Status: Chronic Assessment and Plan: continue home regimen with metoprolol currently on cardizem gtt as well (6) Hypothyroidism: Code(s): E03.9 - Hypothyroidism, unspecified Status: Acute Assessment and Plan: Continue home regimen (7) Elevated LFTs: Code(s): R79.89 - Other specified abnormal findings of blood chemistry Status: Acute Assessment and Plan: AST/ALT trended down continue to monitor (8) NSTEMI (non-ST elevated myocardial infarction): Code(s): I21.4 - Non-ST elevation (NSTEMI) myocardial infarction Status: Acute (9) Dyslipidemia: Code(s): E78.5 - Hyperlipidemia, unspecified Status: Chronic (10) CAD (coronary artery disease): Qualifiers: Coronary Disease-Associated Artery/Lesion type: [place] artery [place] vs. transplanted heart: [place] heart Associated angina: without angina Qualified Code(s): I25.10 - Atherosclerotic heart disease of [place] coronary artery without angina pectoris Code(s): I25.10 - Atherosclerotic heart disease of [place] coronary artery without angina pectoris Status: Acute (11) Elevated troponin: Code(s): R77.8 - Other specified abnormalities of plasma proteins Status: Acute (12) CHANO (acute kidney injury): Code(s): N17.9 - Acute kidney failure, unspecified Status: Acute Additional Plan 10/08/20 HR still not at goal, titrating BB device implantation and full anticoagulation w increased risk in Peace given her advanced dementia pt w known CAD seen on cath approx 6yrs ago call placed to son, he is aware of his mother's heart history and cognitive decline, agrees to [facility] consult x information regarding services -> goal is for his parents to age in place (20 min spent on phone with him today cont current care dc when HR within acceptable range Time Spent With Patient Time with patient: Greater than 35 minutes Subjective Date/time seen: 10/08/20 15:20 patient seen today without complaint very agitated picking at her sheets. RN bedside reports that patient and her spouse prolonged conversation yesterday both were very disoriented. Have called his son to request information regarding the baseline of his mother's mental status. He does admit that she has dementia and that he is aware that she has had heart problems for the last 10 years. We discussed hospice versus palliative care RN and the different services provided. He does agree to hospice consultation with [facility] for ongoing information regarding these branches of medicine. He does believe that she would benefit from services coming into her home such as RN and aide for improvement and goal of quality versus quantity of life. Referral has been placed Exam
--- NOTE | 2020-10-08 17:07 | PCRCNOTE ---
RECEIVED INFORMATION THAT PT USES A CPAP AT HOME. WHEN QUESTIONING PATIENT/SPOUSE, BOTH WERE UNABLE TO ANSWER MY QUESTIONS APPROPRIATELY. AUTOTITRATE CPAP/BIPAP LEFT IN PT ROOM IN CASE SHE SHOULD NEED IT.
--- NOTE | 2020-10-08 19:31 | ECHO_ITS ---
Patient Info Name: Peace Kinsey Age: 79 years : 1940 Gender: Female Ht: 66 in Wt: 149 lbs BSA: 1.78 m2 HR: 108 bpm BP: 123 / 66 mmHg Technical Quality: Good Exam Date: 10/08/2020 11:27 AM Exam Location: [facility] Pulmonary Exam Room: [facility] Patient Status: Inpatient Admit Date: 10/06/2020 Staff Ordering Physician: Bret Monique MD Regenerator Operator: Candace Hidalgo RDCS Attending Provider: Shirley Vance MD Referring Physician: Kayden PORTILLO; Exam Type: CA echo dop color flow w con Study Info Indications MVR - - syncope nstemi Complete two-dimensional, color flow and Doppler transthoracic echocardiogram is performed. Summary 1. Complete two-dimensional, color flow and Doppler transthoracic echocardiogram is performed. 2. Left ventricular systolic function is normal, estimated at 65-70%. 3. There is mildly increased left ventricular wall thickness. 4. There is moderate to severe mitral valve stenosis. 5. The mitral valve has thickened leaflets, calcified leaflets and restricted anterior leaflet motion. 6. There is mild to moderate tricuspid valve regurgitation. 7. Moderate pulmonary hypertension, estimated pulmonary arterial systolic pressure is 59 mmHg. Left Ventricle Left ventricular chamber dimension is normal. Left ventricular systolic function is normal, estimated at 65-70%. There is mildly increased left ventricular wall thickness. Left ventricular septal wall motion is normal. The left ventricular diastolic function is normal. Right Ventricle Right ventricular chamber dimension is normal. Right ventricular systolic function is normal. Left Atria Left atrial chamber dimension is mildly enlarged. Right Atria Right atrial chamber dimension is mildly enlarged. Aortic Valve The aortic valve is trileaflet. There is mild aortic valve sclerosis. There is no aortic valve stenosis. There is no aortic valve regurgitation. Pulmonic Valve The pulmonic valve is normal. There is no pulmonic valve stenosis. There is no pulmonic regurgitation. Mitral Valve The mitral valve has thickened leaflets, calcified leaflets and restricted anterior leaflet motion. There is moderate to severe mitral valve stenosis. There is trace mitral valve regurgitation. Tricuspid Valve The tricuspid valve leaflets are normal. There is no significant tricuspid valve stenosis. There is mild to moderate tricuspid valve regurgitation. Moderate pulmonary hypertension, estimated pulmonary arterial systolic pressure is 59 mmHg. Pericardium/Pleural The pericardium appears normal. There is no pericardial effusion. Inferior Vena Cava Normal inferior vena cava with >50% collapse upon inspiration consistent with elevated right atrial pressure, 15 mmHg. Aorta The aortic root size at the sinus of Valsalva is normal. The prox ascending aorta size is normal. Left Ventricular Outflow Tract Name Value Normal LVOT 2D LVOT Diameter 2.00 cm LVOT Doppler LVOT Peak Gradient 4 mmHg LVOT Mean Gradient 2 mmHg LVOT VTI 1
[2020-10-08] MEDS: PANTOPRAZOLE 40 MG TABLET PO (22:07)
[2020-10-08] MEDS: SENNOSIDES 8.6 MG TABLET PO (22:09)
[2020-10-09] VITALS (16 sets, daily range): BP systolic 104–152; BP diastolic 68–115; PULSE 85–136; RESP 12–22; TEMP 36.6–37; O2SAT 94–99
[2020-10-09] MEDS: HALOPERIDOL LACTATE 5 MG/ML VIAL 2.5 MG IM (00:16)
[2020-10-09] MEDS: NITROGLYCERIN SL 0.4 MG TABLET SUBLINGUAL (03:35)
--- NOTE | 2020-10-09 03:45 | PC.NURSE ---
PATIENT C/O CHEST PAIN. CALL DR KNOX. VITALS CHARTED. TRIED NITRO. NO RELIEF. GOING TO TRY MORPHINE NEXT. THEN ATIIVAN. PATIENT IS EXTREMELY AGITATED.
[2020-10-09] MEDS: MORPHINE SULFATE (*CRX) 2 MG/ML INJ 1 MG IV PUSH (03:52)
[2020-10-09] MEDS: ONDANSETRON INJ 4 MG/2 ML VIAL IV PUSH ×2 (04:04→21:04)
[2020-10-09] MEDS: LORazepam INJ (*CRX) 2 MG/ML VIAL 1 MG IV PUSH (04:19)
--- NOTE | 2020-10-09 04:20 | PC.NURSE ---
PATIENT IS EXTREMELY AGITATED. THINKS SHE IS AT HOME AND KEEPS TRYING TO GET OUT OF BED TO GO UP STAIRS WITH HER AND IS GETTING MAD AT US FOR NOT LETTING HER. SHE IS C/O CHEST PAIN WITH EXERTION BUT WILL NOT REST. HEART RATE WILL GO UP INTO THE 160'S WHEN AGITATED AND GETTING UP.
[2020-10-09] MEDS: LEVOTHYROXINE SODIUM 25 MCG TABLET PO (05:57)
[2020-10-09] MEDS: METOPROLOL TARTRATE 50 MG TAB PO ×2 (05:57→21:02)
[2020-10-09 06:00] LABS: Albumin Level 3.5 g/dL (3.5-5.1); Bilirubin,Total 0.8 mg/dL (0.2-1.3); Blood Urea Nitrogen 18 mg/dL (7-17); Carbon Dioxide 20 mmol/L (22-30); Estimated CRCL calculation 45 ml/min; Estimated Glomerular Filt Rate > 60
--- NOTE | 2020-10-09 08:32 | PCPTNOTE ---
Attempted PT Eval but patient could not arouse.Will try again later.
[2020-10-09] MEDS: FOLIC ACID 0.4 MG TABLET 0.8 MG PO (09:52)
[2020-10-09] MEDS: EZETIMIBE 10 MG TABLET PO (09:52)
[2020-10-09] MEDS: SODIUM CHLORIDE 0.9% IV 1,000 ML 75 ML IV CONT ×2 (09:53→22:08)
[2020-10-09] MEDS: ASPIRIN 325 MG TABLET PO (09:53)
[2020-10-09] MEDS: MAGNESIUM OXIDE 400 MG TABLET PO (09:53)
[2020-10-09 10:29] LABS: Alanine Aminotransferase 42 U/L (4-35); Alkaline Phosphatase 74 U/L (38-126); Anion Gap 11 mmol/L (8-16); Aspartate Amino Transferase 32 U/L (14-36); Calcium 8.8 mg/dL (8.4-10.2); Chloride 103 mmol/L (98-107); Glucose 129 mg/dL (65-110); Magnesium 1.9 mg/dL (1.6-2.3); Potassium 4.1 mmol/L (3.4-5.0); Sodium 134 mmol/L (137-145)
--- NOTE | 2020-10-09 13:30 | PM.PNCARD ---
Progress Note: A&P Assessment and Plan (1) Syncope: Code(s): R55 - Syncope and collapse Status: Acute Assessment and Plan: Could be due to atrial fibrillation with rapid ventricular response, other possibility to be vagal reaction, currently her vital signs are stable except for tachycardia with atrial fibrillation, continue to closely monitor. Her recent echo showed normal left ventricular systolic function, moderate to severe mitral valve stenosis Given her syncopal episode and non ST elevation myocardial infarction, obtain repeat echo to evaluate cardiac structure and function. (2) Dementia: Code(s): F03.90 - Unspecified dementia without behavioral disturbance Status: Acute Assessment and Plan: - Management as per primary service. (3) Chronic atrial fibrillation: Code(s): I48.20 - Chronic atrial fibrillation, unspecified Status: Acute Assessment and Plan: -Now in atrial fibrillation with rapid ventricular response. - Given history of bradyarrhythmias, no longer plan to use metoprolol and diltiazem together. - discontinued diltiazem ER 120 mg qd, as discussed with Dr. Jordan, her primary party plan demonstrator. - increased her metoprolol tartrate dosing from 50 mg q.12 hours to 50 mg q.8 hours given recent heart rate 115-130 beats per minute. -On metoprolol tartrate 50 mg q.8 hours, heart rate improved somewhat to 85-125 beats per minute, currently approximately 90-110 beats per minute. - TSH normal. Potassium 3.8, and magnesium 1.7. Monitor and replete potassium and magnesium as needed. - she is a poor candidate for anticoagulation in setting of her prior intracranial hemorrhage and dementia, with increased fall risk. - Continue aspirin. rate is fairly well controlled whenever she takes her p.o. meds, consider using IV metoprolol if she does not take her oral metoprolol (4) Chest pain: Qualifiers: Chest pain type: unspecified Qualified Code(s): R07.9 - Chest pain, unspecified Code(s): R07.9 - Chest pain, unspecified Status: Acute Assessment and Plan: -She had significant ST-T changes, when heart rate was increased, and with tachycardia, will continue to monitor. -consideration of cardiac catheterization. -Previously, she had left heart catheterization July 2015 at [facility] which demonstrated 50-60% mid LAD stenosis and 40% circumflex stenosis with fractional flow reserve not suggestive of significant limitations that would cause chest pain. She was previously treated medically. (5) NSTEMI (non-ST elevated myocardial infarction): Code(s): I21.4 - Non-ST elevation (NSTEMI) myocardial infarction Status: Acute Assessment and Plan: - in the setting of syncope with atrial fibrillation with rapid ventricular response and possible vagal event with bradyarrhythmia and loss of pulse requiring CPR, she had non ST elevation myocardial infarction with peak troponin 0.658. - EKG demonstrated ST depression in the setting of her atrial fibrillation with rapid ventricular response. - She denies chest pain. - Continue aspirin. - She was initially treated with a brief course of intravenous heparin. - Heparin was subsequently discontinued, as she is a poor candidate for anticoagulation or Plavix in setting of her prior intracranial hemorrhage and dementia, with increased fall risk, and she was repetitively removing her intravenous access given her confusion. - continue Zetia and obtained fasting lipid panel 68. Not initiating statin at present given her dementia, elevated LFTs, and LDL less than 70. - obtain echo to evaluate cardiac structure and function. - Discussed the risk benefits of left heart catheterization for definite evaluation of coronary artery disease with the patient, her (who is also confused), and with patient's son Barber who is a healthcare power of trade mark attorney ), both on 10/07/20 and 10/08/20. so far the family
--- NOTE | 2020-10-09 16:13 | PM.IMPN ---
Progress Note: A&P Assessment and Plan (1) Syncope: Code(s): R55 - Syncope and collapse Status: Acute Assessment and Plan: vasovagal vs afib with RVR seen by cardiology and offered device implantation. son has declined at this time which seems reasonable given [place]'s advanced dementia and tendency to pick and fidget (unclear if could tolerate device ) continue to monitor on telemetry (2) Atrial fibrillation with rapid ventricular response: Code(s): I48.91 - Unspecified atrial fibrillation Status: Acute Assessment and Plan: Cardizem gtt to titrate to control HR Continue metoprolol and titrate to wean off cardizem gtt. Her cardizem was d/michelle 3 weeks ago for junctional rhythm Heparin gtt as per cardiology. Follow APTT and for any bleeding she was not on AC at her baseline because of hx of hemorrhagic stroke defer to cardiology OAC recommendations (3) Chest pain: Code(s): R07.9 - Chest pain, unspecified Status: Acute Assessment and Plan: Cardiology followup Cardiac catheterization discussed w son and declined, Medical management considered to be more appropriate at this time Continue ASA, statin and metoprolol (4) Dementia: Code(s): F03.90 - Unspecified dementia without behavioral disturbance Status: Acute Assessment and Plan: Haldol prn for agitation also requiring Ativan delirium precautions (5) Essential hypertension: Code(s): I10 - Essential (primary) hypertension Status: Chronic Assessment and Plan: continue home regimen with metoprolol currently on cardizem gtt as well (6) Hypothyroidism: Code(s): E03.9 - Hypothyroidism, unspecified Status: Acute Assessment and Plan: Continue home regimen (7) Elevated LFTs: Code(s): R79.89 - Other specified abnormal findings of blood chemistry Status: Acute Assessment and Plan: AST/ALT trended down continue to monitor (8) NSTEMI (non-ST elevated myocardial infarction): Code(s): I21.4 - Non-ST elevation (NSTEMI) myocardial infarction Status: Acute Assessment and Plan: known CAD on heparin gtt Cardiology managing (9) Dyslipidemia: Code(s): E78.5 - Hyperlipidemia, unspecified Status: Chronic (10) CAD (coronary artery disease): Qualifiers: Coronary Disease-Associated Artery/Lesion type: [place] artery [place] vs. transplanted heart: [place] heart Associated angina: without angina Qualified Code(s): I25.10 - Atherosclerotic heart disease of [place] coronary artery without angina pectoris Code(s): I25.10 - Atherosclerotic heart disease of [place] coronary artery without angina pectoris Status: Acute (11) Elevated troponin: Code(s): R77.8 - Other specified abnormalities of plasma proteins Status: Acute (12) CHANO (acute kidney injury): Code(s): N17.9 - Acute kidney failure, unspecified Status: Acute Additional Plan 10/08/20 HR still not at goal, titrating BB device implantation and full anticoagulation w increased risk in [place] given her advanced dementia pt w known CAD seen on cath approx 6yrs ago call placed to son, he is aware of his mother's heart history and cognitive decline, agrees to VITAS consult x information regarding services -> goal is for his parents to age in place (20 min spent on phone with him today cont current care dc when HR within acceptable range 10/09/20 unclear what events have occured w family and POA of [place]. It appears no one has been able to speak with them today. Concerned raise about discharging pt to home w her spouse given significant cognitive decline of both of them. CM w work w family to establish safe dc plan. cont current care Cardio management appreciated dc w plan established Subjective Date/time seen: 10/09/20 15:13 is bedside. He is unable to have a meaningful conversation wi
[2020-10-09] MEDS: dilTIAZem HCL 30 MG TABLET PO (17:48)
[2020-10-09] MEDS: SENNOSIDES 8.6 MG TABLET PO (21:02)
[2020-10-09] MEDS: PANTOPRAZOLE 40 MG TABLET PO (21:02)
[2020-10-10] VITALS: BP 154/106; PULSE 120; PULSE 126; RESP 18; TEMP 36.1; O2SAT 97
[2020-10-10] MEDS: ACETAMINOPHEN 500 MG TABLET 1000 MG PO (01:44)
[2020-10-10 04:00] VITALS: BP 141/83; PULSE 124; PULSE 91; RESP 20; TEMP 36.3; O2SAT 95
[2020-10-10 08:00] VITALS: BP 131/98; PULSE 108; PULSE 146; RESP 12; TEMP 36.4; O2SAT 94
[2020-10-10] MEDS: ASPIRIN 325 MG TABLET PO (08:30)
[2020-10-10] MEDS: FOLIC ACID 0.4 MG TABLET 0.8 MG PO (08:30)
[2020-10-10 08:31] VITALS: PULSE 126
[2020-10-10] MEDS: dilTIAZem HCL 30 MG TABLET PO (08:31)
[2020-10-10] MEDS: EZETIMIBE 10 MG TABLET PO (08:31)
[2020-10-10] MEDS: MAGNESIUM OXIDE 400 MG TABLET PO (08:31)
[2020-10-10] MEDS: LEVOTHYROXINE SODIUM 25 MCG TABLET PO (08:31)
[2020-10-10] MEDS: METOPROLOL TARTRATE 50 MG TAB PO (08:31)
--- NOTE | 2020-10-10 11:44 | PM.DS ---
DS: Admitting Diagnosis Admitting Diagnosis (1) Syncope: Code(s): R55 - Syncope and collapse Status: Acute (2) Atrial fibrillation with rapid ventricular response: Code(s): I48.91 - Unspecified atrial fibrillation Status: Acute (3) Chest pain: Code(s): R07.9 - Chest pain, unspecified Status: Acute (4) Dementia: Code(s): F03.90 - Unspecified dementia without behavioral disturbance Status: Acute (5) Essential hypertension: Code(s): I10 - Essential (primary) hypertension Status: Chronic (6) Hypothyroidism: Code(s): E03.9 - Hypothyroidism, unspecified Status: Acute (7) Elevated LFTs: Code(s): R79.89 - Other specified abnormal findings of blood chemistry Status: Acute DS: Discharge Diagnosis Discharge Diagnosis (1) CHANO (acute kidney injury): Code(s): N17.9 - Acute kidney failure, unspecified Status: Acute (2) NSTEMI (non-ST elevated myocardial infarction): Code(s): I21.4 - Non-ST elevation (NSTEMI) myocardial infarction Status: Acute Assessment and Plan: known CAD on heparin gtt Cardiology managing (3) Elevated LFTs: Code(s): R79.89 - Other specified abnormal findings of blood chemistry Status: Acute Assessment and Plan: AST/ALT trended down continue to monitor (4) Chest pain: Code(s): R07.9 - Chest pain, unspecified Status: Acute Assessment and Plan: Cardiology followup Cardiac catheterization discussed w son and declined, Medical management considered to be more appropriate at this time Continue ASA, statin and metoprolol (5) Atrial fibrillation with rapid ventricular response: Code(s): I48.91 - Unspecified atrial fibrillation Status: Acute Assessment and Plan: Cardizem gtt to titrate to control HR Continue metoprolol and titrate to wean off cardizem gtt. Her cardizem was d/michelle 3 weeks ago for junctional rhythm Heparin gtt as per cardiology. Follow APTT and for any bleeding she was not on AC at her baseline because of hx of hemorrhagic stroke defer to cardiology OAC recommendations (6) Syncope: Code(s): R55 - Syncope and collapse Status: Acute Assessment and Plan: vasovagal vs afib with RVR seen by cardiology and offered device implantation. son has declined at this time which seems reasonable given [place]'s advanced dementia and tendency to pick and fidget (unclear if could tolerate device ) continue to monitor on telemetry (7) Dementia: Code(s): F03.90 - Unspecified dementia without behavioral disturbance Status: Acute Assessment and Plan: Haldol prn for agitation also requiring Ativan delirium precautions (8) Chronic atrial fibrillation: Code(s): I48.20 - Chronic atrial fibrillation, unspecified Status: Acute (9) Dyslipidemia: Code(s): E78.5 - Hyperlipidemia, unspecified Status: Chronic (10) Essential hypertension: Code(s): I10 - Essential (primary) hypertension Status: Chronic Assessment and Plan: continue home regimen with metoprolol currently on cardizem gtt as well (11) Hypothyroidism: Code(s): E03.9 - Hypothyroidism, unspecified Status: Acute Assessment and Plan: Continue home regimen (12) CAD (coronary artery disease): Qualifiers: Coronary Disease-Associated Artery/Lesion type: [place] artery [place] vs. transplanted heart: [place] heart Associated angina: without angina Qualified Code(s): I25.10 - Atherosclerotic heart disease of [place] coronary artery without angina pectoris Code(s): I25.10 - Atherosclerotic heart disease of [place] coronary artery without angina pectoris Status: Acute (13) Elevated troponin: Code(s): R77.8 - Other specified abnormalities of plasma proteins Status: Acute DS: Summary Hospital Course Reason for hospitalizati
[2020-10-10 11:47] VITALS: BP 151/92; PULSE 70; RESP 12; TEMP 36.6; O2SAT 96
== END 2020-10-10 12:46 | disposition hospice, home (50) | DRG 281 ==
LOC: ANHED 15:15 → ANHIMU 19:44
PROVIDERS: Internal Medicine; Internal Medicine Cardiovascular Disease; Physician Assistant; Admitting Provider Internal Medicine Critical Care Medicine; Emergency Provider Emergency Medicine; Visit Provider Hospitalist
DX: I21.4 Non-ST elevation (NSTEMI) myocardial infarction (principal); I48.20 Chronic atrial fibrillation, unspecified; N17.9 Acute kidney failure, unspecified; I49.5 Sick sinus syndrome; R55 Syncope and collapse; F03.90 Unspecified dementia, unspecified severity, without behavioral disturbance, psychotic disturbance, mood disturbance, and anxiety; E03.9 Hypothyroidism, unspecified; I25.10 Atherosclerotic heart disease of native coronary artery without angina pectoris; I10 Essential (primary) hypertension; F41.9 Anxiety disorder, unspecified; F32.9 Major depressive disorder, single episode, unspecified; M19.90 Unspecified osteoarthritis, unspecified site; E78.5 Hyperlipidemia, unspecified; K21.9 Gastro-esophageal reflux disease without esophagitis; H35.30 Unspecified macular degeneration; M81.0 Age-related osteoporosis without current pathological fracture; I73.9 Peripheral vascular disease, unspecified; Z86.718 Personal history of other venous thrombosis and embolism; Z86.73 Personal history of transient ischemic attack (TIA), and cerebral infarction without residual deficits; Z95.2 Presence of prosthetic heart valve
CPT/HCPCS: 36415; 71046; 80048; 80053; 80061; 80074; 81003; 82550; 83690; 83735; 84443; 84484; 85025; 85610; 85730; 87086; 87088; 93005; 93306; 96365; 96375; 96376; 97161; 97165; 97530; 99285; A9270; J1630; J1644; J2060; J2270; J2405; J3475; J3480; J7030

== ENCOUNTER 2020-10-20 01:34 | Emergency (ER) | payer OTHER, MEDICARE, SELFPAY ==
--- NOTE | ~2020-10-20 | XR_ITS ---
EXAMINATION: XR abdomen/kub 1V DATE: 10/20/2020 04:21 INDICATION: Constipation. TECHNIQUE: A supine view of the abdomen on 2 radiographs was obtained. COMPARISON: Abdomen radiographs 07/01/2019, CT abdomen and pelvis 08/06/2020 FINDINGS: There are no dilated loops of bowel. There is a large volume of stool in the colon. Cardiom egaly is noted. IMPRESSION: 1. Nonobstructive bowel gas pattern. Reviewed, dictated and finalized at location A.
[2020-10-20 01:38] VITALS: BP 152/107; PULSE 110; RESP 16; TEMP 37.1; O2SAT 97
[2020-10-20 01:48] VITALS: BP 161/95; PULSE 135; RESP 29; O2SAT 97
[2020-10-20 02:07] LABS: Basophils Absolute Auto 0.1 K/mm3 (0.0-0.1); Basophils Percent Auto 0.4 % (0.2-1.2); Eosinophils Absolute Auto 0.2 K/mm3 (0-0.3); Eosinophils Percent Auto 1.3 % (0-4.4); Hemoglobin 12.5 g/dL (12.0-15.0); Immature Granulocyte Absolute 0.04 K/mm3 (0.00-0.031); Immature Granulocyte Percent A 0.4 % (0-0.5); Lymphocytes Percent Auto 21.6 % (18.3-44.2); Mean Corpuscular HGB Conc 32.1 g/dl (32-36); Mean Corpuscular Hemoglobin 28.5 pg (26-34); Mean Platelet Volume 10.2 fl (7.4-10.4); Monocytes Absolute Auto 0.7 K/mm3 (0.1-0.6); Monocytes Percent Auto 6.5 % (2.6-8.5); Neutrophils Absolute Auto 7.8 K/mm3 (1.3-6.7); Neutrophils Percent Auto 69.8 % (45.5-73.1); Platelet Count Result 264 k/mm3 (150-375); Red Blood Count 4.38 M/mm3 (4.2-5.4); Red Cell Distribution Width 17.5 % (11.5-14.5); White Blood Count 11.1 K/mm3 (4.5-10.0)
[2020-10-20 02:31] VITALS: BP 134/103; PULSE 116; RESP 19; O2SAT 93
[2020-10-20 02:36] LABS: Alanine Aminotransferase 18 U/L (4-35); Albumin Level 4.1 g/dL (3.5-5.1); Alkaline Phosphatase 86 U/L (38-126); Anion Gap 11 mmol/L (8-16); Aspartate Amino Transferase 28 U/L (14-36); Bilirubin,Total 0.9 mg/dL (0.2-1.3); Blood Urea Nitrogen 15 mg/dL (7-17); Calcium 9.2 mg/dL (8.4-10.2); Carbon Dioxide 23 mmol/L (22-30); Chloride 104 mmol/L (98-107); Estimated CRCL calculation 39 ml/min; Estimated Glomerular Filt Rate 60; Glucose 128 mg/dL (65-110); Lipase 123 U/L (23-300); Potassium 3.2 mmol/L (3.4-5.0); Sodium 138 mmol/L (137-145)
--- NOTE | 2020-10-20 03:19 | ED.ABDPAIN ---
HPI - Abdominal Pain History of Present Illness HPI narrative: 79 yo female w/ h/o dementia, constipation presents to the ED c/o abdominal pain. She reportedly had severe abdominal pain at home prior to coming to the ED. She initially denies having any pain at this time and does not seem to remember having pain at home. On further questioning she reports that she may have a little pain. Not able to localize. Reporting no bowel movement in a few days, her son agrees with this. History limited by dementia/unreliable historian Related Data Home Medications Medication Instructions Recorded Confirmed aspirin 10/20/20 diazepam 10/20/20 diltiazem HCl 10/20/20 ezetimibe mg 10/20/20 levothyroxine 10/20/20 metoprolol tartrate 10/20/20 morphine concentrate 10/20/20 pantoprazole PO 10/20/20 rosuvastatin mg 10/20/20 sennosides [senna] mg 10/20/20 trazodone 10/20/20 Allergies Allergy/AdvReac Type Severity Reaction Status Date / Time adhesive Allergy Intermediate Rash Verified 10/20/20 02:05 peanut Allergy Unknown Cough Verified 10/20/20 02:05 Review of Systems Review of Systems: ROS unobtainable: Yes unobtainable due to mental status [facility] Past Medical History Medical History Anxiety Aortic valve regurgitation Moderate regurgitation on echocardiogram December 2015. Arthritis Carotid artery stenosis (~01/2014) 50 to 69% left carotid artery stenosis noted on carotid artery ultrasound. Coronary artery disease Cardiac catheterization in July 2015 at [facility] showed 50 to 60% mid LAD stenosis and 40% circumflex stenosis, treated medically. Lexiscan stress in September 2017 showed ejection fraction greater than 70% with small areas of mild infarction involving the apical, septal, and apical lateral bailey of the left ventricle. Depression Diastolic dysfunction Echocardiogram in February 2020 showed normal left systolic ventricular function with an EF of 60 to 65%. Prior echocardiogram showed diastolic dysfunction. 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 Peripheral vascular disease Pulmonary hypertension Moderate pulmonary hypertension on echocardiogram in February 2020 with an estimated pulmonary arterial systolic pressure of 55 mmHg. Right leg DVT (~03/2010) Sigmoid volvulus Several hospitalizations for such with subsequent sigmoidectomy in June [address] Quan. Transient ischemic attack (~2009) Vascular dementia Surgical History Surgical History History of bladder surgery (~1993) Resection of benign bladder tumor. History of breast biopsy She has a scar to her right breast. History of cardiac catheterization July 2015 at [facility] which demonstrated 50-60% mid LAD stenosis and 40% circumflex stenosis with fractional flow reserve not suggestive of significant limitations that would cause chest pain. Treated medically. History of dilation and curettage History of mitral valve replacement with bioprosthetic valve (~02/2010) Placed at [facility] and followed by Dr. Mcbride due to mitral valve prolapse; with mild mitral valve regurgitation noted on echo from December 2015. History of open sigmoidectomy (~06/2019) For recurrent sigmoid volvulus per Dr. Quan. Family History Family History Father Diabetes mellitus Cerebrovascular accident Heart disease He at age 69 of an [place] Mother Esophageal cancer Sibling , Sister at age 67 of an [place] and had dementia. Another sister who had lung cancer and blood clots. Brother who of a brai
[2020-10-20 04:17] LABS: Add Urine Microscopic? YES; Appearance Urine Clear (Clear); Bacteria Urine Trace /hpf; Bilirubin Urine Negative (Negative); Blood Urine Negative (Negative); Color Urine Yellow (Yellow); Glucose Urine UA Negative (Negative); Ketones Urine Negative (Negative); Leukocyte Esterase Ur Negative LEU/UL (Negative); Mucus Urine Rare /lpf; Nitrate Urine Negative (Negative); Protein Urine 1+ mg/dL (Negative); RBC Urine 0-2 /hpf (0-2); Specific Grav Ur 1.015 (1.001-1.035); Squamous Epithelial Cell Urine Rare /hpf (Few); WBC Urine 0-3 /hpf
[2020-10-20 04:30] VITALS: BP 150/98; PULSE 108; RESP 20; O2SAT 96
--- NOTE | 2020-10-20 05:48 | PC.NURSE ---
SPOKE WITH [facility] REGARDING [facility] Dxion. SHE STATES SHE WILL CALL FAMILY LATER THIS MORNING FOR FOLLOW UP.
[2020-10-20 06:30] VITALS: BP 164/97; PULSE 110; RESP 20; O2SAT 96
== END 2020-10-20 06:30 | disposition hospice, home (50) ==
PROVIDERS: Emergency Provider Emergency Medicine
DX: K56.41 Fecal impaction (principal); I35.1 Nonrheumatic aortic (valve) insufficiency; I25.10 Atherosclerotic heart disease of native coronary artery without angina pectoris; E78.5 Hyperlipidemia, unspecified; I10 Essential (primary) hypertension; K21.9 Gastro-esophageal reflux disease without esophagitis; E03.9 Hypothyroidism, unspecified; H35.30 Unspecified macular degeneration; B39.9 Histoplasmosis, unspecified; M81.0 Age-related osteoporosis without current pathological fracture; I48.0 Paroxysmal atrial fibrillation; I73.9 Peripheral vascular disease, unspecified; F01.50 Vascular dementia, unspecified severity, without behavioral disturbance, psychotic disturbance, mood disturbance, and anxiety; F41.9 Anxiety disorder, unspecified; F32.9 Major depressive disorder, single episode, unspecified; Z79.82 Long term (current) use of aspirin; Z86.73 Personal history of transient ischemic attack (TIA), and cerebral infarction without residual deficits; Z95.2 Presence of prosthetic heart valve; Z90.49 Acquired absence of other specified parts of digestive tract
CPT/HCPCS: 36415; 74018; 80053; 81001; 83690; 85025; 99283

== ENCOUNTER 2020-11-08 19:04 | Emergency (ER) | payer OTHER, MEDICARE, SELFPAY ==
--- NOTE | ~2020-11-08 | XR_ITS ---
XR shoulder RT min 2V DATE: 11/08/2020 19:53 INDICATION: Fall. Posterior right shoulder pain radiating to forearm TECHNIQUE: 4 views of right shoulder COMPARISON: None FINDINGS: There is a virtually nondisplaced fracture of the distal lateral shaft of the right clavicl e. Diffuse osteopenia. Normal alignment at the right sternoclavicular, acromioclavicular and glenohumera l joints. Prosthetic cardiac valve is noted. IMPRESSION: Virtually nondisplaced fracture of the very lateral aspect of the right clavicle shaft Reviewed, dictated and finalized at location A. IMPRESSION: Virtually nondisplaced fracture of the very lateral aspect of the r ight clavicle shaft
--- NOTE | 2020-11-08 19:06 | PC.NURSE ---
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 family report that the pt is receiving hospice care at this time.
[2020-11-08 19:09] VITALS: BP 190/96; PULSE 95; RESP 18; TEMP 36.1; O2SAT 98
--- NOTE | 2020-11-08 22:00 | ED.GENADULT ---
HPI - General Adult General Chief complaint: Extremity Injury, Upper Stated complaint: fall, right arm injury Time Seen by Provider: 11/08/20 19:15 Source: patient Mode of arrival: ambulatory Limitations: no limitations History of Present Illness HPI narrative: Patient presents with chief complaint of pain to her right shoulder after falling yesterday. Patient states that she was not watching where she was going so she fell. Patient denies head impact or loss of consciousness. Patient denies any other areas of pain or concern. Related Data Home Medications Medication Instructions Recorded Confirmed aspirin 10/20/20 diazepam 10/20/20 diltiazem HCl 10/20/20 ezetimibe mg 10/20/20 levothyroxine 10/20/20 metoprolol tartrate 10/20/20 morphine concentrate 10/20/20 pantoprazole PO 10/20/20 rosuvastatin mg 10/20/20 sennosides [senna] mg 10/20/20 trazodone 10/20/20 Allergies Allergy/AdvReac Type Severity Reaction Status Date / Time adhesive Allergy Intermediate Rash Verified 11/08/20 19:14 peanut Allergy Unknown Cough Verified 11/08/20 19:14 Review of Systems Review of Systems: CONSTITUTIONAL: Denies fever, chills, or sweats. EYES: Denies visual changes, redness, or discharge. ENT: Denies rhinorrhea, congestion, sore throat, or otalgia. CARDIOVASCULAR: Denies chest pain, palpitations, or edema. RESPIRATORY: Denies cough or dyspnea. GASTROINTESTINAL: Denies abdominal pain, nausea, vomiting, or diarrhea. GENITOURINARY: Denies dysuria or hematuria. SKIN: Denies rash or itching. MUSCULOSKELETAL: Reports right shoulder pain denies back pain, or myalgia. NEUROLOGIC: Denies headache, numbness, dizziness, or weakness. PSYCHIATRIC: Denies anxiety or depression. [facility] Past Medical History Medical History Anxiety Aortic valve regurgitation Moderate regurgitation on echocardiogram December 2015. Arthritis Carotid artery stenosis (~01/2014) 50 to 69% left carotid artery stenosis noted on carotid artery ultrasound. Coronary artery disease Cardiac catheterization in July 2015 at [place] showed 50 to 60% mid LAD stenosis and 40% circumflex stenosis, treated medically. Lexiscan stress in September 2017 showed ejection fraction greater than 70% with small areas of mild infarction involving the apical, septal, and apical lateral bailey of the left ventricle. Depression Diastolic dysfunction Echocardiogram in February 2020 showed normal left systolic ventricular function with an EF of 60 to 65%. Prior echocardiogram showed diastolic dysfunction. 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 Peripheral vascular disease Pulmonary hypertension Moderate pulmonary hypertension on echocardiogram in February 2020 with an estimated pulmonary arterial systolic pressure of 55 mmHg. Right leg DVT (~03/2010) Sigmoid volvulus Several hospitalizations for such with subsequent sigmoidectomy in June [address] Quan. Transient ischemic attack (~2009) Vascular dementia Surgical History Surgical History History of bladder surgery (~1993) Resection of benign bladder tumor. History of breast biopsy She has a scar to her right breast. History of cardiac catheterization July 2015 at [place] which demonstrated 50-60% mid LAD stenosis and 40% circumflex stenosis with fractional flow reserve not suggestive of significant limitations that would cause chest pain. Treated medically. History of dilation and curettage History of mitral valve replacement with bioprosthetic valve (~02/2010) Placed at [facility] and followed by Dr. Mcbride due to mitral valve prolapse; with
== END 2020-11-08 21:30 | disposition home or self-care (01) ==
PROVIDERS: Emergency Provider Emergency Medicine
DX: S42.034A Nondisplaced fracture of lateral end of right clavicle, initial encounter for closed fracture (principal); F01.50 Vascular dementia, unspecified severity, without behavioral disturbance, psychotic disturbance, mood disturbance, and anxiety; I35.1 Nonrheumatic aortic (valve) insufficiency; I25.10 Atherosclerotic heart disease of native coronary artery without angina pectoris; E78.5 Hyperlipidemia, unspecified; I10 Essential (primary) hypertension; B39.9 Histoplasmosis, unspecified; I48.0 Paroxysmal atrial fibrillation; I73.9 Peripheral vascular disease, unspecified; F41.9 Anxiety disorder, unspecified; E03.9 Hypothyroidism, unspecified; F32.9 Major depressive disorder, single episode, unspecified; K21.9 Gastro-esophageal reflux disease without esophagitis; M81.0 Age-related osteoporosis without current pathological fracture; H35.30 Unspecified macular degeneration; Z86.73 Personal history of transient ischemic attack (TIA), and cerebral infarction without residual deficits; Z95.2 Presence of prosthetic heart valve; Z90.49 Acquired absence of other specified parts of digestive tract; Z86.718 Personal history of other venous thrombosis and embolism; Z79.82 Long term (current) use of aspirin; W18.30XA Fall on same level, unspecified, initial encounter
CPT/HCPCS: 73030; 99284; A4565

== ENCOUNTER 2020-12-01 07:40 | Emergency (ER) | payer OTHER, MEDICARE, SELFPAY ==
--- NOTE | ~2020-12-01 | XR_ITS ---
EXAMINATION: XR abdomen/kub 1V EXAM DATE: 12/01/2020 08:21 INDICATION: Constipation. TECHNIQUE: Frontal projection(s) of the abdomen for interpretation. Comparison is made to prior exami nation from 10/21/2019. FINDINGS: There is moderate to large amount of colonic stool and gas. No small bowel dilation, nono bstructive bowel gas pattern. There are no suspicious calcifications identified. There is no orga nomegaly suspected. The bones are unremarkable. There is no free intraperitoneal air. The lung b ases are clear. IMPRESSION: Moderate to large amount of colonic stool. Reviewed, dictated and finalized at location B.
[2020-12-01 07:55] VITALS: BP 144/76; PULSE 110; RESP 18; TEMP 36.2; O2SAT 96
[2020-12-01 08:23] LABS: Basophils Percent Auto 0.5 % (0.2-1.2); Eosinophils Absolute Auto 0.2 K/mm3 (0-0.3); Eosinophils Percent Auto 2.4 % (0-4.4); Hematocrit 37.8 % (37.0-47.0); Hemoglobin 12.1 g/dL (12.0-15.0); Immature Granulocyte Absolute 0.02 K/mm3 (0.00-0.031); Immature Granulocyte Percent A 0.3 % (0-0.5); Lymphocytes Absolute Auto 1.57 K/mm3 (0.9-3.2); Lymphocytes Percent Auto 19.9 % (18.3-44.2); Mean Corpuscular Volume 90.6 fl (80-100); Mean Platelet Volume 11.1 fl (7.4-10.4); Monocytes Absolute Auto 0.3 K/mm3 (0.1-0.6); Monocytes Percent Auto 4.1 % (2.6-8.5); Neutrophils Absolute Auto 5.7 K/mm3 (1.3-6.7); Neutrophils Percent Auto 72.8 % (45.5-73.1); Platelet Count Result 254 k/mm3 (150-375); Red Blood Count 4.17 M/mm3 (4.2-5.4); Red Cell Distribution Width 16.4 % (11.5-14.5); White Blood Count 7.9 K/mm3 (4.5-10.0)
[2020-12-01 08:36] LABS: Alanine Aminotransferase 16 U/L (4-35); Albumin Level 4.1 g/dL (3.5-5.1); Alkaline Phosphatase 86 U/L (38-126); Anion Gap 15 mmol/L (8-16); Aspartate Amino Transferase 29 U/L (14-36); Bilirubin,Total 0.5 mg/dL (0.2-1.3); Blood Urea Nitrogen 20 mg/dL (7-17); Calcium 9.1 mg/dL (8.4-10.2); Carbon Dioxide 24 mmol/L (22-30); Chloride 106 mmol/L (98-107); Estimated CRCL calculation 43 ml/min; Estimated Glomerular Filt Rate 60; Glucose 153 mg/dL (65-110); Lipase 103 U/L (23-300); Sodium 145 mmol/L (137-145)
[2020-12-01 09:42] LABS: Add Urine Microscopic? YES; Appearance Urine Clear (Clear); Bacteria Urine Trace /hpf; Bilirubin Urine 1+ (Negative); Blood Urine Negative (Negative); Calcium Oxalate Crystals Urine Present /hpf; Color Urine Amber (Yellow); Glucose Urine UA Negative (Negative); Hyaline Casts Urine 15-19 /lpf; Ketones Urine Trace mg/dL (Negative); Leukocyte Esterase Ur 3+ LEU/UL (Negative); Mucus Urine Heavy /lpf; Nitrate Urine Negative (Negative); Protein Urine 2+ mg/dL (Negative); RBC Urine 21-50 /hpf (0-2); Squamous Epithelial Cell Urine Few /hpf (Few); WBC Urine 31-50 /hpf
[2020-12-01 09:44] LABS: Specific Grav Ur 1.031 (1.001-1.035)
[2020-12-01 10:06] VITALS: BP 154/101; PULSE 61; RESP 18; O2SAT 96
--- NOTE | 2020-12-01 11:18 | ED.ABDPAIN ---
HPI - Abdominal Pain General Chief Complaint: Abdominal Pain Stated Complaint: Abd Pain/ROBLES Time Seen by Provider: 12/01/20 07:48 History of Present Illness HPI narrative: Patient is an 80-year-old female with history of dementia presents ER with lower abdominal discomfort. Family is concerned that she may be constipated because the different brother was in charge of giving patient medications over the weekend. Patient cannot describe what causes her abdomen to have discomfort but reports its in the left lower quadrant. No nausea or vomiting. She lives with her demented who can also not give any history. Related Data Home Medications Medication Instructions Recorded Confirmed aspirin 10/20/20 diazepam 10/20/20 diltiazem HCl 10/20/20 ezetimibe mg 10/20/20 levothyroxine 10/20/20 metoprolol tartrate 10/20/20 morphine concentrate 10/20/20 pantoprazole PO 10/20/20 rosuvastatin mg 10/20/20 sennosides [senna] mg 10/20/20 trazodone 10/20/20 Allergies Allergy/AdvReac Type Severity Reaction Status Date / Time adhesive Allergy Intermediate Rash Verified 11/08/20 19:14 peanut Allergy Unknown Cough Verified 11/08/20 19:14 Review of Systems Review of Systems: ROS unobtainable: Yes unobtainable due to mental status Cardiovascular: Cardiovascular: Denies chest pain Respiratory: Respiratory: Denies cough and Denies dyspnea Gastrointestinal: Gastrointestinal: Reports abdominal pain, Reports constipation, Denies nausea and Denies vomiting PMFSH Past Medical History Medical History Anxiety Aortic valve regurgitation Moderate regurgitation on echocardiogram December 2015. Arthritis Carotid artery stenosis (~01/2014) 50 to 69% left carotid artery stenosis noted on carotid artery ultrasound. Coronary artery disease Cardiac catheterization in July 2015 at [facility] showed 50 to 60% mid LAD stenosis and 40% circumflex stenosis, treated medically. Lexiscan stress in September 2017 showed ejection fraction greater than 70% with small areas of mild infarction involving the apical, septal, and apical lateral bailey of the left ventricle. Depression Diastolic dysfunction Echocardiogram in February 2020 showed normal left systolic ventricular function with an EF of 60 to 65%. Prior echocardiogram showed diastolic dysfunction. 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 Peripheral vascular disease Pulmonary hypertension Moderate pulmonary hypertension on echocardiogram in February 2020 with an estimated pulmonary arterial systolic pressure of 55 mmHg. Right leg DVT (~03/2010) Sigmoid volvulus Several hospitalizations for such with subsequent sigmoidectomy in June [address] Quan. Transient ischemic attack (~2009) Vascular dementia Surgical History Surgical History History of bladder surgery (~1993) Resection of benign bladder tumor. History of breast biopsy She has a scar to her right breast. History of cardiac catheterization July 2015 at [facility] which demonstrated 50-60% mid LAD stenosis and 40% circumflex stenosis with fractional flow reserve not suggestive of significant limitations that would cause chest pain. Treated medically. History of dilation and curettage History of mitral valve replacement with bioprosthetic valve (~02/2010) Placed at [facility] and followed by Dr. Mcbride due to mitral valve prolapse; with mild mitral valve regurgitation noted on echo from December 2015. History of open sigmoidectomy (~06/2019) For recurrent sigmoid volvulus per Dr. Quan. Family History Family History (Reviewed 10/29/20 @ 14:47 by Gr
[2020-12-01 12:01] VITALS: BP 151/90; PULSE 65; RESP 18; O2SAT 96
== END 2020-12-01 12:00 | disposition home or self-care (01) ==
PROVIDERS: Emergency Provider Emergency Medicine
DX: K59.00 Constipation, unspecified (principal); F01.50 Vascular dementia, unspecified severity, without behavioral disturbance, psychotic disturbance, mood disturbance, and anxiety; I35.1 Nonrheumatic aortic (valve) insufficiency; I65.22 Occlusion and stenosis of left carotid artery; I25.10 Atherosclerotic heart disease of native coronary artery without angina pectoris; E78.5 Hyperlipidemia, unspecified; I10 Essential (primary) hypertension; K21.9 Gastro-esophageal reflux disease without esophagitis; E03.9 Hypothyroidism, unspecified; I48.0 Paroxysmal atrial fibrillation; I73.9 Peripheral vascular disease, unspecified; I27.20 Pulmonary hypertension, unspecified; F41.9 Anxiety disorder, unspecified; Z86.73 Personal history of transient ischemic attack (TIA), and cerebral infarction without residual deficits; Z79.82 Long term (current) use of aspirin; Z95.2 Presence of prosthetic heart valve
CPT/HCPCS: 36415; 74018; 80053; 81001; 83690; 85025; 87077; 87086; 87186; 99283